=== PATIENT | male | born 1955 | race Caucasian/White ===

== ENCOUNTER → 2017-11-02 | Outpatient (CLI) | payer OTHER ==
[~2017-11-02] MED LIST: ALBINS/ INH; ALBU18002 INH; ASPI81TA28 PO; BUPR-269 PO; CLC6 PO; CRG25 PO; EPP3/2 IM; FLUT1INH INH; FRRS300 PO; GABA-1220 PO; HYDR-3124 PO; INSDGIPEN SC; LSX40 PO; METO2.5T PO; NITR0.4S UT; NUTRMIS PO; OXGN; OXYC-90 PO; PANC1CAP PO; POLY335019 PO; PRLSR20 PO; SENN8.6T7 PO; SUCR1TAB29 PO
--- NOTE | 2017-11-02 09:27 | DIAGNOSTIC IMAGING REPORT ---
CHEST 2 VIEWS ROUTINE HISTORY: 62 years-old Male I10 Hypertension acutely elevated blood pressure COMPARISON: Chest radiograph 10/21/2017 TECHNIQUE: PA and lateral views of the chest FINDINGS: Cardiac silhouette is mildly enlarged. Left internal jugular Kyduzm-h-Moir catheter appears unchanged. Small loculated left pleural effusion with stable left basilar opacities. No pneumothorax or overt pulmonary edema. Mild pulmonary vascular congestion. Degenerative changes of the shoulders and spine. IMPRESSION: 1. Persistent small loculated left pleural effusion with left basilar opacities. 2. Cardiomegaly with pulmonary vascular congestion. The above report was generated using voice recognition software. It may contain grammatical, syntax or spelling errors. Electronically signed by: Cosme Meza M.D. 11/02/2017 9:25 AM Dictated Date/Time: 11/02/2017 9:24 AM
== END | disposition home or self-care (01) ==
LOC: C.RAD1850 09:06
PROVIDERS: ATTEND Surgery
DX: I10 Essential (primary) hypertension (principal); I51.7 Cardiomegaly; R09.89 Other specified symptoms and signs involving the circulatory and respiratory systems; J90 Pleural effusion, not elsewhere classified; R91.8 Other nonspecific abnormal finding of lung field

== ENCOUNTER → 2017-11-20 | Outpatient (CLI) | payer OTHER ==
--- NOTE | 2017-11-20 13:35 | DIAGNOSTIC IMAGING REPORT ---
PET/CT SKULL-THIGH CLINICAL HISTORY: 62 years-old Male presenting with PANCREATIC CANCER diagnosed October 2016 [id number], partial pancreatectomy and splenectomy 11/22/2016, last chemotherapy in May of this year, prior PET/CT from 11/16/2016 negative for distant metastatic disease. TECHNIQUE: PET/CT was performed from the skull base through the proximal thighs following the intravenous administration of 10.326 mCi of F18-FDG. Blood glucose level 102 mg/dL. The injection was performed at 11:09 AM and imaging began at 12:[address] was performed for attenuation correction purposes and anatomic localization. COMPARISON: No priors available for comparison. CT DOSE (mGy.cm): The estimated cumulative dose is 930.40. FINDINGS: Head and neck: No FDG-avid mass in the visualized portion of the head or neck. No FDG avid or enlarged lymph nodes in the neck. Chest: Normal thyroid and thoracic inlet. Bilateral gynecomastia with minimal associated FDG avidity. FDG avidity along a tract in the lower left chest wall, the site of prior left pleural drain. A second site of similar tracking FDG avidity slightly more superiorly and posteriorly may also represent a site of postprocedural change. Enlarged though minimally FDG avid mediastinal lymphadenopathy most prominently in the right paratracheal region. These lymph nodes have not significant changed from prior. An index node measures 13 mm in the short axis, previously 16 mm (max SUV 2.58). Atherosclerosis of the aorta. Left subclavian Mediport terminates in the SVC. Multichamber enlargement of the heart. Coronary artery calcification. Small pericardial effusion decreased from prior. Small loculated left pleural effusion decreased from prior. Resolution of right pleural effusion. Bandlike consolidation and volume loss in the left lung, which represents significant improved aeration of the left lung since the prior exam. Minimal hazy groundglass opacity at the apices. No focal FDG avid infiltrate. Respiratory motion artifact degrades evaluation of lung parenchyma. Abdomen and pelvis: Normal physiologic distribution of radiotracer in the gastrointestinal and genitourinary tracts. No FDG avid lymphadenopathy or mass lesion. Postsurgical changes of distal pancreatectomy and splenectomy. No FDG avidity in the operative bed. Nonobstructing calculus noted at the lower pole the left kidney. Vague infiltration of the small bowel mesentery may indicate mesenteric panniculitis. Postsurgical changes of the left lower quadrant abdominal wall may indicate postsurgical change. Musculoskeletal: Degenerative changes of the spine. Mild FDG avidity in the T10 vertebral body likely degenerative in etiology. Similarly, degenerative related FDG avidity at the left glenohumeral joint, at the greater trochanters of the femurs, and right superior acetabulum. No FDG avid or destructive osseous lesion. IMPRESSION: 1. PET/CT demonstrates no evidence of residual or recurrent FDG avid disease in the distal pancreatectomy bed or evidence of metastatic disease in the visualized body. 2. Mediastinal lymphadenopathy with FDG avidity equivalent to background. These are not overwhelmingly convincing for metastatic disease and are not significantly changed from prior. 3. Post surgical changes of distal pancreatectomy and splenectomy. 4. Tracts of FDG avidity along the inferior left chest wall likely relate to prior interventions and/or pleural drains. Attention on follow-up. 5. Significant decrease in loculated left pleural effusion as well as decreased pericardial and right pleural effusions. 6. Significantly improved aeration of the left lung. Respiratory motion artifact degrades evaluation of lung parenchyma. Electronically signed by: Ralph Croft M.D. 11/20/2017 1:34 PM Dictated Date/Time: 11/20/2017 12:58 PM
== END | disposition home or self-care (01) ==
LOC: C.PET 10:50
PROVIDERS: ATTEND Family Medicine
DX: C25.9 Malignant neoplasm of pancreas, unspecified (principal)

== ENCOUNTER 2018-11-18 17:42 | Inpatient (IN) ==
[2018-11-18] MEDS ORDERED: ALBUT/IPRATROP 3MG/0.5MG NEB 3 ML VIAL INH STA (17:57)
--- NOTE | 2018-11-18 18:22 | XRay Report ---
XR chest 1V portable CLINICAL HISTORY: 63 years-old Male presenting with Dyspnea. TECHNIQUE: Portable upright AP view of the chest was obtained. COMPARISON: 09/01/2018. FINDINGS: Left subclavian Mediport, which terminates in the upper SVC. Atherosclerosis of the aortic arch. Card iac silhouette moderately enlarged. Mild pulmonary vascular prominence. Slight interval increase in b ibasilar opacities with greater obscuration of the left hemidiaphragm. Underlying small left pleural effusion may be present. No pneumothorax. Degenerative changes of the left shoulder. IMPRESSION: 1. Bibasilar opacities, likely passive atelectasis in the setting of effusions, or less likely, aspi ration. 2. Left pleural effusion. Layering right pleural effusion not excluded. 3. Cardiomegaly. Electronically signed by: Ralph Croft M.D. 11/18/2018 6:21 PM
[2018-11-18 18:50] LABS: Base Excess VBG 0.5 mEq/L; Oxygen Saturation VBG 85.2 %; pH VBG 7.38 (7.36-7.41)
[2018-11-18 19:24] LABS: Partial Thromboplastin Ratio 1.1; Partial Thromboplastin Time 29.5 Seconds (21.0-31.0); Prothrombin Time 10.7 Seconds (9.0-12.0)
[2018-11-18 19:28] LABS: D Dimer 630 ug/L FEU (0-500)
[2018-11-18 19:31] LABS: Albumin Level 2.9 gm/dl (3.4-5.0); BUN Creatinine Ratio 16.7 (10-20); Calcium 8.4 mg/dl (8.5-10.1); Creatinine Clr Calc Pharmacy 63.3 ml/min; Est GFR (African American) 67.5; Est GFR (Non-African American) 58.2; Magnesium 2.3 mg/dl (1.8-2.4); Potassium 3.9 mmol/L (3.5-5.1)
[2018-11-18 19:36] LABS: Albumin Globulin Ratio 0.7 (0.9-2); Bilirubin,Total 0.5 mg/dl (0.2-1); Globulin 4.3 gm/dl (2.5-4.0); Total Protein 7.2 gm/dl (6.4-8.2)
[2018-11-18] MEDS ORDERED: ALBUT/IPRATROP 3MG/0.5MG NEB 3 ML VIAL NEB STA (19:39)
[2018-11-18 19:41] LABS: Basophils # (auto) 0.04 K/uL (0-0.2); Basophils % (auto) 0.3 %; Eosinophils # (auto) 0.19 K/uL (0-0.5); Eosinophils % (auto) 1.2 %; Hemoglobin 13.4 g/dL (14.0-18.0); Immature Granulocytes # (auto) 0.03 K/uL (0.00-0.02); Immature Granulocytes % (auto) 0.2 %; Lymphocytes # (auto) 1.41 K/uL (1.2-3.4); Mean Corpuscular Hgb Conc 34.4 g/dL (32-36); Mean Corpuscular Volume 88.6 fL (80-100); Mean Platelet Volume 10.5 fL (7.4-10.4); Monocytes # (auto) 1.32 K/uL (0.11-0.59); Monocytes % (auto) 8.4 %; Neutrophils # (auto) 12.64 K/uL (1.4-6.5); Neutrophils % (auto) 80.9 %; Platelet Count 418 K/uL (130-400); RDW Coefficient of Variation 15.4 % (11.5-14.5); White Blood Count 15.63 K/uL (4.8-10.8)
[2018-11-18] MEDS ORDERED: IOVERSOL 100ml IV PRN (19:55)
--- NOTE | 2018-11-18 20:08 | CT Scan Report ---
CT head/brain wo con CLINICAL HISTORY: 63 years-old Male presenting with OLEARY, hit head. TECHNIQUE: Multidetector CT imaging of the head was performed without the use of intravenous contrast . IV contrast: None. One or more dose lowering techniques were used consistent with the principles of ALARA (as low as reasonably achievable), including automatic exposure control, mA or kV adjustment t o individual patient size, and/or use of iterative reconstruction. COMPARISON: 09/23/2017. CT DOSE (mGy.cm): The estimated cumulative dose is 3213.16. FINDINGS: Division Service Manager topogram: The patient is edentulous. Ventricles and sulci normal in size. No hemorrhage. Brain parenchyma normal in appearance with preser marguerite perez-white differentiation. No acute territorial infarct. No mass effect or midline shift. No ext ra-axial fluid collection. Paranasal sinuses and mastoid air cells clear. Calvarium intact. IMPRESSION: 1. No acute intracranial abnormality. Electronically signed by: Ralph Croft M.D. 11/18/2018 8:06 PM
--- NOTE | 2018-11-18 20:12 | CT Scan Report ---
CT cervical spine wo con CLINICAL HISTORY: 63 years-old Male presenting with neck pain, hit head, left-sided head and neck fransisco n. TECHNIQUE: Multidetector CT of the cervical spine was performed without the use of intravenous contra st. IV contrast: None. One or more dose lowering techniques were used consistent with the principles of ALARA (as low as reasonably achievable), including automatic exposure control, mA or kV adjustment to individual patient size, and/or use of iterative reconstruction. COMPARISON: 02/01/2013. CT DOSE (mGy.cm): The estimated cumulative dose is 3213.16. FINDINGS: Soup Mixer topogram: The patient is edentulous. A left subclavian Mediport. Straightening of normal cervical lordosis likely due to multilevel degenerative changes. Vertebral henry dies maintain normal height and alignment. Mild intervertebral disc height loss noted at nearly every level. Disc osteophyte complexes noted to varying degrees at nearly every level most severe at C4-5 through C6-7. Erosive endplate changes are evident eccentrically on the right at the superior C7 endp late, most likely degenerative in etiology. No acute fracture or subluxation. Visualized portion of t he skull base intact. Right pleural effusion. Paraspinal soft tissues normal. IMPRESSION: 1. No acute osseous injury of the cervical spine. 2. Multilevel degenerative changes. 3. Right pleural effusion. Electronically signed by: Ralph Croft M.D. 11/18/2018 8:10 PM
[2018-11-18] MEDS ORDERED: ASPIRIN CHEW 324 MG PO STA (20:16)
--- NOTE | 2018-11-18 20:23 | CT Scan Report ---
CT angio chest PE protocol CLINICAL HISTORY: 63 years-old Male presenting with shortness of breath and positive d-dimer, left-si ded pain, clinical concern for pulmonary embolus. TECHNIQUE: Multidetector CT angiography of the chest was performed after administration of intravenou s contrast. 3-D volumetric and/or maximum intensity projection (MIP) images were subsequently reconst ructed for review. IV contrast: 94 mL of Optiray 320. One or more dose lowering techniques were used consistent with the principles of ALARA (as low as reasonably achievable), including automatic exposu re control, mA or kV adjustment to individual patient size, and/or use of iterative reconstruction. COMPARISON: 09/01/2018. CT DOSE (mGy.cm): The estimated cumulative dose is 3213.16 mGy.cm. FINDINGS: Global Program Director topogram: The patient is edentulous. Left subclavian Mediport. Pulmonary vasculature: The study is adequate for assessment of the pulmonary vascular tree. No filling defect within the pul monary arteries to suggest embolus. Main pulmonary artery is not enlarged. No flattening of the inter ventricular septum. No intracardiac filling defect. Reflux of contrast into the IVC and hepatic veins . This likely indicates elevated right heart pressure. Remaining chest: Soft tissues: Normal thyroid and thoracic inlet. Gynecomastia. Mediastinal and bilateral hilar lympha denopathy. An index node in the precarinal region measures 16 mm in short axis (series 8 image 178). Atherosclerosis of the aorta. Multichamber enlargement of the heart. Coronary artery calcification. M oderate right and small left pleural effusions. Well-defined hypodense lesion in the liver possibly h epatic cyst. Lungs and airways: Extensive dependent consolidation likely passive atelectasis in the setting of eff usions. Upper lobe predominant cystic change, which may represent emphysema. This has a peripheral pr edilection. Added density of the lungs with groundglass opacity. Patchy infiltrates are mild and diff use and increased from prior. Mild bronchial wall thickening. Central airways patent. Pulmonary arter ies on the mildly enlarged relative to adjacent bronchi. No interlobular septal thickening. No focal infiltrate or nodule. Musculoskeletal: Degenerative changes of the spine. Deformities of left ribs unchanged. IMPRESSION: 1. No evidence of pulmonary embolus. 2. Mild diffuse added density of the lungs with trace patchy groundglass opacity, which is increased from prior. This may represent a low level inflammatory pneumonitis, which can have numerous etiolog ies including drug reaction. Infection is considered less likely though possibilities include atypica l infection such as pneumocystis jirovecii. 3. Possible underlying emphysema or cystic change at the apices similar to prior. 4. Moderate right and small left pleural effusions are new from prior. 5. Mediastinal and hilar lymphadenopathy. This may be reactive in the setting of infection or inflam mation, however, this should be followed to resolution as an underlying lymphoproliferative disease o r metastases are not excluded. 6. Elevated right heart pressure. Electronically signed by: Ralph Croft M.D. 11/18/2018 8:22 PM
[2018-11-18] MEDS ORDERED: LEVOFLOXACIN/D5W 750 MG/150 ML BAG IV STA (20:24)
[2018-11-18] MEDS ORDERED: VANCOMYCIN CONSULT ACTIVE PRN (20:24)
[2018-11-18] MEDS ORDERED: VANCOMYCIN HCL 2,000 MG in SODIUM CHLORIDE 0.9% 500 ML IV ONE (20:24)
[2018-11-18] MEDS ORDERED: FUROSEMIDE 40 MG/4 ML VIAL IV STA (20:24)
--- NOTE | 2018-11-18 20:30 | CT Scan Report ---
CT abd pelvis IV con only CLINICAL HISTORY: 63 years-old Male presenting with left-sided pain, shortness of breath and elevated d-dimer. TECHNIQUE: Multidetector CT of the abdomen and pelvis was performed after the administration of intra venous contrast. IV contrast: 94 mL of Optiray 320. One or more dose lowering techniques were used co nsistent with the principles of ALARA (as low as reasonably achievable), including automatic exposure control, mA or kV adjustment to individual patient size, and/or use of iterative reconstruction. COMPARISON: 09/23/2017 and PET/CT from 11/20/2017. CT DOSE (mGy.cm): The estimated cumulative dose is 3213.16. FINDINGS: Switchman topogram: Left subclavian Mediport. Lung bases: Mild multichamber enlargement of the heart. Bilateral pleural effusions. Extensive depend ent consolidation volume loss likely passive atelectasis. Liver: Normal morphology. Hypoattenuation along the fissure for the ligamentum teres possibly perfusi onal variation or focal fat. Patent hepatic vasculature. Biliary: No intrahepatic or extrahepatic biliary ductal dilatation. Normal gallbladder. Pancreas: Postsurgical changes of distal pancreatectomy. Atrophy of the pancreatic head. Spleen: Surgically absent. Adrenal glands: Normal. Kidneys and ureters: Exophytic cyst in the left kidney. Nonobstructing calculi at the lower pole the right kidney. Nonspecific moderate perinephric fat stranding bilaterally. No hydronephrosis. Ureters nondistended. Bladder: Circumferential bladder wall thickening. Pelvic organs: Prostate and seminal vesicles normal. Bowel: Normal appendix. No bowel obstruction. Antimesenteric wall of nonobstructed small bowel within a defect in the left mid abdomen likely a Frey-type hernia. Peritoneal cavity: Trace fluid in the abdomen. Nonspecific mesenteric fat infiltration, possibly mese nteric panniculitis. No free intraperitoneal gas. Retroperitoneal fluid also evident. This is increas ed from prior. Lymph nodes: Scattered small retroperitoneal lymph nodes in the upper abdomen. Vasculature: Atherosclerosis of the normal caliber abdominal aorta. IVC patent. Abdominal wall: Postsurgical changes of the abdominal wall. A small hernia is noted in the left midab domen possibly a prior trocar site or ostomy site. The antimesenteric wall of an unobstructed loop of small bowel is contained within the hernia (series 10 image 254). Mild body wall edema. Musculoskeletal: Degenerative changes of the spine. IMPRESSION: 1. Trace ascites, retroperitoneal fluid, body wall edema, and new bilateral pleural effusions concer josue for volume overload. 2. Postsurgical changes of distal pancreatectomy and splenectomy. No convincing evidence of metastat ic disease in abdomen or pelvis. 3. Small Frey-type hernia in the left mid abdomen containing an unobstructed loop of small bowel. 4. Nonobstructing right nephrolithiasis. 5. Findings suggest chronic bladder outlet obstruction possibly due to underlying benign prostatic h yperplasia though no gross sternal megaly is evident. Electronically signed by: Ralph Croft M.D. 11/18/2018 8:29 PM
--- NOTE | 2018-11-18 20:48 | Emergency Department Note ---
Entered by Fanny Blue acting as a scribe for Oscar Fraire M.D. History of Present Illness General Chief complaint: Shortness of Breath/Dyspnea Stated complaint: SOB Source: patient History of Present Illness Onset (ago): day(s) 1 Pain Consistency: + constant Maximum Pain Intensity: 10 Current Pain Intensity: 10 Quality: + other (Shortness of breath) Associated symptoms: + cough, + headaches, + nausea/vomiting and + other (abdominal pain) The patient is a 63 year old male with a history of COPD who presents to the Emergency Room with complaints of shortness of breath that began last night. He states that he has a cough, and vomited yesterday after a coughing episode. In addition to this, he complains of intermittent abdominal pain , around the left flank area. The patient denies any diarrhea. He also reports hitting his head on a shelf yesterday, and states that he still has a painful headache from it. The patient has a history of smoking and is still a current smoker, although he has cut back on the amount of cigarettes smoked per day. His states that he is not on any blood thinners, and that he has a nebulizer and inhalers at home to help with his breathing. Home Medications Home Medications Medication Instructions Recorded Confirmed Type albuterol sulfate 2.5 mg INHALATION Q4 PRN 09/01/18 11/18/18 History aspirin [Aspir-81] 81 mg PO DAILY 09/01/18 11/18/18 History atorvastatin 40 mg PO DAILY 09/01/18 11/18/18 History budesonide-formoterol [Symbicort] 2 puff INHALATION BID 09/01/18 11/18/18 History carvedilol 37.5 mg PO BID 09/01/18 11/18/18 History duloxetine [Cymbalta] 60 mg PO DAILY 09/01/18 11/18/18 History fluticasone propionate [Flonase 2 spray INTRANASAL DAILY PRN 09/01/18 11/18/18 History Allergy Relief] insulin glargine [Lantus Solostar 40 unit SUBCUT BID 09/01/18 11/18/18 History U-100 Insulin] insulin lispro [Humalog KwikPen 0 unit SUBCUT TIDM 09/01/18 11/18/18 History Insulin] [id number] [Creon] 1 cap PO WM PRN 09/01/18 11/18/18 History lisinopril [Zestril] 10 mg PO DAILY 09/01/18 11/18/18 History metoclopramide HCl [Reglan] 5 mg PO AC 09/01/18 11/18/18 History metolazone 2.5 mg PO .BID UD 09/01/18 11/18/18 History polyethylene glycol 3350 [Miralax] 17 g PO DAILY PRN 09/01/18 11/18/18 History sennosides-docusate sodium [Senna 1 tab PO BID 09/01/18 11/18/18 History with Docusate Sodium] sucralfate [Carafate] 1 g PO UD 09/01/18 11/18/18 History tiotropium bromide [Spiriva 2 puff INHALATION DAILY 09/01/18 11/18/18 History Respimat] torsemide [Demadex] 40 mg PO AMPM 09/01/18 11/18/18 History Allergies Allergy/AdvReac Type Severity Reaction Status Date / Time bee venom protein (honey bee) Allergy Severe anaphylaxis Verified 11/18/18 19:59 cephalexin Allergy Severe Hives Verified 11/18/18 19:59 lisinopril Allergy Severe Elevated Verified 11/18/18 19:59 Potassium piperacillin Allergy Severe Hives Verified 11/18/18 19:59 amlodipine AdvReac Unknown Headache Verified 11/18/18 19:59 Past Med/Surg History Medical History COPD (chronic obstructive pulmonary disease) (Chronic) GERD (gastroesophageal reflux disease) (Chronic) Glaucoma (Chronic) Osteoarthritis (Chronic) Diabetic polyneuropathy (Chronic) CVA (cerebral vascular accident) (Chronic) Asthma, mild persistent (Chronic) DM type 2 (diabetes mellitus, type 2) (Chronic) Dyslipidemia (Chronic) Depression (Chronic) PTSD (post-traumatic stress disorder) (Chronic) Paroxysmal atrial fibrillation (Chronic) Recurrent left pleural effusion (Chronic) Pancreatic cancer (Chronic) Diastolic CHF (Chronic) CKD (chronic kidney disease), stage III (Chronic) Pericardial effusion (Chronic) Surgical History Hx of cataract surgery (Chronic) S/P tonsillectomy and adenoidectomy (Chronic) Social History Preferred Language: Indonesian marital status: current occupational status: unemployed and disabled Feels Safe at Home: Yes Smoking Status: Former smoker Review of Systems See HPI for pertinent positives & negatives. and A total of 10 systems reviewed and were otherwise negative Physical Exam Vital Signs Vital Signs - 24 hr 11/18/18 17:44 11/18/18 18:00 11/18/18 18:07 Temperature 36.4 C L Temperature Source Oral Sepsis Recent Fever Within 48 Hours No Sepsis Action Taken by Nursing No Action Required Pulse Rate 64 60 Pulse Rate [Apical] Pulse Rate from SpO2 Sensor 60 Pulse Rhythm Regular Pulse Strength Normal Respiratory Rate 20 20 Respiratory Effort / Characteristics Non-Labored Spontaneous Respiratory Depth Normal Respiratory Pattern Regular Blood Pressure 171/78 H 148/89 H Blood Pressure Mean 109 108 Blood Pressure Position Sitting Pulse Oximetry 93 98 98 Oxygen Delivery Method Nasal Cannula Room Air Nasal Cannula Oxygen Flow Rate 5 5 5 11/18/18 18:14 11/18/18 18:30 11/18/18 19:00 Temperature Temperature Source Sepsis Recent Fever Within 48 Hours Sepsis Action Taken by Nursing Pulse Rate 60 68 Pulse Rate [Apical] 60 Pulse Rate from SpO2 Sensor 61 60 Pulse Rhythm Pulse Strength Respiratory Rate 16 23 23 Respiratory Effort / Characteristics Spontaneous Respiratory Depth Respiratory Pattern Blood Pressure 164/77 H 151/75 H Blood Pressure Mean 106 100 Blood Pressure Position Pulse Oximetry 98 99 98 Oxygen Delivery Method Nasal Cannula Room Air Room Air Oxygen Flow Rate 4 11/18/18 20:10 Temperature Temperature Source Sepsis Recent Fever Within 48 Hours Sepsis Action Taken by Nursing Pulse Rate Pulse Rate [Apical] 63 Pulse Rate from SpO2 Sensor Pulse Rhythm Pulse Strength Respiratory Rate 17 Respiratory Effort / Characteristics Non-Labored Spontaneous Respiratory Depth Respiratory Pattern Blood Pressure Blood Pressure Mean Blood Pressure Position Pulse Oximetry 97 Oxygen Delivery Method Nasal Cannula Oxygen Flow Rate 5 GENERAL: Chronically ill appearing. Awake, alert. On nasal cannula oxygen. HENT: Normocephalic. Small abrasion to top of head. EYES: Normal conjunctiva. Sclera non-icteric. NECK: Supple. No nuchal rigidity. RESPIRATORY: Left upper chest wall port. Slight expiratory wheeze with diminished bases. Normal respiratory effort. CARDIAC: Normal rate. Normal rhythm. Extremities warm and well perfused. GI: Mild left upper abdominal tenderness. Soft, non-distended. No rebound or guarding. RECTAL: Deferred. MUSCULOSKELETAL: Atraumatic. Chest examination reveals no tenderness. There is no CVA tenderness to palpation. LOWER EXTREMITIES: Right foot cast in place. NEURO: Normal sensorium. No sensory or motor deficits noted. No facial droop. SKIN: Warm and dry. No jaundice noted. Healed Left chest wall incisions. Course 1746: Past medical records reviewed. The patient was evaluated in room C04. A complete history and physical exam was performed. 2011: I updated the patient on lab and imaging results. 2034: Upon reevaluation, I discussed findings and results with the patient. He verbalized agreement of the treatment plan. I spoke with Dr. Liriano of the [facility]. The patient will be evaluated for further management and care. Administered Medications Ioversol (Optiray 320 100ml) 94 ml IV ONCE PRN PRN Reason: Interaction Checking Stop: 11/22/18 19:54 Last Admin: 11/18/18 19:55 Dose: 94 ml Documented by: [id number] Discontinued Medications Albuterol (Duoneb) 3 ml INH NOW STA Stop: 11/18/18 17:58 Last Admin: 11/18/18 18:11 Dose: 3 ml Documented by: [id number] Albuterol (Duoneb) 3 ml NEB NOW STA Stop: 11/18/18 19:40 Last Admin: 11/18/18 20:09 Dose: 3 ml Documented by: [id number] Aspirin (Aspirin) 324 mg PO NOW STA Stop: 11/18/18 20:17 Last Admin: 11/18/18 20:30 Dose: 324 mg Documented by: [id number] Medical Decision Making Differential Diagnosis Differential diagnosis includes: infections, reactive airway disease, pneumonia, pneumothorax, COPD, CHF, cardiac ischemia, pulmonary embolism, musculoskeletal, gastrointestinal, as well as fracture, dislocation, intra-abdominal, pneumothorax, intrathoracic , intracranial, neurologic, and other traumatic pathologies were entertained. Medical Records Attestation: I reviewed the patient's medical records. Home Medications Current Medication List: was personally reviewed by me Laboratory Data Attestation: I reviewed the patient's lab results. Result diagrams: 11/18/18 18:50 11/18/18 18:50 Lab Results 11/18/18 11/18/18 11/18/18 Range/Units 18:16 18:30 18:30 WBC (4.8-10.8) K/uL RBC (4.7-6.1) M/uL Hgb (14.0-18.0) g/dL Hct (42-52) % MCV (80-100) fL MCH (25-34) pg MCHC (32-36) g/dL RDW Std Deviation (36.4-46.3) fL RDW Coeff of [place] (11.5-14.5) % Plt Count (130-400) K/uL MPV (7.4-10.4) fL Immature Gran % (Auto) % Neut % (Auto) % Lymph % (Auto) % [place] % (Auto) % Eos % (Auto) % Baso % (Auto) % Immature Gran # (Auto) (0.00-0.02) K/uL Neut # (Auto) (1.4-6.5) K/uL Lymph # (Auto) (1.2-3.4) K/uL [place] # (Auto) (0.11-0.59) K/uL Eos # (Auto) (0-0.5) K/uL Baso # (Auto) (0-0.2) K/uL PT (9.0-12.0) Seconds INR (0.9-1.1) APTT (21.0-31.0) Seconds PTT Ratio D-Dimer (0-500) ug/L FEU VBG pH 7.38 (7.36-7.41) VBG pCO2 45 (38-50) mmHg VBG pO2 49 mmHg VBG HCO3 26 mmol/L VBG O2 Saturation 85.2 % VBG Base Excess 0.5 mEq/L Barometric Pressure 732.8 mm/Hg Sodium (136-145) mmol/L Potassium (3.5-5.1) mmol/L Chloride (98-107) mmol/L Carbon Dioxide (21-32) mmol/L Anion Gap (3-11) BUN (7-18) mg/dl Creatinine (0.6-1.4) mg/dl Est Cr Clr Drug Dosing ml/min Est GFR ( Amer) Est GFR (Non-Af Amer) BUN/Creatinine Ratio (10-20) Glucose (70-99) mg/dl POC Glucose 126 H (70-99) Lactate 1.0 (0.4-2.0) mmol/L Calcium (8.5-10.1) mg/dl Magnesium (1.8-2.4) mg/dl Total Bilirubin (0.2-1) mg/dl AST (15-37) U/L ALT (12-78) U/L Alkaline Phosphatase (45-117) U/L Troponin I (0-0.045) ng/ml NT-Pro-B Natriuret Pep (0-900) pg/ml Total Protein (6.4-8.2) gm/dl Albumin (3.4-5.0) gm/dl Globulin (2.5-4.0) gm/dl Albumin/Globulin Ratio (0.9-2) Lipase (73-393) U/L 11/18/18 11/18/18 11/18/18 Range/Units 18:50 18:50 18:50 WBC 15.63 H (4.8-10.8) K/uL RBC 4.40 L (4.7-6.1) M/uL Hgb 13.4 L (14.0-18.0) g/dL Hct 39.0 L (42-52) % MCV 88.6 (80-100) fL MCH 30.5 (25-34) pg MCHC 34.4 (32-36) g/dL RDW Std Deviation 50.0 H (36.4-46.3) fL RDW Coeff of Moren[place] 15.4 H (11.5-14.5) % Plt Count 418 H (130-400) K/uL MPV 10.5 H (7.4-10.4) fL Immature Gran % (Auto) 0.2 % Neut % (Auto) 80.9 % Lymph % (Auto) 9.0 % [place] % (Auto) 8.4 % Eos % (Auto) 1.2 % Baso % (Auto) 0.3 % Immature Gran # (Auto) 0.03 H (0.00-0.02) K/uL Neut # (Auto) 12.64 H (1.4-6.5) K/uL Lymph # (Auto) 1.41 (1.2-3.4) K/uL [place] # (Auto) 1.32 H (0.11-0.59) K/uL Eos # (Auto) 0.19 (0-0.5) K/uL Baso # (Auto) 0.04 (0-0.2) K/uL PT 10.7 (9.0-12.0) Seconds INR 1.0 (0.9-1.1) APTT 29.5 (21.0-31.0) Seconds PTT Ratio 1.1 D-Dimer 630 H* (0-500) ug/L FEU VBG pH (7.36-7.41) VBG pCO2 (38-50) mmHg VBG pO2 mmHg VBG HCO3 mmol/L VBG O2 Saturation % VBG Base Excess mEq/L Barometric Pressure mm/Hg Sodium 141 (136-145) mmol/L Potassium 3.9 (3.5-5.1) mmol/L Chloride 106 (98-107) mmol/L Carbon Dioxide 27 (21-32) mmol/L Anion Gap 8.0 (3-11) BUN 22 H (7-18) mg/dl Creatinine 1.29 (0.6-1.4) mg/dl Est Cr Clr Drug Dosing 63.3 ml/min Est GFR ( Amer) 67.5 Est GFR (Non-Af Amer) 58.2 BUN/Creatinine Ratio 16.7 (10-20) Glucose 122 H (70-99) mg/dl POC Glucose (70-99) Lactate (0.4-2.0) mmol/L Calcium 8.4 L (8.5-10.1) mg/dl Magnesium 2.3 (1.8-2.4) mg/dl Total Bilirubin 0.5 (0.2-1) mg/dl AST 9 L (15-37) U/L ALT 13 (12-78) U/L Alkaline Phosphatase 163 H (45-117) U/L Troponin I (0-0.045) ng/ml NT-Pro-B Natriuret Pep 6771 H (0-900) pg/ml Total Protein 7.2 (6.4-8.2) gm/dl Albumin 2.9 L (3.4-5.0) gm/dl Globulin 4.3 H (2.5-4.0) gm/dl Albumin/Globulin Ratio 0.7 L (0.9-2) Lipase (73-393) U/L 11/18/18 11/18/18 Range/Units 18:50 18:50 WBC (4.8-10.8) K/uL RBC (4.7-6.1) M/uL Hgb (14.0-18.0) g/dL Hct (42-52) % MCV (80-100) fL MCH (25-34) pg MCHC (32-36) g/dL RDW Std Deviation (36.4-46.3) fL RDW Coeff of [place] (11.5-14.5) % Plt Count (130-400) K/uL MPV (7.4-10.4) fL Immature Gran % (Auto) % Neut % (Auto) % Lymph % (Auto) % [place] % (Auto) % Eos % (Auto) % Baso % (Auto) % Immature Gran # (Auto) (0.00-0.02) K/uL Neut # (Auto) (1.4-6.5) K/uL Lymph # (Auto) (1.2-3.4) K/uL [place] # (Auto) (0.11-0.59) K/uL Eos # (Auto) (0-0.5) K/uL Baso # (Auto) (0-0.2) K/uL PT (9.0-12.0) Seconds INR (0.9-1.1) APTT (21.0-31.0) Seconds PTT Ratio D-Dimer (0-500) ug/L FEU VBG pH (7.36-7.41) VBG pCO2 (38-50) mmHg VBG pO2 mmHg VBG HCO3 mmol/L VBG O2 Saturation % VBG Base Excess mEq/L Barometric Pressure mm/Hg Sodium (136-145) mmol/L Potassium (3.5-5.1) mmol/L Chloride (98-107) mmol/L Carbon Dioxide (21-32) mmol/L Anion Gap (3-11) BUN (7-18) mg/dl Creatinine (0.6-1.4) mg/dl Est Cr Clr Drug Dosing ml/min Est GFR ( Amer) Est GFR (Non-Af Amer) BUN/Creatinine Ratio (10-20) Glucose (70-99) mg/dl POC Glucose (70-99) Lactate (0.4-2.0) mmol/L Calcium (8.5-10.1) mg/dl Magnesium (1.8-2.4) mg/dl Total Bilirubin (0.2-1) mg/dl AST (15-37) U/L ALT (12-78) U/L Alkaline Phosphatase (45-117) U/L Troponin I 0.062 H* (0-0.045) ng/ml NT-Pro-B Natriuret Pep (0-900) pg/ml Total Protein (6.4-8.2) gm/dl Albumin (3.4-5.0) gm/dl Globulin (2.5-4.0) gm/dl Albumin/Globulin Ratio (0.9-2) Lipase 66 L (73-393) U/L Imaging Data Radiologist's Impression: Radiology results as stated below per my review and the radiologist's interpretation: XR chest 1V portable CLINICAL HISTORY: 63 years-old Male presenting with Dyspnea. TECHNIQUE: Portable upright AP view of the chest was obtained. COMPARISON: 09/01/2018. FINDINGS: Left subclavian Mediport, which terminates in the upper SVC. Atherosclerosis of the aortic arch. Cardiac silhouette moderately enlarged. Mild pulmonary vascular prominence. Slight interval increase in bibasilar opacities with greater obscuration of the left hemidiaphragm. Underlying small left pleural effusion may be present. No pneumothorax. Degenerative changes of the left shoulder. IMPRESSION: 1. Bibasilar opacities, likely passive atelectasis in the setting of effusions, or less likely, aspiration. 2. Left pleural effusion. Layering right pleural effusion not excluded. 3. Cardiomegaly. Electronically signed by: Ralph Croft M.D. 11/18/2018 6:[address] head/brain wo con CLINICAL HISTORY: 63 years-old Male presenting with OLEARY, hit head. TECHNIQUE: Multidetector CT imaging of the head was performed without the use of intravenous contrast. IV contrast: None. One or more dose lowering techniques were used consistent with the principles of ALARA (as low as reasonably achievable), including automatic exposure control, mA or kV adjustment to individual patient size, and/or use of iterative reconstruction. COMPARISON: 09/23/2017. CT DOSE (mGy.cm): The estimated cumulative dose is 3213.16. FINDINGS: [employer] topogram: The patient is edentulous. Ventricles and sulci normal in size. No hemorrhage. Brain parenchyma normal in appearance with preserved perez-white differentiation. No acute territorial inf arct. No mass effect or midline shift. No extra-axial fluid collection. Paranasal sinuses and mastoid air cells clear. Calvarium intact. IMPRESSION: 1. No acute intracranial abnormality. Electronically signed by: Ralph Croft M.D. 11/18/2018 8:[address] cervical spine wo con CLINICAL HISTORY: 63 years-old Male presenting with neck pain, hit head, left- sided head and neck pain. TECHNIQUE: Multidetector CT of the cervical spine was performed without the use of intravenous contrast. IV contrast: None. One or more dose lowering techniques were used consistent with the principles of ALARA (as low as reasonably achievable), including automatic exposure control, mA or kV adjustment to individual patient size, and/or use of iterative reconstruction. COMPARISON: 02/01/2013. CT DOSE (mGy.cm): The estimated cumulative dose is 3213.16. FINDINGS: [employer] Engineer topogram: The patient is edentulous. A left subclavian Mediport. Straightening of normal cervical lordosis likely due to multilevel degenerative changes. Vertebral bodies maintain normal height and alignment. Mild intervertebral disc height loss noted at nearly every level. Disc osteophyte complexes noted to varying degrees at nearly every level most severe at C4-5 through C6-7. Erosive endplate changes are evident eccentrically on the right at the superior C7 endplate, most likely degenerative in etiology. No acute fracture or subluxation. Visualized portion of the skull base intact. Right pleural effusion. Paraspinal soft tissues normal. IMPRESSION: 1. No acute osseous injury of the cervical spine. 2. Multilevel degenerative changes. 3. Right pleural effusion. Electronically signed by: Ralph Croft M.D. 11/18/2018 8:[address] angio chest PE protocol CLINICAL HISTORY: 63 years-old Male presenting with shortness of breath and positive d-dimer, left-sided pain, clinical concern for pulmonary embolus. TECHNIQUE: Multidetector CT angiography of the chest was performed after administration of intravenous contrast. 3-D volumetric and/or maximum intensity projection (MIP) images were subsequently reconstructed for review. IV contrast: 94 mL of Optiray 320. One or more dose lowering techniques were used consistent with the principles of ALARA (as low as reasonably achievable), including automatic exposure control, mA or kV adjustment to individual patient size, and/or use of iterative reconstruction. COMPARISON: 09/01/2018. CT DOSE (mGy.cm): The estimated cumulative dose is 3213.16 mGy.cm. FINDINGS: [employer] Engineer topogram: The patient is edentulous. Left subclavian Mediport. Pulmonary vasculature: The study is adequate for assessment of the pulmonary vascular tree. No filling defect within the pulmonary arteries to suggest embolus. Main pulmonary artery is not enlarged. No flattening of the interventricular septum. No intracardiac filling defect. Reflux of contrast into the IVC and hepatic veins. This likely indicates elevated right heart pressure. Remaining chest: Soft tissues: Normal thyroid and thoracic inlet. Gynecomastia. Mediastinal and bilateral hilar lymphadenopathy. An index node in the precarinal region measures 16 mm in short axis (series 8 image 178). Atherosclerosis of the aorta. Multichamber enlargement of the heart. Coronary artery calcification. Moderate right and small left pleural effusions. Well-defined hypodense lesion in the liver possibly hepatic cyst. Lungs and airways: Extensive dependent consolidation likely passive atelectasis in the setting of effusions. Upper lobe predominant cystic change, which may represent emphysema. This has a peripheral predilection. Added density of the lungs with groundglass opacity. Patchy infiltrates are mild and diffuse and increased from prior. Mild bronchial wall thickening. Central airways patent. Pulmonary arteries on the mildly enlarged relative to adjacent bronchi. No interlobular septal thickening. No focal infiltrate or nodule. Musculoskeletal: Degenerative changes of the spine. Deformities of left ribs unchanged. IMPRESSION: 1. No evidence of pulmonary embolus. 2. Mild diffuse added density of the lungs with trace patchy groundglass opacity, which is increased from prior. This may represent a low level inflammatory pneumonitis, which can have numerous etiologies including drug reaction. Infection is considered less likely though possibilities include atypical infection such as pneumocystis jirovecii. 3. Possible underlying emphysema or cystic change at the apices similar to prior. 4. Moderate right and small left pleural effusions are new from prior. 5. Mediastinal and hilar lymphadenopathy. This may be reactive in the setting of infection or inflammation, however, this should be followed to resolution as an underlying lymphoproliferative disease or metastases are not excluded. 6. Elevated right heart pressure. Electronically signed by: Ralph Croft M.D. 11/18/2018 8:[address] abd pelvis IV con only CLINICAL HISTORY: 63 years-old Male presenting with left-sided pain, shortness of breath and elevated d-dimer. TECHNIQUE: Multidetector CT of the abdomen and pelvis was performed after the administration of intravenous contrast. IV contrast: 94 mL of Optiray 320. One or more dose lowering techniques were used consistent with the principles of ALARA (as low as reasonably achievable), including automatic exposure control, mA or kV adjustment to individual patient size, and/or use of iterative reconstruction. COMPARISON: 09/23/2017 and PET/CT from 11/20/2017. CT DOSE (mGy.cm): The estimated cumulative dose is 3213.16. FINDINGS: [employer] Engineer topogram: Left subclavian Mediport. Lung bases: Mild multichamber enlargement of the heart. Bilateral pleural effusions. Extensive dependent consolidation volume loss likely passive atelectasis. Liver: Normal morphology. Hypoattenuation along the fissure for the ligamentum teres possibly perfusional variation or focal fat. Patent hepatic vasculature. Biliary: No intrahepatic or extrahepatic biliary ductal dilatation. Normal gallbladder. Pancreas: Postsurgical changes of distal pancreatectomy. Atrophy of the pancreatic head. Spleen: Surgically absent. Adrenal glands: Normal. Kidneys and ureters: Exophytic cyst in the left kidney. Nonobstructing calculi at the lower pole the right kidney. Nonspecific moderate perinephric fat stranding bilaterally. No hydronephrosis. Ureters nondistended. Bladder: Circumferential bladder wall thickening. Pelvic organs: Prostate and seminal vesicles normal. Bowel: Normal appendix. No bowel obstruction. Antimesenteric wall of nonobstructed small bowel within a defect in the left mid abdomen likely a Frey-type hernia. Peritoneal cavity: Trace fluid in the abdomen. Nonspecific mesenteric fat infiltration, possibly mesenteric panniculitis. No free intraperitoneal gas. Retroperitoneal fluid also evident. This is increased from prior. Lymph nodes: Scattered small retroperitoneal lymph nodes in the upper abdomen. Vasculature: Atherosclerosis of the normal caliber abdominal aorta. IVC patent. Abdominal wall: Postsurgical changes of the abdominal wall. A small hernia is noted in the left midabdomen possibly a prior trocar site or ostomy site. The antimesenteric wall of an unobstructed loop of small bowel is contained within the hernia (series 10 image 254). Mild body wall edema. Musculoskeletal: Degenerative changes of the spine. IMPRESSION: 1. Trace ascites, retroperitoneal fluid, body wall edema, and new bilateral pleural effusions concerning for volume overload. 2. Postsurgical changes of distal pancreatectomy and splenectomy. No convincing evidence of metastatic disease in abdomen or pelvis. 3. Small Frey-type hernia in the left mid abdomen containing an unobstructed loop of small bowel. 4. Nonobstructing right nephrolithiasis. 5. Findings suggest chronic bladder outlet obstruction possibly due to underlyi ng benign prostatic hyperplasia though no gross sternal megaly is evident. Electronically signed by: Ralph Croft M.D. 11/18/2018 8:29 PM ECG Data Attestation: I personally reviewed and interpreted this ECG as follows: Indication: SOB/dyspnea Rate (beats per minute): 60 Rhythm: normal sinus Findings: + other (Some respiratory artifact. Normal axis. ); no PVC and no ST elevation Blood Pressure Blood Pressure Findings: Elevated blood pressure Blood Pressure Disposition: further management by hospitalist Head Trauma GCS Score: 15 MDM Narrative Patient is a 63-year-old gentleman with a past medical history including CHF, respiratory failure/restrictive lung disease/asthma on chronic oxygen, diabetes, pancreatic cancer, CVA, paroxysmal atrial fibrillation presenting today with several different complaints. Evidently worsening breathing requiring some slight increase in his oxygen at home. Denies significant chest pain but endorsing some left lower abdominal pain is been present all week. Belching. Denies diarrhea. Denies trauma to the abdomen or chest but does endorse yesterday he stood up and hit the back of his head on a metal shelf small scrape noted to the top of the head not requiring closure. No evidence of infection here. Since that time he had a headache and felt somewhat nauseous and vomited once. No other new focal neurological deficits although his significant other states that he seems more irritable and not quite himself. Patient states that his breathing has gotten worse enough that he stop smoking today. Not currently anticoagulated. Broad differential was entertained. Multiple images were obtained. EKG as well as troponin was completed. Not hypercarbic. No significant hyperglycemia here. D-dimer sent and was positive and with his complaints a CT of the chest was completed. CT of the head cervical spine and abdomen pelvis was also completed. No evidence of acute intracranial injury notable here. No cervical fracture noted. Any function appears relatively good today. No evidence of acute hepatitis or pancreatitis. proBNP is elevated with the effusions concern he may have some element of fluid overload. Given a dose of Lasix here. Received several DuoNeb's. CT abdomen pelvis without significant pathology. CT the the chest shows no evidence of pulmonary embolism. Does appear to be both right and left pleural effusions with some possible consolidative areas at the bases of both lungs possible pneumonitis versus infection. With leukocytosis and his complaints to give the patient a dose of Levaquin based on his prior beta-lactam allergies for coverage of possible respiratory osorio. Given history of MRSA empyema and these new fluid collections today given a dose of vancomycin. Lactate not significantly elevated and I have lower suspicion this represents a sepsis picture. Slight troponin is noted postulated this could be related to demand ischemia/fluid overload state. No acute EKG changes. Given a dose of full dose aspirin. Did have improvement of symptoms but believe further patient management given the patient and his comorbidities would be in his best interest. Discussed with the [facility] hospitalist. Impression & Plan Pneumonia, Pleural effusion, Fluid overload, Non-ST elevation MN (NSTEMI) : Pneumonia Qualifiers: Pneumonia type: due to unspecified organism Laterality: bilateral Lung location: lower lobe of lung Qualified Code(s): J18.1 - Lobar pneumonia, unspecified organism Fluid overload Qualifiers: Hypervolemia type: unspecified Qualified Code(s): E87.70 - Fluid overload, unspecified The scribe's documentation has been prepared under my direction and personally reviewed by me in its entirety. I confirm that the note above accurately reflects all work, treatment, procedures, and medical decision making performed by me.
--- NOTE | 2018-11-18 23:49 | History and Physical Report ---
DATE OF ADMISSION: 11/18/2018 CHIEF COMPLAINT: Shortness of breath, not feeling well. HISTORY OF PRESENT ILLNESS: This is a 63-year-old male with past medical history significant for pancreatic cancer status post surgery 2 years ago, supposed to get PET scan tomorrow, history of diabetic polyneuropathy, type 2 diabetes, hyperlipidemia, chronic respiratory failure on 4 liters of oxygen, restrictive airway disease and asthma, history of CVA, history of paroxysmal atrial fibrillation, no longer on anticoagulation, chronic kidney disease stage III, CAD, history of pericardial effusion, history of reflux esophagitis, generalized osteoarthritis, glaucoma, depression, history of tobacco abuse, history of PTSD, who presents with shortness of breath, some abdominal discomfort, belching, and also foul smelling in the right foot wound. The patient received a dose of Lasix in the ER. He also hit his head yesterday while getting up, to his shelf. Had some pain in his head, but that is resolved now. No blurred visions, no earache, no runny nose, no sore throat, no difficulty swallowing. Appetite is not that great. Denies any chest pain. Has some cough. Mild abdominal discomfort. No diarrhea, no constipation, no blood in the stools. No burning micturition, no hematuria. Ambulates with a cane. Lives with his . Currently resting comfortably and hemodynamically stable. ALLERGIES: BEE VENOM, AMLODIPINE, CEPHALOSPORIN, LISINOPRIL, PENICILLIN. PAST MEDICAL HISTORY: As mentioned above. PAST SURGICAL HISTORY: Cataract surgery, tonsillectomy, adenoidectomy. MEDICATIONS: The patient is on Creon 1 capsule 4 times a day as needed, Lantus 40 units b.i.d., Reglan 5 mg a.c., lisinopril 10 mg p.o. daily, Cymbalta 60 mg p.o. daily, Demadex 40 mg b.i.d., Symbicort two puffs b.i.d., Spiriva 2 puffs daily, Flonase 2 sprays daily, metolazone 2.5 mg on Mondays and Fridays, Carafate 1 gram p.o. q.i.d., Lipitor 40 mg p.o. daily, Coreg 37.5 mg p.o. b.i.d., Humalog sliding scale, Senokot S 2 tablets at bedtime, albuterol nebulization every 4 hours p.r.n., MiraLax 17 grams p.o. daily p.r.n., aspirin 81 mg p.o. daily, oxygen 4 liters continuous, oxycodone 5 mg p.o. q. 4 hours p.r.n., Prilosec 20 mg p.o. b.i.d., Wellbutrin SR 200 mg p.o. daily, albuterol 2 puffs every 4 hours p.r.n. FAMILY HISTORY: Significant for mother had breast cancer, diabetes, and heart disorder. Father has heart disorder. SOCIAL HISTORY: , lives with . Smoking 2-3 cigarettes daily. No alcohol use, used to drink heavily in the past. No drug use. REVIEW OF SYMPTOMS: As per HPI. Rest of the review of systems negative. PHYSICAL EXAMINATION: GENERAL: The patient is obese, not in acute distress. VITAL SIGNS: Temperature 36.4, pulse 60, respiratory rate 18, blood pressure 194/87, oxygen 98% on 5 liters. HEENT: No pallor, no icterus. Pupils equal, round, reactive to light. NECK: No JVD, no neck masses, no carotid bruits. CARDIOVASCULAR: S1, S2 heard, regular rate and rhythm, no murmur, no gallop. RESPIRATORY SYSTEM: Normal AP diameter. No accessory muscle use. Bilateral wheezing heard. Bibasilar crackles. ABDOMEN: Soft, bowel sounds present, nontender. No distention. CENTRAL NERVOUS SYSTEM: Cranial nerves II-XII grossly intact, nonfocal. EXTREMITIES: Lower extremity, mild pedal edema present. Right foot on the plantar aspect a big callus seen which was foul smelling and fluctuant. LABORATORY DATA: WBC 15, hemoglobin 13.4, hematocrit 39, platelets 418. PT 10.7, INR 1, APTT 29.5. D-dimer 630. Sodium 141, potassium 3.9, chloride 106, bicarbonate 27, BUN 22, creatinine 1.2, serum glucose 122, lactate 1, calcium 8.4, magnesium 2.3, total bilirubin 0.5, AST 9, ALT 13, alkaline phosphatase 163, troponin I of 0.06. BNP 6700, lipase 66. IMAGING DATA: CTA of the chest, no evidence of pulmonary embolus, mild diffuse density of lungs with trace patchy ground-glass opacity which is increased from prior, this may represent a low-level inflammatory pneumonitis which again has numerous etiologies including drug reaction, infection is considered less likely though possibilities include atypical infection such as pneumocystis jiroveci, possible underlying emphysema, moderate right and small left pleural effusions, mediastinal and hilar lymphadenopathy, elevated right heart pressure. Cervical spine CT, no acute osseous injury of the cervical spine, multilevel degenerative changes, right pleural effusion. CT of the head, no acute intracranial abnormality. CT of the abdomen and pelvis, trace ascites, retroperitoneal fluid ,body wall edema, new bilateral pleural effusion concerning for volume overload. No evidence of metastatic disease in the abdomen and pelvis. Hernia in the left mid abdomen containing unobstructed loops of small bowel, nonobstructing right nephrolithiasis, chronic bladder outlet obstruction possibly due to underlying BPH. Chest x-ray, bibasilar opacities, left pleural effusion. EKG: Normal sinus rhythm, rate of 60, no significant change from previous EKG. ASSESSMENT AND PLAN: A 63-year-old male who presents with shortness of breath and also ongoing infection of the right foot. 1. Shortness of breath, most likely [id number] diastolic congestive heart failure, possible [id number] asthma, Received a dose of IV Lasix in the ER. Will continue with IV Lasix 40 b.i.d., nebs around the clock, home inhalers, short course of steroids. Will consult pulmonary for the CAT scan findings for their opinion ( hx of empyema) and also consult cardiology for optimization of his medications. 2. Mild elevation of troponin. History of pericardial effusion in the past. We will get serial enzymes and follow echocardiogram. 3. Pleural effusions. Management as above. Pulmonary consulted. 4. Right foot infection on the plantar aspect, callus . Had the wound cast, that is removed. It is foul smelling fluctuant callus. Antibiotics IV vancomycin and Zosyn. Consult surgery for possible I and D and wound care consult. 5. Diabetes. We will cut back on Lantus to 20 units b.i.d. as the patient is currently n.p.o. and insulin sliding scale. Follow hemoglobin A1c levels. Follow blood sugars. Will consult pharmacy for glycemic management. 6. History of pancreatic cancer status post surgery 2 years ago, supposed to get PET scan tomorrow. Needs followup with hematology/oncology. 7. History of chronic hypoxic respiratory failure, history of restrictive lung disease on 4 liters oxygen all the time, which he will continue. Supposed to get a sleep study . Needs followup.. 8. History of coronary artery disease, on aspirin,coreg and statin. 9. History of thrombocytosis status post splenectomy. 10. History of chronic kidney disease stage III, baseline creatinine of 1.5. We will follow the labs. 11. History of hypertension. Continue home medication of Coreg, lisinopril, and diuretics. Will monitor blood pressure. 12. Hyperlipidemia. Continue statin. 13. Depression. Continue Cymbalta. 14. Deep venous thrombosis prophylaxis. Sequential compression devices for now. 15. Disposition: Admit to med/surg tele. Level 1 full code. PT and OT per discharge. Social Service to help with discharge planning. MTDD
[2018-11-19] MEDS ORDERED: VANCOMYCIN CONSULT ACTIVE PRN (00:59)
[2018-11-19] MEDS ORDERED: NITROGLYCERIN SL 0.4 MG/TAB TAB SL PRN (00:59)
[2018-11-19] MEDS ORDERED: POLYETHYLENE (MIRALAX) 17 GM PACK PO PRN (00:59)
[2018-11-19] MEDS ORDERED: OXYCODONE HCL IR 5 MG TAB (IMMEDIATE RELEASE) PO PRN (00:59)
[2018-11-19] MEDS ORDERED: GLUCOSE 10 TABS/TUBE PO PRN (00:59)
[2018-11-19] MEDS ORDERED: ALBUTEROL 0.083% NEBU SOLN 3 ML VIAL INH PRN (00:59)
[2018-11-19] MEDS ORDERED: ONDANSETRON INJ 2 MG/ML 2 ML VIAL IV PRN (00:59)
[2018-11-19] MEDS ORDERED: SUCRALFATE 1 GM TAB PO PRN (00:59)
[2018-11-19] MEDS ORDERED: ACETAMINOPHEN 325 MG TAB PO PRN (00:59)
[2018-11-19] MEDS ORDERED: FLUTICASONE PROPIONATE NA SPR 16 GM BTL PRN (00:59)
[2018-11-19] MEDS ORDERED: ERTAPENEM CONSULT ACTIVE PRN (01:10)
[2018-11-19 01:42] LABS: Appearance Urine Clear (Clear); Bacteria Urine Automated Negative (Negative); Bilirubin Urine Negative (Negative); Blood Urine Trace (Negative); Color Urine Yellow; Glucose Urine UA 1+ (Negative); Ketones Urine Negative (Negative); Leukocyte Esterase Urine Negative (Negative); Nitrite Urine Negative (Negative); Protein Urine 3+ (Negative); RBC Urine Automated 0-4 /hpf (0-4); Specific Gravity Urine 1.021 (1.000-1.030); Urobilinogen Urine Negative (Negative)
[2018-11-19] MEDS ORDERED: PHARMACY GLYCEMIC MGMT CONSULT PRN (01:44)
[2018-11-19] MEDS ORDERED: methylPREDNISolone 20 MG in SYRINGE 0 ML IV ONE (01:45)
[2018-11-19] MEDS ORDERED: HydrALAZINE HCL 20 MG/ML VIAL IV STA (01:46)
[2018-11-19 01:55] LABS: Sperm Urine Present (None Prsent)
[2018-11-19 01:56] LABS: Mucus Urine Present (None Prsent)
[2018-11-19] MEDS: IPRATROPIUM BROMIDE NEB SOLN 0.02% 2.5 ML VIAL INH SCH ×4 (01:59→19:22)
[2018-11-19] MEDS ORDERED: XOPENEX/ATROVENT 1.25mg/0.5MG NEB COMBO NEB SCH (02:00)
[2018-11-19] MEDS ORDERED: DEXTROSE 50% 50 ML SYRINGE IV PRN (02:00)
[2018-11-19] MEDS ORDERED: GLUCAGON FOR INJ 1 MG VIAL SQ PRN (02:00)
[2018-11-19] MEDS: LEVALBUTEROL 1.25MG/0.5ML NEB INH SCH ×4 (02:00→19:23)
[2018-11-19] MEDS ORDERED: GLUCOSE 40% GEL 15 GM TUBE PO PRN (02:00)
--- NOTE | 2018-11-19 02:14 | Pharmacy Report ---
Pharmacy Abx Dose Short Note - Date of Service November 19, 2018 - Assessment & Plan Laboratory Tests 11/18/18 11/18/18 18:50 18:50 WBC 15.63 H Creatinine 1.29 Est Cr Clr Drug Dosing 63.3 Assessment: 63 yo Male receiving VANC-IV/ertapenum for treatment of R foot abscess, blood cultures pending * Day # 1of antimicrobial therapy. Pertinent PMH: DM, CKD3 Plan: Vanc-IV: * Estimated pharmacokinetics: Vd~0.7 L/kg, Ke~0.0567 hr-1, T 1/2~12.2 hrs * LOADING DOSE: VANC 2000mg (~20mg/kg) IV x 1 in ED, then * MAINTENANCE DOSE: VANC 1500mg (~14mg/kg) IV q 16 hours. * Goal trough level: ~15 mcg/mL * VANC Trough level ordered @ [facility] prior to 11/20/18 2000 dose Invanz: ordered 1gram IV q24h Pharmacy will continue to follow and will adjust dose/frequency as necessary. Thank you.
[2018-11-19] MEDS: ERTAPENEM SODIUM 1,000 MG in SODIUM CHLORIDE 0.9% 50 ML IV SCH (02:16)
--- NOTE | 2018-11-19 04:17 | Pharmacy Report ---
PHA: Glycemic Control AP - Date of Service November 19, 2018 - Assessment & Plan Laboratory Tests 11/18/18 11/18/18 11/19/18 18:16 18:50 01:36 Glucose 122 H POC Glucose 126 H 115 H Home diabetes regimen: * Lantus 40 units sq BID * Humalog with carb ratio 1 unit per 2.5gCHO for BSG > 150mg/dL Hospital Stressors: Solumedrol 20mg IV x 1, then prednisone 40mg po daily, vanc/ertapenum In-patient: * Basal insulin: Lantus 25 units sub-q every 12 hours. This is significantly less than home regimen because his home basal insulin needs also incorporate nutritional needs in it. This is not safe while in the hospital. * Correctional Insulin: Novolog Correction per scale ACHS Goal Range: Low 110 mg/dL - High 140 mg/dL Correction Factor: 20 mg/dL/unit * Prandial insulin: Per carb ratio of 1 unit per 7 grams CHO consumed Pharmacy will continue to monitor patient daily and write orders per [facility] inpatient glycemic control protocol. Thanks. * Please note that the plan above was derived based on current level of insulin resistance and hospital stress. These recommendations are appropriate for inpatient admission only. Plan of care upon discharge will need to be reassessed to avoid potential outpatient hypo/hyperglycemia.
[2018-11-19] MEDS: HEPARIN 100 UNIT/ML 5ML FLUSH FLUSH PRN (05:41)
[2018-11-19 06:06] LABS: Basophils # (auto) 0.02 K/uL (0-0.2); Basophils % (auto) 0.1 %; Eosinophils # (auto) 0.04 K/uL (0-0.5); Eosinophils % (auto) 0.3 %; Hematocrit (blood only) 39.7 % (42-52); Hemoglobin 13.4 g/dL (14.0-18.0); Immature Granulocytes # (auto) 0.03 K/uL (0.00-0.02); Immature Granulocytes % (auto) 0.2 %; Lymphocytes # (auto) 0.42 K/uL (1.2-3.4); Lymphocytes % (auto) 3.1 %; Mean Corpuscular Hgb Conc 33.8 g/dL (32-36); Mean Corpuscular Volume 88.2 fL (80-100); Mean Platelet Volume 10.3 fL (7.4-10.4); Monocytes # (auto) 0.26 K/uL (0.11-0.59); Monocytes % (auto) 1.9 %; Neutrophils # (auto) 12.79 K/uL (1.4-6.5); Neutrophils % (auto) 94.4 %; Platelet Count 379 K/uL (130-400); RDW Coefficient of Variation 15.4 % (11.5-14.5); RDW Standard Deviation 49.7 fL (36.4-46.3); White Blood Count 13.56 K/uL (4.8-10.8)
[2018-11-19 06:35] LABS: BUN Creatinine Ratio 16.3 (10-20); Calcium 8.3 mg/dl (8.5-10.1); Creatinine Clr Calc Pharmacy 69.3 ml/min; Est GFR (African American) 73.6; Est GFR (Non-African American) 63.5; Magnesium 2.3 mg/dl (1.8-2.4); Potassium 3.9 mmol/L (3.5-5.1)
[2018-11-19 06:55] LABS: Estimated Average Glucose 249 mg/dl; Hemoglobin A1C 10.3 % (4.5-5.6)
[2018-11-19] MEDS ORDERED: PANCREAZE (LIPASE 10,500U) CAP PO PRN (07:30)
[2018-11-19] MEDS: INSULIN ASPART 100 UNITS/ML 3 ML PEN SC SCH ×4 (08:02→21:38)
[2018-11-19] MEDS: BuPROPion SR 100 MG TABCR PO SCH (08:02)
[2018-11-19] MEDS: ASPIRIN 81 MG ECTAB PO SCH (08:02)
[2018-11-19] MEDS: ATORVASTATIN 40 MG TAB PO SCH (08:02)
[2018-11-19] MEDS: DULOXETINE HCL 60 MG CAP PO SCH (08:03)
[2018-11-19] MEDS: FUROSEMIDE 40 MG in SYRINGE 0 ML IV SCH ×2 (08:03→21:35)
[2018-11-19] MEDS: LISINOPRIL 10 MG TAB PO SCH (08:03)
[2018-11-19] MEDS: METOCLOPRAMIDE HCL 10 MG TABLET PO SCH ×3 (08:03→17:12)
[2018-11-19] MEDS: DOCUSATE SODIUM/SENNA 50/8.6MG TAB PO SCH ×2 (08:03→21:36)
[2018-11-19] MEDS: CARVEDILOL 12.5 MG TAB PO SCH ×2 (08:04→21:35)
[2018-11-19] MEDS: TIOTROPIUM BROMIDE 5 PUFF/90 MCG INH INH SCH (08:04)
[2018-11-19] MEDS: PANTOprazole 40 MG TAB PO SCH ×2 (08:04→21:35)
[2018-11-19] MEDS: BUDESONIDE/FORMOTEROL FUMARATE 160/4.5 60 PUFFS/INHALER INH SCH ×2 (08:04→21:37)
[2018-11-19] MEDS: predniSONE 20 MG TAB PO SCH (08:04)
[2018-11-19] MEDS ORDERED: metOLazone 2.5 MG TABLET PO SCH (08:30)
[2018-11-19] MEDS ORDERED: INSULIN GLARGINE SOLOSTAR 100 UNITS/ML 3 ML PEN SC SCH ×3 (09:00→21:00)
--- NOTE | 2018-11-19 09:12 | Surgery Consultation ---
Date of Consultation November 19, 2018 Assessment & Plan (1) Right foot infection: pt is 63 year old male who is consulted for right foot infection, IMP: chronic right foot infection, Plan, pt will have I/D right foot wound on tomorrow, D/W benefits, risks and alternatives of the surgery, pt agrees with the surgery, . History of Present Illness Attending Physician: CHIEF COMPLAINT: Shortness of breath, not feeling well. HISTORY OF PRESENT ILLNESS: This is a 63-year-old male with past medical history significant for pancreatic cancer status post surgery 2 years ago, supposed to get PET scan tomorrow, history of diabetic polyneuropathy, type 2 diabetes, hyperlipidemia, chronic respiratory failure on 4 liters of oxygen, restrictive airway disease and asthma, history of CVA, history of paroxysmal atrial fibrillation, no longer on anticoagulation, chronic kidney disease stage III, CAD, history of pericardial effusion, history of reflux esophagitis, generalized osteoarthritis, glaucoma, depression, history of tobacco abuse, history of PTSD, who presents with shortness of breath, some abdominal discomfort, belching, and also foul smelling in the right foot wound. The patient received a dose of Lasix in the ER. He also hit his head yesterday while getting up, to his shelf. Had some pain in his head, but that is resolved now. No blurred visions, no earache, no runny nose, no sore throat, no difficulty swallowing. Appetite is not that great. Denies any chest pain. Has some cough. Mild abdominal discomfort. No diarrhea, no constipation, no blood in the stools. No burning micturition, no hematuria. Ambulates with a cane. Lives with his . Currently resting comfortably and hemodynamically stable. I ( Christelle Maurice MD ) got a call for consult right foot infection, I reviewed pt's H/P with pt, ALLERGIES: BEE VENOM, AMLODIPINE, CEPHALOSPORIN, LISINOPRIL, PENICILLIN. PAST MEDICAL HISTORY: As mentioned above. PAST SURGICAL HISTORY: Cataract surgery, tonsillectomy, adenoidectomy. MEDICATIONS: The patient is on Creon 1 capsule 4 times a day as needed, Lantus 40 units b.i.d., Reglan 5 mg a.c., lisinopril 10 mg p.o. daily, Cymbalta 60 mg p.o. daily, Demadex 40 mg b.i.d., Symbicort two puffs b.i.d., Spiriva 2 puffs daily, Flonase 2 sprays daily, metolazone 2.5 mg on Mondays and Fridays, Carafate 1 gram p.o. q.i.d., Lipitor 40 mg p.o. daily, Coreg 37.5 mg p.o. b.i.d., Humalog sliding scale, Senokot S 2 tablets at bedtime, albuterol nebulization every 4 hours p.r.n., MiraLax 17 grams p.o. daily p.r.n., aspirin 81 mg p.o. daily, oxygen 4 liters continuous, oxycodone 5 mg p.o. q. 4 hours p.r.n., Prilosec 20 mg p.o. b.i.d., Wellbutrin SR 200 mg p.o. daily, albuterol 2 puffs every 4 hours p.r.n. FAMILY HISTORY: Significant for mother had breast cancer, diabetes, and heart disorder. Father has heart disorder. SOCIAL HISTORY: , lives with . Smoking 2-3 cigarettes daily. No alcohol use, used to drink heavily in the past. No drug use. Allergies Allergy/AdvReac Type Severity Reaction Status Date / Time bee venom protein (honey bee) Allergy Severe anaphylaxis Verified 11/18/18 19:59 cephalexin Allergy Severe Hives Verified 11/18/18 19:59 lisinopril Allergy Severe Elevated Verified 11/18/18 19:59 Potassium piperacillin Allergy Severe Hives Verified 11/18/18 19:59 amlodipine AdvReac Unknown Headache Verified 11/18/18 19:59 Home Medications Home Medications Medication Instructions Recorded Confirmed Type albuterol sulfate 2.5 mg INHALATION Q4 PRN 09/01/18 11/18/18 History aspirin [Aspir-81] 81 mg PO DAILY 09/01/18 11/18/18 History atorvastatin 40 mg PO DAILY 09/01/18 11/18/18 History budesonide-formoterol [Symbicort] 2 puff INHALATION BID 09/01/18 11/18/18 History carvedilol 37.5 mg PO BID 09/01/18 11/18/18 History duloxetine [Cymbalta] 60 mg PO DAILY 09/01/18 11/18/18 History fluticasone propionate [Flonase 2 spray INTRANASAL DAILY PRN 09/01/18 11/18/18 History Allergy Relief] insulin glargine [Lantus Solostar 40 unit SUBCUT BID 09/01/18 11/18/18 History U-100 Insulin] insulin lispro [Humalog KwikPen 0 unit SUBCUT TIDM 09/01/18 11/18/18 History Insulin] [id number] [Creon] 1 cap PO WM PRN 09/01/18 11/18/18 History lisinopril [Zestril] 10 mg PO DAILY 09/01/18 11/18/18 History metoclopramide HCl [Reglan] 5 mg PO AC 09/01/18 11/18/18 History metolazone 2.5 mg PO MONTHUR 09/01/18 11/18/18 History polyethylene glycol 3350 [Miralax] 17 g PO DAILY PRN 09/01/18 11/18/18 History sennosides-docusate sodium [Senna 1 tab PO BID 09/01/18 11/18/18 History with Docusate Sodium] sucralfate [Carafate] 1 g PO UD 09/01/18 11/18/18 History tiotropium bromide [Spiriva 2 puff INHALATION DAILY 09/01/18 11/18/18 History Respimat] torsemide [Demadex] 40 mg PO AMPM 09/01/18 11/18/18 History bupropion HCl 200 mg PO DAILY 11/18/18 11/18/18 History glucose 4 g PO UD PRN 11/18/18 11/18/18 History omeprazole 20 mg PO BID 11/18/18 11/18/18 History oxycodone 5 mg PO UD PRN 11/18/18 11/18/18 History Patient History Medical History COPD (chronic obstructive pulmonary disease) (Chronic) GERD (gastroesophageal reflux disease) (Chronic) Glaucoma (Chronic) Osteoarthritis (Chronic) Diabetic polyneuropathy (Chronic) CVA (cerebral vascular accident) (Chronic) Asthma, mild persistent (Chronic) DM type 2 (diabetes mellitus, type 2) (Chronic) Dyslipidemia (Chronic) Depression (Chronic) PTSD (post-traumatic stress disorder) (Chronic) Paroxysmal atrial fibrillation (Chronic) Recurrent left pleural effusion (Chronic) Pancreatic cancer (Chronic) Diastolic CHF (Chronic) CKD (chronic kidney disease), stage III (Chronic) Pericardial effusion (Chronic) Surgical History Hx of cataract surgery (Chronic) S/P tonsillectomy and adenoidectomy (Chronic) Social History Preferred Language: Divehi Communication Ability: Effective Data Control Assistant Required: No Beliefs That Will Affect Care: None marital status: Current Living Situation: Spouse current occupational status: unemployed and disabled Feels Safe at Home: Yes Safety Concerns: Feels Safe At This Time Smoking Status: Current some day smoker Tobacco Type: cigarettes ; Hx Alcohol Use: No Hx Substance Use: No Review of Systems Review of Systems: All systems reviewed & are unremarkable except as noted in HPI & below Physical Exam Constitutional: WD/WN, vitals as above well developed and well nourished ENMT: external ear and nose normal, oropharynx normal Neck: trachea midline, no thyromegaly Respiratory: normal respiratory effort, lungs clear to auscultation normal respiratory effort Cardiovascular: RRR, no murmur, no edema Rate/Rhythm: regular rate Gastrointestinal (Abdomen): normal bowel sounds, soft, nontender, no hepatosplenomegaly Skin: one chronic wound on right foot, size 4x4cm, chronic tissue, some drainage, Neurologic: patellar DTR's 2+ bilat, sensation intact Psychiatric: A+Ox3, euthymic affect Orientation: oriented x 3 Results & Data Vital Signs (Past 12 Hours) Vital Signs Temp Pulse Pulse Resp BP Pulse Ox 11/19/18 07:29 70 18 96 11/19/18 07:28 36.8 C 69 18 162/74 H 96 11/19/18 02:05 60 176/77 H 11/19/18 02:00 72 18 99 11/19/18 01:36 66 20 169/107 H 98 11/19/18 01:34 59 L 11/19/18 00:21 36.3 C L 59 L 20 198/86 H 97 Laboratory Results Abnormal lab results 11/18/18 11/18/18 11/18/18 Range/Units 18:16 18:50 18:50 WBC 15.63 H (4.8-10.8) K/uL RBC 4.40 L (4.7-6.1) M/uL Hgb 13.4 L (14.0-18.0) g/dL Hct 39.0 L (42-52) % RDW Std Deviation 50.0 H (36.4-46.3) fL RDW Coeff of [place] 15.4 H (11.5-14.5) % Plt Count 418 H (130-400) K/uL MPV 10.5 H (7.4-10.4) fL Immature Gran # (Auto) 0.03 H (0.00-0.02) K/uL Neut # (Auto) 12.64 H (1.4-6.5) K/uL Lymph # (Auto) (1.2-3.4) K/uL [place] # (Auto) 1.32 H (0.11-0.59) K/uL D-Dimer 630 H* (0-500) ug/L FEU Chloride (98-107) mmol/L BUN (7-18) mg/dl Glucose (70-99) mg/dl POC Glucose 126 H (70-99) Hemoglobin A1c (4.5-5.6) % Calcium (8.5-10.1) mg/dl Phosphorus (2.5-4.9) mg/dl AST (15-37) U/L Alkaline Phosphatase (45-117) U/L Troponin I (0-0.045) ng/ml NT-Pro-B Natriuret Pep (0-900) pg/ml Albumin (3.4-5.0) gm/dl Globulin (2.5-4.0) gm/dl Albumin/Globulin Ratio (0.9-2) Lipase (73-393) U/L Urine Protein (Negative) Urine Glucose (UA) (Negative) Urine Blood (Negative) Urine WBC (Auto) (0-5) /hpf U Hyaline Cast (Auto) (0-5) /lpf U Epithel Cells (Auto) (0-5) /lpf Urine Mucus (None Prsent) Urine Sperm (None Prsent) 11/18/18 11/18/18 11/18/18 Range/Units 18:50 18:50 18:50 WBC (4.8-10.8) K/uL RBC (4.7-6.1) M/uL Hgb (14.0-18.0) g/dL Hct (42-52) % RDW Std Deviation (36.4-46.3) fL RDW Coeff of [place] (11.5-14.5) % Plt Count (130-400) K/uL MPV (7.4-10.4) fL Immature Gran # (Auto) (0.00-0.02) K/uL Neut # (Auto) (1.4-6.5) K/uL Lymph # (Auto) (1.2-3.4) K/uL [place] # (Auto) (0.11-0.59) K/uL D-Dimer (0-500) ug/L FEU Chloride (98-107) mmol/L BUN 22 H (7-18) mg/dl Glucose 122 H (70-99) mg/dl POC Glucose (70-99) Hemoglobin A1c (4.5-5.6) % Calcium 8.4 L (8.5-10.1) mg/dl Phosphorus (2.5-4.9) mg/dl AST 9 L (15-37) U/L Alkaline Phosphatase 163 H (45-117) U/L Troponin I 0.062 H* (0-0.045) ng/ml NT-Pro-B Natriuret Pep 6771 H (0-900) pg/ml Albumin 2.9 L (3.4-5.0) gm/dl Globulin 4.3 H (2.5-4.0) gm/dl Albumin/Globulin Ratio 0.7 L (0.9-2) Lipase 66 L (73-393) U/L Urine Protein (Negative) Urine Glucose (UA) (Negative) Urine Blood (Negative) Urine WBC (Auto) (0-5) /hpf U Hyaline Cast (Auto) (0-5) /lpf U Epithel Cells (Auto) (0-5) /lpf Urine Mucus (None Prsent) Urine Sperm (None Prsent) 11/19/18 11/19/18 11/19/18 Range/Units 01:16 01:36 05:46 WBC 13.56 H (4.8-10.8) K/uL RBC 4.50 L (4.7-6.1) M/uL Hgb 13.4 L (14.0-18.0) g/dL Hct 39.7 L (42-52) % RDW Std Deviation 49.7 H (36.4-46.3) fL RDW Coeff of [place] 15.4 H (11.5-14.5) % Plt Count (130-400) K/uL MPV (7.4-10.4) fL Immature Gran # (Auto) 0.03 H (0.00-0.02) K/uL Neut # (Auto) 12.79 H (1.4-6.5) K/uL Lymph # (Auto) 0.42 L (1.2-3.4) K/uL [place] # (Auto) (0.11-0.59) K/uL D-Dimer (0-500) ug/L FEU Chloride (98-107) mmol/L BUN (7-18) mg/dl Glucose (70-99) mg/dl POC Glucose 115 H (70-99) Hemoglobin A1c (4.5-5.6) % Calcium (8.5-10.1) mg/dl Phosphorus (2.5-4.9) mg/dl AST (15-37) U/L Alkaline Phosphatase (45-117) U/L Troponin I 0.062 H* (0-0.045) ng/ml NT-Pro-B Natriuret Pep (0-900) pg/ml Albumin (3.4-5.0) gm/dl Globulin (2.5-4.0) gm/dl Albumin/Globulin Ratio (0.9-2) Lipase (73-393) U/L Urine Protein (Negative) Urine Glucose (UA) (Negative) Urine Blood (Negative) Urine WBC (Auto) (0-5) /hpf U Hyaline Cast (Auto) (0-5) /lpf U Epithel Cells (Auto) (0-5) /lpf Urine Mucus (None Prsent) Urine Sperm (None Prsent) 11/19/18 11/19/18 11/19/18 Range/Units 05:46 05:46 08:00 WBC (4.8-10.8) K/uL RBC (4.7-6.1) M/uL Hgb (14.0-18.0) g/dL Hct (42-52) % RDW Std Deviation (36.4-46.3) fL RDW Coeff of More[place] (11.5-14.5) % Plt Count (130-400) K/uL MPV (7.4-10.4) fL Immature Gran # (Auto) (0.00-0.02) K/uL Neut # (Auto) (1.4-6.5) K/uL Lymph # (Auto) (1.2-3.4) K/uL [place] # (Auto) (0.11-0.59) K/uL D-Dimer (0-500) ug/L FEU Chloride 108 H (98-107) mmol/L BUN 20 H (7-18) mg/dl Glucose 109 H (70-99) mg/dl POC Glucose 148 H (70-99) Hemoglobin A1c 10.3 H (4.5-5.6) % Calcium 8.3 L (8.5-10.1) mg/dl Phosphorus 2.0 L (2.5-4.9) mg/dl AST (15-37) U/L Alkaline Phosphatase (45-117) U/L Troponin I (0-0.045) ng/ml NT-Pro-B Natriuret Pep (0-900) pg/ml Albumin (3.4-5.0) gm/dl Globulin (2.5-4.0) gm/dl Albumin/Globulin Ratio (0.9-2) Lipase (73-393) U/L Urine Protein (Negative) Urine Glucose (UA) (Negative) Urine Blood (Negative) Urine WBC (Auto) (0-5) /hpf U Hyaline Cast (Auto) (0-5) /lpf U Epithel Cells (Auto) (0-5) /lpf Urine Mucus (None Prsent) Urine Sperm (None Prsent) 11/19/18 Range/Units Unknown WBC (4.8-10.8) K/uL RBC (4.7-6.1) M/uL Hgb (14.0-18.0) g/dL Hct (42-52) % RDW Std Deviation (36.4-46.3) fL RDW Coeff of [place] (11.5-14.5) % Plt Count (130-400) K/uL MPV (7.4-10.4) fL Immature Gran # (Auto) (0.00-0.02) K/uL Neut # (Auto) (1.4-6.5) K/uL Lymph # (Auto) (1.2-3.4) K/uL [place] # (Auto) (0.11-0.59) K/uL D-Dimer (0-500) ug/L FEU Chloride (98-107) mmol/L BUN (7-18) mg/dl Glucose (70-99) mg/dl POC Glucose (70-99) Hemoglobin A1c (4.5-5.6) % Calcium (8.5-10.1) mg/dl Phosphorus (2.5-4.9) mg/dl AST (15-37) U/L Alkaline Phosphatase (45-117) U/L Troponin I (0-0.045) ng/ml NT-Pro-B Natriuret Pep (0-900) pg/ml Albumin (3.4-5.0) gm/dl Globulin (2.5-4.0) gm/dl Albumin/Globulin Ratio (0.9-2) Lipase (73-393) U/L Urine Protein 3+ H (Negative) Urine Glucose (UA) 1+ H (Negative) Urine Blood Trace H (Negative) Urine WBC (Auto) 5-10 H (0-5) /hpf U Hyaline Cast (Auto) 5-10 H (0-5) /lpf U Epithel Cells (Auto) 10-20 H (0-5) /lpf Urine Mucus Present A (None Prsent) Urine Sperm Present A (None Prsent)
--- NOTE | 2018-11-19 10:06 | Cardiology Consultation ---
Date of Consultation November 19, 2018 Assessment & Plan (1) Right foot infection: (2) Fluid overload: (3) COPD (chronic obstructive pulmonary disease): (4) Diastolic heart failure: (5) Pancreatic cancer: (6) Paroxysmal atrial fibrillation: (7) Troponin level elevated: The patient currently feels better after receiving diuretics and breathing treatments. He is no longer short of breath. He is scheduled for a debridement of his right foot ulcer tomorrow. He should proceed to that surgery with an acceptable low risk of cardiovascular event. I will review the echocardiogram when it is completed it should not hold up his surgery. He is currently in sinus rhythm. The troponin elevation I believe is a type II secondary to heart failure and stress. History of Present Illness Attending Physician: Cici Blandon MD History of Present Illness This is a 63-year-old male patient with multiple medical problems. He has a history of pancreatic cancer, previous pleural empyema, diabetes with neuropathy, COPD, paroxysmal atrial fibrillation and diastolic heart failure. He was feeling more short of breath than usual and decided to present to the hospital where he was found to have bilateral increased vascular markings on a chest x-ray suggesting congestive heart failure. He is also noted to have a wound infection of the right foot. His wound infection will need debridement. He is currently maintaining sinus rhythm. He states he feels better after he received treatment with bronchodilators and diuretics. Allergies Allergy/AdvReac Type Severity Reaction Status Date / Time bee venom protein (honey bee) Allergy Severe anaphylaxis Verified 11/18/18 19:59 cephalexin Allergy Severe Hives Verified 11/18/18 19:59 lisinopril Allergy Severe Elevated Verified 11/18/18 19:59 Potassium piperacillin Allergy Severe Hives Verified 11/18/18 19:59 amlodipine AdvReac Unknown Headache Verified 11/18/18 19:59 Home Medications Home Medications Medication Instructions Recorded Confirmed Type albuterol sulfate 2.5 mg INHALATION Q4 PRN 09/01/18 11/18/18 History aspirin [Aspir-81] 81 mg PO DAILY 09/01/18 11/18/18 History atorvastatin 40 mg PO DAILY 09/01/18 11/18/18 History budesonide-formoterol [Symbicort] 2 puff INHALATION BID 09/01/18 11/18/18 History carvedilol 37.5 mg PO BID 09/01/18 11/18/18 History duloxetine [Cymbalta] 60 mg PO DAILY 09/01/18 11/18/18 History fluticasone propionate [Flonase 2 spray INTRANASAL DAILY PRN 09/01/18 11/18/18 History Allergy Relief] insulin glargine [Lantus Solostar 40 unit SUBCUT BID 09/01/18 11/18/18 History U-100 Insulin] insulin lispro [Humalog KwikPen 0 unit SUBCUT TIDM 09/01/18 11/18/18 History Insulin] [id number] [Creon] 1 cap PO WM PRN 09/01/18 11/18/18 History lisinopril [Zestril] 10 mg PO DAILY 09/01/18 11/18/18 History metoclopramide HCl [Reglan] 5 mg PO AC 09/01/18 11/18/18 History metolazone 2.5 mg PO MONTHUR 09/01/18 11/18/18 History polyethylene glycol 3350 [Miralax] 17 g PO DAILY PRN 09/01/18 11/18/18 History sennosides-docusate sodium [Senna 1 tab PO BID 09/01/18 11/18/18 History with Docusate Sodium] sucralfate [Carafate] 1 g PO UD 09/01/18 11/18/18 History tiotropium bromide [Spiriva 2 puff INHALATION DAILY 09/01/18 11/18/18 History Respimat] torsemide [Demadex] 40 mg PO AMPM 09/01/18 11/18/18 History bupropion HCl 200 mg PO DAILY 11/18/18 11/18/18 History glucose 4 g PO UD PRN 11/18/18 11/18/18 History omeprazole 20 mg PO BID 11/18/18 11/18/18 History oxycodone 5 mg PO UD PRN 11/18/18 11/18/18 History Patient History Medical History COPD (chronic obstructive pulmonary disease) (Chronic) GERD (gastroesophageal reflux disease) (Chronic) Glaucoma (Chronic) Osteoarthritis (Chronic) Diabetic polyneuropathy (Chronic) CVA (cerebral vascular accident) (Chronic) Asthma, mild persistent (Chronic) DM type 2 (diabetes mellitus, type 2) (Chronic) Dyslipidemia (Chronic) Depression (Chronic) PTSD (post-traumatic stress disorder) (Chronic) Paroxysmal atrial fibrillation (Chronic) Recurrent left pleural effusion (Chronic) Pancreatic cancer (Chronic) Diastolic CHF (Chronic) CKD (chronic kidney disease), stage III (Chronic) Pericardial effusion (Chronic) Surgical History Hx of cataract surgery (Chronic) S/P tonsillectomy and adenoidectomy (Chronic) Social History Preferred Language: Kyr[place]z Communication Ability: Effective Freezer Worker Required: No Beliefs That Will Affect Care: None marital status: Current Living Situation: Spouse current occupational status: unemployed and disabled Feels Safe at Home: Yes Safety Concerns: Feels Safe At This Time Smoking Status: Current some day smoker Tobacco Type: cigarettes ; Hx Alcohol Use: No Hx Substance Use: No Review of Systems Review of Systems: All systems reviewed & are unremarkable except as noted in HPI & below No additional information. Physical Exam Physical Exam: General: no acute distress and stated age Head: normocephalic, no masses, lesions, tenderness or abnormalities Eyes: conjunctiva are pink and non-injected, sclera clear Neck: supple, no adenopathy, no bruits, normal jugular venous pulse, no hepatojugular reflux Chest: normal shape and normal respiratory effort Lungs: clear to auscultation and percussion Cardiac Exam: - regular rate & rhythm, no murmurs gallops or rubs - normal S1, normal S2 Pulses: 2(+) throughout Abdomen: abdomen soft, non-tender, no abnormal masses and no hepatosplenomegaly Musculoskeletal: no gait disturbance, no joint inflammation, no deforming arthritis Extremities: Right nonhealing diabetic ulcer of the foot. Neuro: grossly normal exam Results & Data Vital Signs (Past 12 Hours) Vital Signs Temp Pulse Pulse Resp BP Pulse Ox 11/19/18 07:29 70 18 96 11/19/18 07:28 36.8 C 69 18 162/74 H 96 11/19/18 02:05 60 176/77 H 11/19/18 02:00 72 18 99 11/19/18 01:36 66 20 169/107 H 98 11/19/18 01:34 59 L 11/19/18 00:21 36.3 C L 59 L 20 198/86 H 97 Laboratory Results Laboratory Results - last 24 hr 11/18/18 11/18/18 11/18/18 18:16 18:30 18:30 WBC RBC Hgb Hct MCV MCH MCHC RDW Std Deviation RDW Coeff of [place] Plt Count MPV Immature Gran % (Auto) Neut % (Auto) Lymph % (Auto) Daniels % (Auto) Eos % (Auto) Baso % (Auto) Immature Gran # (Auto) Neut # (Auto) Lymph # (Auto) Daniels # (Auto) Eos # (Auto) Baso # (Auto) PT INR APTT PTT Ratio D-Dimer VBG pH 7.38 VBG pCO2 45 VBG pO2 49 VBG HCO3 26 VBG O2 Saturation 85.2 VBG Base Excess 0.5 Barometric Pressure 732.8 Sodium Potassium Chloride Carbon Dioxide Anion Gap BUN Creatinine Est Cr Clr Drug Dosing Est GFR ( Amer) Est GFR (Non-Af Amer) BUN/Creatinine Ratio Glucose POC Glucose 126 H Estimat Average Glucose Hemoglobin A1c Lactate 1.0 Calcium Phosphorus Magnesium Total Bilirubin AST ALT Alkaline Phosphatase Troponin I NT-Pro-B Natriuret Pep Total Protein Albumin Globulin Albumin/Globulin Ratio Lipase Urine Color Urine Appearance Urine pH Ur Specific [place] Urine Protein Urine Glucose (UA) Urine Ketones Urine Blood Urine Nitrite Urine Bilirubin Urine Urobilinogen Ur Leukocyte Esterase Urine WBC (Auto) Urine RBC (Auto) U Hyaline Cast (Auto) U Epithel Cells (Auto) Urine Bacteria (Auto) Urine Mucus Urine Sperm 11/18/18 11/18/18 11/18/18 18:50 18:50 18:50 WBC 15.63 H RBC 4.40 L Hgb 13.4 L Hct 39.0 L MCV 88.6 MCH 30.5 MCHC 34.4 RDW Std Deviation 50.0 H RDW Coeff of [place] 15.4 H Plt Count 418 H MPV 10.5 H Immature Gran % (Auto) 0.2 Neut % (Auto) 80.9 Lymph % (Auto) 9.0 Daniels % (Auto) 8.4 Eos % (Auto) 1.2 Baso % (Auto) 0.3 Immature Gran # (Auto) 0.03 H Neut # (Auto) 12.64 H Lymph # (Auto) 1.41 Daniels # (Auto) 1.32 H Eos # (Auto) 0.19 Baso # (Auto) 0.04 PT 10.7 INR 1.0 APTT 29.5 PTT Ratio 1.1 D-Dimer 630 H* VBG pH VBG pCO2 VBG pO2 VBG HCO3 VBG O2 Saturation VBG Base Excess Barometric Pressure Sodium 141 Potassium 3.9 Chloride 106 Carbon Dioxide 27 Anion Gap 8.0 BUN 22 H Creatinine 1.29 Est Cr Clr Drug Dosing 63.3 Est GFR ( Amer) 67.5 Est GFR (Non-Af Amer) 58.2 BUN/Creatinine Ratio 16.7 Glucose 122 H POC Glucose Estimat Average Glucose Hemoglobin A1c Lactate Calcium 8.4 L Phosphorus Magnesium 2.3 Total Bilirubin 0.5 AST 9 L ALT 13 Alkaline Phosphatase 163 H Troponin I NT-Pro-B Natriuret Pep 6771 H Total Protein 7.2 Albumin 2.9 L Globulin 4.3 H Albumin/Globulin Ratio 0.7 L Lipase Urine Color Urine Appearance Urine pH Ur Specific [place] Urine Protein Urine Glucose (UA) Urine Ketones Urine Blood Urine Nitrite Urine Bilirubin Urine Urobilinogen Ur Leukocyte Esterase Urine WBC (Auto) Urine RBC (Auto) U Hyaline Cast (Auto) U Epithel Cells (Auto) Urine Bacteria (Auto) Urine Mucus Urine Sperm 11/18/18 11/18/18 11/19/18 18:50 18:50 01:16 WBC RBC Hgb Hct MCV MCH MCHC RDW Std Deviation RDW Coeff of [place] Plt Count MPV Immature Gran % (Auto) Neut % (Auto) Lymph % (Auto) Daniels % (Auto) Eos % (Auto) Baso % (Auto) Immature Gran # (Auto) Neut # (Auto) Lymph # (Auto) Daniels # (Auto) Eos # (Auto) Baso # (Auto) PT INR APTT PTT Ratio D-Dimer VBG pH VBG pCO2 VBG pO2 VBG HCO3 VBG O2 Saturation VBG Base Excess Barometric Pressure Sodium Potassium Chloride Carbon Dioxide Anion Gap BUN Creatinine Est Cr Clr Drug Dosing Est GFR ( Amer) Est GFR (Non-Af Amer) BUN/Creatinine Ratio Glucose POC Glucose Estimat Average Glucose Hemoglobin A1c Lactate Calcium Phosphorus Magnesium Total Bilirubin AST ALT Alkaline Phosphatase Troponin I 0.062 H* 0.062 H* NT-Pro-B Natriuret Pep Total Protein Albumin Globulin Albumin/Globulin Ratio Lipase 66 L Urine Color Urine Appearance Urine pH Ur Specific [place] Urine Protein Urine Glucose (UA) Urine Ketones Urine Blood Urine Nitrite Urine Bilirubin Urine Urobilinogen Ur Leukocyte Esterase Urine WBC (Auto) Urine RBC (Auto) U Hyaline Cast (Auto) U Epithel Cells (Auto) Urine Bacteria (Auto) Urine Mucus Urine Sperm 11/19/18 11/19/18 11/19/18 01:36 05:46 05:46 WBC 13.56 H RBC 4.50 L Hgb 13.4 L Hct 39.7 L MCV 88.2 MCH 29.8 MCHC 33.8 RDW Std Deviation 49.7 H RDW Coeff of [place] 15.4 H Plt Count 379 MPV 10.3 Immature Gran % (Auto) 0.2 Neut % (Auto) 94.4 Lymph % (Auto) 3.1 Daniels % (Auto) 1.9 Eos % (Auto) 0.3 Baso % (Auto) 0.1 Immature Gran # (Auto) 0.03 H Neut # (Auto) 12.79 H Lymph # (Auto) 0.42 L Daniels # (Auto) 0.26 Eos # (Auto) 0.04 Baso # (Auto) 0.02 PT INR APTT PTT Ratio D-Dimer VBG pH VBG pCO2 VBG pO2 VBG HCO3 VBG O2 Saturation VBG Base Excess Barometric Pressure Sodium Potassium Chloride Carbon Dioxide Anion Gap BUN Creatinine Est Cr Clr Drug Dosing Est GFR ( Amer) Est GFR (Non-Af Amer) BUN/Creatinine Ratio Glucose POC Glucose 115 H Estimat Average Glucose Hemoglobin A1c Lactate Calcium Phosphorus Cancelled Magnesium Total Bilirubin AST ALT Alkaline Phosphatase Troponin I NT-Pro-B Natriuret Pep Total Protein Albumin Globulin Albumin/Globulin Ratio Lipase Urine Color Urine Appearance Urine pH Ur Specific [place] Urine Protein Urine Glucose (UA) Urine Ketones Urine Blood Urine Nitrite Urine Bilirubin Urine Urobilinogen Ur Leukocyte Esterase Urine WBC (Auto) Urine RBC (Auto) U Hyaline Cast (Auto) U Epithel Cells (Auto) Urine Bacteria (Auto) Urine Mucus Urine Sperm 11/19/18 11/19/18 11/19/18 05:46 05:46 06:59 WBC RBC Hgb Hct MCV MCH MCHC RDW Std Deviation RDW Coeff of [place] Plt Count MPV Immature Gran % (Auto) Neut % (Auto) Lymph % (Auto) Daniels % (Auto) Eos % (Auto) Baso % (Auto) Immature Gran # (Auto) Neut # (Auto) Lymph # (Auto) Daniels # (Auto) Eos # (Auto) Baso # (Auto) PT INR APTT PTT Ratio D-Dimer VBG pH VBG pCO2 VBG pO2 VBG HCO3 VBG O2 Saturation VBG Base Excess Barometric Pressure Sodium 142 Potassium 3.9 Chloride 108 H Carbon Dioxide 25 Anion Gap 9.0 BUN 20 H Creatinine 1.20 Est Cr Clr Drug Dosing 69.3 Est GFR ( Amer) 73.6 Est GFR (Non-Af Amer) 63.5 BUN/Creatinine Ratio 16.3 Glucose 109 H POC Glucose Estimat Average Glucose 249 Hemoglobin A1c 10.3 H Lactate Calcium 8.3 L Phosphorus 2.0 L Magnesium 2.3 Total Bilirubin AST ALT Alkaline Phosphatase Troponin I 0.038 NT-Pro-B Natriuret Pep Total Protein Albumin Globulin Albumin/Globulin Ratio Lipase Urine Color Urine Appearance Urine pH Ur Specific [place] Urine Protein Urine Glucose (UA) Urine Ketones Urine Blood Urine Nitrite Urine Bilirubin Urine Urobilinogen Ur Leukocyte Esterase Urine WBC (Auto) Urine RBC (Auto) U Hyaline Cast (Auto) U Epithel Cells (Auto) Urine Bacteria (Auto) Urine Mucus Urine Sperm 11/19/18 11/19/18 08:00 Unknown WBC RBC Hgb Hct MCV MCH MCHC RDW Std Deviation RDW Coeff of [place] Plt Count MPV Immature Gran % (Auto) Neut % (Auto) Lymph % (Auto) Daniels % (Auto) Eos % (Auto) Baso % (Auto) Immature Gran # (Auto) Neut # (Auto) Lymph # (Auto) Daniels # (Auto) Eos # (Auto) Baso # (Auto) PT INR APTT PTT Ratio D-Dimer VBG pH VBG pCO2 VBG pO2 VBG HCO3 VBG O2 Saturation VBG Base Excess Barometric Pressure Sodium Potassium Chloride Carbon Dioxide Anion Gap BUN Creatinine Est Cr Clr Drug Dosing Est GFR ( Amer) Est GFR (Non-Af Amer) BUN/Creatinine Ratio Glucose POC Glucose 148 H Estimat Average Glucose Hemoglobin A1c Lactate Calcium Phosphorus Magnesium Total Bilirubin AST ALT Alkaline Phosphatase Troponin I NT-Pro-B Natriuret Pep Total Protein Albumin Globulin Albumin/Globulin Ratio Lipase Urine Color Yellow Urine Appearance Clear Urine pH 5.0 Ur Specific [place] 1.021 Urine Protein 3+ H Urine Glucose (UA) 1+ H Urine Ketones Negative Urine Blood Trace H Urine Nitrite Negative Urine Bilirubin Negative Urine Urobilinogen Negative Ur Leukocyte Esterase Negative Urine WBC (Auto) 5-10 H Urine RBC (Auto) 0-4 U Hyaline Cast (Auto) 5-10 H U Epithel Cells (Auto) 10-20 H Urine Bacteria (Auto) Negative Urine Mucus Present A Urine Sperm Present A Medications Administered Current Inpatient Medications Acetaminophen (Tylenol) 650 mg PO Q4H PRN PRN Reason: Pain or Fever Stop: 12/19/18 00:58 Albuterol (Ventolin 0.083% 2.5mg/3ml) 2.5 mg INH Q4 PRN PRN Reason: Wheezing Stop: 12/19/18 00:58 Lipase/Protease/Amylase (Pancreaze (Lipase 10,500u)) 1 cap PO AC PRN PRN Reason: . Stop: 12/19/18 07:29 Aspirin (Ecotrin Ectab) 81 mg PO DAILY [facility] Stop: 12/19/18 08:59 Last Admin: 11/19/18 08:02 Dose: 81 mg Documented by: Atorvastatin Calcium (Lipitor) 40 mg PO DAILY [facility] Stop: 12/19/18 08:59 Last Admin: 11/19/18 08:02 Dose: 40 mg Documented by: Budesonide/Formoterol Fumarate (Symbicort 160mcg/4.5mcg) 2 puffs INH BID [facility] Stop: 12/19/18 08:59 Last Admin: 11/19/18 08:04 Dose: 2 puffs Documented by: Bupropion HCl (Wellbutrin-Sr) 200 mg PO DAILY [facility] Stop: 12/19/18 08:59 Last Admin: 11/19/18 08:02 Dose: 200 mg Documented by: Carvedilol (Coreg) 37.5 mg PO BID [facility] Stop: 12/19/18 08:59 Last Admin: 11/19/18 08:04 Dose: 37.5 mg Documented by: Dextrose (Dextrose 50%) 25 - 50 ml IV UD PRN; Protocol PRN Reason: Hypoglycemia Protocol Stop: 12/19/18 01:59 Duloxetine HCl (Cymbalta) 60 mg PO DAILY [facility] Stop: 12/19/18 08:59 Last Admin: 11/19/18 08:03 Dose: 60 mg Documented by: Ertapenem (Consult) 1 ea N/A UD PRN PRN Reason: Consult Stop: 12/19/18 01:09 Fluticasone Propionate (Flonase) 2 sprays NA DAILY PRN PRN Reason: Congestion Stop: 12/19/18 00:58 Glucagon (Glucagen) 1 mg SQ UD PRN; Protocol PRN Reason: Hypoglycemia Protocol Stop: 12/19/18 01:59 Glucose (Glucose 40%) 15 - 30 gm PO UD PRN; Protocol PRN Reason: Hypoglycemia Protocol Stop: 12/19/18 01:59 Glucose (Dex4 Glucose) 4 - 8 tabs PO UD PRN; Protocol PRN Reason: Hypoglycemia Protocol Stop: 12/19/18 01:59 Heparin Sodium (Porcine) (Heparin Sod 100 Unit/Ml Flush) 5 ml FLUSH PRN PRN PRN Reason: Flush Stop: 12/19/18 02:44 Last Admin: 11/19/18 05:41 Dose: 5 ml Documented by: Ertapenem 1,000 mg/ Sodium (Chloride) 60 mls @ 100 mls/hr IV Q24H [facility]; Protocol Stop: 11/29/18 01:59 Last Infusion: 11/19/18 03:08 Dose: Infused Documented by: Furosemide 40 mg/ Syringe 4 mls @ 4 mls/min IV BID [facility] Stop: 12/19/18 08:59 Last Admin: 11/19/18 08:03 Dose: 4 mls/min Documented by: Vancomycin HCl 1,500 mg/ (Sodium Chloride) 530 mls @ 200 mls/hr IV Q16H [facility]; Protocol Stop: 11/29/18 11:59 Insulin Aspart (Novolog Flexpen) 0 units SC ACHS [facility] Stop: 12/19/18 07:29 Last Admin: 11/19/18 08:02 Dose: 1 units Documented by: Ipratropium [place] (Atrovent 0.02% 0.5mg/2.5ml) 0.5 mg INH Q6R [facility] Stop: 12/19/18 01:59 Last Admin: 11/19/18 07:13 Dose: 0.5 mg Documented by: Levalbuterol HCl (Xopenex 1.25mg/0.5ml [facility]) 1.25 mg INH Q6R [facility] Stop: 12/19/18 01:59 Last Admin: 11/19/18 07:13 Dose: 1.25 mg Documented by: Lisinopril (Zestril) 10 mg PO DAILY [facility] Stop: 12/19/18 08:59 Last Admin: 11/19/18 08:03 Dose: 10 mg Documented by: Metoclopramide HCl (Reglan) 5 mg PO AC [facility] Stop: 12/19/18 07:29 Last Admin: 11/19/18 08:03 Dose: 5 mg Documented by: Metolazone (Zaroxolyn) 2.5 mg PO MoTh@[id number] [facility] Stop: 12/19/18 08:29 Last Admin: 11/19/18 08:04 Dose: 2.5 mg Documented by: Miscellaneous (Carbohydrates For Hypoglycemia) 15 - 30 gm PO UD PRN PRN Reason: Hypoglycemia Treatment Stop: 12/19/18 01:59 Miscellaneous Information (Consult) 1 ea N/A UD PRN PRN Reason: Consult Stop: 12/19/18 00:58 Miscellaneous Information (Consult Glycemic Management Pharmacy) 1 ea N/A UD PRN PRN Reason: Consult Stop: 12/19/18 01:43 Nitroglycerin (Nitrostat) 0.4 mg SL UD PRN PRN Reason: Chest Pain Stop: 12/19/18 00:58 Ondansetron HCl (Zofran) 4 mg IV Q6H PRN PRN Reason: Nausea Stop: 12/19/18 00:58 Oxycodone HCl (Roxicodone Immediate Rel) 5 mg PO 6XD PRN PRN Reason: Pain Stop: 12/03/18 00:58 Pantoprazole Sodium (Protonix) 40 mg PO BID [facility] Stop: 12/19/18 08:59 Last Admin: 11/19/18 08:04 Dose: 40 mg Documented by: Polyethylene Glycol (Miralax Powder Packet) 17 gm PO DAILY PRN PRN Reason: Constipation Prednisone (Prednisone) 40 mg PO DAILY [facility] Stop: 12/19/18 08:59 Last Admin: 11/19/18 08:04 Dose: 40 mg Documented by: Senna/Docusate Sodium (Senokot S) 1 tab PO BID [facility] Stop: 12/19/18 08:59 Last Admin: 11/19/18 08:03 Dose: 1 tab Documented by: Sucralfate (Carafate Tab) 1 gm PO QID PRN PRN Reason: DYSPEPSIA Stop: 12/19/18 00:58 Tiotropium [place] (Spiriva) 1 puffs INH DAILY [facility] Stop: 12/19/18 08:59 Last Admin: 11/19/18 08:04 Dose: 1 puffs Documented by: (1) Fluid overload Hypervolemia type: unspecified Qualified Code(s): E87.70 - Fluid overload, unspecified
--- NOTE | 2018-11-19 11:55 | Pulmonary Consultation ---
Date of Consultation November 19, 2018 Assessment & Plan (1) Pleural effusion: The patient does not appear to need thoracentesis at present. Clinically he is improving. The effusions are new compared with August 2018. Thus this is not related to his prior empyema that he had the pro BNP is severely elevated. In the past his ejection fraction has been good. Apparently diastolic dysfunction has been suspected. The CT of the chest suggested elevated right- sided pressures. Consideration is given to doing a repeat echocardiogram to evaluate the possibility of pulmonary hypertension. (2) COPD (chronic obstructive pulmonary disease): Patient's respiratory status seems much improved at present. He is getting Symbicort 160/4.5, 2 puffs twice daily. He is also getting levalbuterol by nebulizer 4 times a day. He gets ipratropium with that. The patient is on Spiriva. In light of the report of bladder outlet obstruction suggest discontinuing Spiriva as it may be contributing to this. Consideration could be given to doing a bladder scan for post void residual. He is on prednisone 40 mg daily he is not actively wheezing. In light of his diabetes with very poor control, would consider discontinuing the prednisone and only restart if he clearly had worsening respiratory status. The patient should have a reevaluation of his oxygen needs prior to discharge. He does have a history of sleep apnea but was intolerant of CPAP. Thus it is suspected he needs to continue with the nocturnal oxygen. (3) Diastolic heart failure: History of Present Illness Attending Physician: Cici Blandon MD History of Present Illness Pulmonary consultation is requested regarding shortness of breath per he is a 63-year-old male who yesterday, November 18 had a sudden onset of shortness of breath. He states this occurred mid afternoon. He was simply watching TV. He states that his felt that from the night before something was wrong. She could just sense that he was not right. He had the feeling he could not get his air in. He states that he did not have time to give himself a nebulizer treatment. He had a coughing spell when this began and he coughed so hard that he vomited. Since then he is not had significant cough. He has some degree of chronic cough with mild clear sputum. There is been no hemoptysis. The patient states that his drove him to the hospital. I inquired why he did not call for an ambulance and he states that his ambulance subscription had and he was concerned about cost. He states he is feeling much better. He is much less short of breath. He is not having any cough today. He feels the breathing treatments helped. He has been getting diuretics. He tells me he is only urinated once since he was admitted. The recorded urine output in the past 24 hours is only 600 mL's. He denies feeling like he has a cold. He denies chills fevers or sweats. His appetite was decreased yesterday. He also states that he was not even drinking coffee or water much yesterday. That was very unusual for him The patient wears O2 4 L at bedtime. He states he no longer uses oxygen during the day he admits however that he is short of breath with even walking on level ground. He denies that he could walk through [employer] without getting winded. He states he usually uses 1 of the scooters in the store because of his breathing peer The patient also has an infected right foot. He states he has been going to wound care and they had debrided somewhat but it was not healing. He also it had a cast on. He has some pain in that foot. The patient does complain of a rotten egg smell coming from his breath and when he belches. This is not brand-new. He does not have any idea why this is been going on Patient has a long-standing history of smoking. Much of his life he smoked 1/2 pack/day for probably 44 years. He states that he currently smokes 1 or 2 ci garettes/day. 2 of his children live in the household and they smoke regularly and he feels this makes it difficult for him to quit. He does have a prior history of heavy alcohol use but none for about 10 years. Pertinent other history is that he was diagnosed with pancreatic cancer in November 2016 and he had surgery. In 2018 he had bilateral pleural effusions, both sides of which were tapped. The fluids were bloody. Subsequently he had a left lung decortication for empyema done on 10/16/2017. He states he is made a good recovery from this procedure. The patient reportedly has had pulmonary function testing done in the past. He thinks at least one test was done through [facility]. Allergies Allergy/AdvReac Type Severity Reaction Status Date / Time bee venom protein (honey bee) Allergy Severe anaphylaxis Verified 11/18/18 19:59 cephalexin Allergy Severe Hives Verified 11/18/18 19:59 lisinopril Allergy Severe Elevated Verified 11/18/18 19:59 Potassium piperacillin Allergy Severe Hives Verified 11/18/18 19:59 amlodipine AdvReac Unknown Headache Verified 11/18/18 19:59 Home Medications Home Medications Medication Instructions Recorded Confirmed Type albuterol sulfate 2.5 mg INHALATION Q4 PRN 09/01/18 11/18/18 History aspirin [Aspir-81] 81 mg PO DAILY 09/01/18 11/18/18 History atorvastatin 40 mg PO DAILY 09/01/18 11/18/18 History budesonide-formoterol [Symbicort] 2 puff INHALATION BID 09/01/18 11/18/18 History carvedilol 37.5 mg PO BID 09/01/18 11/18/18 History duloxetine [Cymbalta] 60 mg PO DAILY 09/01/18 11/18/18 History fluticasone propionate [Flonase 2 spray INTRANASAL DAILY PRN 09/01/18 11/18/18 History Allergy Relief] insulin glargine [Lantus Solostar 40 unit SUBCUT BID 09/01/18 11/18/18 History U-100 Insulin] insulin lispro [Humalog KwikPen 0 unit SUBCUT TIDM 09/01/18 11/18/18 History Insulin] [id number] [Creon] 1 cap PO WM PRN 09/01/18 11/18/18 History lisinopril [Zestril] 10 mg PO DAILY 09/01/18 11/18/18 History metoclopramide HCl [Reglan] 5 mg PO AC 09/01/18 11/18/18 History metolazone 2.5 mg PO MONTHUR 09/01/18 11/18/18 History polyethylene glycol 3350 [Miralax] 17 g PO DAILY PRN 09/01/18 11/18/18 History sennosides-docusate sodium [Senna 1 tab PO BID 09/01/18 11/18/18 History with Docusate Sodium] sucralfate [Carafate] 1 g PO UD 09/01/18 11/18/18 History tiotropium bromide [Spiriva 2 puff INHALATION DAILY 09/01/18 11/18/18 History Respimat] torsemide [Demadex] 40 mg PO AMPM 09/01/18 11/18/18 History bupropion HCl 200 mg PO DAILY 11/18/18 11/18/18 History glucose 4 g PO UD PRN 11/18/18 11/18/18 History omeprazole 20 mg PO BID 11/18/18 11/18/18 History oxycodone 5 mg PO UD PRN 11/18/18 11/18/18 History Patient History Medical History COPD (chronic obstructive pulmonary disease) (Chronic) GERD (gastroesophageal reflux disease) (Chronic) Glaucoma (Chronic) Osteoarthritis (Chronic) Diabetic polyneuropathy (Chronic) CVA (cerebral vascular accident) (Chronic) Asthma, mild persistent (Chronic) DM type 2 (diabetes mellitus, type 2) (Chronic) Dyslipidemia (Chronic) Depression (Chronic) PTSD (post-traumatic stress disorder) (Chronic) Paroxysmal atrial fibrillation (Chronic) Recurrent left pleural effusion (Chronic) Pancreatic cancer (Chronic) Diastolic CHF (Chronic) CKD (chronic kidney disease), stage III (Chronic) Pericardial effusion (Chronic) Surgical History Hx of cataract surgery (Chronic) S/P tonsillectomy and adenoidectomy (Chronic) Social History Preferred Language: French Communication Ability: Effective Clinical Trials Assistant Required: No Beliefs That Will Affect Care: None marital status: Current Living Situation: Spouse current occupational status: unemployed and disabled Feels Safe at Home: Yes Safety Concerns: Feels Safe At This Time Smoking Status: Current some day smoker Tobacco Type: cigarettes ; Hx Alcohol Use: No Hx Substance Use: No Review of Systems Review of Systems: General: Energy level decreased. Denies chills fever sweats. The patient states he has lost 50 pounds in the past 1 year. He attributes this to diuresis and diet. He denies any recurrence of his pancreatic cancer. Neurologic: Denies syncope or near syncope Ophthalmic: Denies complaints ENT: Denies complaints Cardiac: Denies chest pains or palpitations Pulmonary: As noted in history of present illness GI: Appetite is good until the day he became sick. Denies nausea vomiting diarrhea or constipation. He has chronic left flank pain which he states is not new. : Denies complaints with urination but does not seem to urinate all that o ften. Musculoskeletal: Denies complaints Dermatologic: Denies rash Endocrine: Denies lymphadenopathy Physical Exam Physical Exam: The patient is a 63-year-old male who was cooperative alert and oriented. He was in no distress. Weight reported as 104.2 kg. Eye exam showed implants bilaterally. Nares clear. Mouth exam unremarkable. Palpation of the neck reveals no lymph nodes. Neck veins were difficult to assess. The chest was of normal expansion. There was a scar noted in the left posterior lateral chest which was fairly extensive with some smaller scars as well. Cardiac rate 70/min. Rhythm regular. Blood pressure 183/76. Temperature 36.8. No temperature elevation recorded since admission. Auscultation of the lung mcintosh revealed rales in both bases and there is decreased breath sounds at both bases. Respiratory rate 18. Saturation 95% on 4 L. Abdomen was soft. It was somewhat obese. Areas of ecchymosis were noted. Bowel sounds were normal. There was no tenderness to palpation, masses, or organomegaly. Extremities showed no cyanosis clubbing or edema. There was some brown skin discoloration in both lower extremities anteriorly likely related to diabetes the bottom of the right foot is covered with a large dressing. Results & Data Vital Signs (Past 12 Hours) Vital Signs Temp Pulse Pulse Resp BP Pulse Ox 11/19/18 08:00 72 11/19/18 07:29 70 18 96 11/19/18 07:28 36.8 C 69 18 162/74 H 96 11/19/18 02:05 60 176/77 H 11/19/18 02:00 72 18 99 11/19/18 01:36 66 20 169/107 H 98 11/19/18 01:34 59 L 11/19/18 00:21 36.3 C L 59 L 20 198/86 H 97 Laboratory Results White count today was 13.56. WBCs yesterday were 15.63. Hemoglobin today 13.4. Platelets 379,000. Coags were normal. D-dimer was elevated at 630. Venous arterial blood gas done yesterday showed pH 7.38 PCO2 45 PO2 49. Electrolytes show sodium 142 potassium 3.9 chloride 108 bicarb 25. BUN 20 with creatinine 1.2. Blood sugar 109. Hemoglobin A1c severely elevated at 0.3. Troponin 0 0.038. proBNP severely elevated at 6771. Alk phos elevated 163. Troponin mildly elevated at 0.062. Total protein 7.2. Albumin 2.9 and globulin 4.3. Lipase decreased at 66. Diagnostic Findings CT angios of the chest done yesterday showed no evidence of pulmonary embolism. There was mild diffuse haziness of the lungs with vague patchy groundglass opacity. This could be related to fluid overload with inability to exclude other etiologies. In the apices are small changes likely representing emphysema or cystic changes. Pleural effusions are noted moderate on right and small on the left. These were not seen on a prior CAT scan done in August. There is relatively mild mediastinal and hilar adenopathy which has been reported in the past. CT of the abdomen showed postsurgical changes of distal pancreatectomy and splenectomy with no evidence of metastatic disease. Chronic bladder outlet obstruction possibly due to underlying benign prostatic hyperplasia was suggested. EKG shows sinus rhythm with no acute changes. PG Care Time/CCT Total # of Minutes Spent Total Time Spent with Patient: Total time spent is greater than 50% in co ordination of care (as documented) at patient's floor/unit and/or counseling patient:
[2018-11-19] MEDS ORDERED: VANCOMYCIN HCL 1,500 MG in SODIUM CHLORIDE 0.9% 500 ML IV SCH (12:00)
[2018-11-19] MEDS ORDERED: INSULIN GLARGINE SOLOSTAR 100 UNITS/ML 3 ML PEN SC STA (12:30)
[2018-11-19] MEDS: VANCOMYCIN HCL 1,250 MG in SODIUM CHLORIDE 0.9% 250 ML IV SCH (13:52)
--- NOTE | 2018-11-19 17:51 | Hospitalist Progress Note ---
Date of Service November 19, 2018 Assessment & Plan (1) Right foot infection: non healing chronic diabetic wound infection presented with purulent drainage cont IV Abx wound culture obtained surgery consulted appreciate input scheduled for I&D tomorrow (2) Diastolic heart failure: presented with vol overload , orthopnea Pro BNP elevated , Cxray shows plural effusion ordered IV Lasix BID echo cardiology consulted -appreciate input (3) Troponin level elevated: possible demand ischemia in a setting of Decompensated Diastolic heart failure no evidece of ACS pt does not have any anginal symptom echo ordered cardiology consulted , appreciate input (4) DM type 2 (diabetes mellitus, type 2): cont insulin SSI FULL CODE DISPOSITION : expected to be discharged home when medically stable pt will need Home Health referral for wound care on discharge Subjective Denies of any shortness of breath or cough no fever or chills Scheduled for OR tomorrow with debridement of right foot infection Physical Exam Constitutional: WD/WN, vitals as above no acute distress Eyes: PERRL, conjunctivae normal, anicteric sclerae ENMT: external ear and nose normal, oropharynx normal Neck: trachea midline, no thyromegaly Respiratory: normal respiratory effort, lungs clear to auscultation Cardiovascular: RRR, no murmur, no edema Gastrointestinal (Abdomen): normal bowel sounds, soft, nontender, no hepatosplenomegaly Musculoskeletal: Deep wound noted on right foot plantar area, bandage present Neurologic: PERRL, EOMI, accommodation nl, no face palsy, no dysarthria Psychiatric: A+Ox3, euthymic affect Results & Data Vital Signs (Past 12 Hours) Vital Signs Temp Pulse Pulse Resp BP Pulse Ox 11/19/18 16:00 70 11/19/18 15:07 36.5 C 69 18 127/66 97 11/19/18 14:04 83 16 96 11/19/18 11:28 70 18 183/76 H 95 11/19/18 08:00 72 11/19/18 07:29 70 18 96 11/19/18 07:28 36.8 C 69 18 162/74 H 96
[2018-11-20] MEDS: LEVALBUTEROL 1.25MG/0.5ML NEB INH SCH ×5 (02:09→19:42)
[2018-11-20] MEDS: IPRATROPIUM BROMIDE NEB SOLN 0.02% 2.5 ML VIAL INH SCH ×5 (02:09→19:33)
[2018-11-20] MEDS: ERTAPENEM SODIUM 1,000 MG in SODIUM CHLORIDE 0.9% 50 ML IV SCH (02:13)
[2018-11-20] MEDS: VANCOMYCIN HCL 1,250 MG in SODIUM CHLORIDE 0.9% 250 ML IV SCH (05:31)
[2018-11-20] MEDS ORDERED: CLINDAMYCIN 600 MG in DEXTROSE 5% 50 ML IV SCH (06:00)
--- NOTE | 2018-11-20 07:00 | History & Physical Bridge Note ---
Date of Service November 20, 2018 History & Physical Bridge Note I have examined the patient, reviewed the History & Physical and in the interval since the performance of the History & Physical I have noted the following changes of clinical significance: no changes noted
--- NOTE | 2018-11-20 07:04 | Anesthesiology Consultation ---
Date of Service November 20, 2018 Assessment & Plan (1) Encounter for pre-operative examination: History Surgery Operation Date: 11/20/18 07:15 Proposed Procedures p Right Foot Wound Incision and Drainage - Christelle Su MD Height/Weight Height: 5 ft 5 in Weight: 104.2 kg Allergies Allergy/AdvReac Type Severity Reaction Status Date / Time bee venom protein (honey bee) Allergy Severe anaphylaxis Verified 11/18/18 19:59 cephalexin Allergy Severe Hives Verified 11/18/18 19:59 lisinopril Allergy Severe Elevated Verified 11/18/18 19:59 Potassium piperacillin Allergy Severe Hives Verified 11/18/18 19:59 amlodipine AdvReac Unknown Headache Verified 11/18/18 19:59 Medications Home Medications Medication Instructions Recorded Confirmed Last Taken albuterol sulfate 2.5 mg INHALATION Q4 PRN 09/01/18 11/18/18 09/01/18 aspirin [Aspir-81] 81 mg PO DAILY 09/01/18 11/18/18 Unknown atorvastatin 40 mg PO DAILY 09/01/18 11/18/18 Unknown budesonide-formoterol [Symbicort] 2 puff INHALATION BID 09/01/18 11/18/18 Unknown carvedilol 37.5 mg PO BID 09/01/18 11/18/18 Unknown duloxetine [Cymbalta] 60 mg PO DAILY 09/01/18 11/18/18 Unknown fluticasone propionate [Flonase 2 spray INTRANASAL DAILY PRN 09/01/18 11/18/18 Unknown Allergy Relief] insulin glargine [Lantus Solostar 40 unit SUBCUT BID 09/01/18 11/18/18 Unknown U-100 Insulin] insulin lispro [Humalog KwikPen 0 unit SUBCUT TIDM 09/01/18 11/18/18 Unknown Insulin] [id number] [Creon] 1 cap PO WM PRN 09/01/18 11/18/18 Unknown lisinopril [Zestril] 10 mg PO DAILY 09/01/18 11/18/18 Unknown metoclopramide HCl [Reglan] 5 mg PO AC 09/01/18 11/18/18 Unknown metolazone 2.5 mg PO MONTHUR 09/01/18 11/18/18 Unknown polyethylene glycol 3350 [Miralax] 17 g PO DAILY PRN 09/01/18 11/18/18 Unknown sennosides-docusate sodium [Senna 1 tab PO BID 09/01/18 11/18/18 Unknown with Docusate Sodium] sucralfate [Carafate] 1 g PO UD 09/01/18 11/18/18 Unknown tiotropium bromide [Spiriva 2 puff INHALATION DAILY 09/01/18 11/18/18 Unknown Respimat] torsemide [Demadex] 40 mg PO AMPM 09/01/18 11/18/18 Unknown bupropion HCl 200 mg PO DAILY 11/18/18 11/18/18 Unknown glucose 4 g PO UD PRN 11/18/18 11/18/18 Unknown omeprazole 20 mg PO BID 11/18/18 11/18/18 Unknown oxycodone 5 mg PO UD PRN 11/18/18 11/18/18 Unknown Active Medications Generic Name Dose Route Start Last Admin Trade Name Freq PRN Reason Stop Dose Admin Aspirin 81 mg 11/19/18 09:00 11/19/18 08:02 Ecotrin Ectab PO 12/19/18 08:59 81 mg DAILY GWEN Administration Atorvastatin Calcium 40 mg 11/19/18 09:00 11/19/18 08:02 Lipitor PO 12/19/18 08:59 40 mg DAILY GWEN Administration Budesonide/Formoterol Fumarate 2 puffs 11/19/18 09:00 11/19/18 21:37 Symbicort 160mcg/4.5mcg INH 12/19/18 08:59 2 puffs BID GWEN Administration Bupropion HCl 200 mg 11/19/18 09:00 11/19/18 08:02 Wellbutrin-Sr PO 12/19/18 08:59 200 mg DAILY GWEN Administration Carvedilol 37.5 mg 11/19/18 09:00 11/19/18 21:35 Coreg PO 12/19/18 08:59 37.5 mg BID GWEN Administration Duloxetine HCl 60 mg 11/19/18 09:00 11/19/18 08:03 Cymbalta PO 12/19/18 08:59 60 mg DAILY GWEN Administration Heparin Sodium (Porcine) 5 ml 11/19/18 02:34 11/19/18 05:41 Heparin Sod 100 Unit/Ml Flush FLUSH 12/19/18 02:44 5 ml PRN PRN Administration Flush Ertapenem 1,000 mg/ Sodium 60 mls @ 100 mls/hr 11/19/18 02:00 11/20/18 04:05 Chloride IV 11/29/18 01:59 Infused Q24H GWEN Infusion Protocol Furosemide 40 mg/ Syringe 4 mls @ 4 mls/min 11/19/18 09:00 11/19/18 21:35 IV 12/19/18 08:59 4 mls/min BID GWEN Administration Vancomycin HCl 1,250 mg/ 275 mls @ 125 mls/hr 11/19/18 14:00 11/20/18 05:31 Sodium Chloride IV 11/29/18 13:59 125 mls/hr Q16H GWEN Administration Insulin Aspart 0 units 11/19/18 07:30 11/19/18 21:38 Novolog Flexpen SC 12/19/18 07:29 7 units ACHS GWEN Administration Insulin Glargine 0 units 11/19/18 21:00 11/19/18 21:37 Lantus Solostar Pen SC 12/19/18 20:59 40 units HS GWEN Administration Protocol Ipratropium [place] 0.5 mg 11/19/18 02:00 11/20/18 02:09 Atrovent 0.02% 0.5mg/2.5ml INH 12/19/18 01:59 0.5 mg Q6R GWEN Administration Levalbuterol HCl 1.25 mg 11/19/18 02:00 11/20/18 02:09 Xopenex 1.25mg/0.5ml Neb INH 12/19/18 01:59 1.25 mg Q6R GWEN Administration Lisinopril 10 mg 11/19/18 09:00 11/19/18 08:03 Zestril PO 12/19/18 08:59 10 mg DAILY GWEN Administration Metoclopramide HCl 5 mg 11/19/18 07:30 11/19/18 17:12 Reglan PO 12/19/18 07:29 5 mg AC GWEN Administration Metolazone 2.5 mg 11/19/18 08:30 11/19/18 08:04 Zaroxolyn PO 12/19/18 08:29 2.5 mg MoTh@0830 GWEN Administration Oxycodone HCl 5 mg 11/19/18 00:59 08/12/19 21:34 Roxicodone Immediate Rel PO 12/03/18 00:58 5 mg 6XD PRN Administration Pain Pantoprazole Sodium 40 mg 11/19/18 09:00 11/19/18 21:35 Protonix PO 12/19/18 08:59 40 mg BID GWEN Administration Prednisone 40 mg 11/19/18 09:00 11/19/18 08:04 Prednisone PO 12/19/18 08:59 40 mg DAILY GWEN Administration Senna/Docusate Sodium 1 tab 11/19/18 09:00 11/19/18 21:36 Senokot S PO 12/19/18 08:59 1 tab BID GWEN Administration Tiotropium [place] 1 puffs 11/19/18 09:00 11/19/18 08:04 Spiriva INH 12/19/18 08:59 1 puffs DAILY GWEN Administration NPO Date Last Intake of Fluids: 11/20/18 Time Last Intake of Fluids: 00:00 Last Intake of Fluids Comment: sips water Past Medical History Medical History COPD (chronic obstructive pulmonary disease) (Chronic) GERD (gastroesophageal reflux disease) (Chronic) Glaucoma (Chronic) Osteoarthritis (Chronic) Diabetic polyneuropathy (Chronic) CVA (cerebral vascular accident) (Chronic) Asthma, mild persistent (Chronic) DM type 2 (diabetes mellitus, type 2) (Chronic) Dyslipidemia (Chronic) Depression (Chronic) PTSD (post-traumatic stress disorder) (Chronic) Paroxysmal atrial fibrillation (Chronic) Recurrent left pleural effusion (Chronic) Pancreatic cancer (Chronic) Diastolic CHF (Chronic) CKD (chronic kidney disease), stage III (Chronic) Pericardial effusion (Chronic) Past Surgical History Surgical History Hx of cataract surgery (Chronic) S/P tonsillectomy and adenoidectomy (Chronic) Social History Smoking Status: Current some day smoker tobacco type: cigarettes Hx Alcohol Use: No Hx Substance Use: No Physical Exam Vital Signs Last Vital Signs Temp 36.5 C 11/20/18 03:45 Pulse 65 11/20/18 03:45 Resp 22 11/20/18 03:45 BP 157/74 H 11/20/18 03:45 Pulse Ox 96 11/20/18 03:45 Testing Laboratory Results 11/19/18 05:46 11/19/18 05:46 PT 10.7 Seconds (9.0-12.0) 11/18/18 18:50 INR 1.0 (0.9-1.1) 11/18/18 18:50 APTT 29.5 Seconds (21.0-31.0) 11/18/18 18:50 Hemoglobin A1c 10.3 % (4.5-5.6) H 11/19/18 05:46 Urine Color Yellow 11/19/18 Unknown Urine Appearance Clear (Clear) 11/19/18 Unknown Urine pH 5.0 (4.5-7.5) 11/19/18 Unknown Ur Specific [place] 1.021 (1.000-1.030) 11/19/18 Unknown Urine Protein 3+ (Negative) H 11/19/18 Unknown Urine Glucose (UA) 1+ (Negative) H 11/19/18 Unknown Urine Ketones Negative (Negative) 11/19/18 Unknown Urine Nitrite Negative (Negative) 11/19/18 Unknown Ur Leukocyte Esterase Negative (Negative) 11/19/18 Unknown Urine WBC (Auto) 5-10 /hpf (0-5) H 11/19/18 Unknown Urine RBC (Auto) 0-4 /hpf (0-4) 11/19/18 Unknown U Hyaline Cast (Auto) 5-10 /lpf (0-5) H 11/19/18 Unknown U Epithel Cells (Auto) 10-20 /lpf (0-5) H 11/19/18 Unknown Urine Bacteria (Auto) Negative (Negative) 11/19/18 Unknown 11/18/18 18:50 Aerobic Blood Culture - Preliminary Blood No growth in Aerobic bottle after 24 hours. Anaerobic Blood Culture - Preliminary No growth in Anaerobic bottle after 24 hours. 11/18/18 18:30 Aerobic Blood Culture - Preliminary Blood No growth in Aerobic bottle after 24 hours. Anaerobic Blood Culture - Preliminary No growth in Anaerobic bottle after 24 hours. 11/19/18 20:40 POC Glucose 224 H Electrocardiogram Date: 11/18/18 Findings: + NSR @ (60) Normal sinus rhythm Possible Left atrial enlargement Borderline ECG When compared with ECG of 01-SEP-2018 15:57, No significant change was found Conf irmed by Dixon Shelley ([id number]) on 11/19/2018 7:02:53 PM Chest X-Ray Date: 11/18/18 PRESSION: 1. Bibasilar opacities, likely passive atelectasis in the setting of effusions, or less likely, aspiration. 2. Left pleural effusion. Layering right pleural effusion not excluded. 3. Cardiomegaly.
[2018-11-20] MEDS ORDERED: ROPIVACAINE 0.5% 5 MG/ML 30 ML VIAL ONE (07:13)
[2018-11-20] MEDS ORDERED: BACITRACIN OINT 15 GM TUBE ONE (07:54)
[2018-11-20] MEDS ORDERED: ePHEDrine sulfate 50 MG/ML AMP IV PRN (08:04)
[2018-11-20] MEDS ORDERED: fentaNYL citrate 100 MCG/2 ML VIAL IV PRN (08:04)
[2018-11-20] MEDS ORDERED: ONDANSETRON INJ 2 MG/ML 2 ML VIAL IV PRN (08:04)
[2018-11-20] MEDS ORDERED: ATROPINE SULFATE 0.1 MG/ML 10ML SYR IV PRN (08:04)
--- NOTE | 2018-11-20 08:41 | Operative Report ---
DATE OF OPERATION: 11/20/2018 PREOPERATIVE DIAGNOSIS: Chronic right foot wound. POSTOPERATIVE DIAGNOSIS: Chronic right foot wound. PROCEDURE: Debridement, right foot wound. SURGEON: Christelle Su MD. ANESTHESIA: Nerve block plus sedation. FINDINGS: Chronic right foot wound. The wound is stage IV, the wound size about 2 x 3 cm. COMPLICATIONS: None. INDICATIONS FOR THE PROCEDURE: This is a 63-year-old gentleman who was admitted to the hospital for chronic infected right foot wound and patient required debridement of right foot wound. I did talk to the patient about the benefits, the risks, and alternate procedures. I indicated the risks may include, but not limited, such as bleeding, infection, unhealing the wound, dysfunction of the foot. The patient understands. He signed informed consent and I answered all questions. DETAILS OF PROCEDURE: We brought in the patient to the OR, put the patient in the supine position. The patient received SCD on the left side lower leg and the patient also received nerve block on the right foot. The patient received conscious sedation by anesthesiology. Also patient received 1 gram of vancomycin IV for prophylactic antibiotic. The patient's right side of the foot was prepped and draped in routine sterile fashion. After time-out, reexamined the foot. The wound size about 2 x 3 cm. There is some chronic tight tissue and located plantar. After time-out, used sharp knife to clean up all the tight tissue, debridement, and we sent wound culture. Once we saw the fresh new tissue, then we stopped. The wound deep to tenderness stage IV. Then we put the dressing on and the patient tolerated the procedure well. All instrument, needle, and sponge counts were correct x2 at the end of the case. Estimated blood loss about 3 mL. The patient transferred to recovery room in stable condition. I attest to the content of the Intraoperative Record and any orders documented therein. Any exceptions are noted below. ENRICOD
--- NOTE | 2018-11-20 08:47 | Anesthesiology Progress Note ---
Date of Service November 20, 2018 Anesthesia Post Procedure Vital Signs Vital Signs: Temp Pulse Pulse Resp BP Pulse Ox 11/20/18 08:30 64 17 168/78 H 98 11/20/18 08:20 36.7 C 63 13 169/75 H 97 11/20/18 08:10 64 19 167/80 H 97 11/20/18 08:05 36.5 C 67 18 166/78 H 99 11/20/18 08:03 36.8 C 70 24 169/73 H 92 11/20/18 07:40 18 98 11/20/18 03:45 36.5 C 65 22 157/74 H 96 11/20/18 02:10 82 18 96 11/20/18 00:42 73 11/19/18 23:07 36.4 C L 71 18 154/72 H 93 11/19/18 20:05 36.6 C 73 18 146/68 H 94 11/19/18 19:24 77 18 95 11/19/18 16:00 70 11/19/18 15:07 36.5 C 69 18 127/66 97 11/19/18 14:04 83 16 96 11/19/18 11:28 70 18 183/76 H 95 Pain Intensity Back: Pain Intensity: 8 Transfer of Care Handoff Completed per policy Notes Mental Status: alert / awake / arousable and participated in evaluation Patient Amnestic to Procedure: Yes Nausea / Vomiting: adequately controlled Pain: adequately controlled Airway Patency, RR, SpO2: stable & adequate BP & HR: stable & adequate Hydration State: stable & adequate Anesthetic Complications: no major complications apparent and Pt Satisfied with anesthetic care
[2018-11-20] MEDS ORDERED: TORSEMIDE 40 MG PO SCH (08:55)
[2018-11-20] MEDS: METOCLOPRAMIDE HCL 10 MG TABLET PO SCH ×3 (08:58→16:53)
[2018-11-20] MEDS: ASPIRIN 81 MG ECTAB PO SCH (08:59)
[2018-11-20] MEDS: DOCUSATE SODIUM/SENNA 50/8.6MG TAB PO SCH ×2 (08:59→20:47)
[2018-11-20] MEDS: BuPROPion SR 100 MG TABCR PO SCH (08:59)
[2018-11-20] MEDS: ATORVASTATIN 40 MG TAB PO SCH (08:59)
[2018-11-20] MEDS: PANTOprazole 40 MG TAB PO SCH ×2 (08:59→20:44)
[2018-11-20] MEDS: DULOXETINE HCL 60 MG CAP PO SCH (08:59)
[2018-11-20] MEDS: CARVEDILOL 12.5 MG TAB PO SCH ×2 (08:59→20:45)
[2018-11-20] MEDS: predniSONE 20 MG TAB PO SCH (09:00)
[2018-11-20] MEDS ORDERED: INSULIN GLARGINE SOLOSTAR 100 UNITS/ML 3 ML PEN SQ SCH (09:00)
[2018-11-20] MEDS: TIOTROPIUM BROMIDE 5 PUFF/90 MCG INH INH SCH (09:00)
[2018-11-20] MEDS: LISINOPRIL 10 MG TAB PO SCH (09:00)
[2018-11-20] MEDS: BUDESONIDE/FORMOTEROL FUMARATE 160/4.5 60 PUFFS/INHALER INH SCH ×2 (09:00→20:46)
[2018-11-20] MEDS: FUROSEMIDE 40 MG in SYRINGE 0 ML IV SCH (09:00)
[2018-11-20] MEDS ORDERED: INSULIN GLARGINE SOLOSTAR 100 UNITS/ML 3 ML PEN SC SCH ×2 (09:00)
[2018-11-20 09:51] LABS: Creatinine Clr Calc Pharmacy 50.9 ml/min; Est GFR (African American) 50.8; Est GFR (Non-African American) 43.9
[2018-11-20] MEDS: INSULIN ASPART 100 UNITS/ML 3 ML PEN SC SCH ×4 (09:55→20:48)
--- NOTE | 2018-11-20 11:22 | Pulmonology Progress Note ---
Date of Service November 20, 2018 Assessment & Plan (1) Pleural effusion: Clinically the patient is improved. His urine output was not that great from yesterday with no significant net balance. Nonetheless the patient feels much better. The exact etiology for the effusion is not clear. CHF was suspected in light of the severe elevation of pro BNP. He ultimately should have follow-up x-ray of the chest to assure resolution or at least significant improvement. His respiratory status is stable. I feel the prednisone can be discontinued. This would be important in light of his uncontrolled diabetes and the infection. (2) COPD (chronic obstructive pulmonary disease): Subjective The patient denies complaints. He had the foot surgery already this morning. He denies shortness of breath or cough. He states he is feeling very well. Physical Exam Physical Exam: The patient is a 63-year-old male who was operative alert and oriented. He was in no distress. Weight is stable at 104.2 kg. Eye exam shows implants bilaterally from prior cataract surgery. Nasal passages clear. Mouth exam unremarkable. No lymph nodes palpable. Cardiac rate 62/min. Rhythm regular. Blood pressure 137/68. Auscultation of the lung mcintosh revealed them to have few rales. This was improved compared with yesterday. There was a large scar in the left posterior and lateral chest from prior surgery. Respiratory rate 20. Saturation 97% on 4 L nasal cannula earlier today. At the time of my exam he was on room air with saturation 80%. Temperature is 36.6. Extremities showed no cyanosis clubbing or edema. Results & Data Vital Signs (Past 12 Hours) Vital Signs Temp Pulse Pulse Resp BP Pulse Ox 11/20/18 09:58 36.6 C 62 20 137/68 97 11/20/18 09:25 36.6 C 66 18 156/75 H 96 11/20/18 09:00 64 11/20/18 08:50 36.3 C L 68 20 164/79 H 90 11/20/18 08:30 64 17 168/78 H 98 11/20/18 08:20 36.7 C 63 13 169/75 H 97 11/20/18 08:10 64 19 167/80 H 97 11/20/18 08:05 36.5 C 67 18 166/78 H 99 11/20/18 08:03 36.8 C 70 24 169/73 H 92 11/20/18 07:40 18 98 11/20/18 03:45 36.5 C 65 22 157/74 H 96 11/20/18 02:10 82 18 96 11/20/18 00:42 73 Laboratory Results Creatinine today is 1.63. Yesterday creatinine was 1.20. Urinalysis yesterday showed 3+ protein 1+ glucose peer Diagnostic Findings Echocardiogram done yesterday showed ejection fraction 50 to 55%. Right ventricular systolic function was normal. There was no indication of pulmonary hypertension. Moderate concentric LVH was reported. PG Care Time/CCT Total # of Minutes Spent Total Time Spent with Patient: Total time spent is greater than 50% in coordination of care (as documented) at patient's floor/unit and/or counseling patient:
[2018-11-20] MEDS ORDERED: NON-FORMULARY MEDICATION (Insulin Lispro [Humalog Kwikpen Insulin] 0 UNITS) SQ SCH (12:00)
--- NOTE | 2018-11-20 14:55 | Cardiology Progress Note ---
Date of Service November 20, 2018 Assessment & Plan (1) Right foot infection: (2) Fluid overload: (3) COPD (chronic obstructive pulmonary disease): (4) Diastolic heart failure: (5) Pancreatic cancer: (6) Paroxysmal atrial fibrillation: (7) Troponin level elevated: The patient is currently clinically stable postop. Plan to continue current medications and treatment. Subjective The patient is resting comfortably still under the effects of sedation after he underwent debridement of his right foot this morning. No current cardiac complaints. Review of Systems Review of Systems: All systems reviewed & are unremarkable except as noted in HPI & below No additional information. Physical Exam Physical Exam: General: no acute distress and stated age Head: normocephalic, no masses, lesions, tenderness or abnormalities Eyes: conjunctiva are pink and non-injected, sclera clear Neck: supple, no adenopathy, no bruits, normal jugular venous pulse, no hepatojugular reflux Chest: normal shape and normal respiratory effort Lungs: clear to auscultation and percussion Cardiac Exam: - regular rate & rhythm, no murmurs gallops or rubs - normal S1, normal S2 Pulses: 2(+) throughout Abdomen: abdomen soft, non-tender, no abnormal masses and no hepatosplenomegaly Musculoskeletal: no gait disturbance, no joint inflammation, no deforming arthritis Extremities: no edema and no cyanosis Neuro: grossly normal exam Results & Data Vital Signs (Past 12 Hours) Vital Signs Temp Pulse Pulse Resp BP Pulse Ox 11/20/18 12:57 64 18 94 11/20/18 09:58 36.6 C 62 20 137/68 97 11/20/18 09:25 36.6 C 66 18 156/75 H 96 11/20/18 09:00 64 11/20/18 08:50 36.3 C L 68 20 164/79 H 90 11/20/18 08:30 64 17 168/78 H 98 11/20/18 08:20 36.7 C 63 13 169/75 H 97 11/20/18 08:10 64 19 167/80 H 97 11/20/18 08:05 36.5 C 67 18 166/78 H 99 11/20/18 08:03 36.8 C 70 24 169/73 H 92 11/20/18 07:40 18 98 11/20/18 03:45 36.5 C 65 22 157/74 H 96 Laboratory Results Laboratory Results - last 24 hr 11/19/18 11/19/18 11/20/18 16:42 20:40 07:10 Creatinine Est Cr Clr Drug Dosing Est GFR ( Amer) Est GFR (Non-Af Amer) POC Glucose 245 H 224 H 172 H 11/20/18 11/20/18 11/20/18 08:06 09:21 11:42 Creatinine 1.63 H D Est Cr Clr Drug Dosing 50.9 Est GFR ( Amer) 50.8 Est GFR (Non-Af Amer) 43.9 POC Glucose 218 H 200 H Medications Administered Current Inpatient Medications Acetaminophen (Tylenol) 650 mg PO Q4H PRN PRN Reason: Pain or Fever Stop: 12/19/18 00:58 Albuterol (Ventolin 0.083% 2.5mg/3ml) 2.5 mg INH Q4 PRN PRN Reason: Wheezing Stop: 12/19/18 00:58 Lipase/Protease/Amylase (Pancreaze (Lipase 10,500u)) 1 cap PO AC PRN PRN Reason: . Stop: 12/19/18 07:29 Aspirin (Ecotrin Ectab) 81 mg PO DAILY [facility] Stop: 12/19/18 08:59 Last Admin: 11/20/18 08:59 Dose: 81 mg Documented by: Atorvastatin Calcium (Lipitor) 40 mg PO DAILY [facility] Stop: 12/19/18 08:59 Last Admin: 11/20/18 08:59 Dose: 40 mg Documented by: Budesonide/Formoterol Fumarate (Symbicort 160mcg/4.5mcg) 2 puffs INH BID [facility] Stop: 12/19/18 08:59 Last Admin: 11/20/18 09:00 Dose: 2 puffs Documented by: Bupropion HCl (Wellbutrin-Sr) 200 mg PO DAILY [facility] Stop: 12/19/18 08:59 Last Admin: 11/20/18 08:59 Dose: 200 mg Documented by: Carvedilol (Coreg) 37.5 mg PO BID [facility] Stop: 12/19/18 08:59 Last Admin: 11/20/18 08:59 Dose: 37.5 mg Documented by: Dextrose (Dextrose 50%) 25 - 50 ml IV UD PRN; Protocol PRN Reason: Hypoglycemia Protocol Stop: 12/19/18 01:59 Duloxetine HCl (Cymbalta) 60 mg PO DAILY [facility] Stop: 12/19/18 08:59 Last Admin: 11/20/18 08:59 Dose: 60 mg Documented by: Ertapenem (Consult) 1 ea N/A UD PRN PRN Reason: Consult Stop: 12/19/18 01:09 Fluticasone Propionate (Flonase) 2 sprays NA DAILY PRN PRN Reason: Congestion Stop: 12/19/18 00:58 Glucagon (Glucagen) 1 mg SQ UD PRN; Protocol PRN Reason: Hypoglycemia Protocol Stop: 12/19/18 01:59 Glucose (Glucose 40%) 15 - 30 gm PO UD PRN; Protocol PRN Reason: Hypoglycemia Protocol Stop: 12/19/18 01:59 Glucose (Dex4 Glucose) 4 - 8 tabs PO UD PRN; Protocol PRN Reason: Hypoglycemia Protocol Stop: 12/19/18 01:59 Heparin Sodium (Porcine) (Heparin Sod 100 Unit/Ml Flush) 5 ml FLUSH PRN PRN PRN Reason: Flush Stop: 12/19/18 02:44 Last Admin: 11/19/18 05:41 Dose: 5 ml Documented by: Ertapenem 1,000 mg/ Sodium (Chloride) 60 mls @ 100 mls/hr IV Q24H [facility]; Protocol Stop: 11/29/18 01:59 Last Infusion: 11/20/18 04:05 Dose: Infused Documented by: Furosemide 40 mg/ Syringe 4 mls @ 4 mls/min IV BID [facility] Stop: 12/19/18 08:59 Last Admin: 11/20/18 09:00 Dose: 4 mls/min Documented by: Clindamycin Phosphate 600 mg/ (Dextrose) 54 mls @ 100 mls/hr IV PREOP [facility] Stop: 11/20/18 18:00 Last Admin: 11/20/18 09:48 Dose: Not Given Documented by: Daptomycin 325 mg/ Syringe 6.5 mls @ 3.25 mls/min IV Q24H [facility] Stop: 11/30/18 19:59 Insulin Aspart (Novolog Flexpen) 0 units SC ACHS [facility] Stop: 12/19/18 07:29 Last Admin: 11/20/18 12:18 Dose: 17 units Documented by: Insulin Glargine (Lantus Solostar Pen) 0 units SC HS [facility]; Protocol Stop: 12/19/18 20:59 Last Admin: 11/19/18 21:37 Dose: 40 units Documented by: Insulin Glargine (Lantus Solostar Pen) 30 units SC BID [facility] Stop: 12/20/18 08:59 Last Admin: 11/20/18 09:56 Dose: 30 units Documented by: Ipratropium Crowley (Atrovent 0.02% 0.5mg/2.5ml) 0.5 mg INH Q6R [facility] Stop: 12/19/18 01:59 Last Admin: 11/20/18 12:57 Dose: 0.5 mg Documented by: Levalbuterol HCl (Xopenex 1.25mg/0.5ml Neb) 1.25 mg INH Q6R [facility] Stop: 12/19/18 01:59 Last Admin: 11/20/18 12:57 Dose: 1.25 mg Documented by: Lisinopril (Zestril) 10 mg PO DAILY [facility] Stop: 12/19/18 08:59 Last Admin: 11/20/18 09:00 Dose: 10 mg Documented by: Metoclopramide HCl (Reglan) 5 mg PO AC [facility] Stop: 12/19/18 07:29 Last Admin: 11/20/18 12:18 Dose: 5 mg Documented by: Metolazone (Zaroxolyn) 2.5 mg PO MoTh@0830 [facility] Stop: 12/19/18 08:29 Last Admin: 11/19/18 08:04 Dose: 2.5 mg Documented by: Miscellaneous (Carbohydrates For Hypoglycemia) 15 - 30 gm PO UD PRN PRN Reason: Hypoglycemia Treatment Stop: 12/19/18 01:59 Miscellaneous Information (Consult Glycemic Management Pharmacy) 1 ea N/A UD PRN PRN Reason: Consult Stop: 12/19/18 01:43 Nitroglycerin (Nitrostat) 0.4 mg SL UD PRN PRN Reason: Chest Pain Stop: 12/19/18 00:58 Ondansetron HCl (Zofran) 4 mg IV Q6H PRN PRN Reason: Nausea Stop: 12/19/18 00:58 Oxycodone HCl (Roxicodone Immediate Rel) 5 mg PO 6XD PRN PRN Reason: Pain Stop: 12/03/18 00:58 Last Admin: 11/19/18 21:34 Dose: 5 mg Documented by: Pantoprazole Sodium (Protonix) 40 mg PO BID [facility] Stop: 12/19/18 08:59 Last Admin: 11/20/18 08:59 Dose: 40 mg Documented by: Polyethylene Glycol (Miralax Powder Packet) 17 gm PO DAILY PRN PRN Reason: Constipation Senna/Docusate Sodium (Senokot S) 1 tab PO BID [facility] Stop: 12/19/18 08:59 Last Admin: 11/20/18 08:59 Dose: 1 tab Documented by: Sucralfate (Carafate Tab) 1 gm PO QID PRN PRN Reason: DYSPEPSIA Stop: 12/19/18 00:58 Tiotropium Crowley (Spiriva) 1 puffs INH DAILY [facility] Stop: 12/19/18 08:59 Last Admin: 11/20/18 09:00 Dose: 1 puffs Documented by: (1) Fluid overload Hypervolemia type: unspecified Qualified Code(s): E87.70 - Fluid overload, unspecified
--- NOTE | 2018-11-20 15:38 | Pharmacy Report ---
Glycemic Control Progress Note - Date of Service November 20, 2018 - Scope Glycemic Pharmacist consulted for glycemic control to write orders per [facility] inpatient glycemic control protocol. - Objective Accuchecks BSG(last 24 hours):: 11/19/18 11/19/18 11/20/18 16:42 20:40 07:10 POC Glucose 245 H 224 H 172 H 11/20/18 11/20/18 08:06 11:42 POC Glucose 218 H 200 H HbA1c:: Hemoglobin A1c 10.3 % (4.5-5.6) H 11/19/18 05:46 - Recent Pertinent Medications The patient is currently receiving: * Basal insulin: Lantus 40 units every 12 hours * Correctional Insulin: Novolog Correction per scale ACHS Goal Range: Low 110 mg/dL - High 140 mg/dL Correction Factor: 12 mg/dL/unit * Prandial insulin: Per carb ratio of 1 unit per 4 grams CHO consumed * Oral Agents: - Outpatient Anti-Diabetic Meds Lantus 40 units SQ BID plus Humalog CR of 1 units per 2.5 grams of carbohydrates when BSG > 150 mg/dL - Assessment & Plan ASSESSMENT: * See progress note from 11/19/18 for more background info, in short: * Pt receiving SQ basal bolus insulin regimen for hyperglycemia secondary to baseline DM (outpatient regimen on hold),stress/infection (currently on daptomycin and invanz for skin infection), and POD 0 for I&D * Patient is currently receiving an average of 120 units of insulin per day * 80 units of basal insulin * 40 units of prandial/correctional insulin * BSGs ranging 148 - 245 mg/dl over the past 24hrs * Changes needed to insulin regimen: * AM Fasting BSG = 172 mg/dl. This is above goal range for patient based on inpatient targets and co-morbidities; the patient has received IV steroids yesterday and PO prednisone yesterday and today. Per previous visits the patient's insulin requirement is around 20 units SQ BID and he can suffer lows due to too much insulin. Steroid effects will start to dissipate soon therefore will reduce to 20 units of Lantus. Compensate with tighter Novolog. * Post-prandial BSGs are elevated. Tighten CR for right now since received PO prednisone today. * Total daily dose is TBD. PLAN FOR INPATIENT GLYCEMIC CONTROL: * Decrease Lantus to 20 units SQ BID * Continuing correction factor of 12 mg/dl/unit * Tightening carb ratio of 1 unit per 3 grams CHO consumed * Continuing goal range of Low 110 mg/dL - High 140 mg/dL * Please note that the plan above was derived based on current level of insulin resistance and hospital stress. These recommendations are appropriate for inpatient admission only. Plan of care upon discharge will need to be reassessed to avoid potential outpatient hypo/hyperglycemia. Thank you.
[2018-11-20] MEDS ORDERED: VANCOMYCIN TROUGH ONE ×2 (19:30→21:30)
--- NOTE | 2018-11-20 19:44 | Hospitalist Progress Note ---
Date of Service November 20, 2018 Assessment & Plan (1) Right foot infection: non healing chronic diabetic wound infection presented with purulent drainage cont IV Abx -on Daptomycin and Invanz wound culture obtained surgery consulted appreciate input s/p I&D today POD #0 (2) Diastolic heart failure: presented with vol overload , orthopnea Pro BNP elevated , Cxray shows plural effusion given IV lasix 40 ng BID vol status improved to baseline no SOB , orthopena or DESHPANDE noted to develop Acute renal failure /ELIZABETH ordered to hold Lasix cont to monitor vol status cardiology consulted -appreciate input (3) Troponin level elevated: possible demand ischemia in a setting of Decompensated Diastolic heart failure /hypertensive urgency on persenteation -Type 2 AL no evidece of ACS pt does not have any anginal symptom cardiology consulted , appreciate input no further cardiac work up needed (4) Acute kidney injury superimposed on CKD: baseline CKD stage 3 cr worsened due to Aggresive IV diureis -presentation with Acute decompensated CHF with diastolic heart failure recieved Contrast for CT scan ordered to hold Lasix avoid NSAID , contrast , nephrology consulted (5) Hypertension: BP elevated cont to monitor for pain control Lasix on hold for ELIZABETH ordered PRN IV hydralaize cont to monitor in tele (6) DM type 2 (diabetes mellitus, type 2): cont insulin SSI FULL CODE DISPOSITION : expected to be discharged home when medically stable pt will need Home Health referral for wound care on discharge Subjective s/p debridement of right foot infection today had uneventful surgery mentions rt foot pain is controlled , still has nerve block ordered for PRN Dilaudid ( takes chronic PRN oxycodone -which is continued ) no complain of orthopnea , no sob or chest pressure no SOB or hypoxia no fever or chills Review of Systems Review of Systems: All systems reviewed & are unremarkable except as noted in HPI & below Physical Exam Constitutional: WD/WN, vitals as above no acute distress Eyes: PERRL, conjunctivae normal, anicteric sclerae ENMT: external ear and nose normal, oropharynx normal Neck: trachea midline, no thyromegaly Respiratory: normal respiratory effort, lungs clear to auscultation Cardiovascular: RRR, no murmur, no edema Gastrointestinal (Abdomen): normal bowel sounds, soft, nontender, no hepatosplenomegaly Musculoskeletal: s/p rt foot planer infected wound debridement bandgage present pt reports of adequate pain control Neurologic: PERRL, EOMI, accommodation nl, no face palsy, no dysarthria Psychiatric: A+Ox3, euthymic affect Results & Data Vital Signs (Past 12 Hours) Vital Signs Temp Pulse Pulse Resp BP Pulse Ox 11/20/18 19:42 69 16 94 11/20/18 15:29 60 11/20/18 15:18 36.6 C 65 18 160/73 H 90 11/20/18 12:57 64 18 94 11/20/18 09:58 36.6 C 62 20 137/68 97 11/20/18 09:25 36.6 C 66 18 156/75 H 96 11/20/18 09:00 64 11/20/18 08:50 36.3 C L 68 20 164/79 H 90 11/20/18 08:30 64 17 168/78 H 98 11/20/18 08:20 36.7 C 63 13 169/75 H 97 11/20/18 08:10 64 19 167/80 H 97 11/20/18 08:05 36.5 C 67 18 166/78 H 99 11/20/18 08:03 36.8 C 70 24 169/73 H 92 (1) Diastolic heart failure Heart failure chronicity: acute on chronic Qualified Code(s): I50.33 - Acute on chronic diastolic (congestive) heart failure (2) Hypertension Hypertension type: unspecified Qualified Code(s): I10 - Essential (primary) hypertension
[2018-11-20] MEDS ORDERED: DAPTOmycin 325 MG in SYRINGE 0 ML IV SCH (20:00)
[2018-11-20] MEDS ORDERED: HydrALAZINE HCL 20 MG/ML VIAL IV PRN (20:20)
[2018-11-20] MEDS: OXYCODONE HCL IR 5 MG TAB (IMMEDIATE RELEASE) PO PRN (20:43)
[2018-11-20] MEDS: INSULIN GLARGINE SOLOSTAR 100 UNITS/ML 3 ML PEN SC SCH (20:49)
[2018-11-20] MEDS: HEPARIN 100 UNIT/ML 5ML FLUSH FLUSH PRN (21:56)
[2018-11-20] MEDS: HYDROmorphone INJ 1 MG/ML SYRINGE IV PRN (22:37)
[2018-11-21] MEDS: IPRATROPIUM BROMIDE NEB SOLN 0.02% 2.5 ML VIAL INH SCH ×4 (01:19→19:34)
[2018-11-21] MEDS: LEVALBUTEROL 1.25MG/0.5ML NEB INH SCH ×4 (01:20→19:33)
[2018-11-21] MEDS ORDERED: INSULIN ASPART 100 UNITS/ML 3 ML PEN SC SCH (02:00)
[2018-11-21] MEDS: ERTAPENEM SODIUM 1,000 MG in SODIUM CHLORIDE 0.9% 50 ML IV SCH (03:09)
[2018-11-21] MEDS: OXYCODONE HCL IR 5 MG TAB (IMMEDIATE RELEASE) PO PRN ×3 (03:18→20:12)
[2018-11-21 07:28] LABS: Potassium 3.5 mmol/L (3.5-5.1)
[2018-11-21 07:29] LABS: BUN Creatinine Ratio 18.7 (10-20); Calcium 8.2 mg/dl (8.5-10.1); Creatinine Clr Calc Pharmacy 47.3 ml/min; Est GFR (Non-African American) 39.7
[2018-11-21] MEDS ORDERED: POTASSIUM CHLORIDE 20 MEQ TABCR PO STA (07:32)
[2018-11-21] MEDS: BuPROPion SR 100 MG TABCR PO SCH (09:00)
[2018-11-21] MEDS: DULOXETINE HCL 60 MG CAP PO SCH (09:00)
[2018-11-21] MEDS: CARVEDILOL 12.5 MG TAB PO SCH ×2 (09:00→20:15)
[2018-11-21] MEDS: METOCLOPRAMIDE HCL 10 MG TABLET PO SCH ×3 (09:01→17:55)
[2018-11-21] MEDS: ASPIRIN 81 MG ECTAB PO SCH (09:01)
[2018-11-21] MEDS: PANTOprazole 40 MG TAB PO SCH ×2 (09:01→20:13)
[2018-11-21] MEDS: DOCUSATE SODIUM/SENNA 50/8.6MG TAB PO SCH ×2 (09:02→20:14)
[2018-11-21] MEDS: TIOTROPIUM BROMIDE 5 PUFF/90 MCG INH INH SCH (09:03)
[2018-11-21] MEDS: BUDESONIDE/FORMOTEROL FUMARATE 160/4.5 60 PUFFS/INHALER INH SCH ×2 (09:04→20:14)
[2018-11-21] MEDS: INSULIN GLARGINE SOLOSTAR 100 UNITS/ML 3 ML PEN SC SCH (09:08)
[2018-11-21] MEDS: INSULIN ASPART 100 UNITS/ML 3 ML PEN SC SCH ×4 (09:10→21:19)
--- NOTE | 2018-11-21 09:33 | Nephrology Consultation ---
Date of Consultation November 21, 2018 Assessment & Plan (1) Acute kidney injury superimposed on CKD: Nonoliguric ELIZABETH on CKD 3. His baseline creatinine is 1.4-1.5; he was 1.2 on presentation 11/18. Currently creatinine is continuing upward trend to 1.8 today. His uop (assuming I/O accurate) is picking up which can be an early sign of recovery from ATN. Working dx is ischemic ATN in the wake of IV contrast, IV diuretics. serum chemistries acceptable at this time. -cont strict I/O -daily bmp -reordered UACM -held metolazone for tomorrow -continue to hold lasix 40 mg IV but ok to use prn >> he is currently at baseline 02 status Present on Admission?: No (2) Fluid overload: -ordered low Na diet -diuretics currently on hold -ordered mild FR 2L Present on Admission?: Yes (3) Hypertension: His sbp has ranged 150s-190s past 24 hrs and elevated most of admission. -on coreg 37.5 mg bid only at this point standing as well as prn hydralazine 10 mg po which he has had once -w/ HR low 60s at times would not increase BB -cont to hold diuretic -add standing hydralazine for a few days until we can get him back on diuretics > 25 mg tid po Present on Admission?: Yes History of Present Illness Reason for Consultation: acute renal failure Requesting Physician: Dr Blandon Attending Physician: Max Linton MD History of Present Illness 63 y/o M admitted 11/18 for acute on chronic diastolic HF and ongoing R foot infection whom I'm asked to see for ELIZABETH. PMH includes DM, pancreatic CA s/p resection 2017, CAD, thrombocytosis s/p splenectomy, chronic hypoxic respiratory failure from restrictive lung disease on 4L 02NC 31/10, active tobacco abuse, stroke, pAF not anticoagulated, HTN, CKD 3 w/ baseline creatinine 1.4-1.5, chronic hyponatremia in past, prostate CA s/p CTX, stroke. His creatinine on admission was 1.3; 1.2 on 11/19; then yesterday creatinine was up to 1.6, today to 1.8. He did have CTA chest on presentation on 11/18. he is being treated w/ ertapenem and daptomycin. He did have 2 doses of vancomycin before change to dapto; vanco trough last evening was 20. Also on lasix 40 mg bid IV until yesterday AM; metolazone 2.5 mg on Mon/Thurs. He had lisinopril 10 mg daily on 11/19, 11/20 but this is now on hold. Yesterday, the pt underwent debridement of R foot wound in OR. Pulmonary is following for pleural effusion. Cardiology following for troponin elevation > he is considered clinically stable from a cardiac standpoint. Allergies Allergy/AdvReac Type Severity Reaction Status Date / Time bee venom protein (honey bee) Allergy Severe anaphylaxis Verified 11/18/18 19:59 cephalexin Allergy Severe Hives Verified 11/18/18 19:59 lisinopril Allergy Severe Elevated Verified 11/18/18 19:59 Potassium piperacillin Allergy Severe Hives Verified 11/18/18 19:59 amlodipine AdvReac Unknown Headache Verified 11/18/18 19:59 Home Medications Home Medications Medication Instructions Recorded Confirmed Type albuterol sulfate 2.5 mg INHALATION Q4 PRN 09/01/18 11/18/18 History aspirin [Aspir-81] 81 mg PO DAILY 09/01/18 11/18/18 History atorvastatin 40 mg PO DAILY 09/01/18 11/18/18 History budesonide-formoterol [Symbicort] 2 puff INHALATION BID 09/01/18 11/18/18 History carvedilol 37.5 mg PO BID 09/01/18 11/18/18 History duloxetine [Cymbalta] 60 mg PO DAILY 09/01/18 11/18/18 History fluticasone propionate [Flonase 2 spray INTRANASAL DAILY PRN 09/01/18 11/18/18 History Allergy Relief] insulin glargine [Lantus Solostar 40 unit SUBCUT BID 09/01/18 11/18/18 History U-100 Insulin] insulin lispro [Humalog KwikPen 0 unit SUBCUT TIDM 09/01/18 11/18/18 History Insulin] [id number] [Creon] 1 cap PO WM PRN 09/01/18 11/18/18 History lisinopril [Zestril] 10 mg PO DAILY 09/01/18 11/18/18 History metoclopramide HCl [Reglan] 5 mg PO AC 09/01/18 11/18/18 History metolazone 2.5 mg PO MONTHUR 09/01/18 11/18/18 History polyethylene glycol 3350 [Miralax] 17 g PO DAILY PRN 09/01/18 11/18/18 History sennosides-docusate sodium [Senna 1 tab PO BID 09/01/18 11/18/18 History with Docusate Sodium] sucralfate [Carafate] 1 g PO UD 09/01/18 11/18/18 History tiotropium bromide [Spiriva 2 puff INHALATION DAILY 09/01/18 11/18/18 History Respimat] torsemide [Demadex] 40 mg PO AMPM 09/01/18 11/18/18 History bupropion HCl 200 mg PO DAILY 11/18/18 11/18/18 History glucose 4 g PO UD PRN 11/18/18 11/18/18 History omeprazole 20 mg PO BID 11/18/18 11/18/18 History oxycodone 5 mg PO UD PRN 11/18/18 11/18/18 History Patient History Medical History COPD (chronic obstructive pulmonary disease) (Chronic) GERD (gastroesophageal reflux disease) (Chronic) Glaucoma (Chronic) Osteoarthritis (Chronic) Diabetic polyneuropathy (Chronic) CVA (cerebral vascular accident) (Chronic) Asthma, mild persistent (Chronic) DM type 2 (diabetes mellitus, type 2) (Chronic) Dyslipidemia (Chronic) Depression (Chronic) PTSD (post-traumatic stress disorder) (Chronic) Paroxysmal atrial fibrillation (Chronic) Recurrent left pleural effusion (Chronic) Pancreatic cancer (Chronic) Diastolic CHF (Chronic) CKD (chronic kidney disease), stage III (Chronic) Pericardial effusion (Chronic) Surgical History Hx of cataract surgery (Chronic) S/P tonsillectomy and adenoidectomy (Chronic) Social History Preferred Language: Pashto Communication Ability: Effective Bench Hand Machine Required: No Beliefs That Will Affect Care: None marital status: Current Living Situation: Spouse current occupational status: unemployed and disabled Feels Safe at Home: Yes Safety Concerns: Feels Safe At This Time Smoking Status: Current some day smoker Tobacco Type: cigarettes ; Hx Alcohol Use: No Hx Substance Use: No Review of Systems Review of Systems: All systems reviewed & are unremarkable except as noted in HPI & below Constitutional: feeling improved; eager for d/c Eyes: no worsening vision Ear, Nose, Mouth, Throat: no dry mouth Respiratory: feels breathing at baseline Cardiovascular: no chest pain and no edema Integumentary: wound improving Endocrine: + fatigue Hematologic / Lymphatic: no easy bleeding Physical Exam Constitutional: well developed and well nourished on 4L 02nc, doing word find puzzles Eyes: EOM intact bilaterally ENMT: Ears: no external ear abnormality Nose: no external nose abnormality Mouth: + dry oral mucous membranes Neck: no nuchal rigidity Respiratory: normal respiratory effort Auscultation: + diminished lung sounds, + crackles and + wheezes Cardiovascular: Rate/Rhythm: regular rate and regular rhythm Extremities: no edema Gastrointestinal (Abdomen): Inspection/Auscultation: normal bowel sounds Percussion/Palpation: abdomen soft; abdomen nontender Musculoskeletal: Extremities: strength 5/5 throughout Skin: no rashes, warm and dry R foot wound wrapped Neurologic: spivey, fluent speech, no tremor Psychiatric: A+Ox3, euthymic affect Genitourinary: no wells Results & Data Vital Signs (Past 12 Hours) Vital Signs Temp Pulse Pulse Pulse Resp BP BP 11/21/18 07:09 64 18 11/21/18 07:08 36.4 C L 63 20 166/77 H 11/21/18 04:33 36.5 C 67 18 172/75 H 11/21/18 01:50 71 11/21/18 01:20 71 16 11/20/18 23:08 36.5 C 73 18 184/77 H 11/20/18 22:37 188/81 H 11/20/18 21:54 73 198/81 H Pulse Ox 11/21/18 07:09 98 11/21/18 07:08 98 11/21/18 04:33 96 11/21/18 01:50 11/21/18 01:20 98 11/20/18 23:08 93 11/20/18 22:37 11/20/18 21:54 Diagnostic Findings CTA Chest CT angio chest PE protocol CLINICAL HISTORY: 63 years-old Male presenting with shortness of breath and positive d-dimer, left-sided pain, clinical concern for pulmonary embolus. TECHNIQUE: Multidetector CT angiography of the chest was performed after administration of intravenous contrast. 3-D volumetric and/or maximum intensity projection (MIP) images were subsequently reconstructed for review. IV contrast: 94 mL of Optiray 320. One or more dose lowering techniques were used consistent with the principles of ALARA (as low as reasonably achievable), including automatic exposure control, mA or kV adjustment to individual patient size, and/or use of iterative reconstruction. COMPARISON: 09/01/2018. CT DOSE (mGy.cm): The estimated cumulative dose is 3213.16 mGy.cm. FINDINGS: Manager Account Management topogram: The patient is edentulous. Left subclavian Mediport. Pulmonary vasculature: The study is adequate for assessment of the pulmonary vascular tree. No filling defect within the pulmonary arteries to suggest embolus. Main pulmonary artery is not enlarged. No flattening of the interventricular septum. No intracardiac filling defect. Reflux of contrast into the IVC and hepatic veins. This likely indicates elevated right heart pressure. Remaining chest: Soft tissues: Normal thyroid and thoracic inlet. Gynecomastia. Mediastinal and bilateral hilar lymphadenopathy. An index node in the precarinal region measures 16 mm in short axis (series 8 image 178). Atherosclerosis of the aorta. Multichamber enlargement of the heart. Coronary artery calcification. Moderate right and small left pleural effusions. Well-defined hypodense lesion in the liver possibly hepatic cyst. Lungs and airways: Extensive dependent consolidation likely passive atelectasis in the setting of effusions. Upper lobe predominant cystic change, which may represent emphysema. This has a peripheral predilection. Added density of the lungs with groundglass opacity. Patchy infiltrates are mild and diffuse and increased from prior. Mild bronchial wall thickening. Central airways patent. Pulmonary arteries on the mildly enlarged relative to adjacent bronchi. No interlobular septal thickening. No focal infiltrate or nodule. Musculoskeletal: Degenerative changes of the spine. Deformities of left ribs unc hanged. IMPRESSION: 1. No evidence of pulmonary embolus. 2. Mild diffuse added density of the lungs with trace patchy groundglass opacity, which is increased from prior. This may represent a low level inflammatory pneumonitis, which can have numerous etiologies including drug reaction. Infection is considered less likely though possibilities include atypical infection such as pneumocystis jirovecii. 3. Possible underlying emphysema or cystic change at the apices similar to prior. 4. Moderate right and small left pleural effusions are new from prior. 5. Mediastinal and hilar lymphadenopathy. This may be reactive in the setting of infection or inflammation, however, this should be followed to resolution as an underlying lymphoproliferative disease or metastases are not excluded. 6. Elevated right heart pressure. C spine CT CLINICAL HISTORY: 63 years-old Male presenting with neck pain, hit head, left- sided head and neck pain. TECHNIQUE: Multidetector CT of the cervical spine was performed without the use of intravenous contrast. IV contrast: None. One or more dose lowering techniques were used consistent with the principles of ALARA (as low as reasonably achievable), including automatic exposure control, mA or kV adjustment to individual patient size, and/or use of iterative reconstruction. COMPARISON: 02/01/2013. CT DOSE (mGy.cm): The estimated cumulative dose is 3213.16. FINDINGS: Manager Account Management topogram: The patient is edentulous. A left subclavian Mediport. Straightening of normal cervical lordosis likely due to multilevel degenerative changes. Vertebral bodies maintain normal height and alignment. Mild intervertebral disc height loss noted at nearly every level. Disc osteophyte complexes noted to varying degrees at nearly every level most severe at C4-5 through C6-7. Erosive endplate changes are evident eccentrically on the right at the superior C7 endplate, most likely degenerative in etiology. No acute fracture or subluxation. Visualized portion of the skull base intact. Right pleural effusion. Paraspinal soft tissues normal. IMPRESSION: 1. No acute osseous injury of the cervical spine 2. Multilevel degenerative changes. 3. Right pleural effusion. (1) Fluid overload Hypervolemia type: unspecified Qualified Code(s): E87.70 - Fluid overload, unspecified
[2018-11-21] MEDS: HYDROmorphone INJ 1 MG/ML SYRINGE IV PRN (10:33)
[2018-11-21] MEDS: HEPARIN 100 UNIT/ML 5ML FLUSH FLUSH PRN ×2 (10:37→11:36)
--- NOTE | 2018-11-21 10:53 | Surgery Progress Note ---
Date of Service November 21, 2018 Assessment & Plan (1) Right foot infection: POD # 1 s/p debridement of right foot wound - vitals stable afebrile - pain controlled - wound with healthy granulation tissue present, no necrosis Plan: Daily wound care : Apply bacitracin to wound and cover with 4x4 and wrap. Change daily. May wear boot to help ambulate once at home await culture results okay from surgical standpoint for discharge once medically stable may need home health care for wound changes or can follow-up at wound center. Our services signing off, please call with questions or concerns Dr. Su has seen and examined patient, recommended above. Subjective feeling better today pain of right foot improved wound dressing intact, has not been removed today no fevers Physical Exam Constitutional: WD/WN, vitals as above Musculoskeletal: Right foot: plantar aspect with 2-3 cm wound with health granulation tissue present, no necrosis, minimal drainage on dressing. No purulence. Skin: no rashes, warm and dry Psychiatric: A+Ox3, euthymic affect Results & Data Vital Signs (Past 12 Hours) Vital Signs Temp Pulse Pulse Pulse Resp BP BP 11/21/18 07:09 64 18 11/21/18 07:08 36.4 C L 63 20 166/77 H 11/21/18 04:33 36.5 C 67 18 172/75 H 11/21/18 01:50 71 11/21/18 01:20 71 16 11/20/18 23:08 36.5 C 73 18 184/77 H Pulse Ox 11/21/18 07:09 98 11/21/18 07:08 98 11/21/18 04:33 96 11/21/18 01:50 11/21/18 01:20 98 11/20/18 23:08 93 Laboratory Results 11/21/18 11/21/18 11/21/18 Range/Units 07:39 06:29 03:12 Sodium 137 (136-145) mmol/L Potassium 3.5 (3.5-5.1) mmol/L Chloride 104 (98-107) mmol/L Carbon Dioxide 28 (21-32) mmol/L Anion Gap 6.0 (3-11) BUN 33 H (7-18) mg/dl Creatinine 1.77 H (0.6-1.4) mg/dl Est Cr Clr Drug Dosing 47.3 ml/min Est GFR ( Amer) 46.0 Est GFR (Non-Af Amer) 39.7 BUN/Creatinine Ratio 18.7 (10-20) Glucose 124 H (70-99) mg/dl POC Glucose 101 H 199 H (70-99) Calcium 8.2 L (8.5-10.1) mg/dl Vancomycin Trough (See Comment) mcg/ml 11/20/18 11/20/18 11/20/18 Range/Units 21:16 20:34 16:10 Sodium (136-145) mmol/L Potassium (3.5-5.1) mmol/L Chloride (98-107) mmol/L Carbon Dioxide (21-32) mmol/L Anion Gap (3-11) BUN (7-18) mg/dl Creatinine (0.6-1.4) mg/dl Est Cr Clr Drug Dosing ml/min Est GFR ( Amer) Est GFR (Non-Af Amer) BUN/Creatinine Ratio (10-20) Glucose (70-99) mg/dl POC Glucose 192 H 95 (70-99) Calcium (8.5-10.1) mg/dl Vancomycin Trough 20.1 (See Comment) mcg/ml 11/20/18 Range/Units 11:42 Sodium (136-145) mmol/L Potassium (3.5-5.1) mmol/L Chloride (98-107) mmol/L Carbon Dioxide (21-32) mmol/L Anion Gap (3-11) BUN (7-18) mg/dl Creatinine (0.6-1.4) mg/dl Est Cr Clr Drug Dosing ml/min Est GFR ( Amer) Est GFR (Non-Af Amer) BUN/Creatinine Ratio (10-20) Glucose (70-99) mg/dl POC Glucose 200 H (70-99) Calcium (8.5-10.1) mg/dl Vancomycin Trough (See Comment) mcg/ml Diagnostic Findings Gram Stain Final 11/20/18-1214 Gram Stain Result Few WBCs Seen Rare Gram Positive Cocci
[2018-11-21] MEDS: CARBOHYDRATES FOR HYPOGLYCEMIA PO PRN (11:17)
[2018-11-21] MEDS: BACITRACIN OINT 15 GM TUBE EXT SCH (12:42)
--- NOTE | 2018-11-21 12:46 | Pulmonology Progress Note ---
Date of Service November 21, 2018 Assessment & Plan (1) Pleural effusion: Clinically the patient is improved. His urine output in the prior 24 hours is done very well. The total output is showing 3300 mL's where is the intake was 1590 mL's. His blood pressure was elevated today as noted. The patient denies respiratory complaints although he is not as clear as he had been a day or 2 ago. Nonetheless he appears in no distress. It could be that since the prednisone was stopped he may have developed a little wheeze. This prednisone could be restarted if need be at low dose. From a pulmonary perspective he is fairly stable and may be able to be discharged soon. I had recommended on admission that the Spiriva be discontinued. This was based upon the finding of chronic bladder outlet obstruction secondary to enlarged prostate. This was seen on CAT scan of the abdomen. I will discontinue this medicine. He can continue with the ipratropium which is given in the nebulizer along with the levalbuterol. It is much less likely that the ipratropium will affect his urinary functioning. He should ultimately have an outpatient chest x-ray to be certain the effusions have diminished. (2) COPD (chronic obstructive pulmonary disease): The patient should have a reevaluation of his oxygen needs prior to discharge. He does have a history of sleep apnea but was intolerant of CPAP. Thus it is suspected he needs to continue with the nocturnal oxygen. Subjective The patient states he feels great. He denies significant cough or sputum production. His foot is feeling better. He states the surgeons told him they have no objection to discharge. Physical Exam Physical Exam: The patient is a 63-year-old male who was cooperative alert and oriented. He appeared in no distress. Weight is 106.1 kg. Temperature 36.3. He has had no fevers. Eye exam showed implants bilaterally. Nares clear. Mouth exam unremarkable. Palpation of the neck reveals no lymph nodes. Cardiac rate 67/min. Rhythm regular. Blood pressure elevated at 203/78. His blood pressures have been quite high today. Lung mcintosh revealed mild rhonchi and mild wheeze on expiration. Respiratory rate 20. Saturation 97% on 3 L. Extremities reveals the right lower extremity is wrapped. No significant edema noted. Results & Data Vital Signs (Past 12 Hours) Vital Signs Temp Pulse Pulse Pulse Resp BP Pulse Ox 11/21/18 11:28 36.3 C L 67 20 203/78 H 97 11/21/18 09:00 64 11/21/18 07:09 64 18 98 11/21/18 07:08 36.4 C L 63 20 166/77 H 98 11/21/18 04:33 36.5 C 67 18 172/75 H 96 11/21/18 01:50 71 11/21/18 01:20 71 16 98 PG Care Time/CCT Total # of Minutes Spent Total Time Spent with Patient: Total time spent is greater than 50% in coordination of care (as documented) at patient's floor/unit and/or counseling patient:
--- NOTE | 2018-11-21 13:26 | Pharmacy Report ---
Glycemic Control Progress Note - Date of Service November 21, 2018 - Scope Glycemic Pharmacist consulted for glycemic control to write orders per [facility] inpatient glycemic control protocol. - Objective Accuchecks BSG(last 24 hours):: 11/20/18 11/20/18 11/21/18 16:10 20:34 03:12 Glucose POC Glucose 95 192 H 199 H 11/21/18 11/21/18 11/21/18 06:29 07:39 11:12 Glucose 124 H POC Glucose 101 H 33 L* 11/21/18 11/21/18 11/21/18 11:13 11:30 11:46 Glucose POC Glucose 36 L* 42 L* 141 H HbA1c:: Hemoglobin A1c 10.3 % (4.5-5.6) H 11/19/18 05:46 - Recent Pertinent Medications The patient is currently receiving: * Basal insulin: Lantus 20 units every 12 hours * Correctional Insulin: Novolog Correction per scale ACHS Goal Range: Low 110 mg/dL - High 140 mg/dL Correction Factor: 12 mg/dL/unit * Prandial insulin: Per carb ratio of 1 unit per 3 grams CHO consumed - Outpatient Anti-Diabetic Meds LANTUS 40 units BID plus Humalog CR of 2.5 when BSG greater than 150 mg/dL - Assessment & Plan ASSESSMENT: * See progress note from 11/19/18 for more background info, in short: * Pt receiving SQ basal bolus insulin regimen for hyperglycemia secondary to baseline DM (outpatient regimen on hold),stress/infection (on Invanz and Daptomycin). Was receiving prednisone but discontinued after dose yesterday. * Patient is currently receiving an average of 92 units of insulin per day * 50 units of basal insulin * 42 units of prandial/correctional insulin * BSGs ranging 95 - 200 mg/dl over the past 24hrs * Changes needed to insulin regimen: * AM Fasting BSG = 101 mg/dl. This is in goal range for patient based on inpatient targets and co-morbidities. Therefore Basal insulin will be continued at lower dose. Will provide a dose of 15 units if blood sugar under 140 mg/dL. * Post-prandial BSGs were difficult to control yesterday. Today at lunch the patient had a hypoglycemic episode requiring OJ and IV dextrose. This is most likely secondary to too much bolus insulin. These parameters were based on previous admission data. On interview, the patient states that sometimes he has low blood sugars randomly. "The little part of my pancreas that I still have likes to work sometimes." Will loosen and increase goal range. Perpatient he does not take any Novolog unless his BSGs are below 150 mg/dL. * Total daily dose = 60-80 units. PLAN FOR INPATIENT GLYCEMIC CONTROL: * Continuing Lantus 20 units SQ BID (15 units if blood sugar under 140 mg/dL) * Loosening correction factor to 15 mg/dl/unit * Loosening carb ratio to 1 unit per 6 grams CHO consumed * Changing goal range to Low 140 mg/dL - High 180 mg/dL RECOMMENDATIONS FOR DISCHARGE: * Patient's HbA1C indicates poor control. Recommend working with PCP or endocrinology to obtain better control. * Please note that the plan above was derived based on current level of insulin resistance and hospital stress. These recommendations are appropriate for inpatient admission only. Plan of care upon discharge will need to be reassessed to avoid potential outpatient hypo/hyperglycemia. Thank you.
--- NOTE | 2018-11-21 14:57 | Cardiology Progress Note ---
Date of Service November 21, 2018 Assessment & Plan (1) Right foot infection: (2) Fluid overload: (3) COPD (chronic obstructive pulmonary disease): (4) Diastolic heart failure: (5) Pancreatic cancer: (6) Paroxysmal atrial fibrillation: (7) Troponin level elevated: I believe the patient can be discharged per the hospitalist service. I will arrange follow-up with our group as an outpatient. Subjective The patient has no new cardiac complaints today. Surgery has evaluated him and cleared him for discharge. Review of Systems Review of Systems: All systems reviewed & are unremarkable except as noted in HPI & below Nothing additional to add. Physical Exam Physical Exam: General: no acute distress and stated age Head: normocephalic, no masses, lesions, tenderness or abnormalities Eyes: conjunctiva are pink and non-injected, sclera clear Neck: supple, no adenopathy, no bruits, normal jugular venous pulse, no hepatojugular reflux Chest: normal shape and normal respiratory effort Lungs: clear to auscultation and percussion Cardiac Exam: - regular rate & rhythm, no murmurs gallops or rubs - normal S1, normal S2 Pulses: 2(+) throughout Abdomen: abdomen soft, non-tender, no abnormal masses and no hepatosplenomegaly Musculoskeletal: no gait disturbance, no joint inflammation, no deforming arthritis Extremities: Right foot is bandaged Neuro: grossly normal exam Results & Data Vital Signs (Past 12 Hours) Vital Signs Temp Pulse Pulse Resp BP BP Pulse Ox 11/21/18 14:00 58 L 16 98 11/21/18 13:31 60 163/77 H 11/21/18 11:28 36.3 C L 67 20 203/78 H 97 11/21/18 09:00 64 11/21/18 07:09 64 18 98 11/21/18 07:08 36.4 C L 63 20 166/77 H 98 11/21/18 04:33 36.5 C 67 18 172/75 H 96 Laboratory Results Laboratory Results - last 24 hr 11/20/18 11/20/18 11/20/18 16:10 20:34 21:16 Sodium Potassium Chloride Carbon Dioxide Anion Gap BUN Creatinine Est Cr Clr Drug Dosing Est GFR ( Amer) Est GFR (Non-Af Amer) BUN/Creatinine Ratio Glucose POC Glucose 95 192 H Calcium Vancomycin Trough 20.1 08/11/21/18 11/21/18 03:12 06:29 07:39 Sodium 137 Potassium 3.5 Chloride 104 Carbon Dioxide 28 Anion Gap 6.0 BUN 33 H Creatinine 1.77 H Est Cr Clr Drug Dosing 47.3 Est GFR ( Amer) 46.0 Est GFR (Non-Af Amer) 39.7 BUN/Creatinine Ratio 18.7 Glucose 124 H POC Glucose 199 H 101 H Calcium 8.2 L Vancomycin Trough 11/21/18 11/21/18 11/21/18 11:12 11:13 11:30 Sodium Potassium Chloride Carbon Dioxide Anion Gap BUN Creatinine Est Cr Clr Drug Dosing Est GFR ( Amer) Est GFR (Non-Af Amer) BUN/Creatinine Ratio Glucose POC Glucose 33 L* 36 L* 42 L* Calcium Vancomycin Trough 11/21/18 11:46 Sodium Potassium Chloride Carbon Dioxide Anion Gap BUN Creatinine Est Cr Clr Drug Dosing Est GFR ( Amer) Est GFR (Non-Af Amer) BUN/Creatinine Ratio Glucose POC Glucose 141 H Calcium Vancomycin Trough Medications Administered Current Inpatient Medications Acetaminophen (Tylenol) 650 mg PO Q4H PRN PRN Reason: Pain or Fever Stop: 12/19/18 00:58 Albuterol (Ventolin 0.083% 2.5mg/3ml) 2.5 mg INH Q4 PRN PRN Reason: Wheezing Stop: 12/19/18 00:58 Lipase/Protease/Amylase (Pancreaze (Lipase 10,500u)) 1 cap PO AC PRN PRN Reason: . Stop: 12/19/18 07:29 Aspirin (Ecotrin Ectab) 81 mg PO DAILY [facility] Stop: 12/19/18 08:59 Last Admin: 11/21/18 09:01 Dose: 81 mg Documented by: Atorvastatin Calcium (Lipitor) 40 mg PO DAILY [facility] Stop: 12/19/18 08:59 Last Admin: 11/20/18 08:59 Dose: 40 mg Documented by: Bacitracin (Bacitracin) 1 appln EXT DAILY [facility] Stop: 12/21/18 10:59 Last Admin: 11/21/18 12:42 Dose: 1 appln Documented by: Budesonide/Formoterol Fumarate (Symbicort 160mcg/4.5mcg) 2 puffs INH BID [facility] Stop: 12/19/18 08:59 Last Admin: 11/21/18 09:04 Dose: 2 puffs Documented by: Bupropion HCl (Wellbutrin-Sr) 200 mg PO DAILY [facility] Stop: 12/19/18 08:59 Last Admin: 11/21/18 09:00 Dose: 200 mg Documented by: Carvedilol (Coreg) 37.5 mg PO BID [facility] Stop: 12/19/18 08:59 Last Admin: 11/21/18 09:00 Dose: 37.5 mg Documented by: Dextrose (Dextrose 50%) 25 - 50 ml IV UD PRN; Protocol PRN Reason: Hypoglycemia Protocol Stop: 12/19/18 01:59 Last Admin: 11/21/18 11:35 Dose: 50 ml Documented by: Duloxetine HCl (Cymbalta) 60 mg PO DAILY [facility] Stop: 12/19/18 08:59 Last Admin: 11/21/18 09:00 Dose: 60 mg Documented by: Ertapenem (Consult) 1 ea N/A UD PRN PRN Reason: Consult Stop: 12/19/18 01:09 Fluticasone Propionate (Flonase) 2 sprays NA DAILY PRN PRN Reason: Congestion Stop: 12/19/18 00:58 Glucagon (Glucagen) 1 mg SQ UD PRN; Protocol PRN Reason: Hypoglycemia Protocol Stop: 12/19/18 01:59 Glucose (Glucose 40%) 15 - 30 gm PO UD PRN; Protocol PRN Reason: Hypoglycemia Protocol Stop: 12/19/18 01:59 Glucose (Dex4 Glucose) 4 - 8 tabs PO UD PRN; Protocol PRN Reason: Hypoglycemia Protocol Stop: 12/19/18 01:59 Heparin Sodium (Porcine) (Heparin Sod 100 Unit/Ml Flush) 5 ml FLUSH PRN PRN PRN Reason: Flush Stop: 12/19/18 02:44 Last Admin: 11/21/18 11:36 Dose: 5 ml Documented by: Hydralazine HCl (Hydralazine Hcl) 10 mg IV Q8H PRN PRN Reason: SBP> 160 Stop: 12/20/18 20:19 Last Admin: 11/20/18 21:55 Dose: 10 mg Documented by: Hydralazine HCl (Apresoline) 25 mg PO TID [facility] Stop: 12/21/18 09:34 Last Admin: 11/21/18 13:31 Dose: 25 mg Documented by: Hydromorphone HCl (Dilaudid) 1 mg IV Q6 PRN PRN Reason: Pain Stop: 12/04/18 20:18 Last Admin: 11/21/18 10:33 Dose: 1 mg Documented by: Ertapenem 1,000 mg/ Sodium (Chloride) 60 mls @ 100 mls/hr IV Q24H [facility]; Protocol Stop: 11/29/18 01:59 Last Infusion: 11/21/18 04:08 Dose: Infused Documented by: Furosemide 40 mg/ Syringe 4 mls @ 4 mls/min IV BID [facility] Stop: 12/19/18 08:59 Last Admin: 11/20/18 09:00 Dose: 4 mls/min Documented by: Daptomycin 325 mg/ Syringe 6.5 mls @ 3.25 mls/min IV Q24H [facility] Stop: 11/30/18 19:59 Last Admin: 11/20/18 20:47 Dose: 3.25 mls/min Documented by: Insulin Aspart (Novolog Flexpen) 0 units SC ACHS [facility] Stop: 12/19/18 07:29 Last Admin: 11/21/18 12:43 Dose: Not Given Documented by: Insulin Glargine (Lantus Solostar Pen) 0 units SC BID [facility]; Protocol Stop: 12/21/18 20:59 Ipratropium Otho (Atrovent 0.02% 0.5mg/2.5ml) 0.5 mg INH Q6R [facility] Stop: 12/19/18 01:59 Last Admin: 11/21/18 13:59 Dose: 0.5 mg Documented by: Levalbuterol HCl (Xopenex 1.25mg/0.5ml Neb) 1.25 mg INH Q6R [facility] Stop: 12/19/18 01:59 Last Admin: 11/21/18 14:00 Dose: 1.25 mg Documented by: Lisinopril (Zestril) 10 mg PO DAILY [facility] Stop: 12/19/18 08:59 Last Admin: 11/20/18 09:00 Dose: 10 mg Documented by: Metoclopramide HCl (Reglan) 5 mg PO AC [facility] Stop: 12/19/18 07:29 Last Admin: 11/21/18 12:43 Dose: 5 mg Documented by: Metolazone (Zaroxolyn) 2.5 mg PO MoTh@0830 [facility] Stop: 12/19/18 08:29 Last Admin: 11/19/18 08:04 Dose: 2.5 mg Documented by: Miscellaneous (Carbohydrates For Hypoglycemia) 15 - 30 gm PO UD PRN PRN Reason: Hypoglycemia Treatment Stop: 12/19/18 01:59 Last Admin: 11/21/18 11:17 Dose: 30 gm Documented by: Miscellaneous Information (Consult Glycemic Management Pharmacy) 1 ea N/A UD PRN PRN Reason: Consult Stop: 12/19/18 01:43 Nitroglycerin (Nitrostat) 0.4 mg SL UD PRN PRN Reason: Chest Pain Stop: 12/19/18 00:58 Ondansetron HCl (Zofran) 4 mg IV Q6H PRN PRN Reason: Nausea Stop: 12/19/18 00:58 Oxycodone HCl (Roxicodone Immediate Rel) 5 mg PO Q4H PRN PRN Reason: Pain Stop: 12/04/18 20:19 Last Admin: 11/21/18 09:06 Dose: 5 mg Documented by: Pantoprazole Sodium (Protonix) 40 mg PO BID [facility] Stop: 12/19/18 08:59 Last Admin: 11/21/18 09:01 Dose: 40 mg Documented by: Polyethylene Glycol (Miralax Powder Packet) 17 gm PO DAILY PRN PRN Reason: Constipation Senna/Docusate Sodium (Senokot S) 1 tab PO BID [facility] Stop: 12/19/18 08:59 Last Admin: 11/21/18 09:02 Dose: 1 tab Documented by: Sucralfate (Carafate Tab) 1 gm PO QID PRN PRN Reason: DYSPEPSIA Stop: 12/19/18 00:58 (1) Fluid overload Hypervolemia type: unspecified Qualified Code(s): E87.70 - Fluid overload, unspecified (2) Diastolic heart failure Heart failure chronicity: acute on chronic Qualified Code(s): I50.33 - Acute on chronic diastolic (congestive) heart failure
--- NOTE | 2018-11-21 15:08 | Hospitalist Progress Note ---
Date of Service November 21, 2018 Assessment & Plan (1) Right foot infection: -non healing chronic diabetic wound infection and presented with purulent drainage on admission on 11/18/18 -patient was given antibiotics including daptomycin and ertapenem -s/p right foot debridement on 11/20/18 (Surgical follow up instructions: - change dressing on wound daily with Bacitracin ointment on wound and cover with 4 x 4 gauze and then wrap. - may wear soft boot to help with walking - Monitor for any increasing drainage, redness or pain - May take extra strength Tylenol as needed for mild pain) -as of 11/21/18 blood and wound cultures are generally unremarkable and transitioning to oral clindamycin -PT/OT evaluations have been requested (2) Diastolic heart failure: -presented with vol overload , orthopnea, elevated Pro BNP elevated , pleural effusions -patient was treated with IV Lasix -IV Lasix has been held due to renal function (3) Troponin level elevated: - 0.062 on 11/18/18 and 11/19/18 -mildly elevated troponins from possible demand ischemia in a setting of Decompensated Diastolic heart failure /hypertensive urgency on presentation and previous hospitalist suggested possible Type 2 Myocardial infarction -however, previous hospitalist also wrote the there is no evidence of acute coronary syndrome and noted that patient does not have any anginal symptom -echocardiogram on 11/19/18 with normal ejection fraction and no description of wall motion abnormalities -do not believe that patient had any myocardial infraction -cardiology clinic follow up 12/06/18 (4) Acute kidney injury superimposed on CKD: -baseline CKD stage 3 -and creatinine increased during this hospital stay likely from IV contrast and IV diuretics -hold IV diuretics -monitor renal function (5) Hypertension: -is off diuretics because and NEVILLE inhibitor because fo renal function -switch prn IV hydralazine to oral amlodipine and oral hydralazine 25 mg q8 hour for now (6) DM type 2 (diabetes mellitus, type 2): Type 2 diabetes mellitus with contact clerk current use of insulin with skin complication -HbA1c 10.3 -Patient noted to have hypoglycemia on 11/21/18 but patient has been asymptomatic -pharmacy consult is monitoring patient's insulin requirements and adjusting insulin as needed FULL CODE Subjective Patient had dressing change of right foot by general surgery service. Patient noted to have hypoglycemia today but patient has been asymptomatic. Patient denies acute shortness of breath. Has been on nasal cannula primarily when sleeping. Patient denies chest pain. no abdomen pain. no shortness of breath. no nausea. vomitting Physical Exam Constitutional: comfortable Eyes: PERRL, conjunctivae normal, anicteric sclerae EOM intact bilaterally ENMT: external ear and nose normal, oropharynx normal Neck: trachea midline, no thyromegaly normal visual inspection Respiratory: normal respiratory effort Cardiovascular: Rate/Rhythm: regular rate and regular rhythm Gastrointestinal (Abdomen): normal bowel sounds, soft, nontender, no hepatosplenomegaly Musculoskeletal: Head/Neck/Chest: normocephalic and head atraumatic Extremities: + foot abnormality (right foot in dressing) Neurologic: PERRL, EOMI, accommodation nl, no face palsy, no dysarthria CN's II-XI intact bilaterally Psychiatric: A+Ox3, euthymic affect Results & Data Vital Signs (Past 12 Hours) Vital Signs Temp Pulse Pulse Resp BP BP Pulse Ox 11/21/18 14:57 36.5 C 65 18 162/82 H 96 11/21/18 14:00 58 L 16 98 11/21/18 13:31 60 163/77 H 11/21/18 11:28 36.3 C L 67 20 203/78 H 97 11/21/18 09:00 64 11/21/18 07:09 64 18 98 11/21/18 07:08 36.4 C L 63 20 166/77 H 98 11/21/18 04:33 36.5 C 67 18 172/75 H 96 (1) Diastolic heart failure Heart failure chronicity: acute on chronic Qualified Code(s): I50.33 - Acute on chronic diastolic (congestive) heart failure (2) Hypertension Hypertension type: unspecified Qualified Code(s): I10 - Essential (primary) hypertension
[2018-11-21] MEDS ORDERED: HydrALAZINE 10 MG TAB PO SCH (15:30)
[2018-11-21] MEDS: CLINDAMYCIN HCL 150 MG CAP PO SCH ×2 (17:55→20:13)
[2018-11-21] MEDS ORDERED: INSULIN GLARGINE SOLOSTAR 100 UNITS/ML 3 ML PEN SC SCH (21:00)
[2018-11-22] MEDS: CARBOHYDRATES FOR HYPOGLYCEMIA PO PRN (00:45)
[2018-11-22] MEDS: GLUCOSE 10 TABS/TUBE PO PRN ×2 (01:05→01:15)
[2018-11-22 01:17] LABS: Appearance Urine Clear (Clear); Bacteria Urine Automated Negative (Negative); Bilirubin Urine Negative (Negative); Blood Urine Negative (Negative); Cast Urine Automated 0 /lpf (0-5); Color Urine Yellow; Glucose Urine UA Trace (Negative); Ketones Urine Negative (Negative); Leukocyte Esterase Urine Negative (Negative); Nitrite Urine Negative (Negative); Protein Urine 2+ (Negative); RBC Urine Automated 0-4 /hpf (0-4); Urobilinogen Urine Negative (Negative)
[2018-11-22] MEDS: IPRATROPIUM BROMIDE NEB SOLN 0.02% 2.5 ML VIAL INH SCH ×3 (01:57→13:26)
[2018-11-22] MEDS: LEVALBUTEROL 1.25MG/0.5ML NEB INH SCH ×3 (01:57→13:26)
[2018-11-22 06:25] LABS: Basophils # (auto) 0.05 K/uL (0-0.2); Basophils % (auto) 0.4 %; Eosinophils # (auto) 0.44 K/uL (0-0.5); Eosinophils % (auto) 3.9 %; Hematocrit (blood only) 38.4 % (42-52); Hemoglobin 12.8 g/dL (14.0-18.0); Immature Granulocytes # (auto) 0.04 K/uL (0.00-0.02); Immature Granulocytes % (auto) 0.4 %; Lymphocytes % (auto) 19.6 %; Mean Corpuscular Hgb Conc 33.3 g/dL (32-36); Mean Corpuscular Volume 88.5 fL (80-100); Mean Platelet Volume 10.6 fL (7.4-10.4); Monocytes # (auto) 1.21 K/uL (0.11-0.59); Monocytes % (auto) 10.8 %; Neutrophils # (auto) 7.29 K/uL (1.4-6.5); Neutrophils % (auto) 64.9 %; Platelet Count 435 K/uL (130-400); RDW Coefficient of Variation 15.6 % (11.5-14.5); RDW Standard Deviation 50.7 fL (36.4-46.3); Red Blood Count 4.34 M/uL (4.7-6.1); White Blood Count 11.23 K/uL (4.8-10.8)
[2018-11-22 07:04] LABS: Albumin Level 2.2 gm/dl (3.4-5.0); BUN Creatinine Ratio 24.9 (10-20); Calcium 7.9 mg/dl (8.5-10.1); Creatinine Clr Calc Pharmacy 54.5 ml/min; Est GFR (Non-African American) 46.6; Potassium 3.9 mmol/L (3.5-5.1)
[2018-11-22 07:07] LABS: Albumin Globulin Ratio 0.6 (0.9-2); Bilirubin,Total 0.3 mg/dl (0.2-1); Globulin 3.6 gm/dl (2.5-4.0); Total Protein 5.8 gm/dl (6.4-8.2)
--- NOTE | 2018-11-22 08:12 | XRay Report ---
XR chest 2V routine CLINICAL HISTORY: follow up lung infiltrates pneumonia COMPARISON STUDY: 11/18/2018 FINDINGS: Improved aeration both lung bases. Improved visibility of the diaphragms. Small left pleural effusion with mild associated pleural thickening. Prominent pulmonary vasculature unchanged. Central catheter remains in superior vena cava. IMPRESSION: Improved exam with considerable improvement of the basilar infiltrates. Mild residual. M ild residual pulmonary vascular congestion. The above report was generated using voice recognition software. It may contain grammatical, syntax or spelling errors. Electronically signed by: Bradley Ruth M.D. 11/22/2018 8:10 AM
--- NOTE | 2018-11-22 08:14 | Nephrology Progress Note ---
Date of Service November 22, 2018 Assessment & Plan (1) Acute kidney injury superimposed on CKD: Nonoliguric ELIZABETH on CKD 3>recovering ATN in the wake of IV contrast and diuretic exposure. His baseline creatinine is 1.4-1.5; he was 1.2 on presentation 11/18. Creatinine peaked at 1.8 on 11/21, improved today to 1.6, nearly his baseline. His uop is adequate. serum chemistries acceptable at this time. repeat urine sediment consistent w/ prior ones> chronic proteinuria, glucosuria; no infection -cont strict I/O -daily bmp -see below re acei, diuretic recs -repeat bmp at PCP f/u clinic visit -recommend f/u in CKD clinic 4-6 wks w/ Dr Matta -will sign off; pls call if ? (2) Fluid overload: -cont low Na diet -diuretics currently on hold -cont mild FR 2L (3) Hypertension: His sbp has ranged 150s-160s past 24 hrs (improved somewhat) and elevated most of admission. -on coreg 37.5 mg bid only at this point standing as well as prn hydralazine 10 mg po which he has had once -w/ HR low 60s at times would not increase BB -cont to hold diuretic -cont standing hydralazine 25 mg tid po until renal function recovered and he can get back on diuretics -could reintroduce torsemide tomorrow assuming renal function has returned to baseline -would hold on resuming ACEI and metolazone on 11/26 Subjective seen on rounds 0840; no c/o > breathing better than baseline, ate full breakfast, no edema, no uncontrolled musculoskeletal pain, no voiding c/o. case d/w Dr Linton Review of Systems Review of Systems: All systems reviewed & are unremarkable except as noted in HPI & below Physical Exam Constitutional: well developed and well nourished sitting in bed on 2L 02nc Eyes: EOM intact bilaterally ENMT: Ears: no external ear abnormality Nose: no external nose abnormality Mouth: + dry oral mucous membranes Neck: no nuchal rigidity Respiratory: normal respiratory effort Auscultation: + diminished lung sounds and + crackles Cardiovascular: Rate/Rhythm: regular rate and regular rhythm Extremities: no edema Gastrointestinal (Abdomen): Inspection/Auscultation: normal bowel sounds Percussion/Palpation: abdomen soft; abdomen nontender Musculoskeletal: Extremities: strength 5/5 throughout Skin: no rashes, warm and dry Neurologic: spivey, fluent speech Psychiatric: A+Ox3, euthymic affect Results & Data Vital Signs (Past 12 Hours) Vital Signs Temp Pulse Pulse Resp BP BP Pulse Ox 11/22/18 07:30 36.9 C 62 19 136/61 96 11/22/18 07:11 60 18 97 11/22/18 05:51 56 L 11/22/18 03:57 36.7 C 62 18 156/70 H 97 11/22/18 01:57 60 18 98 11/21/18 23:00 36.4 C L 62 18 155/77 H 94 Laboratory Results Abnormal lab results 11/21/18 11/21/18 11/21/18 Range/Units 11:12 11:13 11:30 WBC (4.8-10.8) K/uL RBC (4.7-6.1) M/uL Hgb (14.0-18.0) g/dL Hct (42-52) % RDW Std Deviation (36.4-46.3) fL RDW Coeff of [place] (11.5-14.5) % Plt Count (130-400) K/uL MPV (7.4-10.4) fL Immature Gran # (Auto) (0.00-0.02) K/uL Neut # (Auto) (1.4-6.5) K/uL [place] # (Auto) (0.11-0.59) K/uL BUN (7-18) mg/dl Creatinine (0.6-1.4) mg/dl BUN/Creatinine Ratio (10-20) POC Glucose 33 L* 36 L* 42 L* (70-99) Calcium (8.5-10.1) mg/dl AST (15-37) U/L Alkaline Phosphatase (45-117) U/L Total Protein (6.4-8.2) gm/dl Albumin (3.4-5.0) gm/dl Albumin/Globulin Ratio (0.9-2) Urine Protein (Negative) Urine Glucose (UA) (Negative) U Epithel Cells (Auto) (0-5) /lpf 11/21/18 11/21/18 11/21/18 Range/Units 11:46 16:55 20:20 WBC (4.8-10.8) K/uL RBC (4.7-6.1) M/uL Hgb (14.0-18.0) g/dL Hct (42-52) % RDW Std Deviation (36.4-46.3) fL RDW Coeff of [place] (11.5-14.5) % Plt Count (130-400) K/uL MPV (7.4-10.4) fL Immature Gran # (Auto) (0.00-0.02) K/uL Neut # (Auto) (1.4-6.5) K/uL [place] # (Auto) (0.11-0.59) K/uL BUN (7-18) mg/dl Creatinine (0.6-1.4) mg/dl BUN/Creatinine Ratio (10-20) POC Glucose 141 H 127 H 146 H (70-99) Calcium (8.5-10.1) mg/dl AST (15-37) U/L Alkaline Phosphatase (45-117) U/L Total Protein (6.4-8.2) gm/dl Albumin (3.4-5.0) gm/dl Albumin/Globulin Ratio (0.9-2) Urine Protein (Negative) Urine Glucose (UA) (Negative) U Epithel Cells (Auto) (0-5) /lpf 11/22/18 11/22/18 11/22/18 Range/Units 00:44 00:56 01:00 WBC (4.8-10.8) K/uL RBC (4.7-6.1) M/uL Hgb (14.0-18.0) g/dL Hct (42-52) % RDW Std Deviation (36.4-46.3) fL RDW Coeff of [place] (11.5-14.5) % Plt Count (130-400) K/uL MPV (7.4-10.4) fL Immature Gran # (Auto) (0.00-0.02) K/uL Neut # (Auto) (1.4-6.5) K/uL [place] # (Auto) (0.11-0.59) K/uL BUN (7-18) mg/dl Creatinine (0.6-1.4) mg/dl BUN/Creatinine Ratio (10-20) POC Glucose 42 L* 43 L* (70-99) Calcium (8.5-10.1) mg/dl AST (15-37) U/L Alkaline Phosphatase (45-117) U/L Total Protein (6.4-8.2) gm/dl Albumin (3.4-5.0) gm/dl Albumin/Globulin Ratio (0.9-2) Urine Protein 2+ H (Negative) Urine Glucose (UA) Trace H (Negative) U Epithel Cells (Auto) 5-10 H (0-5) /lpf 11/22/18 11/22/18 11/22/18 Range/Units 01:18 05:54 05:54 WBC 11.23 H (4.8-10.8) K/uL RBC 4.34 L (4.7-6.1) M/uL Hgb 12.8 L (14.0-18.0) g/dL Hct 38.4 L (42-52) % RDW Std Deviation 50.7 H (36.4-46.3) fL RDW Coeff of [place] 15.6 H (11.5-14.5) % Plt Count 435 H (130-400) K/uL MPV 10.6 H (7.4-10.4) fL Immature Gran # (Auto) 0.04 H (0.00-0.02) K/uL Neut # (Auto) 7.29 H (1.4-6.5) K/uL [place] # (Auto) 1.21 H (0.11-0.59) K/uL BUN 39 H (7-18) mg/dl Creatinine 1.55 H (0.6-1.4) mg/dl BUN/Creatinine Ratio 24.9 H (10-20) POC Glucose 57 L* (70-99) Calcium 7.9 L (8.5-10.1) mg/dl AST 10 L (15-37) U/L Alkaline Phosphatase 121 H (45-117) U/L Total Protein 5.8 L (6.4-8.2) gm/dl Albumin 2.2 L (3.4-5.0) gm/dl Albumin/Globulin Ratio 0.6 L (0.9-2) Urine Protein (Negative) Urine Glucose (UA) (Negative) U Epithel Cells (Auto) (0-5) /lpf (1) Hypertension Hypertension type: unspecified Qualified Code(s): I10 - Essential (primary) hypertension (2) Fluid overload Hypervolemia type: unspecified Qualified Code(s): E87.70 - Fluid overload, unspecified
[2018-11-22] MEDS: CLINDAMYCIN HCL 150 MG CAP PO SCH ×2 (08:32→12:16)
[2018-11-22] MEDS: PANTOprazole 40 MG TAB PO SCH (08:32)
[2018-11-22] MEDS: ASPIRIN 81 MG ECTAB PO SCH (08:32)
[2018-11-22] MEDS: DULOXETINE HCL 60 MG CAP PO SCH (08:33)
[2018-11-22] MEDS: METOCLOPRAMIDE HCL 10 MG TABLET PO SCH ×2 (08:33→12:16)
[2018-11-22] MEDS: BACITRACIN OINT 15 GM TUBE EXT SCH (08:34)
[2018-11-22] MEDS: CARVEDILOL 12.5 MG TAB PO SCH (08:34)
[2018-11-22] MEDS: BuPROPion SR 100 MG TABCR PO SCH (08:34)
[2018-11-22] MEDS: DOCUSATE SODIUM/SENNA 50/8.6MG TAB PO SCH (08:35)
[2018-11-22] MEDS: OXYCODONE HCL IR 5 MG TAB (IMMEDIATE RELEASE) PO PRN (08:37)
[2018-11-22] MEDS: BUDESONIDE/FORMOTEROL FUMARATE 160/4.5 60 PUFFS/INHALER INH SCH (08:38)
[2018-11-22] MEDS: ATORVASTATIN 40 MG TAB PO SCH (08:40)
[2018-11-22] MEDS: INSULIN ASPART 100 UNITS/ML 3 ML PEN SC SCH ×2 (08:42→12:15)
[2018-11-22] MEDS ORDERED: TORSEMIDE 10 MG TAB PO SCH (09:00)
--- NOTE | 2018-11-22 12:24 | Pulmonology Progress Note ---
Date of Service November 22, 2018 Assessment & Plan (1) Pleural effusion: Clinically much improved. His x-ray today is also improved. His respiratory status is stable and we will see again only if requested. (2) COPD (chronic obstructive pulmonary disease): The patient is not having symptoms at present. I did explain to him we feel he should stop the Spiriva because of the bladder outlet obstruction reported on CAT scan of the abdomen. (3) Mediastinal adenopathy: Mild adenopathy was noted on his CAT scan at the time of admission. He likely should have a follow-up CAT scan for completeness perhaps in 6 months. He does have a history of pancreatic cancer and it is possible that he routinely has CAT scans done for that follow-up. That is unknown with certainty however. Subjective The patient states he is feeling well. He denies shortness of breath, cough, or sputum production. Patient indicated he believes he is going home today. Physical Exam Physical Exam: The patient is a 63-year-old male who was cooperative alert and oriented. He was in no distress at rest. Weight is 107.9 kg. Eye exam showed implants bilaterally. Nasal passages clear. Mouth exam shows no erythema or exudate. No lymph nodes palpable. Cardiac rate 73/min. Rhythm regular. Blood pressure 156/82. Lung mcintosh were clear. No wheezes or rhonchi were heard today. Respiratory rate 20. Saturation done by myself was recording 87% on room air. However earlier today he had been in the 90s. Extremities again shows the right lower extremity is wrapped. No edema noted of significance. Results & Data Vital Signs (Past 12 Hours) Vital Signs Temp Pulse Pulse Pulse Pulse Pulse Pulse 11/22/18 11:20 73 73 70 69 11/22/18 11:15 36.9 C 64 11/22/18 10:27 58 L 11/22/18 07:30 36.9 C 62 11/22/18 07:11 60 11/22/18 05:51 56 L 11/22/18 03:57 36.7 C 62 11/22/18 01:57 60 Resp Resp Resp Resp Resp BP BP 11/22/18 11:20 18 20 18 18 11/22/18 11:15 17 156/82 H 11/22/18 10:27 11/22/18 07:30 19 136/61 11/22/18 07:11 18 11/22/18 05:51 11/22/18 03:57 18 156/70 H 11/22/18 01:57 18 Pulse Ox Pulse Ox Pulse Ox Pulse Ox Pulse Ox 11/22/18 11:20 93 86 L 91 91 11/22/18 11:15 98 11/22/18 10:27 11/22/18 07:30 96 11/22/18 07:11 97 11/22/18 05:51 11/22/18 03:57 97 11/22/18 01:57 98 Laboratory Results White count today is 11.23. Hemoglobin 12.8. Platelets 435,000. Electrolytes show sodium 140 potassium 3.9 chloride 105 bicarb 29. BUN 39 with a creatinine 1.55. Yesterday's creatinine was 1.77. Diagnostic Findings Chest x-ray done today showed improved aeration of both bases. A central catheter remains in the superior vena cava. PG Care Time/CCT Total # of Minutes Spent Total Time Spent with Patient: Total time spent is greater than 50% in coordination of care (as documented) at patient's floor/unit and/or counseling patient:
--- NOTE | 2018-11-22 13:00 | Hospitalist Progress Note ---
Date of Service November 22, 2018 Assessment & Plan (1) Right foot infection: -non healing chronic diabetic wound infection and presented with purulent drainage on admission on 11/18/18 -patient was given antibiotics including daptomycin and ertapenem -s/p right foot debridement on 11/20/18 (Surgical follow up instructions: - change dressing on wound daily with Bacitracin ointment on wound and cover with 4 x 4 gauze and then wrap. - may wear soft boot to help with walking - Monitor for any increasing drainage, redness or pain - May take extra strength Tylenol as needed for mild pain) -as of 11/21/18 blood and wound cultures are generally unremarkable and transitioning to oral clindamycin -Patient should take clindamycin 300 mg four times a day for 1 week to complete antibiotic course Clindamycin and Bacitracin prescription electronically sent to [facility] [address] [place] [address] BARBI Peter (2) Diastolic heart failure: acute Diastolic congestive heart failure -presented with vol overload , orthopnea, elevated Pro BNP elevated , pleural effusions -patient was treated with IV Lasix -IV Lasix has been held due to renal function -11/22/18 Chest X ray: Improved exam with considerable improvement of the basilar infiltrates. Mild residual. Mild residual pulmonary vascular congestion. -discussed with Nephrology Dr. Gonzalez that Patient may resume taking Torsemide home dose on Monday11/23/18 and Monday11/26/18 can start resuming home dose metolazone and lisinopril. COPD (chronic obstructive pulmonary disease) with exacerbation versus mild asthma with exacerbation -Mediastinal adenopathy: Mild adenopathy was noted on his CAT scan at the time of admission. He likely should have a follow-up CAT scan for completeness perhaps in 6 months. -spiriva was discontinued by pulmonary service because of concern this would cause problems with urination such as exacerbating bladder outlet obstruction -history of sleep apnea but was intolerant of CPAP at home and uses home oxygen -On 11/22/18, patient had 2 step oxygen test and that requirements of 2 liters/min with ambulation in addition to 4 liters/min with sleep. Oxygen prescriptions were updated. (3) Troponin level elevated: - 0.062 on 11/18/18 and 11/19/18 -mildly elevated troponins from possible demand ischemia in a setting of Decompensated Diastolic heart failure /hypertensive urgency on presentation and previous hospitalist suggested possible Type 2 Myocardial infarction -however, previous hospitalist also wrote the there is no evidence of acute coronary syndrome and noted that patient does not have any anginal symptom -echocardiogram on 11/19/18 with normal ejection fraction and no description of wall motion abnormalities -do not believe that patient had any myocardial infraction -cardiology clinic follow up 12/06/18 (4) Acute kidney injury superimposed on CKD: -baseline CKD stage 3 -and creatinine increased during this hospital stay likely from IV contrast and IV diuretics -IV diuretics have continued to be held and creatinine decreased to 1.55 which is more close to patient's baseline -discussed with Nephrology Dr. Gonzalez that Patient may resume taking Torsemide home dose on Monday11/23/18 and Monday11/26/18 can start resuming home dose metolazone and lisinopril. (5) Hypertension: -is off diuretics because and NEVILLE inhibitor because fo renal function -then switched from prn IV hydralazine to oral oral hydralazine 25 mg q8 hour for now -While off lisinopril, patient may take hydralazine 25 mg three times a day. Hydralazine prescription electronically sent to [facility] [address] [place] [address] BARBI Peter . 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 -HbA1c 10.3 -Patient noted to have hypoglycemia on 11/21/18 but patient has been asymptomatic -pharmacy consult is monitoring patient's insulin requirements and adjusting insulin as needed -patient may resume home dose insulin and follow up with primary care doctor for tighter control FULL CODE Discharge Diagnosis Right foot infection, acute Diastolic congestive heart failure, acute kidney injury on chronic kidney disease stage 3, Hypertension, 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 - you may wear soft boot to help with walking - Monitor for any increasing drainage, redness or pain - May take extra strength Tylenol as needed for mild pain Patient should take clindamycin 300 mg four times a day for 1 week to complete antibiotic course Clindamycin and Bacitracin prescription electronically sent to [facility] [address] [place] [address] BARBI Peter Patient may resume taking Torsemide home dose on Monday11/23/18 and Monday11/26/18 can start resuming home dose metolazone and lisinopril. While off lisinopril, patient may take hydralazine 25 mg three times a day. Hydralazine prescription electronically sent to [facility] [address] [place] [address] BARBI Peter Mediastinal adenopathy: Mild adenopathy was noted on his CAT scan at the time of admission. He likely should have a follow-up CAT scan for completeness perhaps in 6 months. spiriva was discontinued by pulmonary service because of concern this would cause problems with urination such as exacerbating bladder outlet obstruction history of sleep apnea but was intolerant of CPAP at home and uses home oxygen On 11/22/18, patient had 2 step oxygen test and that requirements of 2 liters/min with ambulation in addition to 4 liters/min with sleep. Oxygen prescriptions were updated. spiriva was discontinued by pulmonary service because of concern this would cause problems with urination follow up with outpatient doctors for repeat renal labs and other outpatient care patient may resume home dose insulin and follow up with primary care doctor for tighter control 11/30/2018 10:00 AM Provider Jose A Osuna MD Department Internal Medicine [facility] 12/03/2018 1:40 PM Provider Deborah Matta MD Department Nephrology, [facility] 12/06/2018 9:15 AM Provider Nikhil Grant DO Department Cardiology [facility] 12/12/2018 11:30 AM Provider Yana Luis DO Department Internal Medicine [facility] 12/24/2018 2:40 PM Provider Deborah Matta MD Department Nephrology, [facility] 01/10/2019 10:30 AM Provider Nikhil Grant DO Department Cardiology [facility] ) Subjective On 11/22/18, patient had 2 step oxygen test and that requirements of 2 liters/min with ambulation in addition to 4 liters/min with sleep. Oxygen prescriptions were updated. otherwise breathing comfortably. at rest, patient breathing on room air. Chest X ray shows lung improvements. no acute pain of the right foot. patient evaluated by PT and able to ambulate. discharge instructions discussed at length with the patient no chest pain, no acute shortness of breath, no abdominal pain. no vomiting. no nausea, no vomiting Physical Exam Constitutional: comfortable Eyes: PERRL, conjunctivae normal, anicteric sclerae EOM intact bilaterally ENMT: external ear and nose normal, oropharynx normal Neck: trachea midline, no thyromegaly normal visual inspection Respiratory: normal respiratory effort Cardiovascular: Rate/Rhythm: regular rate and regular rhythm Gastrointestinal (Abdomen): normal bowel sounds, soft, nontender, no hepatosplenomegaly Musculoskeletal: Head/Neck/Chest: normocephalic and head atraumatic Extremities: + foot abnormality (right foot in dressing) Neurologic: PERRL, EOMI, accommodation nl, no face palsy, no dysarthria CN's II-XI intact bilaterally Psychiatric: A+Ox3, euthymic affect Results & Data Vital Signs (Past 12 Hours) Vital Signs Temp Pulse Pulse Pulse Pulse Pulse Pulse 11/22/18 11:20 73 73 70 69 11/22/18 11:15 36.9 C 64 11/22/18 10:27 58 L 11/22/18 07:30 36.9 C 62 11/22/18 07:11 60 11/22/18 05:51 56 L 11/22/18 03:57 36.7 C 62 11/22/18 01:57 60 Resp Resp Resp Resp Resp BP BP 11/22/18 11:20 18 20 18 18 11/22/18 11:15 17 156/82 H 11/22/18 10:27 11/22/18 07:30 19 136/61 11/22/18 07:11 18 11/22/18 05:51 11/22/18 03:57 18 156/70 H 11/22/18 01:57 18 Pulse Ox Pulse Ox Pulse Ox Pulse Ox Pulse Ox 11/22/18 11:20 93 86 L 91 91 11/22/18 11:15 98 11/22/18 10:27 11/22/18 07:30 96 11/22/18 07:11 97 11/22/18 05:51 11/22/18 03:57 97 11/22/18 01:57 98 (1) Diastolic heart failure Heart failure chronicity: acute on chronic Qualified Code(s): I50.33 - Acute on chronic diastolic (congestive) heart failure (2) Hypertension Hypertension type: unspecified Qualified Code(s): I10 - Essential (primary) hypertension
--- NOTE | 2018-11-22 13:20 | Discharge Summary ---
Date of Service November 22, 2018 Admission HPI Per Admitting Provider DATE OF ADMISSION: 11/18/2018 CHIEF COMPLAINT: Shortness of breath, not feeling well. HISTORY OF PRESENT ILLNESS: This is a 63-year-old male with past medical history significant for pancreatic cancer status post surgery 2 years ago, supposed to get PET scan tomorrow, history of diabetic polyneuropathy, type 2 diabetes, hyperlipidemia, chronic respiratory failure on 4 liters of oxygen, restrictive airway disease and asthma, history of CVA, history of paroxysmal atrial fibrillation, no longer on anticoagulation, chronic kidney disease stage III, CAD, history of pericardial effusion, history of reflux esophagitis, generalized osteoarthritis, glaucoma, depression, history of tobacco abuse, history of PTSD, who presents with shortness of breath, some abdominal discomfort, belching, and also foul smelling in the right foot wound. The patient received a dose of Lasix in the ER. He also hit his head yesterday while getting up, to his shelf. Had some pain in his head, but that is resolved now. No blurred visions, no earache, no runny nose, no sore throat, no difficulty swallowing. Appetite is not that great. Denies any chest pain. Has some cough. Mild abdominal discomfort. No diarrhea, no constipation, no blood in the stools. No burning micturition, no hematuria. Ambulates with a cane. Lives with his . Currently resting comfortably and hemodynamically stable. ALLERGIES: BEE VENOM, AMLODIPINE, CEPHALOSPORIN, LISINOPRIL, PENICILLIN. PAST MEDICAL HISTORY: As mentioned above. PAST SURGICAL HISTORY: Cataract surgery, tonsillectomy, adenoidectomy. MEDICATIONS: The patient is on Creon 1 capsule 4 times a day as needed, Lantus 40 units b.i.d., Reglan 5 mg a.c., lisinopril 10 mg p.o. daily, Cymbalta 60 mg p.o. daily, Demadex 40 mg b.i.d., Symbicort two puffs b.i.d., Spiriva 2 puffs daily, Flonase 2 sprays daily, metolazone 2.5 mg on Mondays and Fridays, Carafate 1 gram p.o. q.i.d., Lipitor 40 mg p.o. daily, Coreg 37.5 mg p.o. b.i.d., Humalog sliding scale, Senokot S 2 tablets at bedtime, albuterol nebulization every 4 hours p.r.n., MiraLax 17 grams p.o. daily p.r.n., aspirin 81 mg p.o. daily, oxygen 4 liters continuous, oxycodone 5 mg p.o. q. 4 hours p.r.n., Prilosec 20 mg p.o. b.i.d., Wellbutrin SR 200 mg p.o. daily, albuterol 2 puffs every 4 hours p.r.n. FAMILY HISTORY: Significant for mother had breast cancer, diabetes, and heart disorder. Father has heart disorder. SOCIAL HISTORY: , lives with . Smoking 2-3 cigarettes daily. No alcohol use, used to drink heavily in the past. No drug use. REVIEW OF SYMPTOMS: As per HPI. Rest of the review of systems negative. Admission Exam Per Admitting Provider PHYSICAL EXAMINATION: GENERAL: The patient is obese, not in acute distress. VITAL SIGNS: Temperature 36.4, pulse 60, respiratory rate 18, blood pressure 194/87, oxygen 98% on 5 liters. HEENT: No pallor, no icterus. Pupils equal, round, reactive to light. NECK: No JVD, no neck masses, no carotid bruits. CARDIOVASCULAR: S1, S2 heard, regular rate and rhythm, no murmur, no gallop. RESPIRATORY SYSTEM: Normal AP diameter. No accessory muscle use. Bilateral wheezing heard. Bibasilar crackles. ABDOMEN: Soft, bowel sounds present, nontender. No distention. CENTRAL NERVOUS SYSTEM: Cranial nerves II-XII grossly intact, nonfocal. EXTREMITIES: Lower extremity, mild pedal edema present. Right foot on the plantar aspect a big callus seen which was foul smelling and fluctuant. Principal Diagnosis Right foot infection, acute Diastolic congestive heart failure, acute kidney injury on chronic kidney disease stage 3, Hypertension, Type 2 diabetes mellitus with senior living current use of insulin with skin complication, COPD (chronic obstructive pulmonary disease) with exacerbation versus mild asthma with exacerbation Discharge Exam Constitutional comfortable Eyes PERRL, conjunctivae normal, anicteric sclerae EOM intact bilaterally ENMT external ear and nose normal, oropharynx normal Neck trachea midline, no thyromegaly normal visual inspection Respiratory normal respiratory effort Cardiovascular Rate/Rhythm: regular rate and regular rhythm Gastrointestinal (Abdomen) normal bowel sounds, soft, nontender, no hepatosplenomegaly Musculoskeletal Head/Neck/Chest: normocephalic and head atraumatic Extremities: + foot abnormality (right foot in dressing) Neurologic PERRL, EOMI, accommodation nl, no face palsy, no dysarthria CN's II-XI intact bilaterally Psychiatric A+Ox3, euthymic affect Discharge Data Allergies Allergy/AdvReac Type Severity Reaction Status Date / Time bee venom protein (honey bee) Allergy Severe anaphylaxis Verified 11/18/18 19:59 cephalexin Allergy Severe Hives Verified 11/18/18 19:59 lisinopril Allergy Severe Elevated Verified 11/18/18 19:59 Potassium piperacillin Allergy Severe Hives Verified 11/18/18 19:59 amlodipine AdvReac Unknown Headache Verified 11/18/18 19:59 Consultations 11/18/18 20:43 ED Decision to Admit Stat 11/19/18 00:59 Consult Case Management - Discharge Planning Routine 11/19/18 07:08 Consult Cardiology Routine 11/19/18 08:00 Consult General Surgery Routine Consult Pulmonology Routine 11/20/18 20:18 Consult Nephrology Routine Procedures Performed Operation Date: 11/20/18 07:15 Actual Procedures p Right Foot Wound Incision and Drainage(Right) - Christelle Su MD Ordered Studies 11/18/18 17:59 CT abd pelvis IV con only Stat CT head/brain wo con Stat 11/18/18 18:30 CT cervical spine wo con Stat 11/18/18 19:31 CT angio chest PE protocol Stat Hospital Course (1) Right foot infection: -non healing chronic diabetic wound infection and presented with purulent drainage on admission on 11/18/18 -patient was given antibiotics including daptomycin and ertapenem -s/p right foot debridement on 11/20/18 (Surgical follow up instructions: - change dressing on wound daily with Bacitracin ointment on wound and cover with 4 x 4 gauze and then wrap. - may wear soft boot to help with walking - Monitor for any increasing drainage, redness or pain - May take extra strength Tylenol as needed for mild pain) -as of 11/21/18 blood and wound cultures are generally unremarkable and transitioning to oral clindamycin -Patient should take clindamycin 300 mg four times a day for 1 week to complete antibiotic course Clindamycin and Bacitracin prescription electronically sent to [facility] [address] [place] [address] BARBI Peter (2) Diastolic heart failure: acute Diastolic congestive heart failure -presented with vol overload , orthopnea, elevated Pro BNP elevated , pleural effusions -patient was treated with IV Lasix -IV Lasix has been held due to renal function -11/22/18 Chest X ray: Improved exam with considerable improvement of the basilar infiltrates. Mild residual. Mild residual pulmonary vascular congestion. -discussed with Nephrology Dr. Gonzalez that Patient may resume taking Torsemide home dose on Monday11/23/18 and Monday11/26/18 can start resuming home dose metolazone and lisinopril. COPD (chronic obstructive pulmonary disease) with exacerbation versus mild asthma with exacerbation -Mediastinal adenopathy: Mild adenopathy was noted on his CAT scan at the time of admission. He likely should have a follow-up CAT scan for completeness perhaps in 6 months. -spiriva was discontinued by pulmonary service because of concern this would cause problems with urination such as exacerbating bladder outlet obstruction -history of sleep apnea but was intolerant of CPAP at home and uses home oxygen -On 11/22/18, patient had 2 step oxygen test and that requirements of 2 liters/min with ambulation in addition to 4 liters/min with sleep. Oxygen prescriptions were updated. (3) Troponin level elevated: - 0.062 on 11/18/18 and 11/19/18 -mildly elevated troponins from possible demand ischemia in a setting of Decompensated Diastolic heart failure /hypertensive urgency on presentation and previous hospitalist suggested possible Type 2 Myocardial infarction -however, previous hospitalist also wrote the there is no evidence of acute coronary syndrome and noted that patient does not have any anginal symptom -echocardiogram on 11/19/18 with normal ejection fraction and no description of wall motion abnormalities -do not believe that patient had any myocardial infraction -cardiology clinic follow up 12/06/18 (4) Acute kidney injury superimposed on CKD: -baseline CKD stage 3 -and creatinine increased during this hospital stay likely from IV contrast and IV diuretics -IV diuretics have continued to be held and creatinine decreased to 1.55 which is more close to patient's baseline -discussed with Nephrology Dr. Gonzalez that Patient may resume taking Torsemide home dose on Monday11/23/18 and Monday11/26/18 can start resuming home dose metolazone and lisinopril. (5) Hypertension: -is off diuretics because and NEVILLE inhibitor because fo renal function -then switched from prn IV hydralazine to oral oral hydralazine 25 mg q8 hour for now -While off lisinopril, patient may take hydralazine 25 mg three times a day. Hydralazine prescription electronically sent to [address] BARBI Peter . follow up with outpatient doctors for repeat renal labs and other outpatient care (6) DM type 2 (diabetes mellitus, type 2): Type 2 diabetes mellitus with senior living current use of insulin with skin complication -HbA1c 10.3 -Patient noted to have hypoglycemia on 11/21/18 but patient has been asymptomatic -pharmacy consult is monitoring patient's insulin requirements and adjusting insulin as needed -patient may resume home dose insulin and follow up with primary care doctor for tighter control FULL CODE Discharge Diagnosis Right foot infection, acute Diastolic congestive heart failure, acute kidney injury on chronic kidney disease stage 3, Hypertension, Type 2 diabetes mellitus with 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 - you may wear soft boot to help with walking - Monitor for any increasing drainage, redness or pain - May take extra strength Tylenol as needed for mild pain Patient should take clindamycin 300 mg four times a day for 1 week to complete antibiotic course Clindamycin and Bacitracin prescription electronically sent to [address] BARBI Peter Patient may resume taking Torsemide home dose on Monday11/23/18 and Monday11/26/18 can start resuming home dose metolazone and lisinopril. While off lisinopril, patient may take hydralazine 25 mg three times a day. Hydralazine prescription electronically sent to [address] BARBI Peter Mediastinal adenopathy: Mild adenopathy was noted on his CAT scan at the time of admission. He likely should have a follow-up CAT scan for completeness perhaps in 6 months. spiriva was discontinued by pulmonary service because of concern this would cause problems with urination such as exacerbating bladder outlet obstruction history of sleep apnea but was intolerant of CPAP at home and uses home oxygen On 11/22/18, patient had 2 step oxygen test and that requirements of 2 liters/min with ambulation in addition to 4 liters/min with sleep. Oxygen prescriptions were updated. spiriva was discontinued by pulmonary service because of concern this would cause problems with urination follow up with outpatient doctors for repeat renal labs and other outpatient care patient may resume home dose insulin and follow up with primary care doctor for tighter control 11/30/2018 10:00 AM Provider Jose A Osuna MD Department Internal Medicine [facility] 12/03/2018 1:40 PM Provider Deborah Matta MD Department Nephrology, [facility] 12/06/2018 9:15 AM Provider Nikhil Grant DO Department Cardiology [facility] 12/12/2018 11:30 AM Provider Yana Luis DO Department Internal Medicine [facility] 12/24/2018 2:40 PM Provider Deborah Matta MD Department Nephrology, [facility] 01/10/2019 10:30 AM Provider Nikhil Grant DO Department Cardiology [facility] ) Total Time Total Time Spent Total Time Spent (In Minutes): 40 minutes Total Time Includes: Examination of the Patient, Discharge Planning, Medication Reconciliation and Communication With Other Providers Discharge Plan Discharge Items Patient Disposition: Home - Self-Care Reason For Visit: SOB Discharge Diagnosis: Right foot infection, acute Diastolic congestive heart failure, acute kidney injury on chronic kidney disease stage 3, Hypertension, Type 2 diabetes mellitus with long term care phlebotomist current use of insulin with skin complication, COPD (chronic obstructive pulmonary disease) with exacerbation versus mild asthma with exacerbation Condition: Good Discharge Goals: Improve disease control Activity: Resume your previous activity Non-emergency contact: Primary Care Provider and Specialized Language Instructor Call non-emergency contact if: you have any medication questions Follow-up/Referrals: Yana Luis DO [Primary Care Provider] - Diet: Carb Consistent or DM2, Heart Healthy and Low Sodium (2gm) Addtl Provider Instructions: Surgical discharge instructions: - change dressing on wound daily with Bacitracin ointment on wound and cover with 4 x 4 gauze and then wrap. - you may wear soft boot to help with walking - Monitor for any increasing drainage, redness or pain - May take extra strength Tylenol as needed for mild pain Patient should take clindamycin 300 mg four times a day for 1 week to complete antibiotic course Clindamycin and Bacitracin prescription electronically sent to [facility] [address] [place] [address] BARBI Peter Patient may resume taking Torsemide home dose on Monday11/23/18 and Monday11/26/18 can start resuming home dose metolazone and lisinopril. While off lisinopril, patient may take hydralazine 25 mg three times a day. Hydralazine prescription electronically sent to [facility] [address] [place] [address] BARBI Peter Mediastinal adenopathy: Mild adenopathy was noted on his CAT scan at the time of admission. He likely should have a follow-up CAT scan for completeness perhaps in 6 months. spiriva was discontinued by pulmonary service because of concern this would cause problems with urination such as exacerbating bladder outlet obstruction history of sleep apnea but was intolerant of CPAP at home and uses home oxygen On 11/22/18, patient had 2 step oxygen test and that requirements of 2 liters/min with ambulation in addition to 4 liters/min with sleep. Oxygen prescriptions were updated. spiriva was discontinued by pulmonary service because of concern this would cause problems with urination follow up with outpatient doctors for repeat renal labs and other outpatient care patient may resume home dose insulin and follow up with primary care doctor for tighter control 11/30/2018 10:00 AM Provider Jose A Osuna MD Department Internal Medicine [facility] 12/03/2018 1:40 PM Provider Deborah Matta MD Department Nephrology, [facility] 12/06/2018 9:15 AM Provider Nikhil Grant DO Department Cardiology [facility] 12/12/2018 11:30 AM Provider Yana Luis DO Department Internal Medicine [facility] 12/24/2018 2:40 PM Provider Deborah Matta MD Department Nephrology, [facility] 01/10/2019 10:30 AM Provider Nikhil Grant DO Department Cardiology [place], [place] Prescriptions: New clindamycin HCl 150 mg Capsule 300 mg PO QID 7 Days Qty: 56 RF: 0 bacitracin 500 unit/gram Ointment 1 applic EXT DAILY 30 Days Qty: 28 RF: 0 hydralazine 25 mg Tablet 25 mg PO TID 4 Days Qty: 12 RF: 0 Continued glucose 4 gram Tablet,Chewable 4 g PO UD PRN (Reason: Hypoglycemia) RF: 0 omeprazole 20 mg Capsule,Delayed Release(Dr/Ec) 20 mg PO BID RF: 0 oxycodone 5 mg Tablet 5 mg PO UD PRN (Reason: Pain) RF: 0 bupropion HCl 200 mg Tablet Sustained-Release 12 Hr 200 mg PO DAILY RF: 0 metolazone 2.5 mg Tablet 2.5 mg PO MONTHUR RF: 0 atorvastatin 40 mg Tablet 40 mg PO DAILY RF: 0 carvedilol 25 mg Tablet 37.5 mg PO BID RF: 0 torsemide [Demadex] 20 mg Tablet 40 mg PO AMPM RF: 0 albuterol sulfate 2.5 mg /3 mL (0.083 %) Solution For Nebulization 2.5 mg INHALATION Q4 PRN (Reason: Wheezing) RF: 0 sucralfate [Carafate] 1 gram Tablet 1 g PO UD RF: 0 sennosides-docusate sodium [Senna with Docusate Sodium] 8.6-50 mg Tablet 1 tab PO BID RF: 0 aspirin [Aspir-81] 81 mg Tablet,Delayed Release (Dr/Ec) 81 mg PO DAILY RF: 0 lisinopril [Zestril] 10 mg tablet 10 mg PO DAILY RF: 0 polyethylene glycol 3350 [Miralax] 17 gram/dose Powder 17 g PO DAILY PRN (Reason: Constipation) RF: 0 fluticasone propionate [Flonase Allergy Relief] 50 mcg/actuation [place],Suspension 2 spray INTRANASAL DAILY PRN (Reason: Congestion) RF: 0 metoclopramide HCl [Reglan] 10 mg Tablet 5 mg PO AC RF: 0 insulin lispro [Humalog KwikPen Insulin] 100 unit/mL Insulin Pen SUBCUT TIDM RF: 0 duloxetine [Cymbalta] 60 mg Capsule,Delayed Release(Dr/Ec) 60 mg PO DAILY RF: 0 Symbicort 160-4.5 mcg/actuation Hfa Aerosol Inhaler 2 puff INHALATION BID RF: 0 Lantus Solostar U-100 Insulin 100 unit/mL (3 mL) Insulin Pen 40 unit SUBCUT BID RF: 0 Creon 3,000-9,500- 15,000 unit Capsule,Delayed Release(Dr/Ec) 1 cap PO WM PRN (Reason: Unknown) RF: 0 Discontinued Spiriva Respimat 1.25 mcg/actuation Mist 2 puff INHALATION DAILY RF: 0 Stand-Alone Forms: [facility] Discharge Orders: Discharge Order (Routine); Ordered 11/22/18 Ordered By: Max Lniton Admission Data Admit Date/Time: 11/18/18 22:47 Attending Provider: Max Linton Admit Provider: Brian Liriano Primary Care Provider: Yana Luis Other Providers: Brian Liriano ; Jared Bah ; Nikhil Grant ; Ronnie López ; Leon Cardenas ; Gregory Read ; Bradley Collins ; Vannessa Rob ; Marisol Cantu ; Bradley Newsome ; Sunita Granado ; Leon Sorensen ; Jennifer Malone ; Manish Cleaning ; Gregory Dey ; Agnieszka Denise ; Ariel Dodge ; Nuria Pimentel ; Mitch Sheridan Jr ; Christelle Su ; Nida Taylor ; Med May ; Ayala Gonzalez ; Paul Samuel ; Reji Flood I ; Kaitlynn Mattson ; Amaya Barahona ; Deborah Matta Service: Telemetry Medical
== END 2018-11-22 16:17 | disposition home or self-care (01) | DRG 981 ==
LOC: ED 17:42 → 2N 22:47 → SUATTDRO 22:47 → 2N 23:40

== ENCOUNTER 2019-03-25 17:54 | Inpatient (IN) ==
[2019-03-25] MEDS ORDERED: ACETAMINOPHEN 325 MG TAB PO PRN (20:45)
[2019-03-25] MEDS ORDERED: CARBOHYDRATES FOR HYPOGLYCEMIA PO PRN (20:46)
[2019-03-25] MEDS ORDERED: PROMETHAZINE HCL 12.5 MG in SODIUM CHLORIDE 0.9% 50 ML IV PRN (20:46)
[2019-03-25] MEDS ORDERED: GLUCOSE 10 TABS/TUBE PO PRN (20:46)
[2019-03-25] MEDS ORDERED: HYDROmorphone INJ 0.5 MG/0.5 ML SYR IV PRN (20:46)
[2019-03-25] MEDS ORDERED: DEXTROSE 50% 50 ML SYRINGE IV PRN (20:46)
[2019-03-25] MEDS ORDERED: GLUCAGON FOR INJ 1 MG VIAL SQ PRN (20:46)
[2019-03-25] MEDS ORDERED: GLUCOSE 40% GEL 15 GM TUBE PO PRN (20:46)
[2019-03-25] MEDS ORDERED: bisacodyL 10 MG SUPP PR PRN (20:49)
[2019-03-25] MEDS ORDERED: NALOXONE HCL 0.4 MG/1 ML VIAL/CARP IV PRN (20:49)
[2019-03-25] MEDS ORDERED: MAGNESIUM HYDROXIDE SUSP 30 ML UDC PO PRN (20:49)
[2019-03-25] MEDS ORDERED: INSULIN ASPART 100 UNITS/ML 3 ML PEN SC SCH (20:50)
--- NOTE | 2019-03-25 21:47 | History & Physical Report ---
Date of Service March 25, 2019 Assessment & Plan (1) Hypotension: Transient hypotension at [facility] ER Secondary to narcotic administration ARF on CRI, hypovolemia, possibly contributory BP on the lower side. Left femoral fracture secondary to mechanical fall Diabetic foot infection, left, osteomyelitis on imaging found, possible sepsis chronic respiratory failure 2 to COPD/SONJA on home O2, some respiratory acidosis noted on ABG Outpatient sleep medicine referral contemplated by PCP chronic diastolic heart failure (EF of 50-55%, TTE 2018), patient on the dry side CAD/CVA as per records AF on Xarelto, patient NSR DM2, insulin requiring, suboptimal control as of recent outpatient hemoglobin A1c of 9.7 in December 2018 pancreatic cancer status post surgery and chemotherapy, incidental finding of new liver lesion CT abdomen pelvis at [facility] chronic anemia secondary to CKD, hemoglobin at baseline past tobacco/alcohol abuse history of MRSA as per records PCU monitoring Baseline UA, monitor creatinine response to IVF, hold home diuretic, NEVILLE inhibit or for now until creatinine at baseline Follow renal function, Nephrology consult if without improvement. Decrease maintenance Coreg dose given borderline BP Orthopedics consult RE left femoral fracture, left foot osteomyelitis Recommend Cardiology consult for preop eval given Class IV risk as per RCRI. Cultures, Daptomycin, Azactam for osteomyelitis ID consult RE left foot osteomyelitis Outpatient follow-up with patient's oncologist from [facility]. Basal insulin adjusted for n.p.o. status after midnight RE possible surgery ISS BG goal [id number] DVT prophylaxis. SCDs while Xarelto on hold for potential surgery Recommend pharmacologic anticoagulation once bleeding risk is deemed to be minimal and negligible. Full code Patient's requesting updates from providers. Ms. Liliana Bennett, contact #[phone]. History of Present Illness Chief Complaint: Left hip fracture Primary Care Provider: Yana Luis DO History obtained from patient, , and records. Medical history is significant for chronic respiratory failure 2 to COPD/SONJA on home O2, chronic diastolic heart failure (EF of 50-55%, TTE 2019) CAD/CVA as per records, hypertension, hyperlipidemia, DM2, insulin requiring, AF on Xarelto, chronic hyponatremia, pancreatic cancer status post surgery and chemotherapy, chronic renal insufficiency (baseline creatinine 1.6), chronic anemia (baseline hemoglobin 12-13), past tobacco and alcohol abuse, history of MRSA as per records Recent confinement November 2018 for right foot infection. Patient discharged on Clindamycin course. In the last few days, patient's noted wound on the small toe of the left foot with foul-smelling drainage. No fever, no chills. Patient refusing medical evaluation as per . Patient somewhat confused at home today as per . He fell down after trying to get up landing on his left side. Patient complained of achy left hip pain. Unable to get up. No chest pain, no S OB, no LOC. Patient brought to [facility] ER. BSGs noted to be 500s. Transient hypotension noted after narcotic administration as per report. Imaging showed comminuted intertrochanteric left femoral fracture. WBC noted to be 16, serum creatinine noted to be 3, initial lactic acid noted to be 3.1. Patient received IVF, vancomycin, Levaquin, Gentamicin at [place] [facility] for possible sepsis. Patient transferred to [facility] as per patient/family request for specialty serv ices. MEDICAL HISTORY: As above. SURGICAL HISTORY: He has had tonsillectomy/adenoidectomy, pancreatic cancer surgery, knee surgery, cataract surgery, foot debridement, left pleurectomy, decortication, thoracoscopy FAMILY HISTORY: Hypertension, heart disease, diabetes. PERSONAL/SOCIAL HISTORY: Past tobacco and alcohol abuse. On disability. Allergies Allergy/AdvReac Type Severity Reaction Status Date / Time bee venom protein (honey bee) Allergy Severe anaphylaxis Verified 01/08/19 14:57 cephalexin Allergy Severe Hives Verified 01/08/19 14:57 lisinopril Allergy Severe Elevated Verified 01/08/19 14:57 Potassium piperacillin Allergy Severe Hives Verified 01/08/19 14:57 amlodipine AdvReac Mild Headache Verified 01/08/19 14:57 Home Medications Home Medications Medication Instructions Recorded Confirmed Type Lantus Solostar U-100 Insulin 40 unit SUBCUT BID 09/01/18 03/25/19 History albuterol sulfate 2.5 mg INHALATION Q4H PRN 09/01/18 03/25/19 History aspirin [Aspir-81] 81 mg PO DAILY 09/01/18 03/25/19 History atorvastatin 40 mg PO DAILY 09/01/18 03/25/19 History carvedilol 25 mg PO BID 09/01/18 03/25/19 History metolazone 2.5 mg PO WK PRN 09/01/18 03/25/19 History polyethylene glycol 3350 [Miralax] 17 g PO DAILY PRN 09/01/18 03/25/19 History sucralfate [Carafate] 1 g PO QID PRN 09/01/18 03/25/19 History bupropion HCl 200 mg PO DAILY 11/18/18 03/25/19 History omeprazole 20 mg PO BID 11/18/18 03/25/19 History oxycodone 5 mg PO Q4H PRN 11/18/18 03/25/19 History albuterol sulfate [ProAir HFA] 2 puff INHALATION Q4H PRN 03/25/19 03/25/19 History budesonide-formoterol 2 puff INHALATION HS 03/25/19 03/25/19 History docusate sodium 100 mg PO BID 03/25/19 03/25/19 History ferrous sulfate 325 mg PO DAILY 03/25/19 03/25/19 History furosemide 80 mg PO BID 03/25/19 03/25/19 History gabapentin 200 mg PO BID PRN 03/25/19 03/25/19 History hydroxyzine HCl 25 mg PO TID PRN 03/25/19 03/25/19 History insulin aspart U-100 [Novolog 1 sliding scale dose SUBCUT AC 03/25/19 03/25/19 History U-100 Insulin aspart] [id number] [Creon] 1 cap PO AC 03/25/19 03/25/19 History rivaroxaban 20 mg PO QPM 03/25/19 03/25/19 History tamsulosin 0.4 mg PO DAILY 03/25/19 03/25/19 History Past Med/Surg History Social History Preferred Language: Guamanian Communication Ability: Effective Third Rigger Required: No Beliefs That Will Affect Care: None marital status: Current Living Situation: Spouse current occupational status: unemployed and disabled Other Information That Helps Us Care for You: No Feels Safe at Home: Yes Safety Concerns: Feels Safe At This Time Smoking Status: Never smoker Tobacco Type: cigarettes ; Do You Dip or Chew Tobacco: No ; Hx Alcohol Use: No Hx Substance Use: No Review of Systems Review of Systems: As per HPI, all 10 systems reviewed, all other ROS negative Physical Exam Physical Exam: GENERAL: Slightly uncomfortable, slightly hard of hearing, obese, no respiratory distress SKIN: Pallor , warm HEENT: Pale palpebral conjunctivae, no ptosis, dry buccal mucosa, nasal cannula in place NECK : Supple, no tenderness CHEST : Decreased breath sounds , no tenderness HEART : RRR, no obvious murmurs ABDOMEN: Some distention, nontender EXTREMITIES : Left hip tenderness; ulcerated wound right foot plantar aspect without drainage; crusty wound left foot lateral aspect NEUROLOGIC : Coherent, no facial asymmetry, mild hearing impairment, no other gross focality Results & Data Vital Signs (Past 12 Hours) Vital Signs Temp Pulse Resp BP Pulse Ox 03/25/19 20:45 36.4 C L 73 20 122/67 97 Laboratory Results [facility] (03/25/19) Hemoglobin 12.5, hematocrit 38, WBC 16, platelets 408 Sodium 133, potassium 3.9, chloride 97, CO2 25, BUN 54, creatinine 3, glucose 43, anion gap 14 Lactic acid 3.1 Repeat lactic acid 1.1 Troponin 0 0.01 Small serum ketones Venous pH 7.31, venous PCO2 48.3 Diagnostic Findings [facility] (03/25/19) Chest x-ray: No active disease CT head: Right maxillary sinusitis CT cervical spine: No acute fracture. Degenerative changes. C-spine curvature convex to the left. CT thorax: Recent left fourth and fifth and subacute healing anterior left fifth rib fractures. CT abdomen pelvis: Comminuted intertrochanteric left femoral fracture with coxa vara. Nonobstructing right renal calculus. 2 x 1 anterior liver lesion new since January 2017. BPH. Borderline enlarged retroperitoneal lymph node. L foot xray : A 1.3 cm focal skin ulceration at the fifth MTP joint with underlying 3 mm focal lucency at the base of the proximal phalanx of the fifth toe. This is concerning for a focus of osteomyelitis. EKG as per my interpretation: Rate 65, NSR, normal axis, T wave flattening lateral leads
[2019-03-25 22:05] LABS: Allen Test Pos (Pos); Base Excess ABG -2.7 mEq/L (-9-1.8); HCO3 ABG 24 mmol/L (19-24); Oxygen Saturation ABG 96.3 % (90-95); PCO2 ABG 49 mmHg (35-46); PO2 ABG 88 mm/Hg (80-95); pH ABG 7.31 (7.35-7.45)
[2019-03-25 22:07] LABS: Basophils # (auto) 0.02 K/uL (0-0.2); Basophils % (auto) 0.2 %; Eosinophils # (auto) 0.02 K/uL (0-0.5); Eosinophils % (auto) 0.2 %; Hemoglobin 11.4 g/dL (14.0-18.0); Immature Granulocytes # (auto) 0.08 K/uL (0.00-0.02); Immature Granulocytes % (auto) 0.7 %; Lymphocytes # (auto) 0.92 K/uL (1.2-3.4); Lymphocytes % (auto) 8.1 %; Mean Corpuscular Hemoglobin 29.9 pg (25-34); Mean Corpuscular Hgb Conc 33.5 g/dL (32-36); Mean Corpuscular Volume 89.2 fL (80-100); Monocytes # (auto) 1.38 K/uL (0.11-0.59); Monocytes % (auto) 12.1 %; Neutrophils # (auto) 8.97 K/uL (1.4-6.5); Neutrophils % (auto) 78.7 %; Platelet Count 355 K/uL (130-400); RDW Coefficient of Variation 14.3 % (11.5-14.5); RDW Standard Deviation 46.8 fL (36.4-46.3); Red Blood Count 3.81 M/uL (4.7-6.1); White Blood Count 11.39 K/uL (4.8-10.8)
[2019-03-25] MEDS ORDERED: INSULIN GLARGINE SOLOSTAR 100 UNITS/ML 3 ML PEN SQ STA (22:10)
[2019-03-25 22:18] LABS: Partial Thromboplastin Time 26.5 Seconds (21.0-31.0)
[2019-03-25 22:30] LABS: BUN Creatinine Ratio 19.5 (10-20); Calcium 8.3 mg/dl (8.5-10.1); Est GFR (African American) 29.6; Est GFR (Non-African American) 25.5; Magnesium 2.7 mg/dl (1.8-2.4)
[2019-03-25] MEDS ORDERED: SODIUM CHLORIDE 0.9% 1000ML 1,000 ML IV ONE (22:39)
[2019-03-25 22:52] LABS: Beta-Hydroxybutyrate 9.51 mg/dl (0.2-2.81); Thyroid Stimulating Hormone 0.959 uIu/ml (0.300-4.500)
--- NOTE | 2019-03-25 23:00 | XRay Report ---
LEFT FOOT 2 VIEWS HISTORY: L foot wound ro osteomyelitis COMPARISON: None. FINDINGS: There is no fracture or dislocation. A 1.3 cm focal skin ulceration and soft tissue swellin g at the plantar surface of the fifth MTP joint. There is a 3 mm focal lucency at the base of the pro ximal phalanx of the fifth toe. This is concerning for a site of osteomyelitis. No radiopaque foreign bodies. IMPRESSION: A 1.3 cm focal skin ulceration at the fifth MTP joint with underlying 3 mm focal lucency at the base of the proximal phalanx of the fifth toe. This is concerning for a focus of osteomyelitis. Electronically signed by: Darrell Shultz M.D. 03/25/2019 10:59 PM
[2019-03-25] MEDS ORDERED: SUCRALFATE 1 GM TAB PO PRN (23:07)
[2019-03-25] MEDS ORDERED: POLYETHYLENE (MIRALAX) 17 GM PACK PO PRN (23:07)
[2019-03-25] MEDS ORDERED: ALBUT/IPRATROP 3MG/0.5MG NEB 3 ML VIAL NEB PRN (23:08)
[2019-03-25] MEDS ORDERED: carvediloL 25 MG TAB PO SCH (23:15)
[2019-03-25] MEDS ORDERED: AZTREONAM CONSULT ACTIVE PRN (23:25)
[2019-03-25] MEDS ORDERED: DAPTOMYCIN CONSULT ACTIVE PRN (23:26)
[2019-03-25] MEDS ORDERED: AZTREONAM 2,000 MG in DEXTROSE 5% 100 ML IV ONE (23:30)
[2019-03-26] MEDS ORDERED: Nursing to Pharmacy Communication ONE (00:07)
[2019-03-26] MEDS ORDERED: SODIUM CHLORIDE 0.9% 500 ML IV ONE (00:36)
[2019-03-26 00:54] LABS: Appearance Urine Cloudy (Clear); Bilirubin Urine Negative (Negative); Blood Urine Negative (Negative); Color Urine Yellow; Epithelial Cell Urine Auto 20-30 /lpf (0-5); Glucose Urine UA 3+ (Negative); Ketones Urine Trace (Negative); Leukocyte Esterase Urine Negative (Negative); Nitrite Urine Negative (Negative); Protein Urine 2+ (Negative); Specific Gravity Urine 1.018 (1.000-1.030); Urobilinogen Urine Negative (Negative)
[2019-03-26] MEDS: DAPTOmycin 400 MG in SYRINGE 0 ML IV SCH (01:03)
[2019-03-26] MEDS: SODIUM CHLORIDE 0.9% 1000ML 1,000 ML IV SCH ×2 (01:18→12:35)
[2019-03-26 01:24] LABS: Amorphous Sediment Urine Present (None Prsent); Bacteria Urine Automated 1+ (Negative); Cast Urine Automated >30 /lpf (0-5); RBC Urine Automated 0-4 /hpf (0-4)
[2019-03-26] MEDS: AZTREONAM 2,000 MG in DEXTROSE 5% 100 ML IV SCH ×3 (05:59→22:07)
[2019-03-26] MEDS ORDERED: INSULIN ASPART 100 UNITS/ML 3 ML PEN SC SCH (06:00)
[2019-03-26 06:14] LABS: Estimated Average Glucose 433 mg/dl; Hemoglobin A1C 16.7 % (4.5-5.6)
[2019-03-26] MEDS ORDERED: INSULIN GLARGINE SOLOSTAR 100 UNITS/ML 3 ML PEN SC STA (06:25)
[2019-03-26 07:39] LABS: Basophils # (auto) 0.03 K/uL (0-0.2); Basophils % (auto) 0.3 %; Eosinophils # (auto) 0.13 K/uL (0-0.5); Eosinophils % (auto) 1.4 %; Hematocrit (blood only) 32.7 % (42-52); Hemoglobin 10.7 g/dL (14.0-18.0); Immature Granulocytes # (auto) 0.07 K/uL (0.00-0.02); Immature Granulocytes % (auto) 0.7 %; Lymphocytes # (auto) 1.23 K/uL (1.2-3.4); Lymphocytes % (auto) 13.2 %; Mean Corpuscular Hemoglobin 29.6 pg (25-34); Mean Corpuscular Hgb Conc 32.7 g/dL (32-36); Mean Corpuscular Volume 90.6 fL (80-100); Mean Platelet Volume 10.6 fL (7.4-10.4); Monocytes # (auto) 1.28 K/uL (0.11-0.59); Monocytes % (auto) 13.7 %; Neutrophils # (auto) 6.61 K/uL (1.4-6.5); Neutrophils % (auto) 70.7 %; Platelet Count 306 K/uL (130-400); RDW Coefficient of Variation 14.3 % (11.5-14.5); RDW Standard Deviation 47.6 fL (36.4-46.3); Red Blood Count 3.61 M/uL (4.7-6.1); White Blood Count 9.35 K/uL (4.8-10.8)
[2019-03-26] MEDS: FERROUS SULFATE 325 MG TAB PO SCH (07:43)
[2019-03-26] MEDS: PANTOprazole 40 MG TAB PO SCH ×2 (07:43→20:35)
[2019-03-26] MEDS: DOCUSATE SODIUM 100 MG CAP PO SCH ×2 (07:43→20:34)
[2019-03-26] MEDS: HYDROmorphone INJ 0.5 MG/0.5 ML SYR IV PRN ×2 (07:49→12:34)
[2019-03-26] MEDS: TAMSULOSIN HCL 0.4 MG CAP PO SCH (07:50)
[2019-03-26] MEDS: carvediloL 3.125 MG TAB PO SCH ×2 (07:51→20:35)
[2019-03-26 08:08] LABS: BUN Creatinine Ratio 20.5 (10-20); Calcium 8.3 mg/dl (8.5-10.1); Creatinine Clr Calc Pharmacy 33.1 ml/min; Est GFR (African American) 31.8; Est GFR (Non-African American) 27.5; Potassium 3.6 mmol/L (3.5-5.1)
--- NOTE | 2019-03-26 08:49 | Hospitalist Progress Note ---
Date of Service March 26, 2019 Assessment & Plan (1) Closed left hip fracture: Left femoral fracture secondary to mechanical fall CT scan done at [facility] : comminuted displaced left hip fracture orthopedics consulted -appreciate input multiple discussions with Orthopedics team Cardiology consult for preop eval given Class IV risk as per RCRI. Chronic diabetic foot infection pt is moderate to high risk for ORIF of left hip-Due to multiple co-morbidites ; chronic afib /CAD /CKD /DM with chronic diabetic foot infection /COPD pt has non healing chronic diabetic wound on rt food , underwent I& D on 11/18/2018 noted to have purulent drainage on left [address] of left foot: No evidence for osteomyelitis within the left foot by CT. Ulceration overlying the plantar aspect of the left fifth metatarsophalangeal joint with subcutaneous edema which favors cellulitis. Cultures, Daptomycin, Azactam for osteomyelitis ID consult RE left foot osteomyelitis Acute renal failure on CKD stage III Nephrology consulted, appreciate input Continue to hold home diuretics, Given gentle hydration, monitor BMP chronic respiratory failure 2 to COPD/SONJA on home O2, some respiratory acidosis noted on ABG Outpatient sleep medicine referral contemplated by PCP chronic diastolic heart failure (EF of 50-55%, TTE 2018), patient on the dry side CAD/CVA as per records History of paroxysmal A. fib AF on Xarelto, patient NSR DM2, insulin requiring, suboptimal control as of recent outpatient hemoglobin A1c of 9.7 in December 2018 pancreatic cancer status post surgery and chemotherapy, incidental finding of new liver lesion CT abdomen pelvis at [facility] Outpatient follow-up with patient's oncologist from [facility]. chronic anemia secondary to CKD, hemoglobin at baseline Hypotension History of hypertension, presented with borderline low blood pressure Decreased maintenance Coreg dose given borderline BP Home diuretics has been kept on hold given IV fluids Monitor in telemetry DVT prophylaxis. SCDs while Xarelto on hold for potential surgery Recommend pharmacologic anticoagulation once bleeding risk is deemed to be minimal and negligible. Full code DISPOSITION : monitor in PCU Subjective pt reports of pain and discomfort on left thigh with minimum movement denies of SOB , no wheeze or cough no fever or chills pt is awake and alert , communicating Review of Systems Review of Systems: All systems reviewed & are unremarkable except as noted in HPI & below Physical Exam Constitutional: WD/WN, vitals as above no acute distress and not ill appearing Eyes: PERRL, conjunctivae normal, anicteric sclerae ENMT: external ear and nose normal, oropharynx normal Neck: trachea midline, no thyromegaly Respiratory: + cough; no respiratory distress and no labored breathing A uscultation: + rales; no wheezes Cardiovascular: Rate/Rhythm: regular rate and regular rhythm Heart Sounds: + murmur Gastrointestinal (Abdomen): Inspection/Auscultation: normal bowel sounds Percussion/Palpation: abdomen soft; abdomen nontender Musculoskeletal: left great toe -open wound with purulent drainage Neurologic: PERRL, EOMI, accommodation nl, no face palsy, no dysarthria Psychiatric: A+Ox3, euthymic affect Results & Data Vital Signs (Past 12 Hours) Vital Signs Temp Pulse Resp BP Pulse Ox 03/26/19 07:00 36.8 C 81 20 134/64 03/26/19 03:39 36.8 C 78 20 111/57 L 97 03/26/19 01:57 114/53 L 03/26/19 01:07 99/58 L 03/26/19 00:36 87/49 L 03/25/19 23:55 36.5 C 74 20 82/48 L 99 (1) Closed left hip fracture Encounter type: initial encounter Qualified Code(s): S72.002A - Fracture of unspecified part of neck of left femur, initial encounter for closed fracture
[2019-03-26] MEDS ORDERED: PHARMACY GLYCEMIC MGMT CONSULT PRN (08:52)
[2019-03-26] MEDS ORDERED: ASPIRIN 81 MG ECTAB PO SCH (09:00)
[2019-03-26] MEDS: INSULIN ASPART 100 UNITS/ML 3 ML PEN SC SCH ×4 (09:57→20:32)
[2019-03-26] MEDS ORDERED: INSULIN GLARGINE SOLOSTAR 100 UNITS/ML 3 ML PEN SQ ONE (10:30)
[2019-03-26] MEDS ORDERED: INSULIN HUMAN REGULAR PER UNIT 8 UNITS in SYRINGE 7.92 ML IV ONE (10:30)
--- NOTE | 2019-03-26 10:37 | Cardiology Consultation ---
Date of Consultation March 26, 2019 Assessment & Plan (1) Preop cardiovascular exam: The patient carries a history of paroxysmal atrial fibrillation and diastolic dysfunction with normal LV systolic function. He is currently in normal sinus rhythm and asymptomatic from a cardiac standpoint. The patient and his (whom I spoke with by phone) were both counseled that I would place him as a moderate risk for any adverse perioperative cardiovascular event with his wrist being approximately less than 5%. They were further counseled that no further cardiac testing or intervention would further lower that risk. They both state that they understand, they are accepting of that risk and wish to proceed with surgery. So I see no need to delay from a cardiac standpoint. I recommend his beta-leatha be continued uninterrupted throughout the perioperative period (2) Hypotension: Likely secondary to volume depletion along with ongoing narcotic administration. The patient does not examine his volume overloaded and I would recommend cont inued IV fluid resuscitation along with following his volume status clinically. (3) Acute kidney injury superimposed on CKD: Continue IV fluids (4) Paroxysmal atrial fibrillation: Patient remains in normal sinus rhythm and is been off anticoagulation for over a year now. Obviously would not restart at this time. History of Present Illness Reason for Consultation: Preoperative cardiac risk assessment Requesting Physician: Dr. Blandon Attending Physician: Cici Blandon MD History of Present Illness It was my pleasure to see Mr. Bennett in consultation today March 26, 2019. He is a very pleasant 63-year-old gentleman who normally follows with Dr. Grant of our cardiology practice for history of paroxysmal atrial fibrillation. He presented to [facility] on 03/25/2019 with complaints of hip pain after a fall. His noted that in the days leading up to the fall his infected toe seem to have worsened and became malodorous. The patient started becoming more and more confused. She became concerned about his toe and was actually taking him to the emergency room to be evaluated when he stood up and fell over. Upon arrival to the ER in [place] he was found to have a left-sided intratrochanteric fracture. In the emergency room there he was found to have a blood sugar in the 500s he was given narcotic pain meds and became transiently hypotensive. He was volume resuscitated and transferred to [facility] for further treatment. Currently he is resting comfortably. Prior to presentation he denies any cardiac complaints in the weeks leading up to the event. He specifically denies experiencing any chest pain, shortness of breath, palpitations, lightheadedness, dizziness or syncope. He is not been on Xarelto for over a year now. Allergies Allergy/AdvReac Type Severity Reaction Status Date / Time bee venom protein (honey bee) Allergy Severe anaphylaxis Verified 01/08/19 14:57 cephalexin Allergy Severe Hives Verified 01/08/19 14:57 lisinopril Allergy Severe Elevated Verified 01/08/19 14:57 Potassium piperacillin Allergy Severe Hives Verified 01/08/19 14:57 amlodipine AdvReac Mild Headache Verified 01/08/19 14:57 Home Medications Home Medications Medication Instructions Recorded Confirmed Type Lantus Solostar U-100 Insulin 40 unit SUBCUT BID 09/01/18 03/25/19 History albuterol sulfate 2.5 mg INHALATION Q4H PRN 09/01/18 03/25/19 History aspirin [Aspir-81] 81 mg PO DAILY 09/01/18 03/25/19 History atorvastatin 40 mg PO DAILY 09/01/18 03/25/19 History carvedilol 25 mg PO BID 09/01/18 03/25/19 History metolazone 2.5 mg PO WK PRN 09/01/18 03/25/19 History polyethylene glycol 3350 [Miralax] 17 g PO DAILY PRN 09/01/18 03/25/19 History sucralfate [Carafate] 1 g PO QID PRN 09/01/18 03/25/19 History bupropion HCl 200 mg PO DAILY 11/18/18 03/25/19 History omeprazole 20 mg PO BID 11/18/18 03/25/19 History oxycodone 5 mg PO Q4H PRN 11/18/18 03/25/19 History albuterol sulfate [ProAir HFA] 2 puff INHALATION Q4H PRN 03/25/19 03/25/19 History budesonide-formoterol 2 puff INHALATION HS 03/25/19 03/25/19 History docusate sodium 100 mg PO BID 03/25/19 03/25/19 History ferrous sulfate 325 mg PO DAILY 03/25/19 03/25/19 History furosemide 80 mg PO BID 03/25/19 03/25/19 History gabapentin 200 mg PO BID PRN 03/25/19 03/25/19 History hydroxyzine HCl 25 mg PO TID PRN 03/25/19 03/25/19 History insulin aspart U-100 [Novolog 1 sliding scale dose SUBCUT AC 03/25/19 03/25/19 History U-100 Insulin aspart] [id number] [Creon] 1 cap PO AC 03/25/19 03/25/19 History rivaroxaban 20 mg PO QPM 03/25/19 03/25/19 History tamsulosin 0.4 mg PO DAILY 03/25/19 03/25/19 History Patient History Medical History Asthma, mild persistent (Chronic) CKD (chronic kidney disease), stage III (Chronic) COPD (chronic obstructive pulmonary disease) (Chronic) CVA (cerebral vascular accident) (Chronic) Depression (Chronic) Diabetic polyneuropathy (Chronic) Diastolic CHF (Chronic) DM type 2 (diabetes mellitus, type 2) (Chronic) Dyslipidemia (Chronic) GERD (gastroesophageal reflux disease) (Chronic) Glaucoma (Chronic) Osteoarthritis (Chronic) Pancreatic cancer (Chronic) Paroxysmal atrial fibrillation (Chronic) Pericardial effusion (Chronic) PTSD (post-traumatic stress disorder) (Chronic) Recurrent left pleural effusion (Chronic) Surgical History Hx of cataract surgery (Chronic) S/P tonsillectomy and adenoidectomy (Chronic) Social History Preferred Language: Setswana Communication Ability: Effective Lead Python Developer Required: No Beliefs That Will Affect Care: None marital status: Current Living Situation: Spouse current occupational status: unemployed and disabled Other Information That Helps Us Care for You: No Feels Safe at Home: Yes Safety Concerns: Feels Safe At This Time Smoking Status: Never smoker Tobacco Type: cigarettes ; Do You Dip or Chew Tobacco: No ; Hx Alcohol Use: No Hx Substance Use: No Review of Systems Review of Systems: All systems reviewed & are unremarkable except as noted in HPI & below Physical Exam Physical Exam: General: Awake, alert and oriented x 3. No acute distress. HEENT: Normocephalic, atraumatic. Pupils equal, round and reactive to light and accommodation. Extraocular muscles are intact. Anicteric sclera. Moist mucous membranes. Neck: No JVD. No bruit. Cardiovascular: Regular. Positive S-4. Normal S-1 and S-2. No S-3. No murmurs or rubs. Pulmonary: Clear to auscultation B/L. No rales, rhonchi or wheezing Abdomen: Bowel sounds x 4, soft. No rebound, guarding or tenderness. No organomegaly. Extremities: No clubbing, cyanosis or edema. +2 pedal pulses bilaterally. Skin: Warm and dry. Results & Data Vital Signs (Past 12 Hours) Vital Signs Temp Pulse Resp BP Pulse Ox 03/26/19 10:07 84 120/64 03/26/19 07:00 36.8 C 81 20 134/64 03/26/19 03:39 36.8 C 78 20 111/57 L 97 03/26/19 01:57 114/53 L 03/26/19 01:07 99/58 L 03/26/19 00:36 87/49 L 03/25/19 23:55 36.5 C 74 20 82/48 L 99 Laboratory Results Laboratory Results - last 24 hr 03/25/19 03/25/19 03/25/19 21:50 21:50 21:50 WBC 11.39 H RBC 3.81 L Hgb 11.4 L Hct 34.0 L MCV 89.2 MCH 29.9 MCHC 33.5 RDW Std Deviation 46.8 H RDW Coeff of [place] 14.3 Plt Count 355 MPV 11.0 H Immature Gran % (Auto) 0.7 Neut % (Auto) 78.7 Lymph % (Auto) 8.1 Rains % (Auto) 12.1 Eos % (Auto) 0.2 Baso % (Auto) 0.2 Immature Gran # (Auto) 0.08 H Neut # (Auto) 8.97 H Lymph # (Auto) 0.92 L Rains # (Auto) 1.38 H Eos # (Auto) 0.02 Baso # (Auto) 0.02 APTT PTT Ratio ABG pH ABG pCO2 ABG pO2 ABG HCO3 ABG O2 Saturation ABG Base Excess Afshin Test Barometric Pressure Oxygen Given Sodium Potassium Chloride Carbon Dioxide Anion Gap BUN Creatinine Est Cr Clr Drug Dosing Est GFR ( Amer) Est GFR (Non-Af Amer) BUN/Creatinine Ratio Glucose POC Glucose Estimat Average Glucose 433 Hemoglobin A1c 16.7 H Calcium Magnesium Ammonia 11.5 Beta-Hydroxybutyric Acd Procalcitonin TSH Specimen Hemolysis Urine Color Urine Appearance Urine pH Ur Specific [place] Urine Protein Urine Glucose (UA) Urine Ketones Urine Blood Urine Nitrite Urine Bilirubin Urine Urobilinogen Ur Leukocyte Esterase Urine WBC (Auto) Urine RBC (Auto) U Hyaline Cast (Auto) U Epithel Cells (Auto) Urine Bacteria (Auto) Amorphous Sediment Hepatitis C Ab Screen Blood Type Antibody Screen 03/25/19 03/25/19 03/25/19 21:50 21:50 21:50 WBC RBC Hgb Hct MCV MCH MCHC RDW Std Deviation RDW Coeff of [place] Plt Count MPV Immature Gran % (Auto) Neut % (Auto) Lymph % (Auto) Rains % (Auto) Eos % (Auto) Baso % (Auto) Immature Gran # (Auto) Neut # (Auto) Lymph # (Auto) Rains # (Auto) Eos # (Auto) Baso # (Auto) APTT PTT Ratio ABG pH 7.31 L ABG pCO2 49 H ABG pO2 88 ABG HCO3 24 ABG O2 Saturation 96.3 H ABG Base Excess -2.7 Afshin Test Pos Barometric Pressure 734.0 Oxygen Given 1.5L Sodium Potassium Chloride Carbon Dioxide Anion Gap BUN Creatinine Est Cr Clr Drug Dosing Est GFR ( Amer) Est GFR (Non-Af Amer) BUN/Creatinine Ratio Glucose POC Glucose Estimat Average Glucose Hemoglobin A1c Calcium Magnesium Ammonia Beta-Hydroxybutyric Acd Procalcitonin 0.17 TSH Specimen Hemolysis Urine Color Urine Appearance Urine pH Ur Specific [place] Urine Protein Urine Glucose (UA) Urine Ketones Urine Blood Urine Nitrite Urine Bilirubin Urine Urobilinogen Ur Leukocyte Esterase Urine WBC (Auto) Urine RBC (Auto) U Hyaline Cast (Auto) U Epithel Cells (Auto) Urine Bacteria (Auto) Amorphous Sediment Hepatitis C Ab Screen Blood Type AB Positive Antibody Screen NEGATIVE 03/25/19 03/25/19 03/25/19 21:50 21:50 21:50 WBC RBC Hgb Hct MCV MCH MCHC RDW Std Deviation RDW Coeff of [place] Plt Count MPV Immature Gran % (Auto) Neut % (Auto) Lymph % (Auto) Rains % (Auto) Eos % (Auto) Baso % (Auto) Immature Gran # (Auto) Neut # (Auto) Lymph # (Auto) Rains # (Auto) Eos # (Auto) Baso # (Auto) APTT 26.5 PTT Ratio 1.0 ABG pH ABG pCO2 ABG pO2 ABG HCO3 ABG O2 Saturation ABG Base Excess Afshin Test Barometric Pressure Oxygen Given Sodium 135 L Potassium 4.0 Chloride 103 Carbon Dioxide 24 Anion Gap 8.0 BUN 50 H Creatinine 2.55 H Est Cr Clr Drug Dosing 31.0 Est GFR ( Amer) 29.6 Est GFR (Non-Af Amer) 25.5 BUN/Creatinine Ratio 19.5 Glucose 350 H* POC Glucose Estimat Average Glucose Hemoglobin A1c Calcium 8.3 L Magnesium 2.7 H Ammonia Beta-Hydroxybutyric Acd 9.51 H Procalcitonin TSH 0.959 Specimen Hemolysis Urine Color Urine Appearance Urine pH Ur Specific [place] Urine Protein Urine Glucose (UA) Urine Ketones Urine Blood Urine Nitrite Urine Bilirubin Urine Urobilinogen Ur Leukocyte Esterase Urine WBC (Auto) Urine RBC (Auto) U Hyaline Cast (Auto) U Epithel Cells (Auto) Urine Bacteria (Auto) Amorphous Sediment Hepatitis C Ab Screen Neg Blood Type Antibody Screen 03/25/19 03/26/19 03/26/19 22:00 00:20 00:32 WBC RBC Hgb Hct MCV MCH MCHC RDW Std Deviation RDW Coeff of [place] Plt Count MPV Immature Gran % (Auto) Neut % (Auto) Lymph % (Auto) Rains % (Auto) Eos % (Auto) Baso % (Auto) Immature Gran # (Auto) Neut # (Auto) Lymph # (Auto) Rains # (Auto) Eos # (Auto) Baso # (Auto) APTT PTT Ratio ABG pH ABG pCO2 ABG pO2 ABG HCO3 ABG O2 Saturation ABG Base Excess Afshin Test Barometric Pressure Oxygen Given Sodium Potassium Chloride Carbon Dioxide Anion Gap BUN Creatinine Est Cr Clr Drug Dosing Est GFR ( Amer) Est GFR (Non-Af Amer) BUN/Creatinine Ratio Glucose POC Glucose 311 H* 322 H* Estimat Average Glucose Hemoglobin A1c Calcium Magnesium Ammonia Beta-Hydroxybutyric Acd Procalcitonin TSH Specimen Hemolysis Urine Color Yellow Urine Appearance Cloudy A Urine pH 5.0 Ur Specific [place] 1.018 Urine Protein 2+ H Urine Glucose (UA) 3+ H Urine Ketones Trace H Urine Blood Negative Urine Nitrite Negative Urine Bilirubin Negative Urine Urobilinogen Negative Ur Leukocyte Esterase Negative Urine WBC (Auto) 1-5 Urine RBC (Auto) 0-4 U Hyaline Cast (Auto) >30 H U Epithel Cells (Auto) 20-30 H Urine Bacteria (Auto) 1+ H Amorphous Sediment Present A Hepatitis C Ab Screen Blood Type Antibody Screen 03/26/19 03/26/19 03/26/19 00:34 05:53 07:26 WBC 9.35 RBC 3.61 L Hgb 10.7 L Hct 32.7 L MCV 90.6 MCH 29.6 MCHC 32.7 RDW Std Deviation 47.6 H RDW Coeff of [place] 14.3 Plt Count 306 MPV 10.6 H Immature Gran % (Auto) 0.7 Neut % (Auto) 70.7 Lymph % (Auto) 13.2 Rains % (Auto) 13.7 Eos % (Auto) 1.4 Baso % (Auto) 0.3 Immature Gran # (Auto) 0.07 H Neut # (Auto) 6.61 H Lymph # (Auto) 1.23 Rains # (Auto) 1.28 H Eos # (Auto) 0.13 Baso # (Auto) 0.03 APTT PTT Ratio ABG pH ABG pCO2 ABG pO2 ABG HCO3 ABG O2 Saturation ABG Base Excess Afshin Test Barometric Pressure Oxygen Given Sodium Potassium Chloride Carbon Dioxide Anion Gap BUN Creatinine Est Cr Clr Drug Dosing Est GFR ( Amer) Est GFR (Non-Af Amer) BUN/Creatinine Ratio Glucose POC Glucose 320 H* 269 H Estimat Average Glucose Hemoglobin A1c Calcium Magnesium Ammonia Beta-Hydroxybutyric Acd Procalcitonin TSH Specimen Hemolysis Urine Color Urine Appearance Urine pH Ur Specific [place] Urine Protein Urine Glucose (UA) Urine Ketones Urine Blood Urine Nitrite Urine Bilirubin Urine Urobilinogen Ur Leukocyte Esterase Urine WBC (Auto) Urine RBC (Auto) U Hyaline Cast (Auto) U Epithel Cells (Auto) Urine Bacteria (Auto) Amorphous Sediment Hepatitis C Ab Screen Blood Type Antibody Screen 03/26/19 03/26/19 07:26 09:35 WBC RBC Hgb Hct MCV MCH MCHC RDW Std Deviation RDW Coeff of [place] Plt Count MPV Immature Gran % (Auto) Neut % (Auto) Lymph % (Auto) Rains % (Auto) Eos % (Auto) Baso % (Auto) Immature Gran # (Auto) Neut # (Auto) Lymph # (Auto) Rains # (Auto) Eos # (Auto) Baso # (Auto) APTT PTT Ratio ABG pH ABG pCO2 ABG pO2 ABG HCO3 ABG O2 Saturation ABG Base Excess Afshin Test Barometric Pressure Oxygen Given Sodium 138 Potassium 3.6 Chloride 107 Carbon Dioxide 26 Anion Gap 6.0 BUN 49 H Creatinine 2.40 H Est Cr Clr Drug Dosing 33.1 Est GFR ( Amer) 31.8 Est GFR (Non-Af Amer) 27.5 BUN/Creatinine Ratio 20.5 H Glucose 296 H POC Glucose 375 H* Estimat Average Glucose Hemoglobin A1c Calcium 8.3 L Magnesium Ammonia Beta-Hydroxybutyric Acd Procalcitonin TSH Specimen Hemolysis Urine Color Urine Appearance Urine pH Ur Specific [place] Urine Protein Urine Glucose (UA) Urine Ketones Urine Blood Urine Nitrite Urine Bilirubin Urine Urobilinogen Ur Leukocyte Esterase Urine WBC (Auto) Urine RBC (Auto) U Hyaline Cast (Auto) U Epithel Cells (Auto) Urine Bacteria (Auto) Amorphous Sediment Hepatitis C Ab Screen Blood Type Antibody Screen Medications Administered Current Inpatient Medications Acetaminophen (Tylenol) 650 mg PO Q4H PRN PRN Reason: Pain or Fever Stop: 04/24/19 20:44 Albuterol (Duoneb) 3 ml NEB Q2H PRN PRN Reason: Wheezing Stop: 04/24/19 23:07 Aspirin (Ecotrin Ectab) 81 mg PO DAILY [facility] Stop: 04/25/19 08:59 Last Admin: 03/26/19 07:50 Dose: 81 mg Documented by: Aztreonam (Aztreonam Consult Active) 1 ea N/A UD PRN PRN Reason: Consult Stop: 04/24/19 23:24 Bisacodyl (Dulcolax) 10 mg NM DAILY PRN PRN Reason: Constipation Stop: 04/24/19 20:48 Budesonide/Formoterol Fumarate (Symbicort 160mcg/4.5mcg) 2 puffs INH HS [facility] Stop: 04/25/19 20:59 Carvedilol (Coreg) 3.125 mg PO BID [facility] Stop: 04/25/19 08:59 Last Admin: 03/26/19 07:51 Dose: 3.125 mg Documented by: Dextrose (Dextrose 50%) 25 - 50 ml IV UD PRN; Protocol PRN Reason: Hypoglycemia Protocol Stop: 04/24/19 20:45 Docusate Sodium (Colace) 100 mg PO BID [facility] Stop: 04/25/19 08:59 Last Admin: 03/26/19 07:43 Dose: Not Given Documented by: Ferrous Sulfate (Feosol) 325 mg PO DAILY [facility] Stop: 04/25/19 08:59 Last Admin: 03/26/19 07:43 Dose: Not Given Documented by: Glucagon (Glucagen) 1 mg SQ UD PRN; Protocol PRN Reason: Hypoglycemia Protocol Stop: 04/24/19 20:45 Glucose (Dex4 Glucose) 4 - 8 tabs PO UD PRN; Protocol PRN Reason: Hypoglycemia Protocol Stop: 04/24/19 20:45 Glucose (Glucose 40%) 15 - 30 gm PO UD PRN; Protocol PRN Reason: Hypoglycemia Protocol Stop: 04/24/19 20:45 Hydromorphone HCl (Dilaudid) 0.25 mg IV Q3H PRN PRN Reason: Pain Stop: 04/08/19 20:45 Last Admin: 03/26/19 07:49 Dose: 0.25 mg Documented by: Promethazine HCl 12.5 mg/ (Sodium Chloride) 50.5 mls @ 202 mls/hr IV Q6H PRN PRN Reason: Nausea And Vomiting Stop: 04/24/19 20:45 Aztreonam 2,000 mg/ Dextrose 110 mls @ 110 mls/hr IV Q8 [facility] Stop: 05/07/19 05:59 Last Infusion: 03/26/19 07:20 Dose: Infused Documented by: Daptomycin 400 mg/ Syringe 8 mls @ 4 mls/min IV Q24H [facility]; Protocol Stop: 05/06/19 23:29 Last Admin: 03/26/19 01:03 Dose: 4 mls/min Documented by: Sodium Chloride (Nss 1000ml) 1,000 mls @ 75 mls/hr IV .[id number] [facility] Stop: 04/25/19 01:29 Last Admin: 03/26/19 01:18 Dose: 75 mls/hr Documented by: Insulin Aspart (Novolog Flexpen) 0 units SC ACHS [facility] Stop: 04/25/19 08:59 Last Admin: 03/26/19 09:57 Dose: 22 units Documented by: Insulin Glargine (Lantus Solostar Pen) 40 units SQ HS [facility] Stop: 04/25/19 20:59 Magnesium Hydroxide (Milk Of Magnesia) 30 ml PO DAILY PRN PRN Reason: Constipation Stop: 04/24/19 20:48 Miscellaneous (Carbohydrates For Hypoglycemia) 15 - 30 gm PO UD PRN PRN Reason: Hypoglycemia Protocol Stop: 04/24/19 20:45 Miscellaneous Information (Consult) 1 ea N/A UD PRN PRN Reason: Consult Stop: 04/24/19 23:25 Miscellaneous Information (Consult Glycemic Management Pharmacy) 1 ea N/A UD PRN PRN Reason: Consult Stop: 04/25/19 08:51 Naloxone HCl (Narcan) 0.1 mg IV UD PRN PRN Reason: Opiate Overdose Stop: 04/24/19 20:48 Oxycodone HCl (Roxicodone Immediate Rel) 5 mg PO Q4H PRN PRN Reason: Pain Stop: 04/08/19 20:45 Pantoprazole Sodium (Protonix) 40 mg PO BID [facility] Stop: 04/25/19 08:59 Last Admin: 03/26/19 07:43 Dose: Not Given Documented by: Polyethylene Glycol (Miralax Powder Packet) 17 gm PO DAILY PRN PRN Reason: Constipation Stop: 04/24/19 23:06 Sucralfate (Carafate Tab) 1 gm PO QID PRN PRN Reason: DYSEPSIA Stop: 04/24/19 23:06 Tamsulosin HCl (Flomax) 0.4 mg PO DAILY [facility] Stop: 04/25/19 08:59 Last Admin: 03/26/19 07:50 Dose: 0.4 mg Documented by:
--- NOTE | 2019-03-26 12:58 | Infectious Disease Consult ---
Date of Consultation March 26, 2019 Assessment & Plan (1) Right foot infection: continue abx, check wound culture, follow blood culture, check esr, may benefit from debridement. History of Present Illness Attending Physician: Cici Blandon MD pt transferred from [place] after he had fall and was found to have broken hip. ortho following, eating lunch on my exam. denies any pain. no f/c. ID consulted for right foot wound, x ray of foot in ER - ? osteo at 5th toe, blood cultures pending. he was placed on aztreonam and Dapto, toleraitng well. wbc 9, creat 2.4 (baseline in mid 1 range) UA negative. He has no complaints on exam. denies cp, sob, cough, abd pain, no n/v/d. no pain in foot. Allergies Allergy/AdvReac Type Severity Reaction Status Date / Time bee venom protein (honey bee) Allergy Severe anaphylaxis Verified 01/08/19 14:57 cephalexin Allergy Severe Hives Verified 01/08/19 14:57 lisinopril Allergy Severe Elevated Verified 01/08/19 14:57 Potassium piperacillin Allergy Severe Hives Verified 01/08/19 14:57 amlodipine AdvReac Mild Headache Verified 01/08/19 14:57 Home Medications Home Medications Medication Instructions Recorded Confirmed Type Lantus Solostar U-100 Insulin 40 unit SUBCUT BID 09/01/18 03/25/19 History albuterol sulfate 2.5 mg INHALATION Q4H PRN 09/01/18 03/25/19 History aspirin [Aspir-81] 81 mg PO DAILY 09/01/18 03/25/19 History atorvastatin 40 mg PO DAILY 09/01/18 03/25/19 History carvedilol 25 mg PO BID 09/01/18 03/25/19 History metolazone 2.5 mg PO WK PRN 09/01/18 03/25/19 History polyethylene glycol 3350 [Miralax] 17 g PO DAILY PRN 09/01/18 03/25/19 History sucralfate [Carafate] 1 g PO QID PRN 09/01/18 03/25/19 History bupropion HCl 200 mg PO DAILY 11/18/18 03/25/19 History omeprazole 20 mg PO BID 11/18/18 03/25/19 History oxycodone 5 mg PO Q4H PRN 11/18/18 03/25/19 History albuterol sulfate [ProAir HFA] 2 puff INHALATION Q4H PRN 03/25/19 03/25/19 History budesonide-formoterol 2 puff INHALATION HS 03/25/19 03/25/19 History docusate sodium 100 mg PO BID 03/25/19 03/25/19 History ferrous sulfate 325 mg PO DAILY 03/25/19 03/25/19 History furosemide 80 mg PO BID 03/25/19 03/25/19 History gabapentin 200 mg PO BID PRN 03/25/19 03/25/19 History hydroxyzine HCl 25 mg PO TID PRN 03/25/19 03/25/19 History insulin aspart U-100 [Novolog 1 sliding scale dose SUBCUT AC 03/25/19 03/25/19 History U-100 Insulin aspart] [id number] [Creon] 1 cap PO AC 03/25/19 03/25/19 History rivaroxaban 20 mg PO QPM 03/25/19 03/25/19 History tamsulosin 0.4 mg PO DAILY 03/25/19 03/25/19 History Patient History Medical History Asthma, mild persistent (Chronic) CKD (chronic kidney disease), stage III (Chronic) COPD (chronic obstructive pulmonary disease) (Chronic) CVA (cerebral vascular accident) (Chronic) Depression (Chronic) Diabetic polyneuropathy (Chronic) Diastolic CHF (Chronic) DM type 2 (diabetes mellitus, type 2) (Chronic) Dyslipidemia (Chronic) GERD (gastroesophageal reflux disease) (Chronic) Glaucoma (Chronic) Osteoarthritis (Chronic) Pancreatic cancer (Chronic) Paroxysmal atrial fibrillation (Chronic) Pericardial effusion (Chronic) PTSD (post-traumatic stress disorder) (Chronic) Recurrent left pleural effusion (Chronic) Surgical History Hx of cataract surgery (Chronic) S/P tonsillectomy and adenoidectomy (Chronic) Social History Preferred Language: Armenian Communication Ability: Impaired 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 Required: No Beliefs That Will Affect Care: None marital status: Current Living Situation: Spouse current occupational status: unemployed and disabled Other Information That Helps Us Care for You: No Feels Safe at Home: Yes Safety Concerns: Feels Safe At This Time Smoking Status: Never smoker Tobacco Type: cigarettes ; Do You Dip or Chew Tobacco: No ; Hx Alcohol Use: No Hx Substance Use: No Review of Systems Review of Systems: All systems reviewed & are unremarkable except as noted in HPI & below Physical Exam Constitutional: WD/WN, vitals as above Eyes: PERRL, conjunctivae normal, anicteric sclerae ENMT: external ear and nose normal, oropharynx normal Neck: normal visual inspection Respiratory: normal respiratory effort, lungs clear to auscultation Cardiovascular: RRR, no murmur, no edema Gastrointestinal (Abdomen): normal bowel sounds, soft, nontender, no hepatosplenomegaly Musculoskeletal: Head/Neck/Chest: + head abnormal to inspection, normocephalic and head atraumatic Skin: no rashes, warm and dry + wound (right plantar wound with some drainage and necrotic tissue) Psychiatric: A+Ox3, euthymic affect Results & Data Vital Signs (Past 12 Hours) Vital Signs Temp Pulse Pulse Resp BP BP Pulse Ox 03/26/19 11:18 36.4 C L 84 22 105/83 98 03/26/19 10:07 84 120/64 03/26/19 07:00 36.8 C 81 20 134/64 03/26/19 03:39 36.8 C 78 20 111/57 L 97 03/26/19 01:57 114/53 L 03/26/19 01:07 99/58 L PG Care Time/CCT Total # of Minutes Spent Total Time Spent with Patient: Total time spent is greater than 50% in coordination of care (as documented) at patient's floor/unit and/or counseling patient:
--- NOTE | 2019-03-26 14:19 | Nephrology Consultation ---
Date of Consultation March 26, 2019 Assessment & Plan (1) Acute kidney injury superimposed on CKD: baseline 1.4-1.7 -- proteinuric CKD 3; presenting creatinine 2.6 yesterday; 2.4 today; chemistries (apart from hyperglycemia now improved) acceptable; did have some slightly low K but acceptable. not oliguric. volume status acceptable/ slightly dry. urine sediment contaminated w/ epithelial cells and notable for glucosuria, ketonuria, relatively concentrated; no evidence of infection. does have wound infections in addition to hip frx. prerenal versus ATN, favor the former. -daily bmp -cont to avoid nephrotoxins and minimize extremes of bp -cont to hold OP lasix, metolazone Present on Admission?: Yes (2) Hypotension: multifactorial in the setting of pain medications, infection, blood loss potentially/less likely: continue to hold diuretics; coreg has been markedly lowered and should continue; agree w/ NS at 75 mL/hr for now which he is tolerating; cont to treat infection and hyperglycemia Present on Admission?: Yes (3) Anemia of chronic disease: daily hgb; some of drop since admission may be dilutional; no indication for transfusion currently Present on Admission?: Yes History of Present Illness Reason for Consultation: ELIZABETH on CKD Requesting Physician: Dr Blandon Attending Physician: Cici Blandon MD History of Present Illness 63 y/o M whom I'm asked to see for ELIZABETH on CKD after he presented w/ fall at home and found to have L hip fracture, ELIZABETH on CKD w/ presenting creatinine 2.4 up from baseline 1.4-1.7. Other PMH includes chronic R foot infection, DM (A1c here as 16.7%), active tobacco abuse, chronic hyponatremia, chronic respiratory failure/02 dependence, pancreatic CA s/p 2017 resection and gemcitabine tx and now under surveillance, pleurex/pleurodesis in past, CAD, thrombocytosis s/p splenectomy, stroke, pAF not on AC. He follows w/ Dr Matta in CKD clinic for diabetic nephropathy. His presenting creatinine was 2.6; today 2.4. Had + ketonuria and elevated beta hydroxybutyrate on presentation; BG w/ better control now after a few hours on admission. For OR in AM. Has open wounds both feet; has been admitted in past year for inpt mgt of R DB foot wound; has wounds BL feet currently. inf dzs following: pt on daptomycin, aztreonam. cardiology deems him acceptable surgical risk; has NS going at 75 mL hr. Allergies Allergy/AdvReac Type Severity Reaction Status Date / Time bee venom protein (honey bee) Allergy Severe anaphylaxis Verified 01/08/19 14:57 cephalexin Allergy Severe Hives Verified 01/08/19 14:57 lisinopril Allergy Severe Elevated Verified 01/08/19 14:57 Potassium piperacillin Allergy Severe Hives Verified 01/08/19 14:57 amlodipine AdvReac Mild Headache Verified 01/08/19 14:57 Home Medications Home Medications Medication Instructions Recorded Confirmed Type Lantus Solostar U-100 Insulin 40 unit SUBCUT BID 09/01/18 03/25/19 History albuterol sulfate 2.5 mg INHALATION Q4H PRN 09/01/18 03/25/19 History aspirin [Aspir-81] 81 mg PO DAILY 09/01/18 03/25/19 History atorvastatin 40 mg PO DAILY 09/01/18 03/25/19 History carvedilol 25 mg PO BID 09/01/18 03/25/19 History metolazone 2.5 mg PO WK PRN 09/01/18 03/25/19 History polyethylene glycol 3350 [Miralax] 17 g PO DAILY PRN 09/01/18 03/25/19 History sucralfate [Carafate] 1 g PO QID PRN 09/01/18 03/25/19 History bupropion HCl 200 mg PO DAILY 11/18/18 03/25/19 History omeprazole 20 mg PO BID 11/18/18 03/25/19 History oxycodone 5 mg PO Q4H PRN 11/18/18 03/25/19 History albuterol sulfate [ProAir HFA] 2 puff INHALATION Q4H PRN 03/25/19 03/25/19 History budesonide-formoterol 2 puff INHALATION HS 03/25/19 03/25/19 History docusate sodium 100 mg PO BID 03/25/19 03/25/19 History ferrous sulfate 325 mg PO DAILY 03/25/19 03/25/19 History furosemide 80 mg PO BID 03/25/19 03/25/19 History gabapentin 200 mg PO BID PRN 03/25/19 03/25/19 History hydroxyzine HCl 25 mg PO TID PRN 03/25/19 03/25/19 History insulin aspart U-100 [Novolog 1 sliding scale dose SUBCUT AC 03/25/19 03/25/19 History U-100 Insulin aspart] [id number] [Creon] 1 cap PO AC 03/25/19 03/25/19 History rivaroxaban 20 mg PO QPM 03/25/19 03/25/19 History tamsulosin 0.4 mg PO DAILY 03/25/19 03/25/19 History Patient History Medical History Asthma, mild persistent (Chronic) CKD (chronic kidney disease), stage III (Chronic) COPD (chronic obstructive pulmonary disease) (Chronic) CVA (cerebral vascular accident) (Chronic) Depression (Chronic) Diabetic polyneuropathy (Chronic) Diastolic CHF (Chronic) DM type 2 (diabetes mellitus, type 2) (Chronic) Dyslipidemia (Chronic) GERD (gastroesophageal reflux disease) (Chronic) Glaucoma (Chronic) Osteoarthritis (Chronic) Pancreatic cancer (Chronic) Paroxysmal atrial fibrillation (Chronic) Pericardial effusion (Chronic) PTSD (post-traumatic stress disorder) (Chronic) Recurrent left pleural effusion (Chronic) Surgical History Hx of cataract surgery (Chronic) S/P tonsillectomy and adenoidectomy (Chronic) Social History Preferred Language: Turkmen Communication Ability: Impaired Performance Management Consultant Required: No Beliefs That Will Affect Care: None marital status: Current Living Situation: Spouse current occupational status: unemployed and disabled Other Information That Helps Us Care for You: No Feels Safe at Home: Yes Safety Concerns: Feels Safe At This Time Smoking Status: Never smoker Tobacco Type: cigarettes ; Do You Dip or Chew Tob acco: No ; Hx Alcohol Use: No Hx Substance Use: No Review of Systems Review of Systems: All systems reviewed & are unremarkable except as noted in HPI & below Constitutional: no fatigue, no anorexia (NPO currently) and no weight gain Respiratory: no cough, no dyspnea and no pain on inspiration Cardiovascular: no orthopnea and no edema Gastrointestinal: no abdominal pain, no vomiting and no diarrhea/loose stools Physical Exam Constitutional: well developed and well nourished; no acute distress (on 02NC A&0 x 3) Eyes: EOM intact bilaterally ENMT: Ears: no external ear abnormality Nose: no external nose abnormality Mouth: + dry oral mucous membranes Neck: no nuchal rigidity Respiratory: normal respiratory effort Auscultation: lungs clear to auscultation bilaterally and + diminished lung sounds Cardiovascular: RRR, no murmur, no edema Gastrointestinal (Abdomen): Inspection/Auscultation: normal bowel sounds Pe rcussion/Palpation: abdomen soft; abdomen nontender Musculoskeletal: Extremities: strength 5/5 throughout L leg externally rotated Skin: no rashes, warm and dry + lesion (L lateral foot, R heel) Neurologic: spivey, fluent speech, no tremor Psychiatric: A+Ox3, euthymic affect Genitourinary: wells w/ scant uop yellow Results & Data Vital Signs (Past 12 Hours) Vital Signs Temp Pulse Pulse Resp BP BP Pulse Ox 03/26/19 11:18 36.4 C L 84 22 105/83 98 03/26/19 10:07 84 120/64 03/26/19 07:00 36.8 C 81 20 134/64 03/26/19 03:39 36.8 C 78 20 111/57 L 97 Laboratory Results 03/26/19 07:26 03/26/19 07:26 (1) Hypotension Hypotension type: other hypotension type Qualified Code(s): I95.89 - Other hypotension
--- NOTE | 2019-03-26 15:39 | Pharmacy Report ---
Pharmacy Glycemic Short Note 2 - Date of Service March 26, 2019 - Glycemic Short BSG Results (Last 24 hours): 03/25/19 03/25/19 03/26/19 21:50 22:00 00:32 Glucose 350 H* POC Glucose 311 H* 322 H* 03/26/19 03/26/19 03/26/19 00:34 05:53 07:26 Glucose 296 H POC Glucose 320 H* 269 H 03/26/19 03/26/19 09:35 11:16 Glucose POC Glucose 375 H* 212 H OUTPATIENT ANTIDIABETIC REGIMEN: * Lantus 40 units SQ BID * Novolog AC * A1c 16.7% (increased from 9.7% Dec 2018) * However, this result is likely somewhat unreliable in the setting of chronic anemia secondary to CKD. ASSESSMENT: * Ihsan is a 63 year old T2DM male admitted with severe hyperglycemia. He is known to the Pharmacy glycemic service. * BSG of 375 mg/dL at the time of Pharmacy consult. I ordered the patient an additional 15 units of Lantus and a 10 unit IV regular insulin bolus. * I will dose his Lantus conservatively as he has had profound hypoglycemia in the recent past when home dose of Lantus is continued as an inpatient. * In the past he has required anywhere from 60-100 units per day (when not on steroids). PLAN FOR INPATIENT GLYCEMIC CONTROL: * Basal insulin * Lantus 25 units SQ this morning, then 15-20 units SQ BID per scale: * 15 units for BSG less than 180, 20 units for BSG 180 or more * Bolus insulin - tighten * NovoLog per scale ACHS or Q6hrs while NPO * Goal Range: Low 120 mg/dL - High 150 mg/dL * Correction Factor: 15 mg/dL/unit * Nutritional / Prandial insulin per carb ratio of 1 unit per 6 grams CHO consumed * Add overnight check at 0200 PLAN FOR DISCHARGE: * pending
--- NOTE | 2019-03-26 16:21 | CT Scan Report ---
RIGHT FOOT CT CT DOSE: 411.93 mGy.cm HISTORY: Assess right foot ulcer. TECHNIQUE: Multiaxial CT images of the right foot were performed and reformatted in the sagittal and coronal plane without the use of contrast. A dose lowering technique was utilized adhering to the pr inciples of MILDA. COMPARISON: None. FINDINGS: No fracture or dislocation within the right foot. No cortical destruction or periosteal yoly ction to suggest an osteomyelitis. There is a 9 mm focal skin ulceration along the plantar surface of the foot at the level of the third MTP joint. There is surrounding skin thickening and subcutaneous edema. No loculated fluid collections on this noncontrast study to suggest an abscess. Mild degenerat isaias changes within the right foot. IMPRESSION: A 9 mm focal skin ulceration along the plantar surface of the right foot at the level of the third MT P joint. No underlying bony abnormality to suggest osteomyelitis. ACT 112: Negative or not required by law. Electronically signed by: Darrell Shultz M.D. 03/26/2019 4:20 PM
--- NOTE | 2019-03-26 16:29 | CT Scan Report ---
CT OF THE LEFT FOOT WITHOUT CONTRAST CLINICAL HISTORY: Assess left foot ulcer. COMPARISON STUDY: Left foot radiographs March 25, 2019. TECHNIQUE: Axial images of the left foot were obtained without IV contrast. Sagittal and coronal alejandra nstructions were viewed. Automated exposure control was utilized for the study. A dose lowering tech nique was utilized adhering to the principles of ALARA. FINDINGS: Alignment of the left foot is anatomic. There is extensive vascular calcification. Tarsomet atarsal joints are intact. There is mild plantar calcaneal spurring. Note is made of an ulcer overlyi ng the plantar aspect of the left fifth metatarsophalangeal joint. This soft tissue edema is noted. E valuation for abscess is suboptimal on this unenhanced examination. There is no CT evidence for osteo myelitis within the adjacent osseous structures. There is no acute fracture. No radiopaque foreign henry dies are noted. Mild Modic foot osteoarthritis is present. IMPRESSION: No evidence for osteomyelitis within the left foot by CT. Ulceration overlying the plant ar aspect of the left fifth metatarsophalangeal joint with subcutaneous edema which favors cellulitis . Electronically signed by: French Metcalf M.D. 03/26/2019 4:28 PM
[2019-03-26] MEDS: OXYCODONE HCL IR 5 MG TAB (IMMEDIATE RELEASE) PO PRN (17:21)
[2019-03-26] MEDS: INSULIN GLARGINE SOLOSTAR 100 UNITS/ML 3 ML PEN SQ SCH (20:34)
[2019-03-26] MEDS: BUDESONIDE/FORMOTEROL FUMARATE 160/4.5 60 PUFFS/INHALER INH SCH (20:36)
[2019-03-26] MEDS ORDERED: INSULIN GLARGINE SOLOSTAR 100 UNITS/ML 3 ML PEN SQ SCH (21:00)
--- NOTE | 2019-03-26 21:44 | Anesthesiology Consultation ---
Date of Service March 26, 2019 Assessment & Plan (1) Encounter for pre-operative examination: Chart Review Chart Review: order entry initiated Consults Requested Per Dr. Bah with cardiology - moderate risk for any adverse perioperative cardiovascular event... no further cardiac testing or intervention would further lower that risk.,. they are accepting of that risk and wish to proceed with surgery. I see no need to delay from a cardiac standpoint. Per Dr. Gonzalez with nephrology -Acute kidney injury on superimposed CKD, pr erenal versus ATN, favor the former. Additional Notes At this time, we are awaiting evaluation by orthopedics with additional information about their surgical plans before being able to clinical counselor the patient on their anesthetic options. Due to the patient's complex PMH, including oxygen dependent lung disease, the patient is higher risk for anesthesia, including general. Patient tolerated sedation with block placement on 11/21/18. According to the chart, the patient's last dose of rivaroxaban was 03/25/19. The possibility of neuraxial anesthesia will depend on planned timing of surgical procedure; patient should be off rivaroxaban for at least 3 days. We will further evaluate when the case is scheduled. History Height/Weight Height: 5 ft 5 in Weight: 96.1 kg Allergies Allergy/AdvReac Type Severity Reaction Status Date / Time bee venom protein (honey bee) Allergy Severe anaphylaxis Verified 01/08/19 14:57 cephalexin Allergy Severe Hives Verified 01/08/19 14:57 lisinopril Allergy Severe Elevated Verified 01/08/19 14:57 Potassium piperacillin Allergy Severe Hives Verified 01/08/19 14:57 amlodipine AdvReac Mild Headache Verified 01/08/19 14:57 Medications Home Medications Medication Instructions Recorded Confirmed Last Taken Lantus Solostar U-100 Insulin 40 unit SUBCUT BID 09/01/18 03/25/19 01/08/19 08:00 albuterol sulfate 2.5 mg INHALATION Q4H PRN 09/01/18 03/25/19 09/01/18 aspirin [Aspir-81] 81 mg PO DAILY 09/01/18 03/25/19 01/08/19 atorvastatin 40 mg PO DAILY 09/01/18 03/25/19 01/08/19 carvedilol 25 mg PO BID 09/01/18 03/25/19 01/08/19 08:00 metolazone 2.5 mg PO WK PRN 09/01/18 03/25/19 01/07/19 polyethylene glycol 3350 [Miralax] 17 g PO DAILY PRN 09/01/18 03/25/19 Unknown sucralfate [Carafate] 1 g PO QID PRN 09/01/18 03/25/19 Unknown bupropion HCl 200 mg PO DAILY 11/18/18 03/25/19 01/08/19 omeprazole 20 mg PO BID 11/18/18 03/25/19 01/08/19 08:00 oxycodone 5 mg PO Q4H PRN 11/18/18 03/25/19 Unknown albuterol sulfate [ProAir HFA] 2 puff INHALATION Q4H PRN 03/25/19 03/25/19 Unknown budesonide-formoterol 2 puff INHALATION HS 03/25/19 03/25/19 Unknown docusate sodium 100 mg PO BID 03/25/19 03/25/19 Unknown ferrous sulfate 325 mg PO DAILY 03/25/19 03/25/19 Unknown furosemide 80 mg PO BID 03/25/19 03/25/19 Unknown gabapentin 200 mg PO BID PRN 03/25/19 03/25/19 Unknown hydroxyzine HCl 25 mg PO TID PRN 03/25/19 03/25/19 Unknown insulin aspart U-100 [Novolog 1 sliding scale dose SUBCUT AC 03/25/19 03/25/19 Unknown U-100 Insulin aspart] [id number] [Creon] 1 cap PO AC 03/25/19 03/25/19 Unknown rivaroxaban 20 mg PO QPM 03/25/19 03/25/19 Unknown tamsulosin 0.4 mg PO DAILY 03/25/19 03/25/19 Unknown Active Medications Generic Name Dose Route Start Last Admin Trade Name Freq PRN Reason Stop Dose Admin Aspirin 81 mg 03/26/19 09:00 03/26/19 07:50 Ecotrin Ectab PO 04/25/19 08:59 81 mg DAILY GWEN Administration Budesonide/Formoterol Fumarate 2 puffs 03/26/19 21:00 03/26/19 20:36 Symbicort 160mcg/4.5mcg INH 04/25/19 20:59 2 puffs HS GWEN Administration Carvedilol 3.125 mg 03/26/19 09:00 03/26/19 20:35 Coreg PO 04/25/19 08:59 3.125 mg BID GWEN Administration Docusate Sodium 100 mg 03/26/19 09:00 03/26/19 20:34 Colace PO 04/25/19 08:59 100 mg BID GWEN Administration Ferrous Sulfate 325 mg 03/26/19 09:00 03/26/19 07:43 Feosol PO 04/25/19 08:59 Not Given DAILY GWEN Hydromorphone HCl 0.25 mg 03/26/19 01:52 03/26/19 12:34 Dilaudid IV 04/08/19 20:45 0.25 mg Q3H PRN Administration Pain Aztreonam 2,000 mg/ Dextrose 110 mls @ 110 mls/hr 03/26/19 06:00 03/26/19 13:32 IV 05/07/19 05:59 Infused Q8 GWEN Infusion Daptomycin 400 mg/ Syringe 8 mls @ 4 mls/min 03/25/19 23:30 03/26/19 01:03 IV 05/06/19 23:29 4 mls/min Q24H GWEN Administration Protocol Sodium Chloride 1,000 mls @ 75 mls/hr 03/26/19 01:30 03/26/19 12:35 Nss 1000ml IV 04/25/19 01:29 75 mls/hr .[id number] GWEN Administration Insulin Aspart 0 units 03/26/19 09:00 03/26/19 20:32 Novolog Flexpen SC 04/25/19 08:59 Not Given ACHS GWEN Insulin Glargine 0 units 03/26/19 21:00 03/26/19 20:34 Lantus Solostar Pen SQ 04/25/19 20:59 15 units BID GWEN Administration Protocol Oxycodone HCl 5 mg 03/25/19 20:46 03/26/19 17:21 Roxicodone Immediate Rel PO 04/08/19 20:45 5 mg Q4H PRN Administration Pain Pantoprazole Sodium 40 mg 03/26/19 09:00 03/26/19 20:35 Protonix PO 04/25/19 08:59 40 mg BID GWEN Administration Tamsulosin HCl 0.4 mg 03/26/19 09:00 03/26/19 07:50 Flomax PO 04/25/19 08:59 0.4 mg DAILY GWEN Administration Past Medical History Medical History (Updated 03/26/19 @ 21:26 by Radha Rodriguez MD) Asthma, mild persistent (Chronic) CKD (chronic kidney disease), stage III (Chronic) COPD (chronic obstructive pulmonary disease) (Chronic) 4L of O2 NC at home CVA (cerebral vascular accident) (Chronic) left sided weakness Depression (Chronic) Diabetic polyneuropathy (Chronic) Diastolic CHF (Chronic) DM type 2 (diabetes mellitus, type 2) (Chronic) Dyslipidemia (Chronic) GERD (gastroesophageal reflux disease) (Chronic) Glaucoma (Chronic) Osteoarthritis (Chronic) Pancreatic cancer (Chronic) Paroxysmal atrial fibrillation (Chronic) Pericardial effusion (Chronic) PTSD (post-traumatic stress disorder) (Chronic) Recurrent left pleural effusion (Chronic) Exercise / Class Metabolic Activity III < 4 Walking/Shop/Light housework Past Surgical History Surgical History Hx of cataract surgery (Chronic) S/P tonsillectomy and adenoidectomy (Chronic) Past Anesthesia History No Hx of Anesthesia Complications History of PONV No Hx of PONV and No Hx of Motion Sickness Social History Smoking Status: Never smoker tobacco type: cigarettes Do You Dip or Chew Tobacco: No Hx Alcohol Use: No Hx Substance Use: No Physical Exam Vital Signs Last Vital Signs Temp 36.6 C 03/26/19 19:59 Pulse 89 03/26/19 19:59 Resp 22 03/26/19 19:59 BP 139/69 03/26/19 19:59 Pulse Ox 99 03/26/19 19:59 Testing Laboratory Results 03/26/19 07:26 03/26/19 07:26 APTT 26.5 Seconds (21.0-31.0) 03/25/19 21:50 Hemoglobin A1c 16.7 % (4.5-5.6) H 03/25/19 21:50 Urine Color Yellow 03/26/19 00:20 Urine Appearance Cloudy (Clear) A 03/26/19 00:20 Urine pH 5.0 (4.5-7.5) 03/26/19 00:20 Ur Specific [place]ons 1.018 (1.000-1.030) 03/26/19 00:20 Urine Protein 2+ (Negative) H 03/26/19 00:20 Urine Glucose (UA) 3+ (Negative) H 03/26/19 00:20 Urine Ketones Trace (Negative) H 03/26/19 00:20 Urine Nitrite Negative (Negative) 03/26/19 00:20 Ur Leukocyte Esterase Negative (Negative) 03/26/19 00:20 Urine WBC (Auto) 1-5 /hpf (0-5) 03/26/19 00:20 Urine RBC (Auto) 0-4 /hpf (0-4) 03/26/19 00:20 U Hyaline Cast (Auto) >30 /lpf (0-5) H 03/26/19 00:20 U Epithel Cells (Auto) 20-30 /lpf (0-5) H 03/26/19 00:20 Urine Bacteria (Auto) 1+ (Negative) H 03/26/19 00:20 Blood Type AB Positive 03/25/19 21:50 Antibody Screen NEGATIVE 03/25/19 21:50 03/26/19 Unknown Gram Stain - Final Foot,Right 03/25/19 Unknown Gram Stain - Final Foot,Left 03/26/19 03/26/19 03/26/19 20:19 16:45 11:16 POC Glucose 144 H 204 H 212 H 03/26/19 09:35 POC Glucose 375 H* Electrocardiogram Date: 01/08/19 Findings: + NSR @ (63) first degree AV block, possible left atrial enlargement, possible anterior infarct, age undetermined Echocardiogram Date: 11/19/18 EF: 50-55% Other Findings: + LVH (moderate concentric ) Valvular Disease: + MR (trave) Nl RV systolic function
[2019-03-27] MEDS: DAPTOmycin 400 MG in SYRINGE 0 ML IV SCH ×2 (00:10→23:46)
[2019-03-27] MEDS: OXYCODONE HCL IR 5 MG TAB (IMMEDIATE RELEASE) PO PRN ×4 (00:11→23:46)
[2019-03-27] MEDS: HYDROmorphone INJ 0.5 MG/0.5 ML SYR IV PRN ×2 (00:11→23:44)
[2019-03-27] MEDS ORDERED: INSULIN ASPART 100 UNITS/ML 3 ML PEN SC SCH (02:00)
[2019-03-27] MEDS: SODIUM CHLORIDE 0.9% 1000ML 1,000 ML IV SCH (04:45)
[2019-03-27 06:03] LABS: Hematocrit (blood only) 33.7 % (42-52); Hemoglobin 10.9 g/dL (14.0-18.0); Mean Corpuscular Hemoglobin 29.5 pg (25-34); Mean Corpuscular Hgb Conc 32.3 g/dL (32-36); Mean Corpuscular Volume 91.1 fL (80-100); Mean Platelet Volume 10.3 fL (7.4-10.4); Platelet Count 262 K/uL (130-400); RDW Coefficient of Variation 14.5 % (11.5-14.5); RDW Standard Deviation 48.5 fL (36.4-46.3); White Blood Count 11.53 K/uL (4.8-10.8)
[2019-03-27] MEDS: AZTREONAM 2,000 MG in DEXTROSE 5% 100 ML IV SCH ×2 (06:09→14:08)
[2019-03-27 06:43] LABS: BUN Creatinine Ratio 22.8 (10-20); Calcium 8.2 mg/dl (8.5-10.1); Est GFR (African American) 54.9; Est GFR (Non-African American) 47.4; Potassium 3.6 mmol/L (3.5-5.1)
--- NOTE | 2019-03-27 07:39 | Nephrology Progress Note ---
Date of Service March 27, 2019 Assessment & Plan (1) CKD (chronic kidney disease) stage 3, GFR 30-59 ml/min: baseline 1.4-1.7 -- proteinuric CKD 3; presenting creatinine 2.6 yesterday; 2.4 today; chemistries (apart from mild hyperchloremia) acceptable; did have some slightly low K but acceptable. not oliguric. volume status acceptable. urine sediment contaminated w/ epithelial cells and notable for glucosuria, ketonuria, relatively concentrated; no evidence of infection. does have wound infections in addition to hip frx. prerenal versus ATN, favor the former. -daily bmp -cont to avoid nephrotoxins and minimize extremes of bp -cont to hold OP lasix, metolazone Present on Admission?: Yes (2) Hypotension: improving/ possibly resolved. multifactorial in the setting of pain medications, infection, blood loss potentially/less likely: continue to hold diuretics; coreg has been markedly lowered and will adjust as below; cont to treat infection and hyperglycemia and of course repair fracture -lowered IVF rate to 50 mL hourly and changed to normosol -increased coreg to 6.25 mg bid (3) Anemia of chronic disease: daily hgb; some of drop since admission may be dilutional; no indication for transfusion currently Subjective very tired this am; c/o hip pain; for OR htis am. no N, no sob; afebrile; bp have improved Review of Systems Review of Systems: All systems reviewed & are unremarkable except as noted in HPI & below Physical Exam Constitutional: well developed, well nourished and + lethargic; no acute distress (on 02NC A&0 x 3) Eyes: EOM intact bilaterally ENMT: Ears: no external ear abnormality Nose: no external nose abnormality Mouth: + dry oral mucous membranes Neck: no nuchal rigidity Respiratory: normal respiratory effort Auscultation: lungs clear to auscultation bilaterally and + diminished lung sounds Cardiovascular: RRR, no murmur, no edema Gastrointestinal (Abdomen): Inspection/Auscultation: normal bowel sounds Percussion/Palpation: abdomen soft; abdomen nontender Musculoskeletal: Extremities: strength 5/5 throughout Skin: no rashes, warm and dry + lesion (L lateral foot, R heel) Neurologic: spivey; limited but fluent speech Psychiatric: A+Ox3, euthymic affect Genitourinary: wells present Results & Data Vital Signs (Past 12 Hours) Vital Signs Temp Pulse Resp BP Pulse Ox 03/27/19 03:48 37.2 C 76 19 138/70 99 03/26/19 23:32 37.1 C 87 19 131/57 L 99 03/26/19 19:59 36.6 C 89 22 139/69 99 Laboratory Results 03/27/19 05:53 03/27/19 05:53 (1) Hypotension Hypotension type: other hypotension type Qualified Code(s): I95.89 - Other hypotension
[2019-03-27] MEDS: PANTOprazole 40 MG TAB PO SCH ×2 (08:03→20:46)
[2019-03-27] MEDS: FERROUS SULFATE 325 MG TAB PO SCH (08:03)
[2019-03-27] MEDS: NORMOSOL-R 1,000 ML IV SCH (08:03)
[2019-03-27] MEDS: DOCUSATE SODIUM 100 MG CAP PO SCH ×2 (08:03→20:45)
[2019-03-27] MEDS: TAMSULOSIN HCL 0.4 MG CAP PO SCH (08:04)
[2019-03-27] MEDS: INSULIN ASPART 100 UNITS/ML 3 ML PEN SC SCH ×4 (08:05→20:44)
[2019-03-27] MEDS: INSULIN GLARGINE SOLOSTAR 100 UNITS/ML 3 ML PEN SQ SCH ×2 (08:05→20:43)
[2019-03-27] MEDS: carvediloL 6.25 MG TAB PO SCH ×2 (08:19→20:45)
--- NOTE | 2019-03-27 09:24 | Infectious Disease Progress Nt ---
Date of Service March 27, 2019 Assessment & Plan (1) Right foot infection: continue dapto, stop aztreonam, await final culture data follow blood culture,negative to date check would benefit from debridement. Subjective for OR, wound culture from right foot growing staph species, additional micro pending, blood cultures remain negative. ct right foot showing osteo, ESR 46. creat 1.5, wbc 11. afebrile. remains on dapto and aztreonam. tolerating Results & Data Vital Signs (Past 12 Hours) Vital Signs Temp Pulse Pulse Resp BP Pulse Ox 03/27/19 07:34 37.0 C 87 20 147/69 H 100 03/27/19 07:32 90 03/27/19 03:48 37.2 C 76 19 138/70 99 03/26/19 23:32 37.1 C 87 19 131/57 L 99 Laboratory Results Microbiology 03/26/19 Unknown Foot,Right Gram Stain - Final 03/26/19 Unknown Foot,Right Wound Culture - Preliminary Staphylococcus species 03/26/19 Unknown Foot,Left Gram Stain - Final 03/26/19 Unknown Foot,Left Wound Culture - Preliminary Gram positive cocci 03/25/19 Unknown Foot,Left Gram Stain - Final 03/25/19 Unknown Foot,Left Wound Culture - Preliminary Gram positive cocci 03/25/19 21:50 Blood Aerobic Blood Culture - Preliminary No growth in Aerobic bottle after 24 hours. 03/25/19 21:50 Blood Anaerobic Blood Culture - Preliminary No growth in Anaerobic bottle after 24 hours. 03/25/19 21:56 Blood Aerobic Blood Culture - Preliminary No growth in Aerobic bottle after 24 hours. 03/25/19 21:56 Blood Anaerobic Blood Culture - Preliminary No growth in Anaerobic bottle after 24 hours. PG Care Time/CCT Total # of Minutes Spent Total Time Spent with Patient: Total time spent is greater than 50% in coordination of care (as documented) at patient's floor/unit and/or counseling patient:
--- NOTE | 2019-03-27 09:57 | Hospitalist Progress Note ---
Date of Service March 27, 2019 Subjective ATTENDING NOTE: got update by Orthopedics team pt has displaced commuted fracture on left hip also has infected wound on left 5th toe with purulent drainage CT of foot confirms cellulitis given presence of active infection on left foot , doing a total left hip replacement may not be ideal -increased risk of joint infection , prosthesis infection , no healing of surgical wound pt will need simultaneously tx of left 5th toe wound ( I&D vs amputation ) fol lowed by total hip surgery of left hip fx given the complexicity of the surgical procedure /also high risk pt due to multiple co morbidities ( CAD /Afib /CKD /COPD ) Ortho team recommends pt should have the procedure done at Tertiary care Discussed the plan to transfer to [facility] to patient - agreeable for transfer called pt's Liliana Bennett : # [phone] and daughter Marion # [phone] , agreeable for the transfer will call [facility] transfer center plan is to transfer to [place] [facility] , one accepting physician and bed available diet ordered , as no procedure is planned for today pt will be started on Sub q heaprin for DVT prophylaxis Cici Blandon MD Results & Data Vital Signs (Past 12 Hours) Vital Signs Temp Pulse Pulse Resp BP Pulse Ox 03/27/19 07:34 37.0 C 87 20 147/69 H 100 03/27/19 07:32 90 03/27/19 03:48 37.2 C 76 19 138/70 99 03/26/19 23:32 37.1 C 87 19 131/57 L 99
--- NOTE | 2019-03-27 10:49 | Cardiology Progress Note ---
Date of Service March 27, 2019 Subjective Patient seen and examined resting comfortably in bed, somewhat somnolent. He is disappointed that he needs to be transferred but understands. He continues denies any cardiac complaints of chest pain, shortness of breath, palpitations, lightheadedness, dizziness or syncope. Telemetry reviewed: Normal sinus rhythm without arrhythmia or significant ectopy. Review of Systems Review of Systems: All systems reviewed & are unremarkable except as noted in HPI & below Physical Exam Physical Exam: General: Awake, alert and oriented x 3. No acute distress. HEENT: Normocephalic, atraumatic. Pupils equal, round and reactive to light and accommodation. Extraocular muscles are intact. Anicteric sclera. Moist mucous membranes. Neck: No JVD. No bruit. Cardiovascular: Regular. Positive S-4. Normal S-1 and S-2. No S-3. No murmurs or rubs. Pulmonary: Clear to auscultation B/L. No rales, rhonchi or wheezing Abdomen: Bowel sounds x 4, soft. No rebound, guarding or tenderness. No organomegaly. Extremities: No clubbing, cyanosis or edema. +2 pedal pulses bilaterally. Skin: Warm and dry. Results & Data Vital Signs (Past 12 Hours) Vital Signs Temp Pulse Pulse Resp BP Pulse Ox 03/27/19 07:34 37.0 C 87 20 147/69 H 100 03/27/19 07:32 90 03/27/19 03:48 37.2 C 76 19 138/70 99 03/26/19 23:32 37.1 C 87 19 131/57 L 99
--- NOTE | 2019-03-27 10:50 | Cardiology Progress Note ---
Date of Service March 27, 2019 Assessment & Plan (1) Preop cardiovascular exam: The patient carries a history of paroxysmal atrial fibrillation and diastolic dysfunction with normal LV systolic function. He is currently in normal sinus rhythm and asymptomatic from a cardiac standpoint. The patient and his (whom I spoke with by phone) were both counseled that I would place him as a moderate risk for any adverse perioperative cardiovascular event with his wrist being approximately less than 5%. They were further counseled that no further cardiac testing or intervention would further lower that risk. They both state that they understand, they are accepting of that risk and wish to proceed with surgery. So I see no need to delay from a cardiac standpoint. I recommend his beta-leatha be continued uninterrupted throughout the perioperative period (2) Hypotension: Resolved with volume repletion (3) Acute kidney injury superimposed on CKD: Our nephrology colleagues are following. (4) Paroxysmal atrial fibrillation: Patient remains in normal sinus rhythm and is been off anticoagulation for over a year now. Obviously would not restart at this time. Subjective Patient seen and examined, resting comfortably in bed. He is disappointed for the need for transfer but is understanding. He denies any cardiac complaints of chest pain, shortness of breath, palpitations, lightheadedness, dizziness or syncope. Telemetry reviewed: Normal sinus rhythm without arrhythmia or significant ectopy. Review of Systems Review of Systems: All systems reviewed & are unremarkable except as noted in HPI & below Physical Exam Physical Exam: General: Awake, alert and oriented x 3. No acute distress. HEENT: Normocephalic, atraumatic. Pupils equal, round and reactive to light and accommodation. Extraocular muscles are intact. Anicteric sclera. Moist mucous membranes. Neck: No JVD. No bruit. Cardiovascular: Regular. Positive S-4. Normal S-1 and S-2. No S-3. No murmurs or rubs. Pulmonary: Clear to auscultation B/L. No rales, rhonchi or wheezing Abdomen: Bowel sounds x 4, soft. No rebound, guarding or tenderness. No organomegaly. Extremities: No clubbing, cyanosis or edema. +2 pedal pulses bilaterally. Skin: Warm and dry. Results & Data Vital Signs (Past 12 Hours) Vital Signs Temp Pulse Pulse Resp BP Pulse Ox 03/27/19 07:34 37.0 C 87 20 147/69 H 100 03/27/19 07:32 90 03/27/19 03:48 37.2 C 76 19 138/70 99 03/26/19 23:32 37.1 C 87 19 131/57 L 99 (1) Hypotension Hypotension type: other hypotension type Qualified Code(s): I95.89 - Other hypotension
[2019-03-27] MEDS: HEPARIN SOD 5,000 UNIT/0.5 ML VIAL SQ SCH ×3 (11:38→23:45)
--- NOTE | 2019-03-27 12:07 | Discharge Summary ---
Date of Service March 27, 2019 Admission HPI Per Admitting Provider History obtained from patient, , and records. Medical history is significant for chronic respiratory failure 2 to COPD/SONJA on home O2, chronic diastolic heart failure (EF of 50-55%, TTE 2018) CAD/CVA as per records, hypertension, hyperlipidemia, DM2, insulin requiring, AF on Xarelto, chronic hyponatremia, pancreatic cancer status post surgery and chemotherapy, chronic renal insufficiency (baseline creatinine 1.6), chronic anemia (baseline hemoglobin 12-13), past tobacco and alcohol abuse, history of MRSA as per records Recent confinement November 2018 for right foot infection. Patient discharged on Clindamycin course. In the last few days, patient's noted wound on the small toe of the left foot with foul-smelling drainage. No fever, no chills. Patient refusing medical evaluation as per . Patient somewhat confused at home today as per . He fell down after trying to get up landing on his left side. Patient complained of achy left hip pain. Unable to get up. No chest pain, no S OB, no LOC. Patient brought to [facility] ER. BSGs noted to be 500s. Transient hypotension noted after narcotic administration as per report. Imaging showed comminuted intertrochanteric left femoral fracture. WBC noted to be 16, serum creatinine noted to be 3, initial lactic acid noted to be 3.1. Patient received IVF, vancomycin, Levaquin, Gentamicin at [facility] for possible sepsis. Patient transferred to [facility] as per patient/family request for specialty services. MEDICAL HISTORY: As above. SURGICAL HISTORY: He has had tonsillectomy/adenoidectomy, pancreatic cancer surgery, knee surgery, cataract surgery, foot debridement, left pleurectomy, decortication, thoracoscopy FAMILY HISTORY: Hypertension, heart disease, diabetes. PERSONAL/SOCIAL HISTORY: Past tobacco and alcohol abuse. On disability. Principal Diagnosis LEFT HIP COMMINUTED FRACTURE /DIABETIC FOOT INFECTION ON LEFT 5TH TOE , CKD , A FIB , COPD Discharge Exam Constitutional WD/WN, vitals as above no acute distress and not ill appearing Eyes PERRL, conjunctivae normal, anicteric sclerae ENMT external ear and nose normal, oropharynx normal Neck trachea midline, no thyromegaly Respiratory + cough; no respiratory distress and no labored breathing Auscultation: + rales; no wheezes Cardiovascular Rate/Rhythm: regular rate and regular rhythm Heart Sounds: + murmur Gastrointestinal (Abdomen) Inspection/Auscultation: normal bowel sounds Percussion/Palpation: abdomen soft; abdomen nontender Neurologic PERRL, EOMI, accommodation nl, no face palsy, no dysarthria Psychiatric A+Ox3, euthymic affect Discharge Data Allergies Allergy/AdvReac Type Severity Reaction Status Date / Time bee venom protein (honey bee) Allergy Severe anaphylaxis Verified 01/08/19 14:57 cephalexin Allergy Severe Hives Verified 01/08/19 14:57 lisinopril Allergy Severe Elevated Verified 01/08/19 14:57 Potassium piperacillin Allergy Severe Hives Verified 01/08/19 14:57 amlodipine AdvReac Mild Headache Verified 01/08/19 14:57 Consultations 03/25/19 20:46 Consult Case Management - Discharge Planning Routine 03/25/19 20:49 Consult Case Management - Discharge Planning Routine 03/25/19 22:10 Consult Orthopedic Surgery Routine 03/25/19 23:05 Consult Infectious Diseases Routine 03/25/19 23:06 Consult Cardiology Routine 03/26/19 08:36 Consult Nephrology Routine 03/26/19 12:50 Consult Anesthesiology Routine Ordered Studies 03/26/19 15:23 CT foot LT wo con Routine 03/26/19 15:24 CT foot RT wo con Routine Hospital Course (1) Closed left hip fracture: Left femoral fracture secondary to mechanical fall CT scan done at [facility] : comminuted displaced left hip fracture orthopedics consulted -appreciate input multiple discussions with Orthopedics team Cardiology consult for preop eval given Class IV risk as per RCRI. Chronic diabetic foot infection pt is moderate to high risk for ORIF of left hip-Due to multiple co-morbidites ; chronic afib /CAD /CKD /DM with chronic diabetic foot infection /COPD pt has non healing chronic diabetic wound on rt food , underwent I& D on 11/18/2018 noted to have purulent drainage on left [address] of left foot: No evidence for osteomyelitis within the left foot by CT. Ulceration overlying the plantar aspect of the left fifth metatarsophalangeal joint with subcutaneous edema which favors cellulitis. Cultures, Daptomycin, Azactam for osteomyelitis ID consult RE left foot osteomyelitis got update by [facility] Orthopedics team pt has displaced comminuted fracture on left hip also has infected wound on left 5th toe with purulent drainage CT of foot confirms cellulitis on IV Azactum and Daptomycin wound cultures form left small toe : Staph aureus -sensitivity pending given presence of active infection on left foot , doing a total left hip replacement may not be ideal -increased risk of joint infection , prosthesis infection , no healing of surgical wound pt will need simultaneously tx of left 5th toe wound ( I&D vs amputation ) followed by total hip surgery of left hip fx given the complexicity of the surgical procedure /also high risk pt due to multiple co morbidities ( CAD /Afib /CKD /COPD ) Ortho team recommends -pt should have the procedure done at Tertiary care Discussed the plan to transfer to [facility] to patient - agreeable for transfer called pt's Liliana Bennett : # [phone] and daughter Marion # [phone] , agreeable for the transfer will call [facility] transfer center/discussed patient with [facility] hospitalist Dr Zuniga Pt is accepted for transfer to [place] [facility] , Accepting Hospitalist Dr Simon/Dr Alves Acute renal failure on CKD stage III Nephrology consulted, appreciate input Continue to hold home diuretics, Given gentle hydration, monitor BMP appreciate input from Nephrology chronic respiratory failure 2 to COPD/SONJA on home O2, respiratory status at baseline no wheeze or SOB on 2 L 02 via cici canula chronic diastolic heart failure (EF of 50-55%, TTE 2018), patient on the dry side Diuretics kept on hold given gentle hydration appreciate input from Cardiology pt is moderate to high risk for mykel and post op cardiac complication given multiple underlying medical co morbidities at present CHF is compensated, no evidence of vol overload , no angina symptom remains in sinus with rate controlled per cardiology pt should proceed for planned orthopedic surgery as indicated no further cardiac studies needed should be given beta leatha with sips of water on the morning of surgery History of paroxysmal A. fib on beta leatha Xarelto kept on hold for orthopedic surgery DM2, insulin requiring, suboptimal control as of recent outpatient hemoglobin A1c of 9.7 in December 2018 insulin SSI appreciate input from pharmacy for glycemic managment pancreatic cancer status post surgery and chemotherapy, incidental finding of new liver lesion CT abdomen pelvis at [facility] Outpatient follow-up with patient's oncologist from [facility]. chronic anemia secondary to CKD, hemoglobin at baseline Hypotension History of hypertension, presented with borderline low blood pressure Decreased maintenance Coreg dose given borderline BP Home diuretics has been kept on hold given IV fluids Monitor in telemetry DVT prophylaxis. SCDs while Xarelto on hold for potential surgery Recommend pharmacologic anticoagulation once bleeding risk is deemed to be minimal and negligible. Full code DISPOSITION : patient is transferred to [facility] for further care Accepting Hospitlist : Dr Alves/Dr Simon Total Time Total Time Spent Total Time Spent (In Minutes): approx 40 mins Total Time Includes: Examination of the Patient, Discharge Planning, Medication Reconciliation and Communication With Other Providers Discharge Plan Discharge Items Patient Disposition: Transfer Acute Care Hospital Reason For Visit: HIP FX, TRANSIENT HYPOTENSION Discharge Diagnosis: LEFT HIP COMMINUTED FRACTURE /DIABETIC FOOT INFECTION ON LEFT 5TH TOE , CKD , A FIB , COPD Activity: As commented below Activity Comment: BED REST , TILL EVALUATED BY ORTHO Non-emergency contact: Primary Care Provider Call non-emergency contact if: you have any medication questions Follow-up/Referrals: Yana Luis DO [Primary Care Provider] - Diet: Carb Consistent or DM2 and Heart Healthy Addtl Attending Provider Instructions: Patient is transferred to [facility]-accepting physician hospitalist Dr. Simon/Dr Alves Pending Studies at Discharge: No Stand-Alone Forms: [facility] Sk[facility] Items Patient informed of condition?: Yes DNR: No Discharge Level of Care: Other Communicable Disease: Yes Discharge Prognosis: Stable Lines: Peripheral IV Urinary Catheter: Yes Medications and DC Order Prescriptions: Continued omeprazole 20 mg Capsule,Delayed Release(Dr/Ec) 20 mg PO BID RF: 0 oxycodone 5 mg Tablet 5 mg PO Q4H PRN (Reason: Pain) RF: 0 bupropion HCl 200 mg Tablet Sustained-Release 12 Hr 200 mg PO DAILY RF: 0 atorvastatin 40 mg Tablet 40 mg PO DAILY RF: 0 carvedilol 25 mg Tablet 25 mg PO BID RF: 0 albuterol sulfate 2.5 mg /3 mL (0.083 %) Solution For Nebulization 2.5 mg INHALATION Q4H PRN (Reason: Wheezing) RF: 0 sucralfate [Carafate] 1 gram Tablet 1 g PO QID PRN (Reason: DYSEPSIA) RF: 0 aspirin [Aspir-81] 81 mg Tablet,Delayed Release (Dr/Ec) 81 mg PO DAILY RF: 0 polyethylene glycol 3350 [Miralax] 17 gram/dose Powder 17 g PO DAILY PRN (Reason: Constipation) RF: 0 Lantus Solostar U-100 Insulin 100 unit/mL (3 mL) Insulin Pen 40 unit SUBCUT BID RF: 0 tamsulosin 0.4 mg Capsule 0.4 mg PO DAILY RF: 0 Novolog U-100 Insulin aspart 100 unit/mL Solution 1 sliding scale dose SUBCUT AC RF: 0 ferrous sulfate 325 mg (65 mg iron) Tablet 325 mg PO DAILY RF: 0 docusate sodium 100 mg Capsule 100 mg PO BID RF: 0 hydroxyzine HCl 25 mg Tablet 25 mg PO TID PRN (Reason: Anxiety) RF: 0 gabapentin 100 mg Capsule 200 mg PO BID PRN (Reason: Pain) RF: 0 albuterol sulfate [ProAir HFA] 90 mcg/actuation Hfa Aerosol Inhaler 2 puff INHALATION Q4H PRN (Reason: Wheezing) RF: 0 budesonide-formoterol 160-4.5 mcg/actuation Hfa Aerosol Inhaler 2 puff INHALATION HS RF: 0 Creon 24,000-76,000 -120,000 unit Capsule,Delayed Release(Dr/Ec) 1 cap PO AC RF: 0 Discontinued metolazone 2.5 mg Tablet 2.5 mg PO WK PRN (Reason: Weight Over 250#) RF: 0 furosemide 80 mg Tablet 80 mg PO BID RF: 0 rivaroxaban 20 mg Tablet 20 mg PO QPM RF: 0 Discharge Orders: Discharge Order (Routine); Ordered 03/27/19 Ordered By: Cici Blandon Admission Data Admit Date/Time: 03/25/19 20:30 Attending Provider: Cici Blandon Admit Provider: Med Maya Primary Care Provider: Yana Luis Other Providers: Ralph Graham ; Carri Miranda ; Nikhil Grant ; Ayala Gonzalez ; Paul Samuel Elissa R. ; Amaya Barahona ; Deborah Matta ; Ihsan Kennedy
--- NOTE | 2019-03-27 15:30 | Consultation Report ---
DATE OF CONSULTATION: 03/27/2019 HISTORY: The patient is a 63-year-old white male who was seen and evaluated after having been transferred from [facility] with a comminuted intertrochanteric hip fracture, diabetic foot infection left fifth toe, atrial fibrillation, COPD and a multitude of medical problems. The patient will require open reduction internal fixation of left intertrochanteric fracture as well as probable debridement and possible amputation of the toe. The patient has been referred to [facility] for definitive management. ASSESSMENT: Comminuted intertrochanteric fracture of the left hip, cellulitis and osteomyelitis, left fifth toe.
[2019-03-27] MEDS: BUDESONIDE/FORMOTEROL FUMARATE 160/4.5 60 PUFFS/INHALER INH SCH (20:45)
[2019-03-28 03:41] VITALS: TEMP 98.6
[2019-03-28] MEDS: NORMOSOL-R 1,000 ML IV SCH (04:30)
[2019-03-28] MEDS: HEPARIN SOD 5,000 UNIT/0.5 ML VIAL SQ SCH (05:02)
[2019-03-28 07:29] LABS: BUN Creatinine Ratio 17.9 (10-20); Calcium 8.5 mg/dl (8.5-10.1); Creatinine Clr Calc Pharmacy 60.1 ml/min; Est GFR (African American) 64.4; Est GFR (Non-African American) 55.6; Potassium 3.7 mmol/L (3.5-5.1)
[2019-03-28] MEDS: INSULIN ASPART 100 UNITS/ML 3 ML PEN SC SCH (08:51)
[2019-03-28] MEDS: INSULIN GLARGINE SOLOSTAR 100 UNITS/ML 3 ML PEN SQ SCH (08:52)
--- NOTE | 2019-03-28 08:52 | Cardiology Progress Note ---
Date of Service March 28, 2019 Assessment & Plan (1) Preop cardiovascular exam: The patient carries a history of paroxysmal atrial fibrillation and diastolic dysfunction with normal LV systolic function. He is currently in normal sinus rhythm and asymptomatic from a cardiac standpoint. The patient and his (whom I spoke with by phone) were both counseled that I would place him as a moderate risk for any adverse perioperative cardiovascular event with his wrist being approximately less than 5%. They were further counseled that no further cardiac testing or intervention would further lower that risk. They both state that they understand, they are accepting of that risk and wish to proceed with surgery. So I see no need to delay from a cardiac standpoint. I recommend his beta-leatha be continued uninterrupted throughout the perioperative period Ok to transport via BLS from cardiac standpoint. No active cardiac issues at this time. (2) Hypotension: Resolved with volume repletion (3) Acute kidney injury superimposed on CKD: Our nephrology colleagues are following. (4) Paroxysmal atrial fibrillation: Patient remains in normal sinus rhythm and is been off anticoagulation for over a year now. Obviously would not restart at this time. Subjective Pt seen and examined with family at bedside. States that his hip is more painful today as is his toe. Anxious for transport. Denies cp, sob, palpitations, lightheadedness or dizziness. tele reviewed: sinus rhythm without arrhythmia or significant ectopy. Review of Systems Review of Systems: All systems reviewed & are unremarkable except as noted in HPI & below Physical Exam Physical Exam: General: Awake, alert and oriented x 3. No acute distress. HEENT: Normocephalic, atraumatic. Pupils equal, round and reactive to light and accommodation. Extraocular muscles are intact. Anicteric sclera. Moist mucous membranes. Neck: No JVD. No bruit. Cardiovascular: Regular. Positive S-4. Normal S-1 and S-2. No S-3. No murmurs or rubs. Pulmonary: Clear to auscultation B/L. No rales, rhonchi or wheezing Abdomen: Bowel sounds x 4, soft. No rebound, guarding or tenderness. No organomegaly. Extremities: No clubbing, cyanosis or edema. +2 pedal pulses bilaterally. Skin: Warm and dry. Results & Data Vital Signs (Past 12 Hours) Vital Signs Temp Pulse Resp BP Pulse Ox Pulse Ox 03/28/19 07:30 37.0 C 92 H 18 182/80 H 98 03/28/19 04:00 97 03/28/19 03:38 37.0 C 94 H 18 152/79 H 97 03/27/19 23:03 37.4 C 100 H 19 179/74 H 100 (1) Hypotension Hypotension type: other hypotension type Qualified Code(s): I95.89 - Other hypotension
[2019-03-28] MEDS: carvediloL 6.25 MG TAB PO SCH (08:53)
[2019-03-28] MEDS: PANTOprazole 40 MG TAB PO SCH (08:53)
[2019-03-28] MEDS: DOCUSATE SODIUM 100 MG CAP PO SCH (08:53)
[2019-03-28] MEDS: TAMSULOSIN HCL 0.4 MG CAP PO SCH (08:53)
[2019-03-28] MEDS: FERROUS SULFATE 325 MG TAB PO SCH (08:53)
[2019-03-28] MEDS: HYDROmorphone INJ 0.5 MG/0.5 ML SYR IV PRN (08:59)
[2019-03-28] MEDS: AZTREONAM 2,000 MG in DEXTROSE 5% 100 ML IV SCH (09:04)
[2019-03-28 10:29] VITALS: BP 120/64; PULSE 84; O2SAT 98
--- NOTE | 2019-03-28 16:04 | Nephrology Progress Note ---
Date of Service March 28, 2019 Assessment & Plan (1) CKD (chronic kidney disease) stage 3, GFR 30-59 ml/min: baseline 1.4-1.7 -- proteinuric CKD 3; presenting creatinine 2.6 yesterday; 2.4 today; chemistries (apart from mild hyperchloremia) acceptable; does have slightly low K but acceptable. not oliguric. volume status acceptable. urine sediment contaminated w/ epithelial cells and notable for glucosuria, ketonuria, relatively concentrated; no evidence of infection. does have wound infections in addition to hip frx. prerenal versus ATN, favor the former. -daily bmp perioperatively -renal function improved back to baseline -cont to avoid nephrotoxins and minimize extremes of bp -cont to hold OP lasix, metolazone (2) Anemia of chronic disease: daily hgb; some of drop since admission may be dilutional; no indication for transfusion currently (3) Labile blood pressure: hypertensive past 12 hrs. multifactorial lability in the setting of pain medications, infection, blood loss potentially/less likely: continue to hold diuretics; coreg has been markedly lowered and will adjust as below; cont to treat infection and hyperglycemia and of course repair fracture -hold IVF -increased coreg to 6.25 mg bid; low threshold to increase to 12.5 mg bid today Present on Admission?: Yes Subjective seen on rounds this am at 0820; pt lethargic, opens eyes briefly; no sob; ongoing/significant L hip pain. no N; remains NPO and c/o hunger; for transfer to [facility] d/t medical/surgical complexity w/ ongoing wounds and frx Review of Systems Review of Systems: All systems reviewed & are unremarkable except as noted in HPI & below Physical Exam Constitutional: well developed, well nourished and + lethargic; no acute distress (on 02NC A&0 x 3) Eyes: EOM intact bilaterally ENMT: Ears: no external ear abnormality Nose: no external nose abnormality Mouth: + dry oral mucous membranes Neck: no nuchal rigidity Respiratory: normal respiratory effort Auscultation: lungs clear to auscultation bilaterally and + diminished lung sounds Cardiovascular: RRR, no murmur, no edema Gastrointestinal (Abdomen): Inspection/Auscultation: normal bowel sounds Percussion/Palpation: abdomen soft; abdomen nontender Musculoskeletal: Extremities: strength 5/5 throughout L leg externally rotated as prev exam Skin: no rashes, warm and dry + lesion (L lateral foot, R heel) Psychiatric: A+Ox3, euthymic affect Results & Data Vital Signs (Past 12 Hours) Vital Signs Temp Pulse Pulse Resp BP BP Pulse Ox 03/28/19 10:24 37.0 C 84 92 H 18 120/64 182/80 H 98 03/28/19 08:00 03/28/19 07:30 37.0 C 92 H 18 182/80 H 98 03/28/19 04:00 Pulse Ox 03/28/19 10:24 03/28/19 08:00 96 03/28/19 07:30 03/28/19 04:00 97 Laboratory Results 03/27/19 05:53 03/28/19 06:41
== END 2019-03-28 11:00 | disposition short-term general hospital (02) | DRG 534 ==
LOC: SUATTDRO 20:30 → 2S 20:30

== ENCOUNTER 2019-06-27 00:52 | Inpatient (IN) ==
[2019-06-27] MEDS ORDERED: SODIUM CHLORIDE 0.9% 1000ML 1,000 ML IV ONE ×2 (01:24→04:37)
[2019-06-27] MEDS ORDERED: VANCOMYCIN HCL 2,000 MG in SODIUM CHLORIDE 0.9% 500 ML IV ONE (01:25)
[2019-06-27] MEDS ORDERED: VANCOMYCIN CONSULT ACTIVE PRN (01:25)
[2019-06-27] MEDS ORDERED: VANCOMYCIN CONSULT ACTIVE ONE (01:25)
[2019-06-27] MEDS ORDERED: CEFEPIME 2,000 MG/20 ML VIAL IV STA (01:25)
[2019-06-27] MEDS ORDERED: ACETAMINOPHEN 1,000 MG/100 ML VIAL IV STA (01:27)
[2019-06-27 01:46] LABS: Basophils # (auto) 0.05 K/uL (0-0.2); Basophils % (auto) 0.3 %; Eosinophils % (auto) 3.2 %; Hematocrit (blood only) 37.1 % (42-52); Hemoglobin 12.2 g/dL (14.0-18.0); Immature Granulocytes # (auto) 0.05 K/uL (0.00-0.02); Immature Granulocytes % (auto) 0.3 %; Lymphocytes # (auto) 0.95 K/uL (1.2-3.4); Mean Corpuscular Hemoglobin 29.9 pg (25-34); Mean Corpuscular Hgb Conc 32.9 g/dL (32-36); Mean Corpuscular Volume 90.9 fL (80-100); Mean Platelet Volume 10.5 fL (7.4-10.4); Monocytes # (auto) 0.84 K/uL (0.11-0.59); Monocytes % (auto) 5.3 %; Neutrophils # (auto) 13.43 K/uL (1.4-6.5); Neutrophils % (auto) 84.9 %; Platelet Count 493 K/uL (130-400); RDW Standard Deviation 46.9 fL (36.4-46.3); Red Blood Count 4.08 M/uL (4.7-6.1); White Blood Count 15.82 K/uL (4.8-10.8)
[2019-06-27 02:03] LABS: Influenza A virus by PCR Neg for Influ A (Neg); Influenza B virus by PCR Neg for Influ B (Neg)
[2019-06-27 02:09] LABS: Alanine Aminotransferase 21 U/L (12-78); Aspartate Aminotransferase 17 U/L (15-37); BUN Creatinine Ratio 18.9 (10-20); Blood Urea Nitrogen 42 mg/dl (7-18); Calcium 8.9 mg/dl (8.5-10.1); Carbon Dioxide 27 mmol/L (21-32); Chloride 103 mmol/L (98-107); Creatinine Clr Calc Pharmacy 36.5 ml/min; Est GFR (African American) 34.6; Est GFR (Non-African American) 29.9; Glucose 138 mg/dl (70-99); Magnesium 2.2 mg/dl (1.8-2.4); Potassium 4.2 mmol/L (3.5-5.1); Sodium 136 mmol/L (136-145)
[2019-06-27 02:14] LABS: Albumin Globulin Ratio 0.6 (0.9-2); Alkaline Phosphatase 205 U/L (45-117); Bilirubin,Total 0.3 mg/dl (0.2-1); Globulin 5.1 gm/dl (2.5-4.0); Total Protein 8.1 gm/dl (6.4-8.2); Troponin I < 0.015 ng/ml (0-0.045)
[2019-06-27 02:17] LABS: INR 1.3 (0.9-1.1); Partial Thromboplastin Ratio 1.2; Partial Thromboplastin Time 32.2 Seconds (21.0-31.0); Prothrombin Time 13.4 Seconds (9.0-12.0)
--- NOTE | 2019-06-27 02:36 | Emergency Department Note ---
History of Present Illness General Chief complaint: Flu Like Symptoms Stated complaint: COUGH,DEMENTIA,[place] QU[place] T[facility] Time Seen by Provider: 06/27/19 01:14 Source: family Mode of arrival: ambulatory Limitations: altered mental status History of Present Illness Provider complaint: Fever, cough Onset (ago): hour(s) 5 Location: chest Radiation: non-radiation Severity: moderate Maximum Pain Intensity: 0 Current Pain Intensity: 0 Exacerbated By: + movement Associated symptoms: + cough, + fever/chills, + loss of appetite, + malaise and + shortness of breath Treatments prior to arrival: none This is a 63-year-old male with a significant past medical history brought in by family due to worsening cough, fatigue, decreased appetite, and fever at home. states patient was fine earlier in the day today and then this evening began to notice a worsening cough. Patient did not have any complaints. Seem more fatigued than usual and had a diminished appetite. This evening then the noticed a fever but had difficulty obtaining an accurate temperature reading at home. She did not give him any other medications prior to arrival. Patient was previously seen by his oncologist Dr. Palma due to a past history of pancreatic cancer. She states patient had outpatient labs and CT imaging. She does state that approximately 3 weeks ago he was around a sick family member who tested positive for strep. She was concerned given her recent travel for work domestically that she could have brought home a virus or even the flu to him. No recent change in medications. Patient himself has not had any other sick contacts, travel, or evolving conditions. Patient has intermittently complained of a headache which she felt was likely related to his medications. Patient unable to provide accurate history due to somnolence and confusion. states patient was intermittently confused this evening which she attributes to the [facility] er. She states he does have a history of dementia but has been intermittently more confused than normal which does routinely happen when he has a concurrent infection. HPI otherwise limited due to patient's altered mentation. Home Medications Home Medications Medication Instructions Recorded Confirmed Type Lantus Solostar U-100 Insulin 40 unit SUBCUT BID 09/01/18 06/27/19 History albuterol sulfate 2.5 mg INHALATION Q4H PRN 09/01/18 06/27/19 History aspirin [Aspir-81] 81 mg PO DAILY 09/01/18 06/27/19 History atorvastatin 40 mg PO DAILY 09/01/18 06/27/19 History carvedilol 25 mg PO BID 09/01/18 06/27/19 History polyethylene glycol 3350 [Miralax] 17 g PO DAILY PRN 09/01/18 06/27/19 History sucralfate [Carafate] 1 g PO QID PRN 09/01/18 06/27/19 History bupropion HCl 200 mg PO DAILY 11/18/18 06/27/19 History omeprazole 20 mg PO BID 11/18/18 06/27/19 History oxycodone 5 mg PO Q4H PRN 11/18/18 06/27/19 History Creon 1 cap PO AC 03/25/19 06/27/19 History albuterol sulfate [ProAir HFA] 2 puff INHALATION Q4H PRN 03/25/19 06/27/19 History budesonide-formoterol 2 puff INHALATION HS 03/25/19 06/27/19 History docusate sodium 100 mg PO BID 03/25/19 06/27/19 History ferrous sulfate 325 mg PO DAILY 03/25/19 06/27/19 History gabapentin 200 mg PO BID PRN 03/25/19 06/27/19 History hydroxyzine HCl 25 mg PO TID PRN 03/25/19 06/27/19 History insulin aspart U-100 [Novolog 1 sliding scale dose SUBCUT AC 03/25/19 06/27/19 History U-100 Insulin aspart] tamsulosin 0.4 mg PO DAILY 03/25/19 06/27/19 History warfarin [Coumadin] 5 mg PO DIRECTED 06/27/19 06/27/19 History warfarin [Coumadin] 7.5 mg PO DIRECTED 06/27/19 06/27/19 History Allergies Allergy/AdvReac Type Severity Reaction Status Date / Time bee venom protein (honey bee) Allergy Severe anaphylaxis Verified 06/27/19 02:11 lisinopril Allergy Severe Elevated Verified 06/27/19 02:11 Potassium piperacillin Allergy Severe Hives Verified 06/27/19 02:11 amlodipine AdvReac Mild Headache Verified 06/27/19 02:11 Past Med/Surg History Medical History Asthma, mild persistent (Chronic) CKD (chronic kidney disease), stage III (Chronic) COPD (chronic obstructive pulmonary disease) (Chronic) 4L of O2 NC at home CVA (cerebral vascular accident) (Chronic) left sided weakness Depression (Chronic) Diabetic polyneuropathy (Chronic) Diastolic CHF (Chronic) DM type 2 (diabetes mellitus, type 2) (Chronic) Dyslipidemia (Chronic) GERD (gastroesophageal reflux disease) (Chronic) Glaucoma (Chronic) Osteoarthritis (Chronic) Pancreatic cancer (Chronic) Paroxysmal atrial fibrillation (Chronic) Pericardial effusion (Chronic) PTSD (post-traumatic stress disorder) (Chronic) Recurrent left pleural effusion (Chronic) Surgical History Hx of cataract surgery (Chronic) S/P tonsillectomy and adenoidectomy (Chronic) Social History Preferred Language: Croatian Communication Ability: Effective Assistant Professor Required: No Beliefs That Will Affect Care: None marital status: Current Living Situation: Spouse current occupational status: unemployed and disabled Feels Safe at Home: Yes Smoking Status: Former smoker Tobacco Type: cigarettes ; Do You Dip or Chew Tobacco: No ; Hx Alcohol Use: No Hx Substance Use: No Review of Systems Unobtainable due to cognitive status Physical Exam Vital Signs Vital Signs - 24 hr 06/27/19 00:55 06/27/19 01:06 06/27/19 01:15 Temperature 39.3 C H Temperature Source Oral Pulse Rate 91 H 92 H 93 H Pulse Rate [Apical] Pulse Rate from SpO2 Sensor 92 H 95 H Respiratory Rate 20 19 22 Respiratory Effort / Characteristics Respiratory Depth Normal Blood Pressure 139/63 165/74 H Blood Pressure Mean 88 100 Pulse Oximetry 89 L 95 97 Oxygen Delivery Method Room Air Nasal Cannula Nasal Cannula Oxygen Flow Rate 3 3 Sepsis Recent Fever Within 48 Hours Yes Sepsis New/Unexplained Change in Mental Status No Sepsis Action Taken by Nursing No Action Required 06/27/19 01:30 06/27/19 01:34 06/27/19 01:45 Temperature Temperature Source Pulse Rate 100 H 91 H Pulse Rate [Apical] Pulse Rate from SpO2 Sensor 92 H 91 H Respiratory Rate 24 24 Respiratory Effort / Characteristics Respiratory Depth Blood Pressure Blood Pressure Mean Pulse Oximetry 95 95 96 Oxygen Delivery Method Nasal Cannula Nasal Cannula Nasal Cannula Oxygen Flow Rate 3 3 3 Sepsis Recent Fever Within 48 Hours Sepsis New/Unexplained Change in Mental Status Sepsis Action Taken by Nursing 06/27/19 02:00 06/27/19 02:01 06/27/19 02:15 Temperature Temperature Source Pulse Rate 89 90 87 Pulse Rate [Apical] Pulse Rate from SpO2 Sensor 90 90 87 Respiratory Rate 25 H 19 30 H Respiratory Effort / Characteristics Respiratory Depth Blood Pressure 146/71 H 163/68 H Blood Pressure Mean 77 94 Pulse Oximetry 97 97 95 Oxygen Delivery Method Nasal Cannula Nasal Cannula Nasal Cannula Oxygen Flow Rate 3 3 3 Sepsis Recent Fever Within 48 Hours Sepsis New/Unexplained Change in Mental Status Sepsis Action Taken by Nursing 06/27/19 02:30 06/27/19 02:38 06/27/19 02:46 Temperature 37.7 C H Temperature Source Oral Pulse Rate 86 86 Pulse Rate [Apical] Pulse Rate from SpO2 Sensor 86 86 Respiratory Rate 26 H 27 H Respiratory Effort / Characteristics Respiratory Depth Blood Pressure 145/61 H 153/62 H Blood Pressure Mean 70 73 Pulse Oximetry 98 97 Oxygen Delivery Method Nasal Cannula Nasal Cannula Oxygen Flow Rate 3 3 Sepsis Recent Fever Within 48 Hours Sepsis New/Unexplained Change in Mental Status Sepsis Action Taken by Nursing 06/27/19 02:55 06/27/19 03:01 06/27/19 03:15 Temperature Temperature Source Pulse Rate 85 83 Pulse Rate [Apical] 84 Pulse Rate from SpO2 Sensor 84 83 Respiratory Rate 26 H 21 29 H Respiratory Effort / Characteristics Spontaneous Respiratory Depth Blood Pressure 146/62 H 134/59 L Blood Pressure Mean 81 79 Pulse Oximetry 96 96 90 Oxygen Delivery Method Nasal Cannula Nasal Cannula Nasal Cannula Oxygen Flow Rate 3 3 3 Sepsis Recent Fever Within 48 Hours Sepsis New/Unexplained Change in Mental Status Sepsis Action Taken by Nursing GENERAL: alert, ill appearing, well nourished, mild distress EYE EXAM: normal conjunctiva, PERRL and EOM's grossly intact OROPHARYNX: no exudate, no erythema, lips, buccal mucosa, and tongue normal and mucous membranes are moist NECK: supple, no nuchal rigidity, no adenopathy, non-tender LUNGS: Decreased breath sounds to auscultation. Normal chest wall mechanics, no w/r/r HEART: no murmurs, S1 normal and S2 normal ABDOMEN: abdomen soft, non-tender, normo-active bowel sounds, no masses, no rebound or guarding. BACK: Back is symmetrical on inspection and there is no deformity, no midline tenderness, no CVA tenderness. SKIN: no rashes and no bruising UPPER EXTREMITIES: upper extremities are grossly normal. FROM, nml pulses b/l. LOWER EXTREMITIES: No pitting edema. FROM, nml pulses b/l. Right foot with dressing over the heel. No obvious evolving erythema. Compartments soft. NEURO EXAM: Patient somnolent but arousable with painful stimuli. Patient will localize pain and once awake will answer a few simple questions but is confused to questions of orientation. Patient will follow simple commands once awake. Course Course 0235: Patient reevaluated once he returned from CT. Patient slightly more awake and alert, will follow commands. Patient still tachypneic, although reassuring oxygen levels on nasal cannula. VS stable. 0300: Case discussed with Dr. Yu. 0310: VS stable. Pt more alert. Administered Medications Carvedilol (Coreg) 25 mg PO BID [facility] Stop: 07/27/19 04:59 Last Admin: 06/27/19 05:36 Dose: 25 mg Documented by: [id number] Heparin Sodium/Dextrose (Heparin Sodium/Dextrose) 25,000 units in 500 mls @ 28 mls/hr IV .[id number] [facility]; Protocol Stop: 07/27/19 04:36 Last Titration: 06/27/19 07:12 Dose: 1,400 units/hr, 28 mls/hr Documented by: [id number] Cosigned by: [id number] Admin: 06/27/19 05:35 Dose: 1,400 units/hr, 28 mls/hr Documented by: [id number] Cosigned by: [id number] Sodium Chloride (Nss 1000ml) 1,000 mls @ 60 mls/hr IV .[id number] ONE Stop: 06/27/19 21:16 Last Admin: 06/27/19 05:36 Dose: 60 mls/hr Documented by: [id number] Ertapenem 1,000 mg/ Sodium (Chloride) 60 mls @ 100 mls/hr IV Q24H [facility] Stop: 07/04/19 05:59 Last Infusion: 06/27/19 06:28 Dose: 0 mls/hr Documented by: [id number] Admin: 06/27/19 05:47 Dose: 100 mls/hr Documented by: [id number] Insulin Aspart (Novolog Flexpen) 0 units SC ACHS GWEN Stop: 07/27/19 04:36 Last Admin: 06/27/19 05:21 Dose: Not Given Documented by: [id number] Cosigned by: [id number] Discontinued Medications Albuterol (Duoneb) 3 ml NEB NOW STA Stop: 06/27/19 02:46 Last Admin: 06/27/19 02:53 Dose: 3 ml Documented by: [id number] Heparin Sodium/Dextrose () 1 ea IV NOW STA; Protocol Stop: 06/27/19 04:38 Last Admin: 06/27/19 05:35 Dose: 1 ea Documented by: [id number] Sodium Chloride (Nss 1000ml) 1,000 mls @ 999 mls/hr IV .[id number] ONE Stop: 06/27/19 02:24 Last Infusion: 06/27/19 02:36 Dose: 0 mls/hr Documented by: [id number] Admin: 06/27/19 01:35 Dose: 999 mls/hr Documented by: [id number] Cefepime HCl (Maxipime) 2,000 mg in 20 mls @ 5 mls/min IV NOW STA Stop: 06/27/19 01:28 Last Admin: 06/27/19 01:57 Dose: 5 mls/min Documented by: [id number] Vancomycin HCl 2,000 mg/ (Sodium Chloride) 540 mls @ 200 mls/hr IV NOW ONE Stop: 06/27/19 03:54 Last Infusion: 06/27/19 05:20 Dose: 0 mls/hr Documented by: [id number] Admin: 06/27/19 02:28 Dose: 200 mls/hr Documented by: [id number] Acetaminophen (Ofirmev) 1,000 mg in 100 mls @ 400 mls/hr IV NOW STA Stop: 06/27/19 01:41 Last Infusion: 06/27/19 01:50 Dose: 0 mls/hr Documented by: [id number] Admin: 06/27/19 01:35 Dose: 400 mls/hr Documented by: [id number] Ertapenem (Invanz) 10 mls @ 2 mls/min IV NOW STA Stop: 06/27/19 03:32 Last Admin: 06/27/19 03:41 Dose: 2 mls/min Documented by: [id number] Doxycycline Hyclate 100 mg/ (Dextrose) 110 mls @ 50 mls/hr IV NOW STA Stop: 06/27/19 06:48 Last Admin: 06/27/19 05:36 Dose: 50 mls/hr Documented by: [id number] Methylprednisolone (Solumedrol) 20 mg IV NOW STA Stop: 06/27/19 02:57 Last Admin: 06/27/19 03:02 Dose: 20 mg Documented by: [id number] Miscellaneous Information (Consult) 1 ea N/A UD ONE Stop: 06/27/19 01:26 Last Admin: 06/27/19 02:29 Dose: Not Given Documented by: [id number] Naloxone HCl (Narcan) 0.4 mg IV NOW STA Stop: 06/27/19 03:22 Last Admin: 06/27/19 03:41 Dose: 0.4 mg Documented by: [id number] Medical Decision Making Differential Diagnosis Differential diagnosis: Etiologies such as viral syndrome, otitis, pharyngitis, pneumonia, influenza, meningitis, urinary tract infection, sepsis, bacteremia, as well as others were entertained. Medical Records Attestation: I reviewed the patient's medical records. Home Medications Current Medication List: was personally reviewed by me Laboratory Data Attestation: I reviewed the patient's lab results. Result diagrams: 06/27/19 01:16 06/27/19 01:16 Lab Results 06/27/19 06/27/19 06/27/19 Range/Units 01:05 01:16 01:16 WBC 15.82 H (4.8-10.8) K/uL RBC 4.08 L (4.7-6.1) M/uL Hgb 12.2 L (14.0-18.0) g/dL Hct 37.1 L (42-52) % MCV 90.9 (80-100) fL MCH 29.9 (25-34) pg MCHC 32.9 (32-36) g/dL RDW Std Deviation 46.9 H (36.4-46.3) fL RDW Coeff of Morenita 14.0 (11.5-14.5) % Plt Count 493 H (130-400) K/uL MPV 10.5 H (7.4-10.4) fL Immature Gran % (Auto) 0.3 % Neut % (Auto) 84.9 % Lymph % (Auto) 6.0 % York % (Auto) 5.3 % Eos % (Auto) 3.2 % Baso % (Auto) 0.3 % Immature Gran # (Auto) 0.05 H (0.00-0.02) K/uL Neut # (Auto) 13.43 H (1.4-6.5) K/uL Lymph # (Auto) 0.95 L (1.2-3.4) K/uL York # (Auto) 0.84 H (0.11-0.59) K/uL Eos # (Auto) 0.50 (0-0.5) K/uL Baso # (Auto) 0.05 (0-0.2) K/uL PT 13.4 H (9.0-12.0) Seconds INR 1.3 H (0.9-1.1) APTT 32.2 H (21.0-31.0) Seconds PTT Ratio 1.2 ABG pH ABG pCO2 ABG pO2 ABG HCO3 ABG O2 Saturation ABG Base Excess Afshin Test Barometric Pressure Oxygen Given Sodium (136-145) mmol/L Potassium (3.5-5.1) mmol/L Chloride (98-107) mmol/L Carbon Dioxide (21-32) mmol/L Anion Gap (3-11) BUN (7-18) mg/dl Creatinine (0.6-1.4) mg/dl Est Cr Clr Drug Dosing ml/min Est GFR ( Amer) Est GFR (Non-Af Amer) BUN/Creatinine Ratio (10-20) Glucose (70-99) mg/dl Estimat Average Glucose mg/dl Hemoglobin A1c (4.5-5.6) % Lactate (0.4-2.0) mmol/L Calcium (8.5-10.1) mg/dl Magnesium (1.8-2.4) mg/dl Total Bilirubin (0.2-1) mg/dl AST (15-37) U/L ALT (12-78) U/L Alkaline Phosphatase (45-117) U/L Troponin I (0-0.045) ng/ml Total Protein (6.4-8.2) gm/dl Albumin (3.4-5.0) gm/dl Globulin (2.5-4.0) gm/dl Albumin/Globulin Ratio (0.9-2) Procalcitonin (0-0.5) ng/ml Influenza Type A (PCR) Neg for Influ A (Neg) Influenza Type B (PCR) Neg for Influ B (Neg) 06/27/19 06/27/19 06/27/19 Range/Units 01:16 01:16 01:16 WBC (4.8-10.8) K/uL RBC (4.7-6.1) M/uL Hgb (14.0-18.0) g/dL Hct (42-52) % MCV (80-100) fL MCH (25-34) pg MCHC (32-36) g/dL RDW Std Deviation (36.4-46.3) fL RDW Coeff of Morenita (11.5-14.5) % Plt Count (130-400) K/uL MPV (7.4-10.4) fL Immature Gran % (Auto) % Neut % (Auto) % Lymph % (Auto) % York % (Auto) % Eos % (Auto) % Baso % (Auto) % Immature Gran # (Auto) (0.00-0.02) K/uL Neut # (Auto) (1.4-6.5) K/uL Lymph # (Auto) (1.2-3.4) K/uL York # (Auto) (0.11-0.59) K/uL Eos # (Auto) (0-0.5) K/uL Baso # (Auto) (0-0.2) K/uL PT (9.0-12.0) Seconds INR (0.9-1.1) APTT (21.0-31.0) Seconds PTT Ratio ABG pH ABG pCO2 ABG pO2 ABG HCO3 ABG O2 Saturation ABG Base Excess Afshin Test Barometric Pressure Oxygen Given Sodium 136 (136-145) mmol/L Potassium 4.2 (3.5-5.1) mmol/L Chloride 103 (98-107) mmol/L Carbon Dioxide 27 (21-32) mmol/L Anion Gap 6.0 (3-11) BUN 42 H (7-18) mg/dl Creatinine 2.24 H (0.6-1.4) mg/dl Est Cr Clr Drug Dosing 36.5 ml/min Est GFR ( Amer) 34.6 Est GFR (Non-Af Amer) 29.9 BUN/Creatinine Ratio 18.9 (10-20) Glucose 138 H (70-99) mg/dl Estimat Average Glucose 312 mg/dl Hemoglobin A1c 12.5 H (4.5-5.6) % Lactate (0.4-2.0) mmol/L Calcium 8.9 (8.5-10.1) mg/dl Magnesium 2.2 (1.8-2.4) mg/dl Total Bilirubin 0.3 (0.2-1) mg/dl AST 17 (15-37) U/L ALT 21 (12-78) U/L Alkaline Phosphatase 205 H (45-117) U/L Troponin I < 0.015 (0-0.045) ng/ml Total Protein 8.1 (6.4-8.2) gm/dl Albumin 3.0 L (3.4-5.0) gm/dl Globulin 5.1 H (2.5-4.0) gm/dl Albumin/Globulin Ratio 0.6 L (0.9-2) Procalcitonin 0.25 (0-0.5) ng/ml Influenza Type A (PCR) (Neg) Influenza Type B (PCR) (Neg) 06/27/19 06/27/19 06/27/19 Range/Units 01:53 01:53 02:50 WBC (4.8-10.8) K/uL RBC (4.7-6.1) M/uL Hgb (14.0-18.0) g/dL Hct (42-52) % MCV (80-100) fL MCH (25-34) pg MCHC (32-36) g/dL RDW Std Deviation (36.4-46.3) fL RDW Coeff of Morenita (11.5-14.5) % Plt Count (130-400) K/uL MPV (7.4-10.4) fL Immature Gran % (Auto) % Neut % (Auto) % Lymph % (Auto) % York % (Auto) % Eos % (Auto) % Baso % (Auto) % Immature Gran # (Auto) (0.00-0.02) K/uL Neut # (Auto) (1.4-6.5) K/uL Lymph # (Auto) (1.2-3.4) K/uL York # (Auto) (0.11-0.59) K/uL Eos # (Auto) (0-0.5) K/uL Baso # (Auto) (0-0.2) K/uL PT (9.0-12.0) Seconds INR (0.9-1.1) APTT (21.0-31.0) Seconds PTT Ratio ABG pH Cancelled 7.36 ABG pCO2 Cancelled 45 ABG pO2 Cancelled 121 H ABG HCO3 Cancelled 25 H ABG O2 Saturation Cancelled 98.4 H ABG Base Excess Cancelled -0.6 Afshin Test Cancelled Pos Barometric Pressure Cancelled Oxygen Given Cancelled 3L Sodium (136-145) mmol/L Potassium (3.5-5.1) mmol/L Chloride (98-107) mmol/L Carbon Dioxide (21-32) mmol/L Anion Gap (3-11) BUN (7-18) mg/dl Creatinine (0.6-1.4) mg/dl Est Cr Clr Drug Dosing ml/min Est GFR ( Amer) Est GFR (Non-Af Amer) BUN/Creatinine Ratio (10-20) Glucose (70-99) mg/dl Estimat Average Glucose mg/dl Hemoglobin A1c (4.5-5.6) % Lactate 1.2 (0.4-2.0) mmol/L Calcium (8.5-10.1) mg/dl Magnesium (1.8-2.4) mg/dl Total Bilirubin (0.2-1) mg/dl AST (15-37) U/L ALT (12-78) U/L Alkaline Phosphatase (45-117) U/L Troponin I (0-0.045) ng/ml Total Protein (6.4-8.2) gm/dl Albumin (3.4-5.0) gm/dl Globulin (2.5-4.0) gm/dl Albumin/Globulin Ratio (0.9-2) Procalcitonin (0-0.5) ng/ml Influenza Type A (PCR) (Neg) Influenza Type B (PCR) (Neg) Imaging Data Attestation: I personally reviewed and interpreted this imaging study as follows: My Impression: X-ray: I interpreted the following studies. Chest: A single view study of the chest was reviewed and was negative for cardiomegaly, effusion, pneumothorax or wide mediastinum. Appearance of slightly increased interstitial markings bilaterally, with appearance of an evolving infiltrate along the right middle/right lower lobe. Radiologist's Impression: CT head: No acute intracranial process. Involutional changes. Cataract surgery. Radiologist: Bryce Llamas M.D. Blood Pressure Blood Pressure Findings: Elevated blood pressure Blood Pressure Disposition: further management by hospitalist MDM Narrative Patient brought in by family due to concern for evolving infection after patient became more fatigued, had decreased appetite, and developed a fever this evening. Patient's family concerned about possible influenza. Patient does have a history of dementia, but was intermittently more confused than usual today. Patient with suspected infiltrate on chest x-ray, influenza negative. Highly elevated creatinine compared to prior although patient does have a history of chronic kidney disease. Lactic acid and pro calcitonin reassuring. Patient improved here with treatment of fever and rehydration. Patient not given a full 30 mL/KG due to concern for pushing him into congestive heart failure given renal history. Patient was given IV antibiotics and blood culture sent. UA pending at time of my discussion with hospitalist. I do not suspect pericarditis/myocarditis, PE, or acute GI infection. Patient with no other recent GI symptoms, no diarrhea or vomiting, no abdominal tenderness with palpa tion or complaints of abdominal pain. Case discussed with hospitalist for additional evaluation and management. Family in agreement with plan. Impression & Plan Sepsis, Pneumonia, ELIZABETH (acute kidney injury), Dementia Discharge Plan Visit Data *Final* Discharge Date/Time: 06/27/19 04:07 Chief Complaint: Flu Like Symptoms Stated Complaint: COUGH,DEMENTIA,[place] [facility] [place] [facility] Provider: Renetta Skinner Discharge Problem: Sepsis, Pneumonia, ELIZABETH (acute kidney injury), Dementia Patient Disposition: Admitted As Inpatient Discharge Instructions Interventions: ED Discharge Assessment Last Done: 06/27/19 04:07 Discharge Problem: Sepsis Qualifiers: Sepsis type: sepsis due to unspecified organism Sepsis acute organ dysfunction status: with acute organ dysfunction Severe sepsis acute organ dysfunction type: acute renal failure Acute renal failure type: unspecified Severe sepsis shock status: without septic shock Qualified Code(s): A41.9 - Sepsis, unspecified organism Pneumonia Qualifiers: Pneumonia type: due to unspecified organism Laterality: right Lung location: middle lobe of lung Qualified Code(s): J18.9 - Pneumonia, unspecified organism Dementia Qualifiers: Dementia type: unspecified type Dementia behavioral disturbance: without behavioral disturbance Qualified Code(s): F03.90 - Unspecified dementia without behavioral disturbance
[2019-06-27] MEDS ORDERED: ALBUT/IPRATROP 3MG/0.5MG NEB 3 ML VIAL NEB STA (02:45)
[2019-06-27 03:03] LABS: Allen Test Pos (Pos); Base Excess ABG -0.6 mEq/L (-9-1.8); HCO3 ABG 25 mmol/L (19-24); Oxygen Saturation ABG 98.4 % (90-95); PCO2 ABG 45 mmHg (35-46); PO2 ABG 121 mmHg (80-95); pH ABG 7.36 (7.35-7.45)
[2019-06-27] MEDS ORDERED: NALOXONE HCL 0.4 MG/1 ML VIAL/CARP IV STA (03:21)
--- NOTE | 2019-06-27 03:22 | History & Physical Report ---
Date of Service June 27, 2019 Assessment & Plan (1) Respiratory failure, acute and chronic: hx chronic respiratory failure 2 to COPD/SONJA on home O2 Secondary to COPD exacerbation secondary to CAP, known aspiration risk as per patient hx MRSA Severe sepsis SIRS plus ARF on CRI plus encephalopathy secondary to pneumonia Encephalopathy secondary to above ? Home neuropsychotropics, narcotics possibly contributory chronic diastolic heart failure (EF of 50-55%, TTE 2019), patient on the dry side CAD/CVA as per records PAF, px NSR on Coumadin, INR subtherapeutic hypertension, stable DM2, insulin requiring, BSG currently stable Suboptimal control as above recent hemoglobin A1c of 16.7 pancreatic cancer status post surgery and chemotherapy chronic anemia (new baseline of 11), hemoglobin at baseline past tobacco and alcohol abuse Medical telemetry Supplemental O2 Steroid course, nebs Ertapenem given aspiration risk, Doxycycline for CAP in light of MRSA history Check UA, tox screen Monitor creatinine response to IV fluids, hold home diuretics for now Narcan trial Hold home neuropsychotropics/narcotics until patient more awake. Basal insulin, ISS BG goal [id number], carb count coverage, update hemoglobin A1c DVT prophylaxis. IV Heparin-Coumadin bridge Full code as per , Ms. Aury Bennett. She requests updates from providers thru [phone]. Total critical time was 45 minutes. Text document was generated using [email or web address] voice recognition software. It may contain grammatical or spelling errors. Kindly contact undersigned for clarification of any documentation item in question. History of Present Illness Primary Care Provider: Yana Luis, History obtained from patient family and records. Unable to obtain history from patient secondary to obtunded state. Medical history is significant for chronic respiratory failure 2 to COPD/SONJA on home O2, chronic diastolic heart failure (EF of 50-55%, TTE 2019) CAD/CVA as per records, AF on Coumadin, hypertension, hyperlipidemia, DM2, insulin requiring, chronic hyponatremia, pancreatic cancer status post surgery and chemotherapy, chronic renal insufficiency (baseline creatinine 1.6), chronic anemia (new baseline of 11) past tobacco and alcohol abuse, history of MRSA as per records, aspiration risk as per . Recent confinement March 2019 for hypertension, left femoral fracture secondary to mechanical fall, diabetic toe infection. Patient transferred to [facility] due to complexity of surgical procedure and multiple medical comorbidities. Patient confined to [facility] from March 28-2018. Patient underwent ORIF of left intertrochanteric left hip fracture and I&D of left foot ulcer. Subsequently discharged on Keflex. Patient discharged on Coumadin for A. fib. No concerns on recent outpatient [facility] Orthopedics follow-up visit last month. Follow-up visit scheduled in 6 to 8 weeks as per note. 2 days history of junky cough symptoms, poor appetite, decreased mentation. Patient around a sick grandchild as per . No recent travel although and son had traveled to [facility] last month. Worsening respiratory distress noted at home. Patient brought to the ER for evaluation. Patient received Vancomycin and Cefepime for sepsis. MEDICAL HISTORY: As above. SURGICAL HISTORY: He has had tonsillectomy/adenoidectomy, pancreatic cancer surgery, knee surgery, cataract surgery, foot debridement, left pleurectomy, decortication, thoracoscopy, Right femoral fracture surgery FAMILY HISTORY: Hypertension, heart disease, diabetes. PERSONAL/SOCIAL HISTORY: Past tobacco and alcohol abuse. On disability. Allergies Allergy/AdvReac Type Severity Reaction Status Date / Time bee venom protein (honey bee) Allergy Severe anaphylaxis Verified 06/27/19 02:11 lisinopril Allergy Severe Elevated Verified 06/27/19 02:11 Potassium piperacillin Allergy Severe Hives Verified 06/27/19 02:11 amlodipine AdvReac Mild Headache Verified 06/27/19 02:11 Home Medications Home Medications Medication Instructions Recorded Confirmed Type Lantus Solostar U-100 Insulin 40 unit SUBCUT BID 09/01/18 06/27/19 History albuterol sulfate 2.5 mg INHALATION Q4H PRN 09/01/18 06/27/19 History aspirin [Aspir-81] 81 mg PO DAILY 09/01/18 06/27/19 History atorvastatin 40 mg PO DAILY 09/01/18 06/27/19 History carvedilol 25 mg PO BID 09/01/18 06/27/19 History polyethylene glycol 3350 [Miralax] 17 g PO DAILY PRN 09/01/18 06/27/19 History sucralfate [Carafate] 1 g PO QID PRN 09/01/18 06/27/19 History bupropion HCl 200 mg PO DAILY 11/18/18 06/27/19 History omeprazole 20 mg PO BID 11/18/18 06/27/19 History oxycodone 5 mg PO Q4H PRN 11/18/18 06/27/19 History Creon 1 cap PO AC 03/25/19 06/27/19 History albuterol sulfate [ProAir HFA] 2 puff INHALATION Q4H PRN 03/25/19 06/27/19 History budesonide-formoterol 2 puff INHALATION HS 03/25/19 06/27/19 History docusate sodium 100 mg PO BID 03/25/19 06/27/19 History ferrous sulfate 325 mg PO DAILY 03/25/19 06/27/19 History gabapentin 200 mg PO BID PRN 03/25/19 06/27/19 History hydroxyzine HCl 25 mg PO TID PRN 03/25/19 06/27/19 History insulin aspart U-100 [Novolog 1 sliding scale dose SUBCUT AC 03/25/19 06/27/19 History U-100 Insulin aspart] tamsulosin 0.4 mg PO DAILY 03/25/19 06/27/19 History warfarin [Coumadin] 5 mg PO DIRECTED 06/27/19 06/27/19 History warfarin [Coumadin] 7.5 mg PO DIRECTED 06/27/19 06/27/19 History Past Med/Surg History Medical History Asthma, mild persistent (Chronic) CKD (chronic kidney disease), stage III (Chronic) COPD (chronic obstructive pulmonary disease) (Chronic) 4L of O2 NC at home CVA (cerebral vascular accident) (Chronic) left sided weakness Depression (Chronic) Diabetic polyneuropathy (Chronic) Diastolic CHF (Chronic) DM type 2 (diabetes mellitus, type 2) (Chronic) Dyslipidemia (Chronic) GERD (gastroesophageal reflux disease) (Chronic) Glaucoma (Chronic) Osteoarthritis (Chronic) Pancreatic cancer (Chronic) Paroxysmal atrial fibrillation (Chronic) Pericardial effusion (Chronic) PTSD (post-traumatic stress disorder) (Chronic) Recurrent left pleural effusion (Chronic) Surgical History Hx of cataract surgery (Chronic) S/P tonsillectomy and adenoidectomy (Chronic) Social History Preferred Language: Uzbek Communication Ability: Effective Legal Specialist Required: No Beliefs That Will Affect Care: None marital status: Current Living Situation: Spouse current occupational status: unemployed and disabled Feels Safe at Home: Yes Smoking Status: Former smoker Tobacco Type: cigarettes ; Do You Dip or Chew Tobacco: No ; Hx Alcohol Use: No Hx Substance Use: No Review of Systems Review of Systems: Could not be reliably obtained Physical Exam Physical Exam: GENERAL: obtunded, no respiratory distress, obese SKIN: Pallor, warm HEENT: Pale palpebral conjunctivae, no ptosis, dry buccal mucosa NECK : Supple, no tenderness CHEST : Decreased breath sounds, expiratory wheezes no tenderness HEART : Tachycardic , no obvious murmurs ABDOMEN: Some distention, nontender EXTREMITIES : Minimal LE swelling/tenderness, dressing right lower extremity, no other conspicuous deformities noted NEUROLOGIC : Obtunded , no facial asymmetry, no other gross focality Results & Data Vital Signs (Past 12 Hours) Vital Signs Temp Pulse Pulse Resp BP Pulse Ox 06/27/19 03:01 85 21 146/62 H 96 06/27/19 02:55 84 26 H 96 06/27/19 02:46 86 27 H 153/62 H 97 06/27/19 02:38 37.7 C H 06/27/19 02:30 86 26 H 145/61 H 98 06/27/19 02:15 87 30 H 163/68 H 95 06/27/19 02:01 90 19 146/71 H 97 06/27/19 02:00 89 25 H 97 06/27/19 01:45 91 H 24 96 06/27/19 01:34 95 06/27/19 01:30 100 H 24 95 06/27/19 01:15 93 H 22 97 06/27/19 01:06 92 H 19 165/74 H 95 06/27/19 00:55 39.3 C H 91 H 20 139/63 89 L Laboratory Results Laboratory Results WBC 15.82 K/uL (4.8-10.8) H 06/27/19 01:16 RBC 4.08 M/uL (4.7-6.1) L 06/27/19 01:16 Hgb 12.2 g/dL (14.0-18.0) L 06/27/19 01:16 Hct 37.1 % (42-52) L 06/27/19 01:16 MCV 90.9 fL (80-100) 06/27/19 01:16 MCH 29.9 pg (25-34) 06/27/19 01:16 MCHC 32.9 g/dL (32-36) 06/27/19 01:16 RDW Std Deviation 46.9 fL (36.4-46.3) H 06/27/19 01:16 RDW Coeff of Morenita 14.0 % (11.5-14.5) 06/27/19 01:16 Plt Count 493 K/uL (130-400) H 06/27/19 01:16 MPV 10.5 fL (7.4-10.4) H 06/27/19 01:16 Immature Gran % (Auto) 0.3 % 06/27/19 01:16 Neut % (Auto) 84.9 % 06/27/19 01:16 Lymph % (Auto) 6.0 % 06/27/19 01:16 Grady % (Auto) 5.3 % 06/27/19 01:16 Eos % (Auto) 3.2 % 06/27/19 01:16 Baso % (Auto) 0.3 % 06/27/19 01:16 Immature Gran # (Auto) 0.05 K/uL (0.00-0.02) H 06/27/19 01:16 Neut # (Auto) 13.43 K/uL (1.4-6.5) H 06/27/19 01:16 Lymph # (Auto) 0.95 K/uL (1.2-3.4) L 06/27/19 01:16 Grady # (Auto) 0.84 K/uL (0.11-0.59) H 06/27/19 01:16 Eos # (Auto) 0.50 K/uL (0-0.5) 06/27/19 01:16 Baso # (Auto) 0.05 K/uL (0-0.2) 06/27/19 01:16 PT 13.4 Seconds (9.0-12.0) H 06/27/19 01:16 INR 1.3 (0.9-1.1) H 06/27/19 01:16 APTT 32.2 Seconds (21.0-31.0) H 06/27/19 01:16 PTT Ratio 1.2 06/27/19 01:16 ABG pH 7.36 (7.35-7.45) 06/27/19 02:50 ABG pCO2 45 mmHg (35-46) 06/27/19 02:50 ABG pO2 121 mmHg (80-95) H 06/27/19 02:50 ABG HCO3 25 mmol/L (19-24) H 06/27/19 02:50 ABG O2 Saturation 98.4 % (90-95) H 06/27/19 02:50 ABG Base Excess -0.6 mEq/L (-9-1.8) 06/27/19 02:50 Afshin Test Pos (Pos) 06/27/19 02:50 Barometric Pressure Cancelled 06/27/19 01:53 Oxygen Given 3L 06/27/19 02:50 Sodium 136 mmol/L (136-145) 06/27/19 01:16 Potassium 4.2 mmol/L (3.5-5.1) 06/27/19 01:16 Chloride 103 mmol/L (98-107) 06/27/19 01:16 Carbon Dioxide 27 mmol/L (21-32) 06/27/19 01:16 Anion Gap 6.0 (3-11) 06/27/19 01:16 BUN 42 mg/dl (7-18) H 06/27/19 01:16 Creatinine 2.24 mg/dl (0.6-1.4) H 06/27/19 01:16 Est Cr Clr Drug Dosing 36.5 ml/min 06/27/19 01:16 Est GFR ( Amer) 34.6 06/27/19 01:16 Est GFR (Non-Af Amer) 29.9 06/27/19 01:16 BUN/Creatinine Ratio 18.9 (10-20) 06/27/19 01:16 Glucose 138 mg/dl (70-99) H 06/27/19 01:16 Lactate 1.2 mmol/L (0.4-2.0) 06/27/19 01:53 Calcium 8.9 mg/dl (8.5-10.1) 06/27/19 01:16 Magnesium 2.2 mg/dl (1.8-2.4) 06/27/19 01:16 Total Bilirubin 0.3 mg/dl (0.2-1) 06/27/19 01:16 AST 17 U/L (15-37) 06/27/19 01:16 ALT 21 U/L (12-78) 06/27/19 01:16 Alkaline Phosphatase 205 U/L (45-117) H 06/27/19 01:16 Troponin I < 0.015 ng/ml (0-0.045) 06/27/19 01:16 Total Protein 8.1 gm/dl (6.4-8.2) 06/27/19 01:16 Albumin 3.0 gm/dl (3.4-5.0) L 06/27/19 01:16 Globulin 5.1 gm/dl (2.5-4.0) H 06/27/19 01:16 Albumin/Globulin Ratio 0.6 (0.9-2) L 06/27/19 01:16 Procalcitonin 0.25 ng/ml (0-0.5) 06/27/19 01:16 Influenza Type A (PCR) Neg for Influ A (Neg) 06/27/19 01:05 Influenza Type B (PCR) Neg for Influ B (Neg) 06/27/19 01:[address] head initial read no acute intracranial process, involutional changes, cataract surgery Chest x-ray as per my interpretation atelectasis EKG as per my interpretation : Rate 95, NSR, normal axis, LAE, T wave flattening lateral leads
[2019-06-27] MEDS ORDERED: ERTAPENEM SODIUM 10 ML IV STA (03:28)
[2019-06-27] MEDS ORDERED: ACETAMINOPHEN 325 MG TAB PO PRN (04:37)
[2019-06-27] MEDS ORDERED: Heparin IV Standard *NO* Bolus IV STA (04:37)
[2019-06-27] MEDS ORDERED: GLUCOSE 10 TABS/TUBE PO PRN (04:37)
[2019-06-27] MEDS ORDERED: POLYETHYLENE (MIRALAX) 17 GM PACK PO PRN (04:37)
[2019-06-27] MEDS ORDERED: GLUCOSE 40% GEL 15 GM TUBE PO PRN (04:37)
[2019-06-27] MEDS ORDERED: GLUCAGON FOR INJ 1 MG VIAL SQ PRN (04:37)
[2019-06-27] MEDS ORDERED: DEXTROSE 50% 50 ML SYRINGE IV PRN (04:37)
[2019-06-27] MEDS ORDERED: DOXYCYCLINE HYCLATE 100 MG in DEXTROSE 5% 100 ML IV STA (04:37)
[2019-06-27] MEDS ORDERED: CARBOHYDRATES FOR HYPOGLYCEMIA PO PRN (04:37)
[2019-06-27] MEDS ORDERED: SUCRALFATE 1 GM TAB PO PRN (04:37)
[2019-06-27] MEDS ORDERED: ERTAPENEM CONSULT ACTIVE PRN (05:09)
[2019-06-27] MEDS: INSULIN ASPART 100 UNITS/ML 3 ML PEN SC SCH ×4 (05:21→20:37)
[2019-06-27] MEDS: HEPARIN SODIUM/DEXTROSE 25,000 UNITS/500 ML BAG IV SCH ×2 (05:35→22:52)
[2019-06-27] MEDS: carvediloL 25 MG TAB PO SCH ×2 (05:36→20:41)
[2019-06-27] MEDS: ERTAPENEM SODIUM 1,000 MG in SODIUM CHLORIDE 0.9% 50 ML IV SCH (05:47)
[2019-06-27 05:58] LABS: Estimated Average Glucose 312 mg/dl; Hemoglobin A1C 12.5 % (4.5-5.6)
--- NOTE | 2019-06-27 06:13 | CT Scan Report ---
CT head/brain wo con CT DOSE: 614.27 mGy.cm HISTORY: Mental status change ams TECHNIQUE: Multiaxial CT images of the head were performed without the use of intravenous contrast. A dose lowering technique was utilized adhering to the principles of ALARA. Comparison: 11/18/2018 Findings: The paranasal sinuses and mastoid air cells are clear. The calvarium and skull base are int act. The ventricles and sulci are within normal limits. There is no mass, hematoma, midline shift, or acute infarct. Impression: No acute intracranial abnormality. ACT 112: Negative or not required by law. The above report was generated using voice recognition software. It may contain grammatical, syntax or spelling errors. Electronically signed by: Bradley Ruth M.D. 06/27/2019 6:12 AM
--- NOTE | 2019-06-27 06:21 | XRay Report ---
XR chest 1V portable CLINICAL HISTORY: SEPSIS dyspnea COMPARISON STUDY: 11/22/2018 FINDINGS: Prominent pulmonary vasculature. Mild cardiomegaly. Central catheter in superior vena cava. IMPRESSION: Mild congestive failure. No focal infiltrate. ACT 112: Negative or not required by law. The above report was generated using voice recognition software. It may contain grammatical, syntax or spelling errors. Electronically signed by: Bradley Ruth M.D. 06/27/2019 6:19 AM
[2019-06-27] MEDS ORDERED: XOPENEX/ATROVENT 1.25mg/0.5MG NEB COMBO NEB SCH (07:00)
[2019-06-27] MEDS: LEVALBUTEROL 1.25MG/0.5ML NEB INH SCH ×3 (07:40→19:37)
[2019-06-27] MEDS: IPRATROPIUM BROMIDE NEB SOLN 0.02% 2.5 ML VIAL INH SCH ×3 (07:40→19:37)
--- NOTE | 2019-06-27 08:40 | CT Scan Report ---
CT chest wo con CT DOSE: 860.28 mGy.cm HISTORY: Dyspnea cough TECHNIQUE: Multiaxial CT images of the chest were performed without contrast. A dose lowering techni que was utilized adhering to the principles of ALARA. COMPARISON: 11/18/2018 FINDINGS: Chronic interstitial and reticular nodular changes throughout both hemithoraces. Small pare nchymal infiltrate medial aspect right lower lobe. Dependent bibasilar atelectasis with mild chronic pleural thickening. Mediastinal and hilar adenopathy considered unchanged from the prior exam. IMPRESSION: 1. Chronic interstitial and reticulonodular change. 2. Small focal infiltrate medial aspect right lower lobe and to a lesser extent posterior aspect left base. 3. Stable mediastinal and hilar adenopathy. ACT 112: Negative or not required by law. The above report was generated using voice recognition software. It may contain grammatical, syntax or spelling errors. Electronically signed by: Bradley Ruth M.D. 06/27/2019 8:38 AM
[2019-06-27] MEDS ORDERED: INSULIN GLARGINE SOLOSTAR 100 UNITS/ML 3 ML PEN SQ SCH (09:00)
[2019-06-27] MEDS ORDERED: carvediloL 25 MG TAB PO SCH (09:00)
[2019-06-27] MEDS: TAMSULOSIN HCL 0.4 MG CAP PO SCH (09:01)
[2019-06-27] MEDS: FERROUS SULFATE 325 MG TAB PO SCH (09:01)
[2019-06-27] MEDS: PANCREAZE (LIPASE 10,500U) CAP PO SCH ×3 (09:01→17:14)
[2019-06-27] MEDS: DOCUSATE SODIUM 100 MG CAP PO SCH ×2 (09:01→20:42)
[2019-06-27] MEDS: ATORVASTATIN 40 MG TAB PO SCH (09:01)
[2019-06-27] MEDS: PANTOprazole 40 MG TAB PO SCH ×2 (09:01→20:41)
[2019-06-27] MEDS: ASPIRIN 81 MG ECTAB PO SCH (09:01)
[2019-06-27] MEDS: BuPROPion SR 100 MG TABCR PO SCH (09:01)
[2019-06-27] MEDS: DOXYCYCLINE HYCLATE 100 MG CAP PO SCH ×2 (09:01→20:40)
--- NOTE | 2019-06-27 09:44 | Electrocardiogram Report ---
Test Reason : Blood Pressure : / mmHG Vent. Rate : 095 BPM Atrial Rate : 095 BPM P-R Int : 178 ms QRS Dur : 094 ms QT Int : 360 ms P-R-T Axes : 058 035 062 degrees QTc Int : 452 ms Normal sinus rhythm Possible Left atrial enlargement Borderline ECG When compared with ECG of 08-JAN-2019 15:01, LA interval has decreased Vent. rate has increased BY 32 BPM Borderline criteria for Anterior infarct are no longer Present Confirmed by Dixon Shelley ([id number]) on 06/27/2019 9:44:09 AM Referred By: REFERRED SELF Confirmed By:Dixon Shelley
[2019-06-27] MEDS ORDERED: PHARMACY GLYCEMIC MGMT CONSULT SCH (10:23)
--- NOTE | 2019-06-27 11:00 | Hospitalist Progress Note ---
Date of Service June 27, 2019 Assessment & Plan (1) Respiratory failure, acute and chronic: Presented with acute hypoxemic respiratory failure, hx chronic respiratory failure 2 to COPD/SONJA on home O2 Secondary to COPD exacerbation secondary to CAP, known aspiration risk as per patient hx MRSA Received a call from patient's Mrs. Aury Bennett, voiced concern regarding possible COVID 19 virus infection, Patient son and had traveled extensively in past few weeks, they have been to a auto show in [place] 2 weeks back Last travel was a week back in [place] for another Auto Show Patient son works at [employer] which involves him trips to [place], [place], Had multiple trips in the past few weeks Worried about their personal exposure to COVID 19 Patient's had cough, sore throat for past several days, no fever no shortness of breath Patient developed symptoms 2 days back Cough, difficulty breathing, hypoxia, So became very confused unable to recognize family member, Admitted last night in ER with acute on chronic hypoxic respiratory failure Patient started on empiric antibiotic with Azactam/and doxycycline for atypical coverage Clinically improved today, denies of any shortness of breath at rest, on 3 L nasal cannula which is his baseline No audible wheeze I had an extensive discussion with Mrs. Bennett Patient does not meet current guidelines COVID 19 testing Attempts were made for suggestive of common viral/community-acquired pneumonia, and he responded adequately with antibiotic and supportive care Mrs. Bennett is very adamant, she feels very strongly that patient should be tested for COVID 19 As it will give rest of the family a guideline whether the need to be self quarantined or not Explained to Mrs. Bennett, all family members should be practicing social distancing, handwashing There is no indication for quarentine in this situation And also testing is done on the selective patient who has typical clinical presentation or in contact with a confirmed COVID 19 positive person and last 14 days result of the testing takes approximately 7 to 10 days Patient's and son still feels strongly about the test And not doing COVID 19 testing on patient prior to discharge-hospital is taking a rodriguez-and putting the rest of the family and community at risk I will reach out to our hospital infection control/administration, and discussed the guideline for the testing, and we will update Mrs. Bennett over phone regarding the decision. COVID 19 testing not ordered chronic diastolic heart failure (EF of 50-55%, TTE 2019), patient on the dry side-due to acute illness given gentle hydration given mild elevation of CR Hx of paroxysmal A. fib Remains rate controlled On Coumadin, INR subtherapeutic Prior history of CVA, patient is ordered IV heparin bridge with Coumadin till INR is 2, continue to monitor and telemetry DM2, insulin requiring, : Poorly controlled, hemoglobin A1c more than 12 Pharmacy consulted for glycemic management traveling buyer consulted pancreatic cancer status post surgery and chemotherapy chronic anemia (new baseline of 11), hemoglobin at baseline Acute renal failure on CKD stage III: Baseline creatinine 22 .1 Creatinine mildly elevated 2.2, For gentle hydration Repeat BMP Patient follows with [facility] chemical detection expert, Nephrology will be consulted if there is worsening of renal function in spite of supportive care Open wound on foot Wound care consulted Status post recent hip surgery Patient walks with a walker PT OT eval requested Out of bed as tolerated CODE STATUS: Full code DVT prophylaxis Coumadin/IV heparin bridge until INR is therapeutic Text document was generated using [employer] voice recognition software. It may contain grammatical or spelling errors. Kindly contact undersigned for clarification of any documentation item in question. Admission and Anticipated Discharge Date Admission Date: June 27, 2019 Subjective Patient seen at bedside, States "he feels very tired" awake, alert oriented to place and person, able to answer questions appropriately Having productive cough with yellowish sputum, afebrile No audible wheeze, On 3 L oxygen via nasal cannula-at home setting oxygen Complains of hip pain, which has been chronic Stable vitals Review of Systems Review of Systems: All systems reviewed & are unremarkable except as noted in HPI & below Constitutional: + fatigue and + malaise; no fever and no chills Respiratory: + cough and + sputum production; no dyspnea Physical Exam Constitutional: WD/WN, vitals as above + ill appearing Eyes: PERRL, conjunctivae normal, anicteric sclerae ENMT: external ear and nose normal, oropharynx normal Respiratory: + cough Auscultation: + crackles and + rales Cardiovascular: Rate/Rhythm: + abnormal rhythm Gastrointestinal (Abdomen): Inspection/Auscultation: normal bowel sounds Percussion/Palpation: abdomen soft; abdomen nontender Musculoskeletal: no cyanosis or clubbing, extremities motor strength 5/5 Ankle: no deformity and no skin erythema (Prior right heel/foot ulcer completely healed, no open wound noted) Neurologic: PERRL, EOMI, accommodation nl, no face palsy, no dysarthria Psychiatric: A+Ox3, euthymic affect Results & Data ([facility]) Vital Signs (Past 12 Hours) Vital Signs Temp Pulse Pulse Resp BP BP BP 06/27/19 07:40 78 16 06/27/19 07:35 37.1 C 75 20 152/68 H 06/27/19 07:26 76 06/27/19 06:47 81 06/27/19 04:15 37 C 82 18 168/73 H 06/27/19 04:00 81 20 135/61 06/27/19 03:45 80 30 H 133/61 06/27/19 03:30 82 28 H 134/62 06/27/19 03:15 83 29 H 134/59 L 06/27/19 03:01 85 21 146/62 H 06/27/19 02:55 84 26 H 06/27/19 02:46 86 27 H 153/62 H 06/27/19 02:38 37.7 C H 06/27/19 02:30 86 26 H 145/61 H 06/27/19 02:15 87 30 H 163/68 H 06/27/19 02:01 90 19 146/71 H 06/27/19 02:00 89 25 H 06/27/19 01:45 91 H 24 06/27/19 01:34 06/27/19 01:30 100 H 24 06/27/19 01:15 93 H 22 06/27/19 01:06 92 H 19 165/74 H 06/27/19 00:55 39.3 C H 91 H 20 139/63 Pulse Ox 06/27/19 07:40 97 06/27/19 07:35 96 06/27/19 07:26 06/27/19 06:47 06/27/19 04:15 98 06/27/19 04:00 92 06/27/19 03:45 94 06/27/19 03:30 91 06/27/19 03:15 90 06/27/19 03:01 96 06/27/19 02:55 96 06/27/19 02:46 97 06/27/19 02:38 06/27/19 02:30 98 06/27/19 02:15 95 06/27/19 02:01 97 06/27/19 02:00 97 06/27/19 01:45 96 06/27/19 01:34 95 06/27/19 01:30 95 06/27/19 01:15 97 06/27/19 01:06 95 06/27/19 00:55 89 L
--- NOTE | 2019-06-27 11:28 | Pharmacy Report ---
Glycemic Control Consultation - Date of Service June 27, 2019 - Scope Scope: Glycemic Pharmacist consulted for glycemic control and to write orders per [facility] inpatient glycemic control protocol. - Objective Weight: 102.6 kg Accuchecks BSG (last 24hrs): 06/27/19 06/27/19 06/27/19 01:16 04:57 07:34 Glucose 138 H POC Glucose 115 H 175 H Laboratory Data (last 24hrs): 06/27/19 01:16 Potassium 4.2 Carbon Dioxide 27 Anion Gap 6.0 Creatinine 2.24 H Est Cr Clr Drug Dosing 36.5 HbA1c: Hemoglobin A1c 12.5 % (4.5-5.6) H 06/27/19 01:16 - Recent Pertinent Medications Outpatient Anti-diabetic Regimen: * Lantus 40 units SQ BID * Novolog SS * A1c = 12.5 % 06/27/19 - (note pt w/ chronic anemia) The patient is currently receiving: * Basal insulin: Lantus 10 units every 12 hours * Correctional Insulin: Novolog Correction per scale ACHS Goal Range: Low 140 mg/dL - High 180 mg/dL Correction Factor: 25 mg/dL/unit * Prandial insulin: Per carb ratio of 1 unit per 15 grams CHO consumed Risk Factors for Insulin Resistance: * Infection: IV Ertapenem * Diet: Type 2 DM - Assessment & Plan Assessment & Plan: ASSESSMENT: * 63 year old male admitted with sepsis, pneumonia on IV ertapenem. * Type 2 diabetic, uncontrolled, known to pharmacy glycemic service from previous admissions. * Will begin with similar insulin doses as previous admission and titrate to goal. * ADA & AACE recommend a goal blood sugar range 140-180 mg/dl for the majority of critically ill & non-critically ill patients. However, more stringent targets may be selected in individual cases. Will utilize more stringent goal of 110-140mg/dl based on patient age & comorbidities. Additionally, tighter glycemic control is warranted to facilitate wound/infection healing. PLAN FOR INPATIENT GLYCEMIC CONTROL: * Increasing Lantus: 15 units x 1 dose now at 1130 then SQ BID * BSG < 120mg/dl - 15 units * BSG 120-200mg/dl - 25 units * BSG > 200mg/dl - 30 units * Change correction factor to 15 mg/dl/unit * Change carb ratio to 1 unit per 5 grams CHO consumed * Change goal range to Low 110 mg/dL - High 140 mg/dL * Please note that the plan above was derived based on current level of insulin resistance and hospital stress. These recommendations are appropriate for inpat ient admission only. Plan of care upon discharge will need to be reassessed to avoid potential outpatient hypo/hyperglycemia. Thank you.
[2019-06-27] MEDS ORDERED: INSULIN GLARGINE SOLOSTAR 100 UNITS/ML 3 ML PEN SC ONE (11:30)
[2019-06-27 12:18] LABS: Partial Thromboplastin Ratio 2.4
[2019-06-27 12:50] LABS: Partial Thromboplastin Time 67.2 Seconds (21.0-31.0)
[2019-06-27] MEDS: WARFARIN SOD 5 MG TAB PO SCH (17:12)
[2019-06-27 18:48] LABS: Appearance Urine Clear (Clear); Bacteria Urine Automated Negative (Negative); Bilirubin Urine Negative (Negative); Blood Urine Trace (Negative); Color Urine Yellow; Glucose Urine UA 2+ (Negative); Ketones Urine Negative (Negative); Leukocyte Esterase Urine Negative (Negative); Nitrite Urine Negative (Negative); Protein Urine 3+ (Negative); Specific Gravity Urine 1.016 (1.000-1.030); Urobilinogen Urine Negative (Negative); pH Urine 5.5 (4.5-7.5)
[2019-06-27 19:05] LABS: Amphetamines+Metham, Urine Neg (Neg); Barbiturates, Urine Neg (Neg); Benzodiazepine, Urine Neg (Neg); Cocaine, Urine Neg (Neg); MDMA (Ecstacy), Urine Pos (Neg); Methadone, Urine Neg (Neg); Opiate, Urine Neg (Neg); Phencyclidine, Urine Neg (Neg)
[2019-06-27 20:17] LABS: Partial Thromboplastin Time 82.6 Seconds (21.0-31.0)
[2019-06-27] MEDS: INSULIN GLARGINE SOLOSTAR 100 UNITS/ML 3 ML PEN SQ SCH (20:39)
[2019-06-27] MEDS: OXYCODONE HCL IR 5 MG TAB (IMMEDIATE RELEASE) PO PRN (23:26)
[2019-06-28] MEDS: LEVALBUTEROL 1.25MG/0.5ML NEB INH SCH ×6 (00:54→23:37)
[2019-06-28] MEDS: IPRATROPIUM BROMIDE NEB SOLN 0.02% 2.5 ML VIAL INH SCH ×5 (00:54→23:37)
[2019-06-28] MEDS ORDERED: HEPARIN 100 UNIT/ML 5ML FLUSH FLUSH PRN (03:17)
[2019-06-28 03:25] LABS: Basophils # (auto) 0.03 K/uL (0-0.2); Basophils % (auto) 0.3 %; Eosinophils # (auto) 0.09 K/uL (0-0.5); Eosinophils % (auto) 0.8 %; Hemoglobin 9.9 g/dL (14.0-18.0); Immature Granulocytes # (auto) 0.03 K/uL (0.00-0.02); Immature Granulocytes % (auto) 0.3 %; Lymphocytes # (auto) 1.15 K/uL (1.2-3.4); Lymphocytes % (auto) 10.8 %; Mean Corpuscular Hemoglobin 28.7 pg (25-34); Mean Corpuscular Hgb Conc 31.9 g/dL (32-36); Mean Corpuscular Volume 89.9 fL (80-100); Mean Platelet Volume 10.3 fL (7.4-10.4); Monocytes % (auto) 8.5 %; Neutrophils # (auto) 8.45 K/uL (1.4-6.5); Neutrophils % (auto) 79.3 %; Platelet Count 402 K/uL (130-400); RDW Coefficient of Variation 14.5 % (11.5-14.5); RDW Standard Deviation 47.9 fL (36.4-46.3); Red Blood Count 3.45 M/uL (4.7-6.1); White Blood Count 10.65 K/uL (4.8-10.8)
[2019-06-28 03:47] LABS: BUN Creatinine Ratio 22.3 (10-20); Calcium 8.5 mg/dl (8.5-10.1); Creatinine Clr Calc Pharmacy 43.1 ml/min; Est GFR (Non-African American) 36.2; Potassium 4.1 mmol/L (3.5-5.1)
[2019-06-28 03:52] LABS: INR 1.5 (0.9-1.1); Prothrombin Time 15.1 Seconds (9.0-12.0)
[2019-06-28] MEDS: GUAIFENESIN/DEXTROM SYRUP 200MG/20MG 10ML UDC PO PRN ×2 (04:15→16:07)
[2019-06-28 04:42] LABS: Partial Thromboplastin Time 82.6 Seconds (21.0-31.0)
[2019-06-28] MEDS: ERTAPENEM SODIUM 1,000 MG in SODIUM CHLORIDE 0.9% 50 ML IV SCH (05:54)
[2019-06-28] MEDS: HEPARIN SODIUM/DEXTROSE 25,000 UNITS/500 ML BAG IV SCH (07:09)
[2019-06-28] MEDS: PROMETHAZINE HCL 12.5 MG in SODIUM CHLORIDE 0.9% 50 ML IV PRN ×2 (07:38→19:50)
[2019-06-28] MEDS: PANCREAZE (LIPASE 10,500U) CAP PO SCH ×3 (07:58→16:11)
[2019-06-28] MEDS: DOCUSATE SODIUM 100 MG CAP PO SCH ×2 (08:00→21:43)
[2019-06-28] MEDS: FERROUS SULFATE 325 MG TAB PO SCH (08:00)
[2019-06-28] MEDS: ASPIRIN 81 MG ECTAB PO SCH (08:00)
[2019-06-28] MEDS: TAMSULOSIN HCL 0.4 MG CAP PO SCH (08:00)
[2019-06-28] MEDS: carvediloL 25 MG TAB PO SCH ×2 (08:00→20:31)
[2019-06-28] MEDS: ATORVASTATIN 40 MG TAB PO SCH (08:00)
[2019-06-28] MEDS: DOXYCYCLINE HYCLATE 100 MG CAP PO SCH (08:01)
[2019-06-28] MEDS: PANTOprazole 40 MG TAB PO SCH ×2 (08:01→20:31)
[2019-06-28] MEDS: BuPROPion SR 100 MG TABCR PO SCH (08:01)
[2019-06-28] MEDS: INSULIN GLARGINE SOLOSTAR 100 UNITS/ML 3 ML PEN SQ SCH ×2 (08:58→20:33)
[2019-06-28] MEDS: INSULIN ASPART 100 UNITS/ML 3 ML PEN SC SCH ×4 (08:58→20:31)
[2019-06-28] MEDS ORDERED: predniSONE 20 MG TAB PO SCH (09:00)
[2019-06-28] MEDS: AZITHROMYCIN 250 MG TAB PO SCH (10:27)
[2019-06-28 11:42] LABS: Partial Thromboplastin Ratio 1.6
[2019-06-28 11:55] LABS: Partial Thromboplastin Time 45.7 Seconds (21.0-31.0)
[2019-06-28] MEDS ORDERED: HEPARIN IV BOLUS 3,000 UNITS in SYRINGE 0 ML IV ONE (12:03)
--- NOTE | 2019-06-28 15:40 | XRay Report ---
XR chest 1V portable CLINICAL HISTORY: SOB COMPARISON STUDY: 06/27/2019 FINDINGS: The heart is mildly enlarged. There is a left-sided A-Port catheter. There is slight progre ssion in bilateral pulmonary airspace opacities. While likely representing pulmonary vascular congest ion superimposed on chronic lung disease, an acute infectious/inflammatory process could appear simil ar.[There are no significant pleural effusions. IMPRESSION: 1. Slight progression in the bilateral pulmonary opacities. While likely representing pulmonary vascu lar congestion superimposed on chronic lung disease, an acute infectious/inflammatory processes could appear similar ACT 112: Negative or not required by law. Electronically signed by: Chris Cid M.D. 06/28/2019 3:39 PM
--- NOTE | 2019-06-28 16:00 | Hospitalist Progress Note ---
Date of Service June 28, 2019 Assessment & Plan (1) Respiratory failure, acute and chronic: 06/28/2019 Patient is respiratory status worsened today, developed shortness of breath, respiratory distress Reports of not able to take deep breath, chest tightness/heaviness Audible wheeze noted Found to be hypoxic in 4 L oxygen via nasal cannula, oxygen supply increased to 6 L with SPO2 92% Start portable chest x-ray shows progression of bilateral pulmonary congestion/infiltration compared to yesterday's 06/27/2019 chest x-ray Ordered for stat proBNP/ABG and bio fire panel Pulmonology consulted Case discussed with on-call apprentice pattern maker Dr. Simpson Patient is ordered 40 mg IV Lasix stat Be Solu-Medrol 40 mg IV x1 now and every 8 hours Patient will be placed on BiPAP 16/6 FiO2 50% And will be evaluated by pulmonology team Continue with Zithromax/cefdinir With any progression/worsening of respiratory status, low threshold to transfer to ICU Presented with acute hypoxemic respiratory failure, hx chronic respiratory failure 2 to COPD/SONJA on home O2 Secondary to COPD exacerbation secondary to CAP, known aspiration risk as per patient hx of MRSA Speech pathology evaluation appreciated no aspiration noted, IV Invanz discontinued, antibiotic changed to p.o. cefdinir patient's Mrs. Aury Bennett, voiced concern regarding possible COVID 19 virus infection-due to exposure from family members Patient son and had traveled extensively in past few weeks-for Auto [employer]ctions -was in [place], [place], [place], [place] Last travel was a week back in [place] for another car Auction Worried about their personal exposure to COVID 19 Patient's had cough, sore throat for past several days, no fever no shortness of breath Patient developed symptoms 2 days back Cough, difficulty breathing, hypoxia-leading to ER visit and hospital admission Metabolic encephalopathy/confusion Patient was confused at home, his mentions that he could not recognize any family members, Was very disoriented, Possible metabolic encephalopathy secondary to hypoxia, pulmonary infection/pneumonia CT head noncontrast: No acute change Patient's mental status improved since admission after respiratory support with supplemental oxygen, nebulizer treatment, antibiotic therapy Was found to be awake alert oriented x3, conversing appropriately, No confusion noted COPD exacerbation Expiratory wheeze with very poor air intake noted on auscultation, as patient developed respiratory distress Ordered for neb treatment, IV Solu-Medrol Pulmonology consulted Discussed with pulmonology, patient was placed on BiPAP for respiratory support chronic diastolic heart failure (EF of 50-55%, TTE 2019), Possible decompensation of diastolic heart failure HFpEF -secondary to respiratory distress/hypoxia Worsening of respiratory distress, chest x-ray showed pulmonary congestion Ordered for stat proBNP Lasix 40 mg IV x1 stat Ordered for BiPAP Hx of paroxysmal A. fib Remains rate controlled On Coumadin, INR subtherapeutic Prior history of CVA, patient is ordered IV heparin bridge with Coumadin till INR is 2, continue to monitor and telemetry DM2, insulin requiring, : Poorly controlled, hemoglobin A1c more than 12 Pharmacy consulted for glycemic management inclusion paraeducator consulted pancreatic cancer status post surgery and chemotherapy On remission for the past 2-3 years chronic anemia (new baseline of 11), hemoglobin at baseline Acute renal failure on CKD stage III: Baseline creatinine 22 .1 Creatinine 1.9 today, order for Lasix 40 mg IV stat for possible decompensated CHF Repeat BMP 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, Nephrology will be consulted if there is worsening of renal function in spite of supportive care History of infected wound on rt foot/heel Well-healed, no open wound noted Wound care consulted Ordered for waffle boot, offloading Status post recent hip surgery Patient walks with a walker PT OT eval requested Out of bed as tolerated CODE STATUS: Full code DVT prophylaxis Coumadin/IV heparin bridge until INR is therapeutic Disposition: Continue to monitor in telemetry, Low threshold to ICU transfer with any evidence of progression of respiratory failure Text document was generated using [employer] voice recognition software. It may contain grammatical or spelling errors. Kindly contact undersigned for clarification of any documentation item in question. Admission and Anticipated Discharge Date Admission Date: June 27, 2019 Subjective Patient was found to be in acute respiratory distress, very hypoxic, unable to speak in complete sentence Saying " he cannot breathe," reports of chest heaviness/chest tightness Using accessory muscles to breathe SPO2 in low 90s on 4 L oxygen via nasal cannula Oxygen increased increased to 6 L with SPO2 increment noted to be 93% Patient received nebulizer treatment 2 hours earlier, very diminished air entry/expiratory wheeze noted Ordered for stat neb treatment Stat portable chest x-ray shows progression of bilateral pulmonary infiltrate versus congestion Stat ABG ordered Pulmonology consult requested Review of Systems Review of Systems: All systems reviewed & are unremarkable except as noted in HPI & below Constitutional: In respiratory distress Respiratory: + cough, + chest congestion, + dyspnea, + wheezing and + problem reported (Shortness of breath) Physical Exam Constitutional: WD/WN, vitals as above + acute distress (Due to shortness of breath), + ill appearing and + obese Eyes: PERRL, conjunctivae normal, anicteric sclerae ENMT: external ear and nose normal, oropharynx normal Respiratory: + respiratory distress, + uses accessory muscles, + cough and able to speak in complete sentences Auscultation: + diminished lung sounds (Very diminished air entry), + crackles, + rales and + wheezes Cardiovascular: Rate/Rhythm: + abnormal rhythm Gastrointestinal (Abdomen): Inspection/Auscultation: normal bowel sounds Percussion/Palpation: abdomen soft; abdomen nontender Musculoskeletal: no cyanosis or clubbing, extremities motor strength 5/5 Ankle: no deformity and no skin erythema (Prior right heel/foot ulcer completely healed, no open wound noted) Neurologic: PERRL, EOMI, accommodation nl, no face palsy, no dysarthria Psychiatric: Orientation: alert and oriented x 3 Affect: + anxious affect Results & Data ([facility]) Vital Signs (Past 12 Hours) Vital Signs Temp Pulse Pulse Resp BP BP Pulse Ox 06/28/19 15:53 73 19 95 06/28/19 14:58 36.9 C 78 19 150/72 H 90 06/28/19 13:37 79 18 95 06/28/19 11:26 37.5 C 78 20 149/69 H 91 06/28/19 08:00 91 H 06/28/19 07:24 85 16 97 06/28/19 07:23 36.9 C 83 20 161/73 H 91 06/28/19 04:33 36.7 C 83 20 157/[address] chest noncontrast 06/27/2019: IMPRESSION: 1. Chronic interstitial and reticulonodular change. 2. Small focal infiltrate medial aspect right lower lobe and to a lesser extent posterior aspect left base. 3. Stable mediastinal and hilar adenopathy. Chest x-ray 06/28/2019 IMPRESSION: 1. Slight progression in the bilateral pulmonary opacities. While likely representing pulmonary vascular congestion superimposed on chronic lung disease, an acute infectious/inflammatory processes could appear similar
[2019-06-28 16:04] LABS: Base Excess ABG -0.6 mEq/L (-9-1.8); HCO3 ABG 25 mmol/L (19-24); Oxygen Saturation ABG 94.8 % (90-95); PCO2 ABG 43 mmHg (35-46); PO2 ABG 72 mmHg (80-95); pH ABG 7.38 (7.35-7.45)
[2019-06-28 16:05] LABS: Allen Test Pos (Pos)
[2019-06-28] MEDS: WARFARIN SOD 5 MG TAB PO SCH ×2 (16:10→20:31)
[2019-06-28] MEDS ORDERED: FUROSEMIDE 20 MG in SYRINGE 0 ML IV ONE (16:15)
[2019-06-28] MEDS ORDERED: FUROSEMIDE 40 MG in SYRINGE 0 ML IV ONE (16:30)
[2019-06-28] MEDS ORDERED: methylPREDNISolone 40 MG in SYRINGE 0 ML IV ONE (16:30)
--- NOTE | 2019-06-28 17:14 | Hospitalist Progress Note ---
Date of Service June 28, 2019 Assessment & Plan Admission and Anticipated Discharge Date Admission Date: June 27, 2019 Subjective Attending addendum: Patient reassessed/follow-up visit for respiratory distress noted earlier : On BiPAP, appears to be much comfortble mentions that he feels much better, no respiratory distress, noted Patient is not tachycardic or tachypneic Able to speak with complete sentence ABG noted pH 7.38/PCO2 43/PO2 72/bicarb 25/5 L oxygen via nasal cannula Hypoxemic respiratory failure due to possible secondary to combination of acute COPD exacerbation/bilateral pneumonia/decompensated CHF proBNP elevated 6422 Patient is ordered 40 mg IV Lasix placed on Bipap 16/6 , Fio2 50 % -will cont on Bipap overnight pulmonology consulted and case discussed with regulatory consultant exterior designer already Continue to monitor hemodynamics closely Repeat chest x-ray ordered in [facility] cardiology consulted, patient is known to Dr. Grant Patient's Mrs. Liliana Bennett very concerned about pt's change is status /SOB and heart failure In the past patient has declined very rapidly, insists that patient needs to be seen by a regional sales coordinator right now and then transferred to [facility] under cardiology service Discussed the case with Dr. Grant Patient has chronic diastolic heart failure, possible decompensation secondary to hypoxemic respiratory failure, patient also received low-dose IV fluids for acute renal failure Cardiology agrees with IV Lasix Continue to monitor strict input and output, Dr. Gratn reviewed patient chart , and spoke with patient's over the phone No indication to transfer patient to a higher level of care- as patient is improving , responding adequately with diuretics therapy [employer] result came back positive for Human Metapneumovir PCR Discussed with Janet Schaeffer infectious disease Dr.Taesung Knutson -updated regarding Pts respiratory status and contact risk for COVID 19 through family members As [employer] positive for Human Metapneumovir PCR , it is highly unlikely pt can have 2 different viral infection simultaneously Risk for COVID 19 infection extremely low As per current guideline patient does not need to be tested for COVID 19 Patient's updated over the phone, agrees with the recommendation will update Night time regulatory consultant hospitalist Mrs Liliana Bennett # [phone] wants to have update with any change of pt;s status Cici Blandon MD Results & Data ([facility]) Vital Signs (Past 12 Hours) Vital Signs Temp Pulse Pulse Resp BP BP Pulse Ox 06/28/19 16:31 77 24 97 06/28/19 15:53 73 19 95 06/28/19 14:58 36.9 C 78 19 150/72 H 90 06/28/19 13:37 79 18 95 06/28/19 11:26 37.5 C 78 20 149/69 H 91 06/28/19 08:00 91 H 06/28/19 07:24 85 16 97 06/28/19 07:23 36.9 C 83 20 161/73 H 91
[2019-06-28 17:32] LABS: Adenovirus PCR Not Detected (NotDetected); Coronavirus 229E PCR Not Detected (NotDetected); Coronavirus HKU1 PCR Not Detected (NotDetected); Coronavirus NL63 PCR Not Detected (NotDetected); Coronavirus OC43PCR Not Detected (NotDetected); Rhinovirus/Enterovirus PCR Not Detected (NotDetected)
[2019-06-28 17:33] LABS: Bordetella parapertussis PCR Not Detected (NotDetected); Bordetella pertussis PCR Not Detected (NotDetected); Chlamydia pneumoniae PCR Not Detected (NotDetected); Human Metapneumovirus PCR DETECTED (NotDetected); Influenza A PCR Not Detected (NotDetected); Influenza B PCR Not Detected (NotDetected); Mycoplasma pneumoniae PCR Not Detected (NotDetected); Parainfluenza Virus 1 PCR Not Detected (NotDetected); Parainfluenza Virus 2 PCR Not Detected (NotDetected); Parainfluenza Virus 3 PCR Not Detected (NotDetected); Parainfluenza Virus 4 PCR Not Detected (NotDetected); Respiratory Syncytial VirusPCR Not Detected (NotDetected)
[2019-06-28] MEDS ORDERED: ALBUTEROL HFA 8 GM INHALER INH PRN (19:00)
[2019-06-28 19:07] LABS: Partial Thromboplastin Ratio 2.3
[2019-06-28 19:10] LABS: Partial Thromboplastin Time 65.1 Seconds (21.0-31.0)
--- NOTE | 2019-06-28 19:45 | Communication Note ---
Date of Service: June 28, 2019 Dr. Blandon (AM provider) requested resumption of home oral torsemide regimen. Ertapenem reinitiated due to worsening bilateral infiltrates on CXR in light of aspiration risk as per patient's account. Patient later requested [facility] telemetry charge nurse to to ask undersigned to transfer patient to PCU for closer monitoring.
[2019-06-28] MEDS: FLUTICASONE/VILANTEROL 100/25MCG 14 PUFFS/INHALER INH SCH (20:34)
[2019-06-28] MEDS: TORSEMIDE 10 MG TAB PO SCH (21:43)
[2019-06-28] MEDS ORDERED: ALBUMIN 25% 50 ML with FUROSEMIDE 20 MG IV ONE (22:00)
[2019-06-28] MEDS: OXYCODONE HCL IR 5 MG TAB (IMMEDIATE RELEASE) PO PRN (22:51)
[2019-06-29] MEDS: methylPREDNISolone 40 MG in SYRINGE 0 ML IV SCH ×3 (00:23→17:00)
[2019-06-29] MEDS: IPRATROPIUM BROMIDE NEB SOLN 0.02% 2.5 ML VIAL INH SCH ×6 (03:22→23:44)
[2019-06-29] MEDS: LEVALBUTEROL 1.25MG/0.5ML NEB INH SCH ×6 (03:23→23:44)
[2019-06-29] MEDS: ERTAPENEM SODIUM 1,000 MG in SODIUM CHLORIDE 0.9% 50 ML IV SCH (05:50)
[2019-06-29] MEDS: HEPARIN SODIUM/DEXTROSE 25,000 UNITS/500 ML BAG IV SCH (06:29)
[2019-06-29 07:26] LABS: Basophils # (auto) 0.01 K/uL (0-0.2); Basophils % (auto) 0.1 %; Hematocrit (blood only) 31.6 % (42-52); Immature Granulocytes # (auto) 0.02 K/uL (0.00-0.02); Immature Granulocytes % (auto) 0.2 %; Lymphocytes # (auto) 0.53 K/uL (1.2-3.4); Lymphocytes % (auto) 5.4 %; Mean Corpuscular Hemoglobin 28.5 pg (25-34); Mean Corpuscular Hgb Conc 31.6 g/dL (32-36); Mean Platelet Volume 10.3 fL (7.4-10.4); Monocytes # (auto) 0.16 K/uL (0.11-0.59); Monocytes % (auto) 1.6 %; Neutrophils # (auto) 9.06 K/uL (1.4-6.5); Neutrophils % (auto) 92.7 %; Platelet Count 412 K/uL (130-400); RDW Coefficient of Variation 14.6 % (11.5-14.5); RDW Standard Deviation 47.7 fL (36.4-46.3); Red Blood Count 3.51 M/uL (4.7-6.1); White Blood Count 9.78 K/uL (4.8-10.8)
--- NOTE | 2019-06-29 07:27 | XRay Report ---
XR chest 1V portable HISTORY: Shortness of breath. COMPARISON: Chest 06/28/2019. FINDINGS: No pneumothorax. Cardiomegaly, bilateral airspace opacities, and trace bilateral pleural ef fusions have progressed. Left jugular Port-A-Cath terminates at the distal SVC. IMPRESSION: Interval progression of the bilateral airspace opacities and trace bilateral pleural effusions. This favors progressive pulmonary edema or pneumonia. ACT 112: Negative or not required by law. Electronically signed by: Darrell Shultz M.D. 06/29/2019 7:25 AM
[2019-06-29] MEDS: INSULIN ASPART 100 UNITS/ML 3 ML PEN SC SCH ×4 (07:52→21:56)
[2019-06-29] MEDS: INSULIN GLARGINE SOLOSTAR 100 UNITS/ML 3 ML PEN SQ SCH ×2 (07:54→20:53)
[2019-06-29] MEDS: ATORVASTATIN 40 MG TAB PO SCH (07:55)
[2019-06-29] MEDS: DOCUSATE SODIUM 100 MG CAP PO SCH ×2 (07:55→21:52)
[2019-06-29] MEDS: PANCREAZE (LIPASE 10,500U) CAP PO SCH ×3 (07:55→17:01)
[2019-06-29] MEDS: TORSEMIDE 10 MG TAB PO SCH (07:56)
[2019-06-29] MEDS: ASPIRIN 81 MG ECTAB PO SCH (07:56)
[2019-06-29] MEDS: TAMSULOSIN HCL 0.4 MG CAP PO SCH (07:56)
[2019-06-29] MEDS: AZITHROMYCIN 250 MG TAB PO SCH (07:57)
[2019-06-29] MEDS: FERROUS SULFATE 325 MG TAB PO SCH (07:57)
[2019-06-29] MEDS: BuPROPion SR 100 MG TABCR PO SCH (07:57)
[2019-06-29 07:59] LABS: Albumin Level 2.5 gm/dl (3.4-5.0); BUN Creatinine Ratio 22.5 (10-20); Calcium 8.6 mg/dl (8.5-10.1); Creatinine Clr Calc Pharmacy 48.6 ml/min; Est GFR (Non-African American) 42.3; Potassium 4.1 mmol/L (3.5-5.1)
[2019-06-29 08:02] LABS: Albumin Globulin Ratio 0.5 (0.9-2); Bilirubin,Total 0.2 mg/dl (0.2-1); Globulin 4.6 gm/dl (2.5-4.0); Total Protein 7.1 gm/dl (6.4-8.2)
[2019-06-29] MEDS: OXYCODONE HCL IR 5 MG TAB (IMMEDIATE RELEASE) PO PRN ×2 (08:32→20:50)
[2019-06-29] MEDS: PANTOprazole 40 MG TAB PO SCH ×2 (08:32→20:50)
[2019-06-29] MEDS: carvediloL 25 MG TAB PO SCH ×2 (08:33→20:50)
[2019-06-29] MEDS ORDERED: CEFDINIR 300 MG CAP PO SCH (09:00)
[2019-06-29] MEDS ORDERED: ERTAPENEM CONSULT ACTIVE PRN (09:00)
[2019-06-29] MEDS ORDERED: FUROSEMIDE 40 MG in SYRINGE 0 ML IV SCH ×2 (09:00→18:30)
[2019-06-29 09:04] LABS: INR 1.9 (0.9-1.1); Partial Thromboplastin Ratio 2.5; Prothrombin Time 19.1 Seconds (9.0-12.0)
[2019-06-29 09:22] LABS: Partial Thromboplastin Time 69.2 Seconds (21.0-31.0)
--- NOTE | 2019-06-29 10:35 | Hospitalist Progress Note ---
Date of Service June 29, 2019 Assessment & Plan (1) Respiratory failure, acute and chronic: Multifactorial: Community-acquired pneumonia pneumonia with positive viral PCR for human metapneumovirus/acute COPD exacerbation/decompensated heart failure with diastolic dysfunction leading to volume overload Clinically much improved today No respiratory distress noted Patient is awake and alert conversant Appreciate input from pulmonology Patient will be continued with IV Solu-Medrol 40 mg 3 times daily Continue respiratory support On empiric antibiotic with IV Invanz and Zithromax If patient continues to do well clinically, will change to p.o. Zithromax and cefdinir tomorrow total 5 days of treatment will be appropriate Patient does not meet criteria for COVID 19 testing as per CDC guideline case discussed with infectious disease specialist at [facility], as patient is positive for viral PCR human metapneumovirus, clinical presentation suggestive of COPD exacerbation decompensated CHF recommends COVID 19 testing not indicated Patient continues to do well with supportive care and management as outlined above Acute decompensation of diastolic dysfunction chronic diastolic heart failure (EF of 50-55%, TTE 2018), Developed decompensates heart failure HFpEF Worsening of respiratory distress, chest x-ray showed pulmonary congestion proBNP elevated more than 4000 Patient treated with 40 mg of IV Lasix/BiPAP overnight Appreciate input from cardiology Continue with IV diuresis with Lasix 40 twice daily Hold home diuretics metolazone/torsemide while getting IV Lasix Metabolic encephalopathy/confusion Resolved Patient's mental status improved since admission after respiratory support with supplemental oxygen, nebulizer treatment, antibiotic therapy Was found to be awake alert oriented x3, conversing appropriately, No confusion noted Patient was confused at home, his mentions that he could not recognize any family members, Was very disoriented, Possible metabolic encephalopathy secondary to hypoxia, pulmonary infection/pneumonia CT head noncontrast: No acute change COPD exacerbation Continue nebulizer treatment IV Solu-Medrol Empiric antibiotic with IV Invanz, Zithromax Appreciate input from pulmonology Hx of paroxysmal A. fib Remains rate controlled On Coumadin, INR 1.9 today IV heparin discontinued continue on p.o. Coumadin goal INR 23 DM2, insulin requiring, : Poorly controlled, hemoglobin A1c more than 12 Pharmacy consulted for glycemic management nutrition educator consulted pancreatic cancer status post surgery and chemotherapy On remission for the past 2-3 years chronic anemia (new baseline of 11), hemoglobin at baseline Acute renal failure on CKD stage III: Patient started with IV Lasix diuretics for volume overload, decompensated CHF Monitor BMP daily Nephrology consulted, History of infected wound on rt foot/heel Well-healed, no open wound noted Wound care consulted Ordered for waffle boot, offloading Status post recent hip surgery Patient walks with a walker PT OT eval requested Out of bed as tolerated CODE STATUS: Full code DVT prophylaxis Coumadin Disposition: Continue to monitor in telemetry, update Given to patient's Liliana Bennett Text document was generated using [employer] voice recognition software. It may contain grammatical or spelling errors. Kindly contact undersigned for clarification of any documentation item in question. Admission and Anticipated Discharge Date Admission Date: June 27, 2019 Subjective Patient is seen and examined at bedside, Feels much better today, awake and alert, denies of any shortness of breath or orthopnea Was on BiPAP last night, no acute event Has cough, no fever or chills Treated oxygen via nasal cannula, which is patient's baseline Speaking in complete sentences, no respiratory distress or discomfort noted Review of Systems Review of Systems: All systems reviewed & are unremarkable except as noted in HPI & below Constitutional: no fever and no chills Respiratory: + cough; no dyspnea, no dyspnea on exertion and no wheezing Cardiovascular: no orthopnea, no palpitations, no lightheadedness, no syncope and no edema Gastrointestinal: no abdominal pain, no nausea and no vomiting Physical Exam Constitutional: WD/WN, vitals as above + obese; no acute distress (Due to shortness of breath) Eyes: PERRL, conjunctivae normal, anicteric sclerae ENMT: external ear and nose normal, oropharynx normal Respiratory: normal respiratory effort, + cough and able to speak in complete sentences; no respiratory distress and no audible wheezes Auscultation: + wheezes; no crackles and no rales Cardiovascular: Rate/Rhythm: + abnormal rhythm Gastrointestinal (Abdomen): Inspection/Auscultation: normal bowel sounds Percussion/Palpation: abdomen soft; abdomen nontender Musculoskeletal: no cyanosis or clubbing, extremities motor strength 5/5 Ankle: no deformity and no skin erythema (Prior right heel/foot ulcer completely healed, no open wound noted) Neurologic: PERRL, EOMI, accommodation nl, no face palsy, no dysarthria Psychiatric: A+Ox3, euthymic affect Orientation: alert and oriented x 3 Results & Data ([facility]) Vital Signs (Past 12 Hours) Vital Signs Temp Pulse Pulse Pulse Resp BP Pulse Ox 06/29/19 08:00 36.8 C 76 20 162/83 H 95 06/29/19 07:22 68 06/29/19 07:17 73 18 96 06/29/19 05:00 36.6 C 74 21 173/81 H 96 06/29/19 04:45 162/89 H 06/29/19 04:44 75 06/29/19 04:00 06/29/19 03:25 76 18 95 06/29/19 00:00 06/28/19 22:57 36.9 C 76 18 153/76 H 97 Pulse Ox 06/29/19 08:00 06/29/19 07:22 06/29/19 07:17 06/29/19 05:00 06/29/19 04:45 06/29/19 04:44 06/29/19 04:00 94 06/29/19 03:25 06/29/19 00:00 94 06/28/19 22:57 (1) Respiratory failure, acute and chronic Respiratory failure complication: hypoxia Qualified Code(s): J96.21 - Acute and chronic respiratory failure with hypoxia
--- NOTE | 2019-06-29 11:11 | Cardiology Consultation ---
Date of Consultation June 29, 2019 Assessment & Plan (1) Respiratory failure, acute and chronic: (2) Pneumonia: (3) Acute on chronic heart failure with preserved ejection fraction (HFpEF): (4) CKD (chronic kidney disease) stage 3, GFR 30-59 ml/min: (5) Paroxysmal atrial fibrillation: Patient admitted with community-acquired pneumonia and positive viral PCR for Human Metapneumovirus. Diuretic therapy held and treated with IV fluid due to acute kidney injury on presentation. Patiently subsequently developed volume overload/acute diastolic heart failure. He is received IV diuretic therapy last evening as well as in the a.m. today. His respiratory symptoms have improved. Recommend continuing Lasix 40 mg IV twice daily. Hold metolazone at this time. Monitor daily weight, fluid balance, GFR, and electrolytes. Dose warfarin for goal INR of 2.0-3.0. Supportive care/management of pneumonia as per internal medicine. History of Present Illness Reason for Consultation: CHF Requesting Physician: Dr. Blandon Attending Physician: Cici Blandon MD History of Present Illness 63-year-old patient presented to the emergency department with cough and shortness of breath. Diagnosed with community-acquired pneumonia. Viral PCR positive for human metapneumovir. Patient not tested for Covid 19 due to positive PCR. Patient was felt to be clinically dry on presentation with elevated creatinine and his diuretic therapy was stopped. IV fluid initiated. Developed worsening shortness of breath 06/28/2019. His IV fluid was discontinued and BiPAP was applied. Patient treated with IV furosemide with moderate diuresis. Respiratory symptoms have markedly improved. BiPAP discontinued. Remains in sinus rhythm since admission. This morning he is feeling better. Notes mild dyspnea with activity. Denies orthopnea, PND, or edema. No chest discomfort, palpitations, lightheadedness, dizziness, syncope, or near syncope. Tolerating diet and medications. No signs/symptoms of GI blood loss. Cardiac and medical history: 1. Pericardial effusion 2. Chronic diastolic heart failure 3. Paroxysmal atrial fibrillation 4. Cerebrovascular disease 5. Diabetes type 2 6. Obstructive sleep apnea on CPAP 7. Diabetic neuropathy 8. Restrictive lung disease on home oxygen 9. Pancreatic cancer status post Whipple in remission Allergies Allergy/AdvReac Type Severity Reaction Status Date / Time bee venom protein (honey bee) Allergy Severe anaphylaxis Verified 06/27/19 02:11 piperacillin Allergy Intermediate Hives Verified 06/27/19 12:56 lisinopril AdvReac Intermediate Elevated Verified 06/27/19 12:56 Potassium amlodipine AdvReac Mild Headache Verified 06/27/19 02:11 Home Medications Home Medications Medication Instructions Recorded Confirmed Type Lantus Solostar U-100 Insulin 40 unit SUBCUT BID 09/01/18 06/27/19 History albuterol sulfate 2.5 mg INHALATION Q4H PRN 09/01/18 06/27/19 History aspirin [Aspir-81] 81 mg PO DAILY 09/01/18 06/27/19 History atorvastatin 40 mg PO DAILY 09/01/18 06/27/19 History carvedilol 25 mg PO BID 09/01/18 06/27/19 History polyethylene glycol 3350 [Miralax] 17 g PO DAILY PRN 09/01/18 06/27/19 History sucralfate [Carafate] 1 g PO QID PRN 09/01/18 06/27/19 History bupropion HCl 200 mg PO DAILY 11/18/18 06/27/19 History omeprazole 20 mg PO BID 11/18/18 06/27/19 History oxycodone 5 mg PO Q4H PRN 11/18/18 06/27/19 History Creon 1 cap PO AC 03/25/19 06/27/19 History albuterol sulfate [ProAir HFA] 2 puff INHALATION Q4H PRN 03/25/19 06/27/19 His tory budesonide-formoterol 2 puff INHALATION HS 03/25/19 06/27/19 History docusate sodium 100 mg PO BID 03/25/19 06/27/19 History ferrous sulfate 325 mg PO DAILY 03/25/19 06/27/19 History gabapentin 200 mg PO BID PRN 03/25/19 06/27/19 History hydroxyzine HCl 25 mg PO TID PRN 03/25/19 06/27/19 History insulin aspart U-100 [Novolog 1 sliding scale dose SUBCUT AC 03/25/19 06/27/19 History U-100 Insulin aspart] tamsulosin 0.4 mg PO DAILY 03/25/19 06/27/19 History warfarin [Coumadin] 5 mg PO DIRECTED 06/27/19 06/27/19 History warfarin [Coumadin] 7.5 mg PO DIRECTED 06/27/19 06/27/19 History Patient History Medical History Asthma, mild persistent (Chronic) CKD (chronic kidney disease), stage III (Chronic) COPD (chronic obstructive pulmonary disease) (Chronic) 4L of O2 NC at home CVA (cerebral vascular accident) (Chronic) left sided weakness Depression (Chronic) Diabetic polyneuropathy (Chronic) Diastolic CHF (Chronic) DM type 2 (diabetes mellitus, type 2) (Chronic) Dyslipidemia (Chronic) GERD (gastroesophageal reflux disease) (Chronic) Glaucoma (Chronic) Osteoarthritis (Chronic) Pancreatic cancer (Chronic) Paroxysmal atrial fibrillation (Chronic) Pericardial effusion (Chronic) PTSD (post-traumatic stress disorder) (Chronic) Recurrent left pleural effusion (Chronic) Surgical History Hx of cataract surgery (Chronic) S/P tonsillectomy and adenoidectomy (Chronic) Social History Preferred Language: Cameroonian Communication Ability: Effective Safety Intern Required: No Beliefs That Will Affect Care: None marital status: Current Living Situation: Spouse current occupational status: unemployed and disabled Feels Safe at Home: Yes Smoking Status: Former smoker Tobacco Type: cigarettes ; Do You Dip or Chew Tobacco: No ; Hx Alcohol Use: No Hx Substance Use: No Review of Systems Review of Systems: All systems reviewed & are unremarkable except as noted in HPI & below Physical Exam Constitutional: well developed, well nourished, + ill appearing and + obese; no acute distress Respiratory: normal respiratory effort; no respiratory distress, no labored breathing, no retractions and does not use accessory muscles Auscultation: + diminished lung sounds, + crackles (Bases bilaterally) and + wheezes; no rhonchi Cardiovascular: Rate/Rhythm: regular rate and regular rhythm Heart Sounds: normal S1 and normal S2; no murmur and no cardiac rub Vessels: radial pulses present; no JVD Extremities: no edema Gastrointestinal (Abdomen): Inspection/Auscultation: abdomen normal to inspection and normal bowel sounds; abdomen not distended Percussion/Palpation: abdomen soft; abdomen nontender, no guarding and abdomen not rigid Musculoskeletal: no cyanosis or clubbing, extremities motor strength 5/5 Head/Neck/Chest: normocephalic and head atraumatic Skin: no rashes, warm and dry Neurologic: + does not move all extremities and no focal motor deficits Psychiatric: A+Ox3, euthymic affect Results & Data ([facility]) Vital Signs (Past 12 Hours) Vital Signs Temp Pulse Pulse Pulse Resp BP Pulse Ox 06/29/19 08:00 36.8 C 76 20 162/83 H 95 06/29/19 07:22 68 06/29/19 07:17 73 18 96 06/29/19 05:00 36.6 C 74 21 173/81 H 96 06/29/19 04:45 162/89 H 06/29/19 04:44 75 06/29/19 04:00 06/29/19 03:25 76 18 95 06/29/19 00:00 Pulse Ox 06/29/19 08:00 06/29/19 07:22 06/29/19 07:17 06/29/19 05:00 06/29/19 04:45 06/29/19 04:44 06/29/19 04:00 94 06/29/19 03:25 06/29/19 00:00 94 (1) Respiratory failure, acute and chronic Respiratory failure complication: hypoxia Qualified Code(s): J96.21 - Acute and chronic respiratory failure with hypoxia (2) Pneumonia Laterality: right Lung location: middle lobe of lung Pneumonia type: due to unspecified organism Qualified Code(s): J18.9 - Pneumonia, unspecified organism
[2019-06-29] MEDS ORDERED: INSULIN GLARGINE SOLOSTAR 100 UNITS/ML 3 ML PEN SC ONE (12:15)
--- NOTE | 2019-06-29 13:04 | Pulmonary Consultation ---
Date of Consultation June 29, 2019 Assessment & Plan (1) Acute on chronic heart failure with preserved ejection fraction (HFpEF): (2) Respiratory failure, acute and chronic: -- Acute on chronic Hypoxic respiratory failure Likely sec to COPD exacerbation likely secondary to metapneumovirus with a component of fluid overload secondary to diastolic CHF, BNP greater than 6000 Continue with inhaled bronchodilators, steroids, antibiotics with atypical coverage Diuretics as tolerated to keep negative balance Maintain SPO2 between 88 to 92% BiPAP nightly and as needed shortness of breath ESR greater than 90, CRP 4.63, procalcitonin is 0.16. Patient's upper resp iratory tract bio fire is positive for metapneumovirus Nasal MRSA negative, influenza negative at the time of presentation. Patient's presentation as well as CAT scan of the time of presentation does not correlate with Covid-19. --COPD with exacerbation Plan as above Patient is on LABA/ICS inhaler at home. Could consider adding Lama inhaler to i t Patient needs a follow-up with the supply assistant as an outpatient. --SONJA Continue with BiPAP nightly and PRN shortness of breath Plan: Diuresis to keep patient negative balance. So far patient is +1.7 L in the time of admission. Goal is to get him at least negative liter. Given that we have metapneumovirus likely component of his COPD exacerbation. It is okay to de-escalate the antibiotics. Titrate down steroids to 40 mg every 12 hours. Recommend taking patient off isolation. Daily chest x-rays. Respiratory failure complication: hypoxia Qualified Code(s): J96.21 - Acute and chronic respiratory failure with hypoxia (3) COPD exacerbation: History of Present Illness Attending Physician: Cici Blandon MD History of Present Illness 63-year-old male with past medical history of COPD, SONJA, chronic hypoxic respiratory failure on oxygen at home, diastolic CHF ejection fraction 50%, coronary artery disease/CVA. Was admitted to the hospital because of worsening shortness of breath going on since last 3- 4 days prior to admission. Associated with cough with phlegm. No hemoptysis. Yesterday pulmonary were consulted as patient was getting worse with wheezing. Chest x-ray was reviewed with hospitalist yesterday on the phone which showed increased vascular congestion. Was advised to get BNP and give 1 dose of Lasix and put the patient on BiPAP. Patient tolerated BiPAP well. At the time of examination patient stated that he is feeling much better compared to yesterday. Shortness of breath is improved. Still coughs occasionally but not bringing up any phlegm. Denies any odynophagia or dysphagia. Denies any coughing while eating. Patient does state that he usually coughs early in the morning which is usual for him bringing up clear phlegm. Denies any runny nose or tearing from the eyes. Social history: Greater than [id number] smoking history quit approximately 1 year ago, used to be heavy drinker now socially drinks, denies any illicit drug use. Allergies Allergy/AdvReac Type Severity Reaction Status Date / Time bee venom protein (honey bee) Allergy Severe anaphylaxis Verified 06/27/19 02:11 piperacillin Allergy Intermediate Hives Verified 06/27/19 12:56 lisinopril AdvReac Intermediate Elevated Verified 06/27/19 12:56 Potassium amlodipine AdvReac Mild Headache Verified 06/27/19 02:11 Home Medications Home Medications Medication Instructions Recorded Confirmed Type Lanreyus Solostar U-100 Insulin 40 unit SUBCUT BID 09/01/18 06/27/19 History albuterol sulfate 2.5 mg INHALATION Q4H PRN 09/01/18 06/27/19 History aspirin [Aspir-81] 81 mg PO DAILY 09/01/18 06/27/19 History atorvastatin 40 mg PO DAILY 09/01/18 06/27/19 History carvedilol 25 mg PO BID 09/01/18 06/27/19 History polyethylene glycol 3350 [Miralax] 17 g PO DAILY PRN 09/01/18 06/27/19 History sucralfate [Carafate] 1 g PO QID PRN 09/01/18 06/27/19 History bupropion HCl 200 mg PO DAILY 11/18/18 06/27/19 History omeprazole 20 mg PO BID 11/18/18 06/27/19 History oxycodone 5 mg PO Q4H PRN 11/18/18 06/27/19 History Creon 1 cap PO AC 03/25/19 06/27/19 History albuterol sulfate [ProAir HFA] 2 puff INHALATION Q4H PRN 03/25/19 06/27/19 History budesonide-formoterol 2 puff INHALATION HS 03/25/19 06/27/19 History docusate sodium 100 mg PO BID 03/25/19 06/27/19 History ferrous sulfate 325 mg PO DAILY 03/25/19 06/27/19 History gabapentin 200 mg PO BID PRN 03/25/19 06/27/19 History hydroxyzine HCl 25 mg PO TID PRN 03/25/19 06/27/19 History insulin aspart U-100 [Novolog 1 sliding scale dose SUBCUT AC 03/25/19 06/27/19 History U-100 Insulin aspart] tamsulosin 0.4 mg PO DAILY 03/25/19 06/27/19 History warfarin [Coumadin] 5 mg PO DIRECTED 06/27/19 06/27/19 History warfarin [Coumadin] 7.5 mg PO DIRECTED 06/27/19 06/27/19 History Patient History Medical History Asthma, mild persistent (Chronic) CKD (chronic kidney disease), stage III (Chronic) COPD (chronic obstructive pulmonary disease) (Chronic) 4L of O2 NC at home CVA (cerebral vascular accident) (Chronic) left sided weakness Depression (Chronic) Diabetic polyneuropathy (Chronic) Diastolic CHF (Chronic) DM type 2 (diabetes mellitus, type 2) (Chronic) Dyslipidemia (Chronic) GERD (gastroesophageal reflux disease) (Chronic) Glaucoma (Chronic) Osteoarthritis (Chronic) Pancreatic cancer (Chronic) Paroxysmal atrial fibrillation (Chronic) Pericardial effusion (Chronic) PTSD (post-traumatic stress disorder) (Chronic) Recurrent left pleural effusion (Chronic) Surgical History Hx of cataract surgery (Chronic) S/P tonsillectomy and adenoidectomy (Chronic) Social History Preferred Language: Greek Communication Ability: Effective Trend Investigator Required: No Beliefs That Will Affect Care: None marital status: Current Living Situation: Spouse current occupational status: unemployed and disabled Feels Safe at Home: Yes Smoking Status: Former smoker Tobacco Type: cigarettes ; Do You Dip or Chew Tobacco: No ; Hx Alcohol Use: No Hx Substance Use: No Review of Systems Review of Systems: All systems reviewed & are unremarkable except as noted in HPI & below Physical Exam Physical Exam: Constitutional: No acute distress HEENT: EOMI, PERRLA, thick neck, moist mucous membranes Respiratory system: Decreased air entry bilaterally, bilateral lower lobe crackles, mild expiratory wheeze bilaterally, no rhonchi CVS: S1-S2 positive, no murmurs or gallops Abdomen: Soft, nontender, nondistended, positive bowel sounds x4 Extremities: +2 pulses bilaterally radialis/ dorsalis pedis, no cyanosis, +1 edema Neuro: Awake alert oriented Psych: Normal mood and affect G/U: No Hussein Skin: no rashes, warm and dry Lymphatic: no cervical or axillary lymphadenopathy Results & Data ([facility]) Vital Signs (Past 12 Hours) Vital Signs Temp Pulse Pulse Pulse Resp BP Pulse Ox 06/29/19 11:49 36.7 C 72 18 151/70 H 97 06/29/19 11:33 71 18 97 06/29/19 08:00 36.8 C 76 20 162/83 H 95 06/29/19 07:22 68 06/29/19 07:17 73 18 96 06/29/19 05:00 36.6 C 74 21 173/81 H 96 06/29/19 04:45 162/89 H 06/29/19 04:44 75 06/29/19 04:00 06/29/19 03:25 76 18 95 Pulse Ox 06/29/19 11:49 06/29/19 11:33 06/29/19 08:00 06/29/19 07:22 06/29/19 07:17 06/29/19 05:00 06/29/19 04:45 06/29/19 04:44 06/29/19 04:00 94 06/29/19 03:25 Laboratory Tests 06/29/19 06/29/19 06/29/19 10:12 10:12 10:12 ESR > 90 H C-Reactive Protein 4.63 H Procalcitonin 0.16 06/27/19 06/27/19 06/28/19 01:53 02:50 15:48 ESR ABG pH Cancelled 7.36 7.38 ABG pCO2 Cancelled 45 43 ABG pO2 Cancelled 121 H 72 L ABG HCO3 Cancelled 25 H 25 H ABG O2 Saturation Cancelled 98.4 H 94.8 ABG Base Excess Cancelled -0.6 -0.6 C-Reactive Protein Procalcitonin 06/29/19 06/29/19 06/29/19 10:12 10:12 10:12 ESR > 90 H ABG pH ABG pCO2 ABG pO2 ABG HCO3 ABG O2 Saturation ABG Base Excess C-Reactive Protein 4.63 H Procalcitonin 0.16 06/29/19 07:16 06/29/19 07:16 Chest x-ray from today does show worsening infiltrates bilateral lower lobes with vascular congestion. CT chest from the time of admission 06/27/2019 personally reviewed PG Care Time/CCT Total # of Minutes Spent Total Time Spent with Patient: Total time spent is greater than 50% in co ordination of care (as documented) at patient's floor/unit and/or counseling patient: [place] [address] Inpt Consult Level 5 Patient Type New Diagnoses Acute on chronic heart failure with preserved ejection fraction (HFpEF) I50.33 Respiratory failure, acute and chronic J96.21 Respiratory failure complication: hypoxia COPD exacerbation J44.1
--- NOTE | 2019-06-29 13:52 | Pharmacy Report ---
Pharmacy Glycemic Short Note 2 - Date of Service June 29, 2019 - Glycemic Short BSG Results (Last 24 hours): 06/28/19 06/28/19 06/29/19 16:44 20:10 07:16 Glucose 181 H POC Glucose 170 H 202 H 06/29/19 06/29/19 07:37 11:36 Glucose POC Glucose 169 H 249 H OUTPATIENT ANTIDIABETIC REGIMEN: * Lantus 40 units SQ BID * Novolog SS * A1c = 12.5 % 06/27/19 - (note pt w/ chronic anemia) ASSESSMENT: 06/29/19 * Blood sugars well controlled yesterday, prednisone changed to solu-medrol last night, resulting in increased blood sugars. * Increase Lantus and tighten CF/CR for increase in steroid induced hyperglycemia. 06/27/19 * 63 year old male admitted with sepsis, pneumonia on IV ertapenem. * Type 2 diabetic, uncontrolled, known to pharmacy glycemic service from previous admissions. * Will begin with similar insulin doses as previous admission and titrate to goal. * ADA & AACE recommend a goal blood sugar range 140-180 mg/dl for the majority of critically ill & non-critically ill patients. However, more stringent targets may be selected in individual cases. Will utilize more stringent goal of 110-140mg/dl based on patient age & comorbidities. Additionally, tighter glycemic control is warranted to facilitate wound/infection healing. PLAN FOR INPATIENT GLYCEMIC CONTROL: * Increasing Lantus: 15 units x 1 dose now then SQ BID * BSG < 120mg/dl - 15 units * BSG 120-200mg/dl - 25 units * BSG > 200mg/dl - 30 units * TIGHTEN correction factor to 10 mg/dl/unit * TIGHTEN carb ratio to 1 unit per 3 grams CHO consumed * Goal range to Low 110 mg/dL - High 140 mg/dL PLAN FOR DISCHARGE: * Follows with Eduardo at [facility] in [facility], recommend continue follow up with him upon discharge
[2019-06-29] MEDS ORDERED: WARFARIN SOD 7.5 MG TAB PO SCH (16:00)
--- NOTE | 2019-06-29 17:34 | Nephrology Consultation ---
Date of Consultation June 29, 2019 Assessment & Plan (1) Acute kidney injury superimposed on CKD: baseline creatinine in [facility] 1.5-1.8. Presented 06/25 at 2.2; improved to 1.7 this am. however I expect that to worsen tomorrow am since in past 24 hrs he has had lasix IV 40 mg twice as well as torsemide 40 mg twice. even if worsens some in terms of creatinine, would resume lasix 40 mg iv bid 17 tomorrow unless dramatic/unexpected change. volume status, chemistries acceptable currently. no indication for renal imaging. -reordered lasix for tomorrow am 40 mg iv bid17 -ordered evening lasix dose from now until 0500 as prn sob 40 mg IV x 1 and HELD standing evening dose today only -daily bmp -needs OP med list updated w/ what he takes as OP >> pt cannot tell me , no diuretics on list -strict I/O -cont 1.8L FR; low Na diet >>please do daily standing wts Present on Admission?: Yes (2) Acute on chronic heart failure with preserved ejection fraction (HFpEF): volume control measures as above; f/u cardiology recs Present on Admission?: Yes History of Present Illness Reason for Consultation: acute renal failure Requesting Physician: Dr Blandon Attending Physician: Cici Blandon MD History of Present Illness 63 y/o M whom I'm asked to see for ELIZABETH after he was admitted 06/26 for acute and chronic respiratory failure from viral community acquired PNA. PMH includes chronic diastolic HF, DM on insulin, omno on cpap, restrictive lung dz on home 02, pancreatic cancer s/p remote [place], [facility]. His outpatient diuretics were he ld on presentation d/t ELIZABETH (do note however home med list does not include diuretics and would need to investigate if they were omitted at admission or held prior to admission-believe he is on torsemide 40 mg bid17). He then developed vol OL since admission. Lasix resumed last evening 40 mg IV; and bipap applied. He also had torsemide 40 mg po last evening and another dose this am. this po diuretic is now stopped. currently on lasix 40 mg iv bid. Cardiology and pulm following. Baseline creatinine 1.5-1.8 in [facility] as recently as 03/2019. However creatinine elevated at 2.2 on 06/19 as OP; was still 2.2 on presentation 06/26. downtrend since then to 1.7. Allergies Allergy/AdvReac Type Severity Reaction Status Date / Time bee venom protein (honey bee) Allergy Severe anaphylaxis Verified 06/27/19 02:11 piperacillin Allergy Intermediate Hives Verified 06/27/19 12:56 lisinopril AdvReac Intermediate Elevated Verified 06/27/19 12:56 Potassium amlodipine AdvReac Mild Headache Verified 06/27/19 02:11 Home Medications Home Medications Medication Instructions Recorded Confirmed Type Lantus Solostar U-100 Insulin 40 unit SUBCUT BID 09/01/18 06/27/19 History albuterol sulfate 2.5 mg INHALATION Q4H PRN 09/01/18 06/27/19 History aspirin [Aspir-81] 81 mg PO DAILY 09/01/18 06/27/19 History atorvastatin 40 mg PO DAILY 09/01/18 06/27/19 History carvedilol 25 mg PO BID 09/01/18 06/27/19 History polyethylene glycol 3350 [Miralax] 17 g PO DAILY PRN 09/01/18 06/27/19 History sucralfate [Carafate] 1 g PO QID PRN 09/01/18 06/27/19 History bupropion HCl 200 mg PO DAILY 11/18/18 06/27/19 History omeprazole 20 mg PO BID 11/18/18 06/27/19 History oxycodone 5 mg PO Q4H PRN 11/18/18 06/27/19 History Creon 1 cap PO AC 03/25/19 06/27/19 History albuterol sulfate [ProAir HFA] 2 puff INHALATION Q4H PRN 03/25/19 06/27/19 History budesonide-formoterol 2 puff INHALATION HS 03/25/19 06/27/19 History docusate sodium 100 mg PO BID 03/25/19 06/27/19 History ferrous sulfate 325 mg PO DAILY 03/25/19 06/27/19 History gabapentin 200 mg PO BID PRN 03/25/19 06/27/19 History hydroxyzine HCl 25 mg PO TID PRN 03/25/19 06/27/19 History insulin aspart U-100 [Novolog 1 sliding scale dose SUBCUT AC 03/25/19 06/27/19 History U-100 Insulin aspart] tamsulosin 0.4 mg PO DAILY 03/25/19 06/27/19 History warfarin [Coumadin] 5 mg PO DIRECTED 06/27/19 06/27/19 History warfarin [Coumadin] 7.5 mg PO DIRECTED 06/27/19 06/27/19 History Patient History Medical History Asthma, mild persistent (Chronic) CKD (chronic kidney disease), stage III (Chronic) COPD (chronic obstructive pulmonary disease) (Chronic) 4L of O2 NC at home CVA (cerebral vascular accident) (Chronic) left sided weakness Depression (Chronic) Diabetic polyneuropathy (Chronic) Diastolic CHF (Chronic) DM type 2 (diabetes mellitus, type 2) (Chronic) Dyslipidemia (Chronic) GERD (gastroesophageal reflux disease) (Chronic) Glaucoma (Chronic) Osteoarthritis (Chronic) Pancreatic cancer (Chronic) Paroxysmal atrial fibrillation (Chronic) Pericardial effusion (Chronic) PTSD (post-traumatic stress disorder) (Chronic) Recurrent left pleural effusion (Chronic) Surgical History Hx of cataract surgery (Chronic) S/P tonsillectomy and adenoidectomy (Chronic) Social History Preferred Language: Nigerien Communication Ability: Effective Editor Managing Director Required: No Beliefs That Will Affect Care: None marital status: Current Living Situation: Spouse current occupational status: unemployed and disabled Feels Safe at Home: Yes Smoking Status: Former smoker Tobacco Type: cigarettes ; Do You Dip or Chew Tobacco: No ; Hx Alcohol Use: No Hx Substance Use: No Review of Systems Review of Systems: All systems reviewed & are unremarkable except as noted in HPI & below Physical Exam Constitutional: well developed, well nourished and cooperative; no acute distress sitting up in chair watching TV on 02nc Eyes: EOM intact bilaterally ENMT: Ears: no external ear abnormality Nose: no external nose abnormality Mouth: + dry oral mucous membranes Neck: no nuchal rigidity Respiratory: normal respiratory effort; no respiratory distress and no labored breathing Auscultation: + diminished lung sounds and + crackles (fine posterior bases) Cardiovascular: Rate/Rhythm: regular rate and regular rhythm Extremities: no edema Gastrointestinal (Abdomen): Inspection/Auscultation: normal bowel sounds Percussion/Palpation: abdomen soft; abdomen nontender Musculoskeletal: Extremities: strength 5/5 throughout Skin: no rashes, warm and dry Neurologic: spivey, fluent speech, no tremor Psychiatric: A+Ox3, euthymic affect Speech: normal rate/rhythm/volume of speech Insight: + limited insight Judgement: + limited judgement Genitourinary: no wells Results & Data Vital Signs (Past 12 Hours) Vital Signs Temp Pulse Pulse Pulse Resp BP Pulse Ox 06/29/19 15:37 36.4 C L 65 20 149/69 H 95 06/29/19 15:17 66 18 99 06/29/19 14:53 71 06/29/19 11:49 36.7 C 72 18 151/70 H 97 06/29/19 11:33 71 18 97 06/29/19 08:00 36.8 C 76 20 162/83 H 95 06/29/19 07:22 68 06/29/19 07:17 73 18 96 Laboratory Results 06/29/19 07:16 06/29/19 07:16 UACM 3 >> clear yellow urine 3+ protein, 2+ glucose, trace blood, 5-10 rbc, 10-20 epis
[2019-06-29] MEDS ORDERED: FUROSEMIDE 40 MG in SYRINGE 0 ML IV PRN (18:10)
[2019-06-29] MEDS: FLUTICASONE/VILANTEROL 100/25MCG 14 PUFFS/INHALER INH SCH (20:50)
[2019-06-29] MEDS: GUAIFENESIN/DEXTROM SYRUP 200MG/20MG 10ML UDC PO PRN (21:52)
[2019-06-30] MEDS: IPRATROPIUM BROMIDE NEB SOLN 0.02% 2.5 ML VIAL INH SCH ×6 (02:37→23:14)
[2019-06-30] MEDS: LEVALBUTEROL 1.25MG/0.5ML NEB INH SCH ×6 (02:37→23:14)
[2019-06-30] MEDS: methylPREDNISolone 40 MG in SYRINGE 0 ML IV SCH (06:23)
[2019-06-30] MEDS: ERTAPENEM SODIUM 1,000 MG in SODIUM CHLORIDE 0.9% 50 ML IV SCH (06:24)
[2019-06-30 07:19] LABS: INR 2.6 (0.9-1.1)
[2019-06-30] MEDS: TAMSULOSIN HCL 0.4 MG CAP PO SCH (07:29)
[2019-06-30] MEDS: ASPIRIN 81 MG ECTAB PO SCH (07:29)
[2019-06-30] MEDS: ATORVASTATIN 40 MG TAB PO SCH (07:29)
[2019-06-30] MEDS: PANTOprazole 40 MG TAB PO SCH ×2 (07:29→21:19)
[2019-06-30] MEDS: carvediloL 25 MG TAB PO SCH ×2 (07:29→21:18)
[2019-06-30] MEDS: AZITHROMYCIN 250 MG TAB PO SCH (07:29)
[2019-06-30] MEDS: FERROUS SULFATE 325 MG TAB PO SCH (07:29)
[2019-06-30] MEDS: PANCREAZE (LIPASE 10,500U) CAP PO SCH ×3 (07:30→17:24)
[2019-06-30] MEDS: BuPROPion SR 100 MG TABCR PO SCH (07:30)
[2019-06-30] MEDS: FUROSEMIDE 40 MG in SYRINGE 0 ML IV SCH ×2 (07:31→17:24)
[2019-06-30] MEDS: GUAIFENESIN/DEXTROM SYRUP 200MG/20MG 10ML UDC PO PRN ×2 (07:31→21:17)
[2019-06-30 07:40] LABS: BUN Creatinine Ratio 30.9 (10-20); Calcium 7.8 mg/dl (8.5-10.1); Creatinine Clr Calc Pharmacy 47.8 ml/min; Est GFR (African American) 48.3; Est GFR (Non-African American) 41.7; Magnesium 2.7 mg/dl (1.8-2.4); Potassium 3.9 mmol/L (3.5-5.1)
[2019-06-30] MEDS: DOCUSATE SODIUM 100 MG CAP PO SCH ×2 (07:42→21:16)
[2019-06-30] MEDS: INSULIN ASPART 100 UNITS/ML 3 ML PEN SC SCH ×4 (07:43→21:25)
[2019-06-30] MEDS: INSULIN GLARGINE SOLOSTAR 100 UNITS/ML 3 ML PEN SQ SCH ×2 (07:44→21:22)
[2019-06-30] MEDS: HEPARIN SODIUM/DEXTROSE 25,000 UNITS/500 ML BAG IV SCH (09:33)
--- NOTE | 2019-06-30 10:00 | Pharmacy Report ---
Pharmacy Glycemic Short Note 2 - Date of Service June 30, 2019 - Glycemic Short BSG Results (Last 24 hours): 06/29/19 06/29/19 06/29/19 11:36 16:11 20:30 Glucose POC Glucose 249 H 94 100 H 06/30/19 06/30/19 06:54 07:30 Glucose 84 POC Glucose 80 OUTPATIENT ANTIDIABETIC REGIMEN: * Lantus 40 units SQ BID * Novolog SS * A1c = 12.5 % 06/27/19 - (note pt w/ chronic anemia) ASSESSMENT: 06/30/19 * Blood sugars decreased at dinner and bedtime to 94mg/dl, 100mg/dl -loosened CF/CR and decreased basal to prevent hypoglycemia at that time. * Fasting BSG 84mg/dl today, continue as adjusted last evening. Patient remains on Solu-Medrol 40mg IV Q12H. 06/29/19 * Blood sugars well controlled yesterday, prednisone changed to solu-medrol last night, resulting in increased blood sugars. * Increase Lantus and tighten CF/CR for increase in steroid induced hyperglycemia. 06/27/19 * 63 year old male admitted with sepsis, pneumonia on IV ertapenem. * Type 2 diabetic, uncontrolled, known to pharmacy glycemic service from previous admissions. * Will begin with similar insulin doses as previous admission and titrate to goal. * ADA & AACE recommend a goal blood sugar range 140-180 mg/dl for the majority of critically ill & non-critically ill patients. However, more stringent targets may be selected in individual cases. Will utilize more stringent goal of 110-140mg/dl based on patient age & comorbidities. Additionally, tighter glycemic control is warranted to facilitate wound/infection healing. PLAN FOR INPATIENT GLYCEMIC CONTROL: * Lantus: * BSG < 120mg/dl - 9 units * BSG 120-200mg/dl - 17 units * BSG > 200mg/dl - 25 units * Correction factor: 15 mg/dl/unit * Carb ratio: 1 unit per 5 grams CHO consumed * Goal range to Low 110 mg/dL - High 140 mg/dL PLAN FOR DISCHARGE: * Follows with Eduardo at [facility] clinic in [facility], recommend continue follow up with him upon discharge
--- NOTE | 2019-06-30 11:31 | Pulmonology Progress Note ---
Date of Service June 30, 2019 Assessment & Plan (1) COPD exacerbation: Impression: 63-year-old male with chronic diastolic heart failure and reported history of obstructive lung disease admitted with shortness of breath. Appears to be related to fluid overload as the patient has responded quite favorably to nocturnal noninvasive positive pressure ventilation and diuretics. Recommendations: 1. Diastolic heart failure: Continue aggressive blood pressure control with target blood pressure less than 125/75. Continue diuretics with goal to target net negative I/oh. Close attention to kidney function recommended given his chronic kidney disease. 2. Hypoxemic respiratory failure: The patient is back to his baseline oxygen requirement. Continue to wean as tolerated. 3. COPD: Exacerbation due to metapneumovirus. Decrease azithromycin down to 250 mg daily and plan to complete total 5 days. Discontinue methylprednisolone and change to oral prednisone for 5 days at 40 mg daily. Continue Breo and Spiriva. 4. Sleep disordered breathing: Continue nocturnal positive airway pressure. Patient may be approaching discharge and may be eligible to be dismissed from the hospital with outpatient pulmonary follow-up. (2) Acute on chronic heart failure with preserved ejection fraction (HFpEF): (3) Respiratory failure, acute and chronic: Respiratory failure complication: hypoxia Qualified Code(s): J96.21 - Acute and chronic respiratory failure with hypoxia Subjective Patient seen and examined. He states his breathing is showing slow and steady improvement. He reports no wheezing. He is not noted any significant lower extremity edema. His appetite is good. He is anxious to be considered for potential dismissal from the hospital. Review of Systems Review of Systems: Unchanged from prior Physical Exam Constitutional: WD/WN, vitals as above Neck: trachea midline, no thyromegaly Respiratory: normal respiratory effort, lungs clear to auscultation Cardiovascular: RRR, no murmur, no edema Gastrointestinal (Abdomen): normal bowel sounds, soft, nontender, no hepatosplenomegaly Musculoskeletal: Extremities: extremities normal to inspection Skin: no rashes, warm and dry Neurologic: Nonfocal exam Lymphatic: no cervical lymphadenopathy Results & Data ([facility]) Vital Signs (Past 12 Hours) Vital Signs Temp Pulse Pulse Resp BP Pulse Ox 06/30/19 11:17 78 16 99 06/30/19 07:34 70 16 97 06/30/19 07:25 36.6 C 70 20 158/80 H 96 06/30/19 04:52 36.7 C 64 20 150/77 H 98 06/30/19 02:38 61 17 98 06/30/19 02:37 63 17 98 06/30/19 01:25 77 18 97 06/29/19 23:44 72 72 18 96 06/29/19 23:32 36.9 C 65 20 137/66 93 Laboratory Results 06/29/19 07:16 06/30/19 06:54 Diagnostic Findings No new films PG Care Time/CCT Total # of Minutes Spent Total Time Spent with Patient: Total time spent is greater than 50% in coordination of care (as documented) at patient's floor/unit and/or counseling patient: Coding Level of Care Code 17335 Subseq Hosp Care Lvl 3 Diagnoses COPD exacerbation J44.1 Acute on chronic heart failure with preserved ejection fraction (HFpEF) I50.33 Respiratory failure, acute and chronic J96.21 Respiratory failure complication: hypoxia
--- NOTE | 2019-06-30 12:04 | Cardiology Progress Note ---
Date of Service June 30, 2019 Assessment & Plan (1) Respiratory failure, acute and chronic: (2) Pneumonia: (3) Acute on chronic heart failure with preserved ejection fraction (HFpEF): (4) CKD (chronic kidney disease) stage 3, GFR 30-59 ml/min: (5) Paroxysmal atrial fibrillation: Respiratory status improved with IV diuretic therapy. IV Lasix may be discontinued today. Patient may resume torsemide 40 mg twice daily in addition to metolazone on Mondays and Fridays. Continue other cardiovascular medications as previously ordered in the outpatient setting. Supportive care and treatment of community-acquired pneumonia as per internal medicine. No further inpatient cardiovascular testing or intervention at this time. Subjective Patient seen and examined the bedside. Respiratory status improved. Denies chest pain or palpitations. Remains in sinus rhythm on telemetry. Weight is down 2 kg with IV diuretic therapy. Renal function remains stable. Patient requesting discharge if possible. Review of Systems Review of Systems: All systems reviewed & are unremarkable except as noted in HPI & below Physical Exam Constitutional: well developed, well nourished, + ill appearing and + obese; no acute distress Respiratory: normal respiratory effort; no respiratory distress, no labored breathing, no retractions and does not use accessory muscles Auscultation: + diminished lung sounds; no crackles (Bases bilaterally), no rhonchi and no wheezes Cardiovascular: Rate/Rhythm: regular rate and regular rhythm Heart Sounds: normal S1 and normal S2; no murmur and no cardiac rub Vessels: radial pulses present; no JVD Extremities: no edema Gastrointestinal (Abdomen): Inspection/Auscultation: abdomen normal to inspection and normal bowel sounds; abdomen not distended Percussion/Palpation: abdomen soft; abdomen nontender, no guarding and abdomen not rigid Musculoskeletal: no cyanosis or clubbing, extremities motor strength 5/5 Head/Neck/Chest: normocephalic and head atraumatic Skin: no rashes, warm and dry Neurologic: + does not move all extremities and no focal motor deficits Psychiatric: A+Ox3, euthymic affect Results & Data Vital Signs (Past 12 Hours) Vital Signs Temp Pulse Pulse Resp BP Pulse Ox 06/30/19 11:17 78 16 99 06/30/19 07:34 70 16 97 06/30/19 07:25 36.6 C 70 20 158/80 H 96 06/30/19 04:52 36.7 C 64 20 150/77 H 98 06/30/19 02:38 61 17 98 06/30/19 02:37 63 17 98 06/30/19 01:25 77 18 97 (1) Respiratory failure, acute and chronic Respiratory failure complication: hypoxia Qualified Code(s): J96.21 - Acute and chronic respiratory failure with hypoxia (2) Pneumonia Laterality: right Lung location: middle lobe of lung Pneumonia type: due to unspecified organism Qualified Code(s): J18.9 - Pneumonia, unspecified organism
[2019-06-30] MEDS: WARFARIN SOD 5 MG TAB PO SCH (17:24)
--- NOTE | 2019-06-30 18:15 | Hospitalist Progress Note ---
Date of Service June 30, 2019 Assessment & Plan (1) Respiratory failure, acute and chronic: Multifactorial: Community-acquired pneumonia pneumonia with positive viral PCR for human metapneumovirus/acute COPD exacerbation/decompensated heart failure with diastolic dysfunction leading to volume overload Continues to improve clinically, no confusion alert awake oriented x3 no respiratory distress Appreciate input from pulmonology and cardiology IV Solu-Medrol discontinued changed to p.o. prednisone Antibiotic change to p.o. Zithromax and cefdinir Patient does not meet criteria for COVID 19 testing as per CDC guideline case discussed with infectious disease specialist at [facility], as patient is positive for viral PCR human metapneumovirus, clinical presentation suggestive of COPD exacerbation decompensated CHF recommends COVID 19 testing not indicated Patient continues to do well with supportive care and management as outlined above Acute decompensation of diastolic dysfunction chronic diastolic heart failure (EF of 50-55%, TTE 2018), Developed decompensates heart failure HFpEF Clinically improved with IV Lasix, Renal function remains stable Appreciate input from cardiology iV Lasix discontinued, resumed patient home diuretics: Torsemide 40 mg twice daily in addition to metolazone 30 minutes after a.m. dose of torsemide twice a week/on Monday and Monday Metabolic encephalopathy/confusion Resolved Patient's mental status improved since admission after respiratory support with supplemental oxygen, nebulizer treatment, antibiotic therapy Alert oriented conversing appropriately Possible metabolic encephalopathy secondary to hypoxia, pulmonary infection/pneumonia CT head noncontrast: No acute change COPD exacerbation Improved, changed to p.o. Solu-Medrol Antibiotic changed to p.o. Zithromax and cefdinir Appreciate input from pulmonology Hx of paroxysmal A. fib Remains rate controlled On Coumadin INR therapeutic DM2, insulin requiring, : Poorly controlled, hemoglobin A1c more than 12 Pharmacy consulted for glycemic management adaptive physical educator consulted pancreatic cancer status post surgery and chemotherapy On remission for the past 2-3 years chronic anemia (new baseline of 11), hemoglobin at baseline Acute renal failure on CKD stage III: Patient started with IV Lasix diuretics for volume overload, decompensated CHF Monitor BMP daily Nephrology consulted, History of infected wound on rt foot/heel Well-healed, no open wound noted Wound care consulted Ordered for waffle boot, offloading Status post recent hip surgery Patient walks with a walker PT OT eval requested Out of bed as tolerated CODE STATUS: Full code DVT prophylaxis Coumadin Disposition: Continue to monitor in telemetry, update Given to patient's Liliana Bennett Text document was generated using [employer] voice recognition software. It may contain grammatical or spelling errors. Kindly contact undersigned for clarification of any documentation item in question. Admission and Anticipated Discharge Date Admission Date: June 27, 2019 Subjective pt reports of feeling much better, sitting up, on chair on 3 L oxygen via nasal cannula, able to get out of bed, and walk Denies of any orthopnea No fever or chills, cough is improved Awake alert oriented x3, no confusion or disorientation noted Review of Systems Review of Systems: All systems reviewed & are unremarkable except as noted in HPI & below Constitutional: no fever, no chills, no fatigue, no weakness and no problem reported Respiratory: + cough; no dyspnea, no dyspnea on exertion and no wheezing Cardiovascular: no chest pain, no dyspnea, no dyspnea on exertion, no orthopnea, no paroxysmal nocturnal dyspnea, no palpitations, no lightheadedness, no syncope and no edema Neurologic: no memory loss Psychiatric: no confusion Physical Exam Constitutional: WD/WN, vitals as above Eyes: PERRL, conjunctivae normal, anicteric sclerae ENMT: external ear and nose normal, oropharynx normal Respiratory: + cough; no respiratory distress and no audible wheezes Auscultation: no crackles, no rales and no wheezes Cardiovascular: Rate/Rhythm: regular rate and regular rhythm Vessels: no JVD Extremities: no pedal edema and no edema Gastrointestinal (Abdomen): Inspection/Auscultation: normal bowel sounds Percussion/Palpation: abdomen soft; abdomen nontender Musculoskeletal: no cyanosis or clubbing, extremities motor strength 5/5 Neurologic: PERRL, EOMI, accommodation nl, no face palsy, no dysarthria Psychiatric: A+Ox3, euthymic affect Orientation: alert and oriented x 3 Results & Data ([facility]) Vital Signs (Past 12 Hours) Vital Signs Temp Pulse Pulse Pulse Resp BP Pulse Ox 06/30/19 16:00 64 06/30/19 15:50 36.5 C 63 20 160/82 H 99 06/30/19 15:19 64 20 100 06/30/19 12:00 36.6 C 64 20 132/71 97 06/30/19 11:17 78 16 99 06/30/19 07:34 70 16 97 06/30/19 07:25 36.6 C 70 20 158/80 H 96 (1) Respiratory failure, acute and chronic Respiratory failure complication: hypoxia Qualified Code(s): J96.21 - Acute and chronic respiratory failure with hypoxia
[2019-06-30] MEDS ORDERED: GABAPENTIN 100 MG CAP PO PRN (18:42)
[2019-06-30] MEDS: FLUTICASONE/VILANTEROL 100/25MCG 14 PUFFS/INHALER INH SCH (21:16)
[2019-06-30] MEDS: OXYCODONE HCL IR 5 MG TAB (IMMEDIATE RELEASE) PO PRN (21:16)
[2019-06-30] MEDS: TORSEMIDE 10 MG TAB PO SCH (21:18)
[2019-06-30] MEDS: CEFDINIR 300 MG CAP PO SCH (21:19)
[2019-07-01] MEDS: LEVALBUTEROL 1.25MG/0.5ML NEB INH SCH ×4 (03:07→15:14)
[2019-07-01] MEDS: IPRATROPIUM BROMIDE NEB SOLN 0.02% 2.5 ML VIAL INH SCH ×4 (03:07→15:14)
[2019-07-01 06:53] LABS: INR 2.7 (0.9-1.1); Prothrombin Time 26.6 Seconds (9.0-12.0)
[2019-07-01 07:18] LABS: BUN Creatinine Ratio 28.5 (10-20); Calcium 7.6 mg/dl (8.5-10.1); Est GFR (African American) 45.7; Est GFR (Non-African American) 39.4; Magnesium 2.6 mg/dl (1.8-2.4); Potassium 3.9 mmol/L (3.5-5.1)
[2019-07-01] MEDS ORDERED: metOLazone 2.5 MG TABLET PO ONE (08:30)
--- NOTE | 2019-07-01 08:33 | Pharmacy Report ---
Pharmacy Glycemic Short Note 2 - Date of Service July 01, 2019 - Glycemic Short BSG Results (Last 24 hours): 06/30/19 06/30/19 06/30/19 11:40 16:22 20:18 Glucose POC Glucose 176 H 233 H 255 H 07/01/19 07/01/19 06:21 07:19 Glucose 83 POC Glucose 90 OUTPATIENT ANTIDIABETIC REGIMEN: * Lantus 40 units SQ BID * Novolog SS * A1c = 12.5 % 06/27/19 - (note pt w/ chronic anemia) ASSESSMENT: 07/01/19 * 63 year old male admitted with sepsis, pneumonia on IV ertapenem. * Type 2 diabetic, uncontrolled, known to pharmacy glycemic service from previous admissions. * Steroids changed from Solu-Medrol 40 IV Q12H to Prednisone 40 mg PO Daily today. * Fasting BSG 83 mg/dL this AM, will hold basal insulin dose this AM. * Loosened carb ratio slightly given decrease in steroid dose. PLAN FOR INPATIENT GLYCEMIC CONTROL: * Lantus: - held this AM * BSG < 140mg/dl - 15 units * BSG 140 mg/dl and above - 25 units * Correction factor: 15 mg/dl/unit * Carb ratio: 1 unit per 5 grams CHO consumed * Goal range to Low 110 mg/dL - High 140 mg/dL PLAN FOR DISCHARGE: * Follows with Eduardo at [facility] clinic in [facility], recommend continue follow up with him upon discharge
[2019-07-01] MEDS: PANCREAZE (LIPASE 10,500U) CAP PO SCH ×2 (08:48→11:47)
[2019-07-01] MEDS: TORSEMIDE 10 MG TAB PO SCH (08:48)
[2019-07-01] MEDS: PANTOprazole 40 MG TAB PO SCH (08:49)
[2019-07-01] MEDS: TAMSULOSIN HCL 0.4 MG CAP PO SCH (08:49)
[2019-07-01] MEDS: carvediloL 25 MG TAB PO SCH (08:49)
[2019-07-01] MEDS: ASPIRIN 81 MG ECTAB PO SCH (08:50)
[2019-07-01] MEDS: ATORVASTATIN 40 MG TAB PO SCH (08:50)
[2019-07-01] MEDS: CEFDINIR 300 MG CAP PO SCH (08:50)
[2019-07-01] MEDS: FERROUS SULFATE 325 MG TAB PO SCH (08:51)
[2019-07-01] MEDS: BuPROPion SR 100 MG TABCR PO SCH (08:51)
[2019-07-01] MEDS: INSULIN ASPART 100 UNITS/ML 3 ML PEN SC SCH ×2 (08:51→11:45)
[2019-07-01] MEDS ORDERED: UMECLIDINIUM BROMIDE 62.5MCG/BLISTER 7 PUFFS/INHALER INH SCH (09:00)
[2019-07-01] MEDS ORDERED: predniSONE 20 MG TAB PO SCH (09:00)
[2019-07-01] MEDS ORDERED: AZITHROMYCIN 250 MG TAB PO SCH (09:00)
[2019-07-01] MEDS: DOCUSATE SODIUM 100 MG CAP PO SCH (09:04)
[2019-07-01 09:29] LABS: MDA negative; MDEA negative; MDMA (Ecstasy) Urine, Confirm negative
[2019-07-01] MEDS ORDERED: metOLazone 2.5 MG TABLET PO SCH (09:30)
--- NOTE | 2019-07-01 10:10 | Nephrology Progress Note ---
Date of Service July 01, 2019 Assessment & Plan (1) Acute kidney injury superimposed on CKD: baseline creatinine in [facility] 1.5-1.8. Presented 06/25 at 2.2; improved to 1.7 and has remained stable for the past 2 days. no indication for renal imaging. Patient was on IV Lasix now back on home dose of p.o. torsemide and metolazone. -daily bmp -needs OP med list updated w/ what he takes as OP >> pt cannot tell me , no diuretics on list -strict I/O -cont 1.8L FR; low Na diet -From renal standpoint, patient can be discharged. He will need BMP next week and renal follow-up in 2 to 3 weeks. (2) Acute on chronic heart failure with preserved ejection fraction (HFpEF): volume control measures as above; continue torsemide 40 mg p.o. twice stacy y and metolazone on Monday and Monday per cardiology. Admission and Anticipated Discharge Date Admission Date: June 27, 2019 Subjective He feels better today. Breathing is at baseline. He is on 3 L of oxygen which is close to home oxygen usage. Renal function is stable. Patient would like to be discharged. Review of Systems Review of Systems: All systems reviewed & are unremarkable except as noted in HPI & below Physical Exam Physical Exam: General exam: Appears comfortable on oxygen, no acute distress HEENT: Pupils are equal and reactive to light Neck: No JVD, neck is supple trachea is midline Respiratory system: Wheezing bilaterally. Gastrointestinal: Abdomen is soft, non distended, non tender, bowel sounds are present CVS: Regular rate and rhythm. No murmurs, rubs or gallops Musculoskeletal: No joint or muscle tenderness Extremities: Non tender, no edema, peripheral pulses are present Neuro: Oriented, no tremors, no focal neurological deficits Skin: No rashes Results & Data ([facility]) Vital Signs (Past 12 Hours) Vital Signs Temp Pulse Pulse Pulse Resp BP BP 07/01/19 08:00 60 07/01/19 07:30 37 C 66 18 145/74 H 07/01/19 07:14 68 17 07/01/19 03:49 36.5 C 61 18 146/82 H 07/01/19 03:07 64 64 18 06/30/19 23:53 36.9 C 64 18 144/69 H 06/30/19 23:16 60 60 20 Pulse Ox 07/01/19 08:00 07/01/19 07:30 98 07/01/19 07:14 91 07/01/19 03:49 99 07/01/19 03:07 97 06/30/19 23:53 97 06/30/19 23:16 98 Laboratory Results 07/01/19 06:21
--- NOTE | 2019-07-01 11:30 | Cardiology Progress Note ---
Date of Service July 01, 2019 Assessment & Plan (1) Respiratory failure, acute and chronic: (2) Pneumonia: (3) Acute on chronic heart failure with preserved ejection fraction (HFpEF): (4) CKD (chronic kidney disease) stage 3, GFR 30-59 ml/min: (5) Paroxysmal atrial fibrillation: IV diuretic therapy discontinued. Continue torsemide 40 mg twice daily in addition to metolazone on Mondays and Fridays. Continue other cardiovascular medications as previously ordered in the outpatient setting. Supportive care and treatment of community-acquired pneumonia as per internal medicine. No further inpatient cardiovascular testing or intervention at this time. Cardiology will sign off. Please call with questions. Subjective Patient seen and examined the bedside. Cough improving. Denies chest pain or palpitations. Remains in sinus rhythm on telemetry. Tolerating medications. Anxious for discharge. Offers no other concerns/complaints this time. Review of Systems Review of Systems: All systems reviewed & are unremarkable except as noted in HPI & below Physical Exam Constitutional: well developed, well nourished, + ill appearing and + obese; no acute distress Respiratory: normal respiratory effort; no respiratory distress, no labored breathing, no retractions and does not use accessory muscles Auscultation: + diminished lung sounds and + rhonchi (scattered B/L); no crackles (Bases bila terally) and no wheezes Cardiovascular: Rate/Rhythm: regular rate and regular rhythm Heart Sounds: normal S1 and normal S2; no murmur and no cardiac rub Vessels: radial pulses present; no JVD Extremities: no edema Gastrointestinal (Abdomen): Inspection/Auscultation: abdomen normal to inspection and normal bowel sounds; abdomen not distended Percussion/Palpation: abdomen soft; abdomen nontender, no guarding and abdomen not rigid Musculoskeletal: no cyanosis or clubbing, extremities motor strength 5/5 Head/Neck/Chest: normocephalic and head atraumatic Skin: no rashes, warm and dry Neurologic: + does not move all extremities and no focal motor deficits Psychiatric: A+Ox3, euthymic affect Results & Data Vital Signs (Past 12 Hours) Vital Signs Temp Pulse Pulse Pulse Pulse Resp BP 07/01/19 11:13 60 18 07/01/19 08:00 60 07/01/19 07:30 37 C 66 18 07/01/19 07:14 68 17 07/01/19 03:49 36.5 C 61 18 146/82 H 07/01/19 03:07 64 64 18 06/30/19 23:53 36.9 C 64 18 BP Pulse Ox 07/01/19 11:13 98 07/01/19 08:00 07/01/19 07:30 145/74 H 98 07/01/19 07:14 91 07/01/19 03:49 99 07/01/19 03:07 97 06/30/19 23:53 144/69 H 97 (1) Respiratory failure, acute and chronic Respiratory failure complication: hypoxia Qualified Code(s): J96.21 - Acute and chronic respiratory failure with hypoxia (2) Pneumonia Laterality: right Lung location: middle lobe of lung Pneumonia type: due to unspecified organism Qualified Code(s): J18.9 - Pneumonia, unspecified organism
--- NOTE | 2019-07-01 11:47 | Hospitalist Progress Note ---
Date of Service July 01, 2019 Assessment & Plan (1) Respiratory failure, acute and chronic: Multifactorial: Community-acquired pneumonia pneumonia with positive viral PCR for human metapneumovirus/acute COPD exacerbation/decompensated heart failure with diastolic dysfunction leading to volume overload Continues to improve clinically, no confusion alert awake oriented x3 no respiratory distress Appreciate input from pulmonology and cardiology IV Solu-Medrol discontinued changed to p.o. prednisone Antibiotic change to p.o. Zithromax and cefdinir Patient does not meet criteria for COVID 19 testing as per CDC guideline case discussed with infectious disease specialist at [facility], as patient is positive for viral PCR human metapneumovirus, clinical presentation suggestive of COPD exacerbation decompensated CHF recommends COVID 19 testing not indicated Patient continues to do well with supportive care and management as outlined above Shortness of breath, cough, hypoxia is completely resolved Respiratory status back to baseline Stable to be discharged home today Acute decompensation of diastolic dysfunction chronic diastolic heart failure (EF of 50-55%, TTE 2018), Developed decompensates heart failure HFpEF Clinically improved with IV Lasix, Renal function remains stable Appreciate input from cardiology Will be discharged today ambulating with patient home diuretics: Torsemide 40 mg twice daily in addition to metolazone 30 minutes after a.m. dose of torsemide twice a week/on Monday and Monday Metabolic encephalopathy/confusion Resolved Patient's mental status improved since admission after respiratory support with supplemental oxygen, nebulizer treatment, antibiotic therapy Alert oriented conversing appropriately Possible metabolic encephalopathy secondary to hypoxia, pulmonary infection/pneumonia CT head noncontrast: No acute change COPD exacerbation Improved, Antibiotic changed to p.o. Zithromax and cefdinir Appreciate input from pulmonology Discharged home will be on prednisone 40 mg daily for 5 days only Total 5 days of p.o. Zithromax Hx of paroxysmal A. fib Remains rate controlled On Coumadin INR therapeutic DM2, insulin requiring, : Poorly controlled, hemoglobin A1c more than 12 Pharmacy consulted for glycemic management religious educator consulted pancreatic cancer status post surgery and chemotherapy On remission for the past 2-3 years chronic anemia (new baseline of 11), hemoglobin at baseline Acute renal failure on CKD stage III: Patient started with IV Lasix diuretics for volume overload, decompensated CHF Monitor BMP daily Nephrology consulted, History of infected wound on rt foot/heel Well-healed, no open wound noted Wound care consulted Ordered for waffle boot, offloading Status post recent hip surgery Patient walks with a walker PT OT eval requested/commence return home with family support Out of bed as tolerated CODE STATUS: Full code DVT prophylaxis Coumadin Disposition: Stable to be discharged home Text document was generated using [employer] voice recognition software. It may contain grammatical or spelling errors. Kindly contact undersigned for clarification of any documentation item in question. Admission and Anticipated Discharge Date Admission Date: June 27, 2019 Subjective Sitting up in chair, feels completely fine, untreated oxygen via nasal cannula which is his baseline Cough is improved, no fever or chills, no orthopnea Dyspnea on exertion Stable to be discharged home today Review of Systems Review of Systems: All systems reviewed & are unremarkable except as noted in HPI & below Constitutional: no fever, no chills and no weakness Respiratory: no dyspnea, no dyspnea on exertion, no pain with cough and no wheezing Physical Exam Constitutional: WD/WN, vitals as above + obese; no acute distress (Due to shortness of breath) Eyes: PERRL, conjunctivae normal, anicteric sclerae ENMT: external ear and nose normal, oropharynx normal Respiratory: + cough; no respiratory distress and no audible wheezes Auscultation: no crackles, no rales and no wheezes Cardiovascular: Rate/Rhythm: regular rate and regular rhythm Vessels: no JVD Extremities: no pedal edema and no edema Gastrointestinal (Abdomen): Inspection/Auscultation: normal bowel sounds Percussion/Palpation: abdomen soft; abdomen nontender Musculoskeletal: no cyanosis or clubbing, extremities motor strength 5/5 Ankle: no deformity and no skin erythema (Prior right heel/foot ulcer completely healed, no open wound noted) Neurologic: PERRL, EOMI, accommodation nl, no face palsy, no dysarthria Psychiatric: A+Ox3, euthymic affect Orientation: alert and oriented x 3 Affect: + anxious affect Results & Data ([facility]) Vital Signs (Past 12 Hours) Vital Signs Temp Pulse Pulse Pulse Pulse Resp BP 07/01/19 11:30 37 C 60 66 18 07/01/19 11:13 60 18 07/01/19 08:00 60 07/01/19 07:30 37 C 66 18 07/01/19 07:14 68 17 07/01/19 03:49 36.5 C 61 18 146/82 H 07/01/19 03:07 64 64 18 06/30/19 23:53 36.9 C 64 18 BP Pulse Ox 07/01/19 11:30 145/74 H 98 07/01/19 11:13 98 07/01/19 08:00 07/01/19 07:30 145/74 H 98 07/01/19 07:14 91 07/01/19 03:49 99 07/01/19 03:07 97 06/30/19 23:53 144/69 H 97 (1) Respiratory failure, acute and chronic Respiratory failure complication: hypoxia Qualified Code(s): J96.21 - Acute and chronic respiratory failure with hypoxia
[2019-07-01] MEDS ORDERED: INSULIN GLARGINE SOLOSTAR 100 UNITS/ML 3 ML PEN SQ SCH (21:00)
--- NOTE | 2019-07-02 12:19 | Discharge Summary ---
Date of Service July 02, 2019 Admission HPI Per Admitting Provider History obtained from patient family and records. Unable to obtain history from patient secondary to obtunded state. Medical history is significant for chronic respiratory failure 2 to COPD/SONJA on home O2, chronic diastolic heart failure (EF of 50-55%, TTE 2018) CAD/CVA as per records, AF on Coumadin, hypertension, hyperlipidemia, DM2, insulin requiring, chronic hyponatremia, pancreatic cancer status post surgery and chemotherapy, chronic renal insufficiency (baseline creatinine 1.6), chronic anemia (new baseline of 11) past tobacco and alcohol abuse, history of MRSA as per records, aspiration risk as per . Recent confinement March 2019 for hypertension, left femoral fracture secondary to mechanical fall, diabetic toe infection. Patient transferred to [facility] due to complexity of surgical procedure and multiple medical comorbidities. Patient confined to [facility] from March 28-2018. Patient underwent ORIF of left intertrochanteric left hip fracture and I&D of left foot ulcer. Subsequently discharged on Keflex. Patient discharged on Coumadin for A. fib. No concerns on recent outpatient [facility] Orthopedics follow-up visit last month. Follow-up visit scheduled in 6 to 8 weeks as per note. 2 days history of junky cough symptoms, poor appetite, decreased mentation. Patient around a sick grandchild as per . No recent travel although and son had traveled to [facility] last month. Worsening respiratory distress noted at home. Patient brought to the ER for evaluation. Patient received Vancomycin and Cefepime for sepsis. MEDICAL HISTORY: As above. SURGICAL HISTORY: He has had tonsillectomy/adenoidectomy, pancreatic cancer surgery, knee surgery, cataract surgery, foot debridement, left pleurectomy, decortication, thoracoscopy, Right femoral fracture surgery FAMILY HISTORY: Hypertension, heart disease, diabetes. PERSONAL/SOCIAL HISTORY: Past tobacco and alcohol abuse. On disability. Principal Diagnosis Pneumonia, decompensated congestive heart failureresolved Discharge Exam Constitutional WD/WN, vitals as above + obese; no acute distress (Due to shortness of breath) Eyes PERRL, conjunctivae normal, anicteric sclerae ENMT external ear and nose normal, oropharynx normal Respiratory + cough; no respiratory distress and no audible wheezes Auscultation: no crackles, no rales and no wheezes Cardiovascular Rate/Rhythm: regular rate and regular rhythm Vessels: no JVD Extremities: no pedal edema and no edema Gastrointestinal (Abdomen) Inspection/Auscultation: normal bowel sounds Percussion/Palpation: abdomen soft; abdomen nontender Musculoskeletal no cyanosis or clubbing, extremities motor strength 5/5 Ankle: no deformity and no skin erythema (Prior right heel/foot ulcer completely healed, no open wound noted) Neurologic PERRL, EOMI, accommodation nl, no face palsy, no dysarthria Psychiatric A+Ox3, euthymic affect Orientation: alert and oriented x 3 Affect: + anxious affect Discharge Data Allergies Allergy/AdvReac Type Severity Reaction Status Date / Time bee venom protein (honey bee) Allergy Severe anaphylaxis Verified 06/27/19 02:11 piperacillin Allergy Intermediate Hives Verified 06/27/19 12:56 lisinopril AdvReac Intermediate Elevated Verified 06/27/19 12:56 Potassium amlodipine AdvReac Mild Headache Verified 06/27/19 02:11 Consultations 06/27/19 03:06 ED Decision to Admit Stat 06/27/19 04:37 Consult Case Management - Discharge Planning Routine 06/28/19 15:39 Consult Pulmonology Routine 06/28/19 17:35 Consult Cardiology Routine 06/28/19 18:56 Consult Nephrology Routine Ordered Studies 06/27/19 01:27 CT head/brain wo con [facility] 06/27/19 08:00 CT chest wo con [facility] Hospital Course (1) Respiratory failure, acute and chronic: Multifactorial: Community-acquired pneumonia pneumonia with positive viral PCR for human metapneumovirus/acute COPD exacerbation/decompensated heart failure with diastolic dysfunction leading to volume overload Continues to improve clinically, no confusion alert awake oriented x3 no respiratory distress Appreciate input from pulmonology and cardiology IV Solu-Medrol discontinued changed to p.o. prednisone Antibiotic change to p.o. Zithromax and cefdinir Patient does not meet criteria for COVID 19 testing as per CDC guideline case discussed with infectious disease specialist at [facility], as patient is positive for viral PCR human metapneumovirus, clinical presentation suggestive of COPD exacerbation decompensated CHF recommends COVID 19 testing not indicated Patient continues to do well with supportive care and management as outlined above Shortness of breath, cough, hypoxia is completely resolved Respiratory status back to baseline Stable to be discharged home today Acute decompensation of diastolic dysfunction chronic diastolic heart failure (EF of 50-55%, TTE 2019), Developed decompensates heart failure HFpEF Clinically improved with IV Lasix, Renal function remains stable Appreciate input from cardiology Will be discharged today ambulating with patient home diuretics: Torsemide 40 mg twice daily in addition to metolazone 30 minutes after a.m. dose of torsemide twice a week/on Monday and Monday Metabolic encephalopathy/confusion Resolved Patient's mental status improved since admission after respiratory support with supplemental oxygen, nebulizer treatment, antibiotic therapy Alert oriented conversing appropriately Possible metabolic encephalopathy secondary to hypoxia, pulmonary infection/pneumonia CT head noncontrast: No acute change COPD exacerbation Improved, Antibiotic changed to p.o. Zithromax and cefdinir Appreciate input from pulmonology Discharged home will be on prednisone 40 mg daily for 5 days only Total 5 days of p.o. Zithromax Hx of paroxysmal A. fib Remains rate controlled On Coumadin INR therapeutic DM2, insulin requiring, : Poorly controlled, hemoglobin A1c more than 12 Pharmacy consulted for glycemic management certified adapted physical educator consulted pancreatic cancer status post surgery and chemotherapy On remission for the past 2-3 years chronic anemia (new baseline of 11), hemoglobin at baseline Acute renal failure on CKD stage III: Patient started with IV Lasix diuretics for volume overload, decompensated CHF Monitor BMP daily Nephrology consulted, History of infected wound on rt foot/heel Well-healed, no open wound noted Wound care consulted Ordered for waffle boot, offloading Status post recent hip surgery Patient walks with a walker PT OT eval requested/commence return home with family support Out of bed as tolerated CODE STATUS: Full code DVT prophylaxis Coumadin Disposition: Stable to be discharged home Text document was generated using [employer] voice recognition software. It may contain grammatical or spelling errors. Kindly contact undersigned for clarification of any documentation item in question. Total Time Total Time Spent Total Time Spent (In Minutes): 40 minutes Total Time Includes: Examination of the Patient, Discharge Planning, Medication Reconciliation and Communication With Other Providers Discharge Plan Discharge Items Patient Disposition: Home - Self-Care Reason For Visit: RESP FAILURE Discharge Diagnosis: Pneumonia, decompensated congestive heart failureresolved Activity: Resume your previous activity Non-emergency contact: Primary Care Provider Call non-emergency contact if: you have any medication questions Follow-up/Referrals: Nikhil Grant DO [Hot Box Spotter] - Yana Luis DO [Primary Care Provider] - Deborah Matta MD [Physician] - (In 2-3 weeks) Diet: Carb Consistent or DM2 and Heart Healthy Fluids: 1800ml (7 cups) Ambulatory Orders: Basic Metabolic Panel (Routine) Timeframe: 1 Week Location: Determined by Patient Ordered By: Cici Mejia Attending Provider Instructions: Lab work: Basic metabolic panel next week Follow-up with kidney specialist/Dr. Matta in 2-3 weeks Routine cardiology follow-up with Dr. Grant as scheduled New medications: Zithromax 250 mg 1 tablet daily for 1 more day-antibiotic for pneumonia Prednisone 40 mg 1 tablet daily for 4 more days Please take care of yourself, Wash your hands with soap and water Stay home except for emergencies/doctor's visit /keep safe distance from people ( at least 3-6 feet) , to prevent infection with virus Please continue to take water pills/diuretics:-For congestive heart failure 1. Torsemide 20 mg -take 2 tablets / 40 mg twice daily 2. Zaroxolyn/metolazone2.5 mg 1 tablet 30 minutes after morning dose of torsemide on Monday/and Monday Call your Primary Care doctor if any of the following symptoms or problems start or get worse: * Shortness of breath or difficulty breathing * Wake up at night short of breath * Chest pain * Cough * Swelling of your hands, feet, or legs * More fatigued or tired with your normal activity * Palpitations - sudden fast heart beats WEIGHT * Weigh yourself every morning after using the bathroom. * Use the same scale. * Wear the same amount of clothing. * Write your weight down on a chart. * Call your Primary Care doctor if you gain more than 2-3 pounds in 1-2 days. MEDICATIONS * Use this discharge instruction sheet for medication instructions. * Take your medications at the time your doctor ordered. * Do not skip a dose of your medicines. * If you miss a dose of medicine, take it as soon as possible, but DO NOT DOUBLE A DOSE. * Read your medicine information when you get home. * Know all of the side effects of your medicine. If in doubt, ask your pharmacist * Call your Primary Care doctor's office if you have any side effects. * Be sure all of your doctors know what medicine and herbs you take (including cold, flu, and herbal medicine). Take the following with you to your follow-up doctor appointments: * Weight Chart * Medication List * List of questions Do not drink excessive alcohol, beer or wine. Pending Studies at Discharge: Yes Studies:: Lab work: Basic metabolic panel next week Stand-Alone Forms: My [facility] OmPrompt, Smoking Cessation Medications and DC Order Prescriptions: New prednisone 20 mg Tablet 40 mg PO DAILY 4 Days Qty: 8 RF: 0 Continued omeprazole 20 mg Capsule,Delayed Release(Dr/Ec) 20 mg PO BID RF: 0 oxycodone 5 mg Tablet 5 mg PO Q4H PRN (Reason: Pain) RF: 0 bupropion HCl 200 mg Tablet Sustained-Release 12 Hr 200 mg PO DAILY RF: 0 atorvastatin 40 mg Tablet 40 mg PO DAILY RF: 0 carvedilol 25 mg Tablet 25 mg PO BID RF: 0 albuterol sulfate 2.5 mg /3 mL (0.083 %) Solution For Nebulization 2.5 mg INHALATION Q4H PRN (Reason: Wheezing) RF: 0 sucralfate [Carafate] 1 gram Tablet 1 g PO QID PRN (Reason: DYSEPSIA) RF: 0 aspirin [Aspir-81] 81 mg Tablet,Delayed Release (Dr/Ec) 81 mg PO DAILY RF: 0 polyethylene glycol 3350 [Miralax] 17 gram/dose Powder 17 g PO DAILY PRN (Reason: Constipation) RF: 0 Lantus Solostar U-100 Insulin 100 unit/mL (3 mL) Insulin Pen 40 unit SUBCUT BID RF: 0 tamsulosin 0.4 mg Capsule 0.4 mg PO DAILY RF: 0 insulin aspart U-100 [Novolog U-100 Insulin aspart] 100 unit/mL Solution 1 sliding scale dose SUBCUT AC RF: 0 ferrous sulfate 325 mg (65 mg iron) Tablet 325 mg PO DAILY RF: 0 docusate sodium 100 mg Capsule 100 mg PO BID RF: 0 hydroxyzine HCl 25 mg Tablet 25 mg PO TID PRN (Reason: Anxiety) RF: 0 gabapentin 100 mg Capsule 200 mg PO BID PRN (Reason: Pain) RF: 0 albuterol sulfate [ProAir HFA] 90 mcg/actuation Hfa Aerosol Inhaler 2 puff INHALATION Q4H PRN (Reason: Wheezing) RF: 0 budesonide-formoterol 160-4.5 mcg/actuation Hfa Aerosol Inhaler 2 puff INHALATION HS RF: 0 Creon 24,000-76,000 -120,000 unit Capsule,Delayed Release(Dr/Ec) 1 cap PO AC RF: 0 warfarin [Coumadin] 7.5 mg Tablet 7.5 mg PO DIRECTED RF: 0 warfarin [Coumadin] 5 mg Tablet 5 mg PO DIRECTED RF: 0 torsemide 20 mg tablet 40 mg PO BID RF: 0 metolazone 2.5 mg Tablet 2.5 mg PO DIRECTED RF: 0 Discharge Orders: Discharge Order (Routine); Ordered 07/01/19 Ordered By: Cici Blandon Admission Data Admit Date/Time: 06/27/19 03:28 Attending Provider: Cici Blandon Admit Provider: Med Maya Primary Care Provider: Yana Luis Other Providers: Med Maya ; Analy Simpson ; Jared Bah ; Nikhil Grant ; Ronnie López ; Leon Cardenas ; Gregory Read ; Bradley Collins ; Vannessa Rob ; Marisol Cantu ; Nadeem York ; Ayala Gonzalez ; Paul Samuel ; Kaitlynn Mattson ; Amaya Barahona ; Deborah Matta Other Interventions: Discharge Summary Assessment (RN) Last Done: 07/01/19 11:30 DC Date/Time DO NOT enter until pt leaves facility: 07/01/19 16:14
--- NOTE | 2019-07-05 14:54 | Coding Query ---
CODING QUERY To promote full compliance with coding requirements relating to patient care, provider participation is requested in all cases of digital content marketing manager uncertainty. Please assist us with the question(s) below: Coding Question(s): Severe sepsis was documented on the history and physical but not followed through out the record, please clarify the diagnosis belo Physician's Response(s): (x ) Severe Sepsis ( ) Severe Sepsis ruled out ( ) Other Please specify Thank you Belle Kitchen Principal Diagnosis: "that condition established after study, to be chiefly responsible for occasioning the admission of the patient to the hospital for care." Co-Existing Principal Diagnosis: "when two or more diagnoses equally meet the criteria for principal diagnosis as determined by the circumstances of admission, diagnostic work up, and/or therapy provided, and the Alphabetic Index, Tabular List, or another coding guideline does not provide sequencing direction, any one of the diagnoses may be sequenced first." "When the physician has documented what appears to be a current diagnosis in the body of the record, but has not included the diagnosis in the final diagnostic statement, the physician should be asked whether the diagnosis should be added." (Source [facility]oding [facility] 2 QTR90. p3-4) EMILEE
== END 2019-07-01 16:14 | disposition home or self-care (01) | DRG 871 ==
LOC: ED 00:52 → 2N 03:28 → 2S 06-28 22:52

== ENCOUNTER 2019-12-07 03:49 | Inpatient (IN) ==
[~2019-12-07 03:49] MED LIST changes: -ALBINS/ INH; -ALBU18002 INH; -ASPI81TA28 PO; -BUPR-269 PO; -CLC6 PO; -CRG25 PO; -EPP3/2 IM; -FLUT1INH INH; -FRRS300 PO; -GABA-1220 PO; -HYDR-3124 PO; -INSDGIPEN SC; +INSULIN ASPART 100 UNITS/ML 3 ML PEN SC SCH; -LSX40 PO; -METO2.5T PO; -NITR0.4S UT; -NUTRMIS PO; -OXGN; -OXYC-90 PO; -PANC1CAP PO; -POLY335019 PO; -PRLSR20 PO; -SENN8.6T7 PO; -SUCR1TAB29 PO
[2019-12-07] MEDS ORDERED: ACETAMINOPHEN 325 MG TAB PO PRN (13:31)
[2019-12-07 14:00] LABS: Hematocrit (blood only) 37.3 % (42-52); Hemoglobin 12.7 g/dL (14.0-18.0); Mean Corpuscular Hemoglobin 28.8 pg (25-34); Mean Corpuscular Volume 84.6 fL (80-100); Mean Platelet Volume 10.2 fL (7.4-10.4); Platelet Count 361 K/uL (130-400); RDW Coefficient of Variation 13.8 % (11.5-14.5); Red Blood Count 4.41 M/uL (4.7-6.1); White Blood Count 11.64 K/uL (4.8-10.8)
[2019-12-07] MEDS ORDERED: DOCUSATE SODIUM 100 MG CAP PO PRN (14:01)
[2019-12-07] MEDS ORDERED: POLYETHYLENE (MIRALAX) 17 GM PACK PO PRN (14:01)
[2019-12-07 14:15] LABS: INR 3.3 (0.9-1.1); Prothrombin Time 32.4 Seconds (9.0-12.0)
--- NOTE | 2019-12-07 14:19 | History & Physical Report ---
Date of Service December 07, 2019 Assessment & Plan (1) Near syncope: (2) Fall: -Admit to [facility] with telemetry -Patient presenting as a transfer from [facility] ED. Last evening around 11 PM, patient stood up from his chair to go to the kitchen when he reports he felt lightheaded and his legs gave out from under him and he fell to the ground. No loss of consciousness. -Head CT, C-spine CT, pelvis x-ray, sacral x-ray performed at [place] all negative for acute findings -Suspect orthostasis from dehydration from hyperglycemia -Brain MRI to r/o CVA -Troponin negative, EKG without acute ST changes. Check resting echo -Orthostatic BPs -PT/OT (3) Acute kidney injury superimposed on chronic kidney disease: (4) CKD (chronic kidney disease), stage III: -Creatinine 2.7, up from baseline of ~ 1.5 -Likely prerenal in nature secondary to dehydration from hyperglycemia -IVF, cautiously given history of chronic diastolic CHF -Hold diuretics (5) DM type 2 (diabetes mellitus, type 2): -Glucose 404 -Does not appear to be in DKA; no anion gap, normal HCO3 -Start insulin drip -Hgb A1c 12.5 06/2019, update Hgb A1c (6) Chronic diastolic CHF (congestive heart failure): -Holding diuretics due to ELIZABETH, orthostasis, dehydration (7) Paroxysmal atrial fibrillation: -Rate controlled on carvedilol, will reduce dose from 37.5 mg twice daily to 25 mg twice daily due to mild bradycardia and borderline hypotension -Anticoagulated on Coumadin, INR 3.3; hold Coumadin today (8) COPD (chronic obstructive pulmonary disease): -No signs of acute exacerbation, continue home inhalers -Saturating well on chronic 4 L of O2 (9) History of CVA (cerebrovascular accident): -Continue aspirin, statin (10) Chronic pain: -Continue home medications (11) DVT prophylaxis: -Anticoagulated on Coumadin, INR 3.3 Admission and Anticipated Discharge Date Admission Date: December 07, 2019 History of Present Illness Chief Complaint: Fall, near syncope Primary Care Provider: Yana Luis DO 64-year-old male with PMH DM type II, CKD stage III, chronic hypoxic respiratory failure on 4 L of oxygen, COPD, history of CVA, paroxysmal atrial fibrillation anticoagulant on Coumadin, chronic diastolic CHF, pancreatic cancer s/p surgery and chemotherapy who was transferred from [facility] ED for evaluation of fall and near syncope. Patient reports that around 11:00 last evening, he stood up from his chair to go to the kitchen. While in the kitchen, he reports he started feel lightheaded and his legs gave out from under him. Patient reports hitting his head and tailbone. Patient denies any loss of consciousness. Denies associated chest pain or shortness of breath. Did not check his blood sugar at the time of the event. Reports he otherwise has been feeling well recently. No other recent illnesses, fevers, chills. Denies abdominal pain, nausea, vomiting, diarrhea. No urinary symptoms. At [facility] ED, patient was found to be hyperglycemic (exact glucose unavailable at this time). Head CT negative for acute findings, C-spine CT negative for acute findings, sacral x-ray negative for acute findings, pelvis x-ray negative for acute findings. Patient and family requested to be transferred to [facility]. Allergies Allergy/AdvReac Type Severity Reaction Status Date / Time bee venom protein (honey bee) Allergy Severe anaphylaxis Verified 06/27/19 02:11 piperacillin Allergy Intermediate Hives Verified 06/27/19 12:56 lisinopril AdvReac Intermediate Elevated Verified 06/27/19 12:56 Potassium amlodipine AdvReac Mild Headache Verified 06/27/19 02:11 Home Medications Home Medications Medication Instructions Recorded Confirmed Type Lantus Solostar U-100 Insulin 40 unit SUBCUT BID 09/01/18 12/07/19 History albuterol sulfate 2.5 mg INHALATION Q4H PRN 09/01/18 12/07/19 History aspirin [Aspir-81] 81 mg PO DAILY 09/01/18 12/07/19 History atorvastatin 40 mg PO DAILY 09/01/18 12/07/19 History carvedilol 37.5 mg PO BID 09/01/18 12/07/19 History polyethylene glycol 3350 [Miralax] 17 g PO DAILY PRN 09/01/18 12/07/19 History sucralfate [Carafate] 1 g PO QID PRN 09/01/18 12/07/19 History omeprazole 20 mg PO BID 11/18/18 12/07/19 History oxycodone 10 mg PO TID PRN 11/18/18 12/07/19 History Creon 1 cap PO AC PRN 03/25/19 12/07/19 History albuterol sulfate [ProAir HFA] 2 puff INHALATION Q4H PRN 03/25/19 12/07/19 History budesonide-formoterol 2 puff INHALATION BID 03/25/19 12/07/19 History docusate sodium 100 mg PO BID PRN 03/25/19 12/07/19 History insulin aspart U-100 [Novolog 1 sliding scale dose SUBCUT AC 03/25/19 12/07/19 History U-100 Insulin aspart] tamsulosin 0.4 mg PO DAILY 03/25/19 12/07/19 History warfarin [Coumadin] 5 mg PO TUSA 06/27/19 12/07/19 History warfarin [Coumadin] 7.5 mg PO SUMOWETHFR 06/27/19 12/07/19 History metolazone 2.5 mg PO MOFR 07/01/19 12/07/19 History torsemide 40 mg PO BID 07/01/19 12/07/19 History cholecalciferol (vitamin D3) 50 mcg PO DAILY 12/07/19 12/07/19 History duloxetine 40 mg PO DAILY 12/07/19 12/07/19 History trazodone 25 - 50 mg PO HS PRN 12/07/19 12/07/19 History Past Med/Surg History Medical History Anemia of chronic disease Anticoagulated Asthma, mild persistent Chronic diastolic CHF (congestive heart failure) CKD (chronic kidney disease), stage III COPD (chronic obstructive pulmonary disease) 4L of O2 NC at home CVA (cerebral vascular accident) left sided weakness Depression Diabetic polyneuropathy Diastolic CHF DM type 2 (diabetes mellitus, type 2) Dyslipidemia GERD (gastroesophageal reflux disease) Glaucoma Hypertension Osteoarthritis Pancreatic cancer Paroxysmal atrial fibrillation Pericardial effusion PTSD (post-traumatic stress disorder) Recurrent left pleural effusion Surgical History History of partial pancreatectomy History of splenectomy Hx of cataract surgery S/P tonsillectomy and adenoidectomy Family History Mother Breast cancer Diabetes Social History Smoking Status: Former smoker Hx Alcohol Use: No Hx Substance Use: No Preferred Language: [place] Communication Ability: Effective Application Integration Engineer Required: No Beliefs That Will Affect Care: None marital status: Current Living Situation: Spouse current occupational status: unemployed and disabled Other Information That Helps Us Care for You: No Feels Safe at Home: Yes Safety Concerns: Feels Safe At This Time Review of Systems Review of Systems: ROS per HPI, all other systems reviewed and negative Physical Exam Physical Exam: Please refer to Dr. Farmer's addendum for physical exam. Results & Data Results & Data ([facility]) Vital Signs (Past 12 Hours) Vital Signs Temp Pulse Resp BP Pulse Ox 12/07/19 13:33 36.5 C 64 18 104/62 97 12/07/19 13:25 36.5 C 64 18 109/66 97 Laboratory Results Short CBC 12/07/19 Range/Units 13:47 WBC 11.64 H (4.8-10.8) K/uL Hgb 12.7 L (14.0-18.0) g/dL Hct 37.3 L (42-52) % Plt Count 361 (130-400) K/uL BMP 12/07/19 13:47 Sodium 126 L Potassium 3.6 Chloride 89 L Carbon Dioxide 28 BUN 52 H Creatinine 2.70 H Glucose 404 H* Calcium 9.3 Cardiac Enzymes 12/07/19 Range/Units 13:47 Troponin I < 0.015 (0-0.045) ng/ml Code Status & VTE Plan VTE Prophylaxis Plan VTE Prophylaxis will be ordered: No
[2019-12-07 14:25] LABS: BUN Creatinine Ratio 19.1 (10-20); Blood Urea Nitrogen 52 mg/dl (7-18); Calcium 9.3 mg/dl (8.5-10.1); Carbon Dioxide 28 mmol/L (21-32); Chloride 89 mmol/L (98-107); Creatinine Clr Calc Pharmacy 32.9 ml/min; Est GFR (African American) 27.4; Est GFR (Non-African American) 23.7; Glucose 404 mg/dl (70-99); Potassium 3.6 mmol/L (3.5-5.1); Sodium 126 mmol/L (136-145); Troponin I < 0.015 ng/ml (0-0.045)
[2019-12-07] MEDS ORDERED: OXYCODONE HCL IR 5 MG TAB (IMMEDIATE RELEASE) PO PRN ×2 (14:33→18:25)
[2019-12-07 14:37] LABS: Beta-Hydroxybutyrate 10.99 mg/dl (0.2-2.81)
[2019-12-07] MEDS ORDERED: INSULIN PROTOCOL GOAL RANGE ONE (14:53)
[2019-12-07] MEDS ORDERED: MODERATE STRESS LEVEL ONE (14:53)
[2019-12-07] MEDS ORDERED: POTASSIUM CHLORIDE 20 MEQ TABCR PO ONE (14:54)
[2019-12-07] MEDS ORDERED: PHARMACY GLYCEMIC MGMT CONSULT PRN (15:00)
--- NOTE | 2019-12-07 15:00 | Communication Note ---
Date of Service: December 07, 2019 Attending Addendum: care coordinated with DAVID Pizarro please refer to her notes for full details, I agree with her notes patient seen and examined, records reviewed by myself as well on exam, patient seen resting in bed, comfortable, oriented x 3, in good spirits main symptom is lower back pain- chronic but increased after falling last night denies active dizziness, headache, changes with vision, focal neuro deficits no chest pain, dyspnea, palpitations no other symptoms VS noted and reviewed General- oriented x 3, not in distress, speaks in sentences with no effort or accessory muscle use Head- atraumatic Eyes- PERRL, EOMI, anicteric ENT- (+) dry oral mucosa, oropharynx clear Neck- supple, no JVD, no adenopathy, no thyromegaly; carotids +2/2, no bruits appreciated Lungs- clear to auscultation bilaterally, no rales/wheezes Heart- normal rate- HR 66, regular rhythm; no murmur, no gallop, no rub appreciated Abdomen- normal bowel sounds, nondistended, soft, nontender, no masses or hepatosplenomegaly Extremities- no pretibial edema, no calf tenderness; peripheral pulses intact Back- NO hematoma, erythema; (+) moderate tenderness on the lower back Neuro- alert, oriented x 3; CN 2-12 grossly intact; motor 5/5 bilaterally;sensation 100% on all extremities; no other gross focal neurologic deficits Skin- warm & dry WBC 11.6 Hg 12.7 Plt 361 Na 126 HCO3 28 BUN 52 Crea 2.7 Gluc 404 Beta Hydroxy 10.99 HCO3 normal ASSESSMENT AND PLAN 64 year old male with history of CHF Diastolic Type on Torsemide and Metolazone, DM 2, HTN, CKD III, CAD, A fib oin Coumadin, and other problems noted below presenting with lightheadedness and fall-> transferred from [facility] for further evaluation per family request. PRESYNCOPE, S/P FALL LIKELY SECONDARY TO ORTHOSTATIC HYPOTENSION, DEHYDRATION patient landed on his buttocks, hitting back of his head on hardwood floor, no loss of consciousness CT head, CT C spine, Xray of pelvis done in [facility] check Orthostatic BP Echo Telemetry monitoring Brain MRI r/o CVA given A fib (although already on coumadin , INR 3.3) IV NSS at 80cc/hr monitor while on IV fluids in light of Diastolic CHF Hold Torsemide and Metolazone decrease Carvedilol from 37.5mg bid to 25mg bid PT/OT ACUTE RENAL FAILURE ON CKD III, likely PRERENAL ETIOLOGY dehydration likely the result of hyperglycemia/uncontrolled DM, concurrent Torsemide and Metolazone denies poor intake, vomiting or diarrhea baseline crea 1.6 now 2.7 management of fluids and medications as per #1 HYPERGLYCEMIA, DM 2 BSG 404 no anion gap, HCO3 normal (+) beta hydroxybutyric acid Insulin drip ordered Pharmacy Glycemic Control consult HYPONATREMIA corrected Na 131 likely hypovolemic monitor BMP q6h other diagnoses and plan of care as per DAVID Pizarro's notes Nj Farmer MD
[2019-12-07] MEDS ORDERED: INSULIN HUMAN REGULAR IV BOLUS 3 UNITS in SYRINGE 0 ML IV ONE (15:15)
--- NOTE | 2019-12-07 15:17 | Pharmacy Report ---
Glycemic Control Consultation - Date of Service December 07, 2019 - Scope Scope: Glycemic Pharmacist consulted for glycemic control and to write orders per [facility] inpatient glycemic control protocol. - Objective Weight: 121 kg Accuchecks BSG (last 24hrs): 12/07/19 12/07/19 12/07/19 13:35 13:37 13:47 Glucose 404 H* POC Glucose 443 H* 411 H* Laboratory Data (last 24hrs): 12/07/19 13:47 Potassium 3.6 Carbon Dioxide 28 Anion Gap 9.0 Creatinine 2.70 H Est Cr Clr Drug Dosing 32.9 Beta-Hydroxybutyric Acd 10.99 H HbA1c: Pending for 12/07/19 - Recent Pertinent Medications Outpatient Anti-diabetic Regimen: * Lantus 40 units SQ BID * NovoLog per scale AC - Assessment & Plan Assessment & Plan: ASSESSMENT: * 64yo T2DM male admitted for syncope/fall and severe hyperglycemia. * Degree of outpatient control unknown - A1c pending * Provider initiated IV insulin infusion for SEVERE hyperglycemia without hyperglycemic crisis. No outpatient insulin administered since last evening. * Only able to use gentle hydration d/t CHF. * Will overlap IV insulin with basal insulin and transition to SQ basal bolus insulin regimen when criteria met (BSG < 180 x 2, IV insulin infusion rate 1 unit/hr or below) PLAN FOR INPATIENT GLYCEMIC CONTROL: * Starting IV insulin infusion per moderate stress protocol * Goal Range 140 - 180 mg/dl * Basal insulin * Lantus 40 units SQ BID - will overlap with IV insulin infusion and titrate as needed based on AM fasting BSGs * Bolus insulin- per IV insulin infusion calculator (CHO ratio based on IV insulin infusion rate) * Please note that the plan above was derived based on current level of insulin resistance and hospital stress. These recommendations are appropriate for inpatient admission only. Plan of care upon discharge will need to be reassessed to avoid potential outpatient hypo/hyperglycemia. Thank you.
[2019-12-07] MEDS: SODIUM CHLORIDE 0.9% 1000ML 1,000 ML IV SCH (15:24)
[2019-12-07] MEDS: INSULIN REGULAR 250 UNITS in SODIUM CHLORIDE 0.9% 247.5 ML IV SCH ×2 (15:27→19:37)
--- NOTE | 2019-12-07 17:15 | Magnetic Resonance Report ---
MRI OF THE BRAIN WITHOUT IV CONTRAST CLINICAL HISTORY: Near syncope. COMPARISON STUDY: CT of the brain dated 06/27/2019. TECHNIQUE: MRI of the brain was performed utilizing various T1 and T2-weighted sequences in the axial , sagittal, and coronal planes. IV contrast was not administered for this examination. The examinatio n is modestly degraded by motion artifact. FINDINGS: Brain parenchyma: There is minimal microangiopathic change. The brain parenchyma is otherwise normal in appearance. There is no hemorrhage or mass effect. There is no restricted diffusion to suggest acu te ischemia. Meza-white matter differentiation is preserved. No extra-axial fluid collection is seen. The cerebellar tonsils are normal in configuration. Ventricles, sulci, and cisterns: Normal in configuration. Pituitary and sella: Unremarkable. Intracranial vasculature: Normal flow voids are maintained at the skull base. Orbits: The bony orbits are grossly intact. Orbital contents are normal in appearance noting bilatera l ocular lens implants. Sinuses and mastoids: There are bilateral mastoid effusions. Mild mucosal thickening is noted in the left maxillary sinus. The remaining paranasal sinuses are clear. Calvarium: Unremarkable. Cervical cord: Partially visualized cervical spinal cord is normal in morphology and signal intensity . IMPRESSION: No acute intracranial abnormality. ACT 112: Negative or not required by law. Electronically signed by: Ang Becker M.D. 12/07/2019 5:14 PM
[2019-12-07] MEDS ORDERED: Nursing to Pharmacy Communication ONE (17:30)
[2019-12-07] MEDS: INSULIN ASPART 100 UNITS/ML 3 ML PEN SC SCH ×2 (18:29→20:49)
[2019-12-07] MEDS ORDERED: METOCLOPRAMIDE HCL 5 MG TABLET PO PRN (18:47)
[2019-12-07 19:52] LABS: BUN Creatinine Ratio 17.8 (10-20); Calcium 8.8 mg/dl (8.5-10.1); Creatinine Clr Calc Pharmacy 30.7 ml/min; Est GFR (African American) 25.3; Est GFR (Non-African American) 21.8; Potassium 3.8 mmol/L (3.5-5.1)
[2019-12-07 20:05] LABS: Beta-Hydroxybutyrate 0.94 mg/dl (0.2-2.81)
[2019-12-07] MEDS ORDERED: INSULIN GLARGINE SOLOSTAR 100 UNITS/ML 3 ML PEN SC ONE (20:15)
[2019-12-07] MEDS: FLUTICASONE/VILANTEROL 200/25MCG 14 PUFFS/INHALER INH SCH (20:48)
[2019-12-07] MEDS: carvediloL 25 MG TAB PO SCH (20:49)
[2019-12-07] MEDS: PANTOprazole 40 MG TAB PO SCH (20:50)
[2019-12-07] MEDS ORDERED: [UNRECOGNIZED DRUG - REMARK] ONE (21:45)
[2019-12-08] MEDS ORDERED: DC IV INSULIN INFUSION 1 EA DEVI SCH
[2019-12-08 01:07] LABS: BUN Creatinine Ratio 20.9 (10-20); Calcium 8.5 mg/dl (8.5-10.1); Creatinine Clr Calc Pharmacy 34.6 ml/min; Est GFR (African American) 29.1; Est GFR (Non-African American) 25.1; Potassium 3.8 mmol/L (3.5-5.1)
[2019-12-08] MEDS: INSULIN ASPART 100 UNITS/ML 3 ML PEN SC SCH ×5 (03:40→20:59)
[2019-12-08] MEDS: SODIUM CHLORIDE 0.9% 1000ML 1,000 ML IV SCH ×3 (03:40→19:17)
[2019-12-08] MEDS ORDERED: INSULIN GLARGINE SOLOSTAR 100 UNITS/ML 3 ML PEN SC ONE (07:45)
[2019-12-08 07:46] LABS: Hematocrit (blood only) 37.7 % (42-52); Hemoglobin 12.3 g/dL (14.0-18.0); Mean Corpuscular Hemoglobin 28.7 pg (25-34); Mean Corpuscular Hgb Conc 32.6 g/dL (32-36); Mean Corpuscular Volume 87.9 fL (80-100); Mean Platelet Volume 10.4 fL (7.4-10.4); Platelet Count 360 K/uL (130-400); RDW Coefficient of Variation 14.3 % (11.5-14.5); RDW Standard Deviation 46.3 fL (36.4-46.3); Red Blood Count 4.29 M/uL (4.7-6.1); White Blood Count 16.75 K/uL (4.8-10.8)
[2019-12-08 08:04] LABS: INR 4.2 (0.9-1.1); Prothrombin Time 40.8 Seconds (9.0-12.0)
[2019-12-08 08:25] LABS: BUN Creatinine Ratio 21.3 (10-20); Calcium 8.7 mg/dl (8.5-10.1); Creatinine Clr Calc Pharmacy 38.2 ml/min; Est GFR (African American) 32.8; Est GFR (Non-African American) 28.3; Potassium 3.9 mmol/L (3.5-5.1)
[2019-12-08] MEDS: DULOXETINE HCL 20 MG CAP PO SCH (08:31)
[2019-12-08] MEDS: carvediloL 25 MG TAB PO SCH ×2 (08:32→21:00)
[2019-12-08] MEDS: PANTOprazole 40 MG TAB PO SCH ×2 (08:32→21:01)
[2019-12-08] MEDS: ATORVASTATIN 40 MG TAB PO SCH (08:33)
[2019-12-08] MEDS: ASPIRIN 81 MG ECTAB PO SCH (08:33)
[2019-12-08] MEDS: TAMSULOSIN HCL 0.4 MG CAP PO SCH (08:33)
[2019-12-08] MEDS: CHOLECALCIFEROL 1,000 UNITS 25 MCG TAB PO SCH (08:33)
[2019-12-08] MEDS ORDERED: INSULIN GLARGINE SOLOSTAR 100 UNITS/ML 3 ML PEN SC SCH (09:00)
--- NOTE | 2019-12-08 09:37 | Pharmacy Report ---
Pharmacy Glycemic Short Note 2 - Date of Service December 08, 2019 - Glycemic Short BSG Results (Last 24 hours): 12/07/19 12/07/19 12/07/19 13:35 13:37 13:47 Glucose 404 H* POC Glucose 443 H* 411 H* 12/07/19 12/07/19 12/07/19 17:15 18:25 18:50 Glucose 410 H* POC Glucose 437 H* 375 H* 12/07/19 12/07/19 12/07/19 19:29 20:30 21:27 Glucose POC Glucose 382 H* 328 H* 188 H 12/07/19 12/07/19 12/07/19 22:36 23:28 23:29 Glucose POC Glucose 142 H 80 93 12/07/19 12/08/19 12/08/19 23:30 00:13 00:14 Glucose POC Glucose 81 69 L* 69 L* 12/08/19 12/08/19 12/08/19 00:32 00:35 03:21 Glucose 84 POC Glucose 88 182 H 12/08/19 12/08/19 07:06 07:48 Glucose 218 H POC Glucose 228 H OUTPATIENT ANTIDIABETIC REGIMEN: * Lantus 40 units SQ BID * NovoLog per scale AC * A1c - pending ASSESSMENT: 12/07: * Patient was transitioned off IV insulin infusion around midnight. Majority of BSGS have been above goal since then. * Fasting BSG of 228 mg/dL. I will continue increased dose of Lantus (50 units) this morning and plan to resume home dose this evening if BSGs are trending down throughout the day. * Post prandial BSGs are elevated -> tighten Novolog coverage 12/06: * 64yo T2DM male admitted for syncope/fall and severe hyperglycemia. * Degree of outpatient control unknown - A1c pending * Provider initiated IV insulin infusion for SEVERE hyperglycemia without hyperglycemic crisis. No outpatient insulin administered since last evening. * Only able to use gentle hydration d/t CHF. * Will overlap IV insulin with basal insulin and transition to SQ basal bolus insulin regimen when criteria met (BSG < 180 x 2, IV insulin infusion rate 1 unit/hr or below) PLAN FOR INPATIENT GLYCEMIC CONTROL: * Hold outpatient oral diabetes medications * Basal insulin * Lantus 50 units SQ this morning, then Lantus 40-50 units SQ BID: * 40 units for BSG < 200 mg/dL * 50 units for BSG 200 mg/dL or more * Bolus insulin * NovoLog per scale ACHS or Q6hrs while NPO * Goal Range: Low 110 mg/dL - High 140 mg/dL * Correction Factor: 10 mg/dL/unit * Nutritional / Prandial insulin per carb ratio of 1 unit per 4 grams CHO consumed PLAN FOR DISCHARGE: * pending A1c result Thank you.
--- NOTE | 2019-12-08 10:04 | Electrocardiogram Report ---
Test Reason : Blood Pressure : / mmHG Vent. Rate : 064 BPM Atrial Rate : 064 BPM P-R Int : 208 ms QRS Dur : 100 ms QT Int : 462 ms P-R-T Axes : 055 009 069 degrees QTc Int : 476 ms Normal sinus rhythm first degree AVB When compared with ECG of 27-JUN-2019 01:04, Vent. rate has decreased BY 31 BPM First Degree aVB is present Confirmed by Norm Crouch ([id number]) on 12/08/2019 10:04:20 AM Referred By: Med Maya Confirmed By:Norm Crouch
--- NOTE | 2019-12-08 14:14 | Hospitalist Progress Note ---
Date of Service December 08, 2019 Assessment & Plan (1) Near syncope: Multiple contributing factors to this event are likely including but not limited to significant peripheral neuropathy of the feet and hands with lack of proprioception of feet, orthostatic hypotension that may have been contributing, dehydration evidenced by renal failure and dry mucous membranes, and medications including the recent Lyrica and Cymbalta in the contxt of chronic oxycodone for chronic pain. Most importantly will be for him to get better control of his diabetes to start. Here workup has been negative for other cardiac cause and PT/OT are in agreement that he would be fine to return home. (2) Fall: Telemetry review reveals 1 AV block consistently-would recommend speaking with his PCP as outpatient regarding adjustment of his Carvedilol, currently asymptomatic. Patient presenting as a transfer from [facility] ED. -Head CT, C-spine CT, pelvis x-ray, sacral x-ray performed at [facility] all negative for acute findings -Suspect orthostasis from dehydration from hyperglycemia MRI brain is negative Troponin negative, EKG without acute ST changes. Resting echo is negative. Continue monitoring orthostatics. PT/OT clear patient to home. (3) DM type 2 (diabetes mellitus, type 2): Uncontrolled as outpatient (A1C>13) with complications. Inpatient glucose is controlled. (4) Chronic diastolic CHF (congestive heart failure): -Holding diuretics due to ELIZABETH, orthostasis, dehydration. Continue IVFs. (5) Paroxysmal atrial fibrillation: -Rate controlled on carvedilol, will reduce dose from 37.5 mg twice daily to 25 mg twice daily due to mild bradycardia and borderline hypotension -Anticoagulated on Coumadin, INR 3.3; hold Coumadin today (6) COPD (chronic obstructive pulmonary disease): -No signs of acute exacerbation, continue home inhalers -Saturating well on chronic 4 L of O2 (7) History of CVA (cerebrovascular accident): -Continue aspirin, statin (8) Chronic pain: -Continue home medications including oxycodone 30mg daily. (9) Acute on chronic kidney failure: Improved with IVFs. baseline creatinine of ~ 1.5 Likely prerenal in nature secondary to dehydration from hyperglycemia IVF, cautiously given history of chronic diastolic CHF Hold diuretics (10) DVT prophylaxis: -Anticoagulated on Coumadin, INR 4.2 so continue to hold coumadin. Admission and Anticipated Discharge Date Admission Date: December 07, 2019 Subjective Pt feels better today. Two nights ago he got up in his kitchen, didn't wait very long, and started walking. He then felt lightheaded and nautious and then fell backward and hit his head on the kitchen floor. No LOC. He initially went to [facility] and workup included -Head CT, C-spine CT, pelvis x-ray, sacral x-ray all negative for acute findings. He was transferred here and Brain MRI to r/o CVA was negative, serial troponin was negative and EKG was without acute ST changes. A resting echo was normal. IVF were given overnight. Orthostatics were positive. Pt reports feeling better. However, he is a chronic oxycodone user and has not received this over the past day. He is tolerating PO, breathing well, denies chest pain. Reports significant peripheral polyneuropathy related to diabetes that is not controlled. (A1C on 12/07/19 was 13.7). He also reprts changing medications recently. He was told by one Dr. to stop lyrica, and to continue on Cymbalta. However, he became confused wtih this and continued the Lyrica which causes him to gain fluid, not taking the Cymbalta. His then recognized the mistake and corrected it per the original instructions just 2-3 weeks ago. Unsure if this may have contributed to the fall. Review of Systems Review of Systems: All systems reviewed & are unremarkable except as noted in Subjective Physical Exam Physical Exam: CONSTITUTIONAL: obese, vitals as above, generally well- appearing EYES: normal conjunctivae, no scleral icterus ENT: external ear and nose normal, oropharynx clear, MM are dry. NECK: trachea midline, no lymphadenopathy RESPIRATORY: clear to auscultation bilaterally, no crackles, rales or wheezes, normal respiratory effort CARDIOVASCULAR: regular rate and rhythm, S1 and 2 heard without murmurs, gallops or rubs, no JVD, no peripheral edema GASTROINTESTINAL: soft, nontender, nondistended. MUSCULOSKELETAL: strength 5/5 throughout, head is normocephalic and atraumatic SKIN: warm and dry NEUROLOGIC: No facial palsy, no dysarthria. CN 2-12 grossly intact, normal cognition, normal speech, no tremor PSYCHIATRIC: alert cooperative and oriented to person, place and time. Results & Data Results & Data ([facility]) Vital Signs (Past 12 Hours) Vital Signs Temp Pulse Resp BP BP Pulse Ox 12/08/19 12:53 36.7 C 66 18 162/73 H 96 12/08/19 06:36 36.9 C 78 19 149/77 H 97 12/08/19 02:37 36.9 C 66 19 117/73 97 Laboratory Results Short CBC 12/08/19 Range/Units 07:06 WBC 16.75 H (4.8-10.8) K/uL Hgb 12.3 L (14.0-18.0) g/dL Hct 37.7 L (42-52) % Plt Count 360 (130-400) K/uL BMP 12/07/19 12/07/19 12/08/19 13:47 18:50 00:35 Sodium 126 L 127 L 134 L D Potassium 3.6 3.8 3.8 Chloride 89 L 92 L 95 L Carbon Dioxide 28 27 32 BUN 52 H 51 H 54 H Creatinine 2.70 H 2.89 H 2.57 H D Glucose 404 H* 410 H* 84 Calcium 9.3 8.8 8.5 12/08/19 07:06 Sodium 132 L Potassium 3.9 Chloride 96 L Carbon Dioxide 29 BUN 50 H Creatinine 2.33 H Glucose 218 H Calcium 8.7 Cardiac Enzymes 12/07/19 Range/Units 13:47 Troponin I < 0.015 (0-0.045) ng/ml Medications Administered Aspirin (Aspirin 81 Mg Ectab) 81 mg PO DAILY GWEN Stop: 01/07/20 08:59 Last Admin: 12/08/19 08:33 Dose: 81 mg Documented by: [id number] Atorvastatin Calcium (Atorvastatin 40 Mg Tab) 40 mg PO DAILY GWEN Stop: 01/07/20 08:59 Last Admin: 12/08/19 08:33 Dose: 40 mg Documented by: [id number] Carvedilol (Carvedilol 25 Mg Tab) 25 mg PO BID GWEN Stop: 01/06/20 20:59 Last Admin: 12/08/19 08:32 Dose: 25 mg Documented by: [id number] Admin: 12/07/19 20:49 Dose: 25 mg Documented by: [id number] Duloxetine HCl (Duloxetine Hcl 20 Mg Cap) 40 mg PO DAILY GWEN Stop: 01/07/20 08:59 Last Admin: 08/30/20 08:31 Dose: 40 mg Documented by: [id number] Fluticasone/Vilanterol (Fluticasone/Vilanterol 200/25mcg 14 Puffs/Inhaler) 1 puffs INH PM GWEN Stop: 01/06/20 20:59 Last Admin: 12/07/19 20:48 Dose: 1 puffs Documented by: [id number] Sodium Chloride (Nss 1000ml) 1,000 mls @ 125 mls/hr IV .Q8H [facility] Stop: 01/06/20 13:44 Last Admin: 12/08/19 11:29 Dose: 125 mls/hr Documented by: [id number] Infusion: 12/08/19 11:26 Dose: 0 mls/hr Documented by: [id number] Infusion: 12/08/19 11:25 Dose: 125 mls/hr Documented by: [id number] Infusion: 12/08/19 11:17 Dose: 0 mls/hr Documented by: [id number] Admin: 12/08/19 03:40 Dose: 125 mls/hr Documented by: [id number] Infusion: 12/08/19 03:40 Dose: 80 mls/hr Documented by: [id number] Admin: 12/07/19 15:24 Dose: 80 mls/hr Documented by: [id number] Insulin Aspart (Insulin Aspart 100 Units/Ml 3 Ml Pen) 0 units SC ACHS [facility] Stop: 01/07/20 03:29 Last Admin: 12/08/19 13:33 Dose: 19 units Documented by: [id number] Cosigned by: [id number] Admin: 12/08/19 08:46 Dose: 15 units Documented by: [id number] Cosigned by: [id number] Admin: 12/08/19 03:40 Dose: Not Given Documented by: [id number] Oxycodone HCl (Oxycodone Hcl Ir 5 Mg Tab (Immediate Release)) 5 mg PO TID PRN PRN Reason: Pain Stop: 12/21/19 18:24 Last Admin: 12/07/19 18:38 Dose: 5 mg Documented by: [id number] Pantoprazole Sodium (Pantoprazole 40 Mg Tab) 40 mg PO BID [facility] Stop: 01/06/20 20:59 Last Admin: 12/08/19 08:32 Dose: 40 mg Documented by: [id number] Admin: 12/07/19 20:50 Dose: 40 mg Documented by: [id number] Tamsulosin HCl (Tamsulosin Hcl 0.4 Mg Cap) 0.4 mg PO DAILY GWEN Stop: 01/07/20 08:59 Last Admin: 12/08/19 08:33 Dose: 0.4 mg Documented by: [id number] Vitamin D (Cholecalciferol 1,000 Units 25 Mcg Tab) 2,000 units PO DAILY GWEN Stop: 01/07/20 08:59 Last Admin: 12/08/19 08:33 Dose: 2,000 units Documented by: [id number]
[2019-12-08] MEDS ORDERED: OXYCODONE HCL IR 5 MG TAB (IMMEDIATE RELEASE) PO STA (16:19)
[2019-12-08] MEDS ORDERED: OXYCODONE HCL IR 5 MG TAB (IMMEDIATE RELEASE) PO PRN (16:19)
[2019-12-08] MEDS ORDERED: ONDANSETRON INJ 2 MG/ML 2 ML VIAL IV PRN (16:20)
[2019-12-08] MEDS: INSULIN GLARGINE SOLOSTAR 100 UNITS/ML 3 ML PEN SC SCH (20:59)
[2019-12-08] MEDS: FLUTICASONE/VILANTEROL 200/25MCG 14 PUFFS/INHALER INH SCH (21:00)
[2019-12-09] MEDS ORDERED: INSULIN ASPART 100 UNITS/ML 3 ML PEN SC SCH (02:00)
[2019-12-09] MEDS: SODIUM CHLORIDE 0.9% 1000ML 1,000 ML IV SCH ×2 (02:27→09:19)
[2019-12-09 05:46] LABS: Estimated Average Glucose 346 mg/dl; Hemoglobin A1C 13.7 % (4.5-5.6)
[2019-12-09 06:22] LABS: Hemoglobin 11.2 g/dL (14.0-18.0); Mean Corpuscular Hemoglobin 28.9 pg (25-34); Mean Corpuscular Hgb Conc 32.9 g/dL (32-36); Mean Corpuscular Volume 87.6 fL (80-100); Mean Platelet Volume 9.7 fL (7.4-10.4); Platelet Count 311 K/uL (130-400); RDW Coefficient of Variation 14.5 % (11.5-14.5); RDW Standard Deviation 46.6 fL (36.4-46.3); Red Blood Count 3.88 M/uL (4.7-6.1); White Blood Count 10.46 K/uL (4.8-10.8)
[2019-12-09 06:33] LABS: INR 3.2 (0.9-1.1); Prothrombin Time 31.6 Seconds (9.0-12.0)
[2019-12-09 06:52] LABS: BUN Creatinine Ratio 22.7 (10-20); Creatinine Clr Calc Pharmacy 47.5 ml/min; Est GFR (African American) 43.6; Est GFR (Non-African American) 37.6; Potassium 3.9 mmol/L (3.5-5.1)
[2019-12-09] MEDS: DULOXETINE HCL 20 MG CAP PO SCH (07:53)
[2019-12-09] MEDS: CHOLECALCIFEROL 1,000 UNITS 25 MCG TAB PO SCH (07:54)
[2019-12-09] MEDS: ATORVASTATIN 40 MG TAB PO SCH (07:54)
[2019-12-09] MEDS: carvediloL 25 MG TAB PO SCH (07:54)
[2019-12-09] MEDS: ASPIRIN 81 MG ECTAB PO SCH (07:54)
[2019-12-09] MEDS: TAMSULOSIN HCL 0.4 MG CAP PO SCH (07:54)
[2019-12-09] MEDS: PANTOprazole 40 MG TAB PO SCH (07:54)
[2019-12-09] MEDS: INSULIN GLARGINE SOLOSTAR 100 UNITS/ML 3 ML PEN SC SCH (09:16)
[2019-12-09] MEDS: INSULIN ASPART 100 UNITS/ML 3 ML PEN SC SCH ×3 (09:17→18:07)
--- NOTE | 2019-12-09 11:44 | Pharmacy Report ---
Pharmacy Glycemic Short Note 2 - Date of Service December 09, 2019 - Glycemic Short BSG Results (Last 24 hours): 12/08/19 12/08/19 12/09/19 16:45 20:10 02:22 Glucose POC Glucose 157 H 142 H 76 12/09/19 12/09/19 12/09/19 03:58 06:07 07:26 Glucose 112 H POC Glucose 105 H 122 H 12/09/19 11:29 Glucose POC Glucose 200 H OUTPATIENT ANTIDIABETIC REGIMEN: * Lantus 40 units SQ BID * NovoLog per scale AC * A1c: 13.7% (12/07/19) ASSESSMENT: 12/08: * WS received 141 units of insulin yesterday * 90 units of basal, 51 units of prandial/correctional * BSGs of 228, 247, 157, 142, 76, and 105 mg/dL yesterday * Will maintain carb ratio, but loosen CF due to lower BSGs overnight * Fasting BSG this morning of 122 mg/dL - will continue basal insulin scale 12/07: * Patient was transitioned off IV insulin infusion around midnight. Majority of BSGS have been above goal since then. * Fasting BSG of 228 mg/dL. I will continue increased dose of Lantus (50 units) this morning and plan to resume home dose this evening if BSGs are trending down throughout the day. * Post prandial BSGs are elevated -> tighten Novolog coverage 12/06: * 64yo T2DM male admitted for syncope/fall and severe hyperglycemia. * Degree of outpatient control unknown - A1c pending * Provider initiated IV insulin infusion for SEVERE hyperglycemia without hyperglycemic crisis. No outpatient insulin administered since last evening. * Only able to use gentle hydration d/t CHF. * Will overlap IV insulin with basal insulin and transition to SQ basal bolus insulin regimen when criteria met (BSG < 180 x 2, IV insulin infusion rate 1 unit/hr or below) PLAN FOR INPATIENT GLYCEMIC CONTROL: * Hold outpatient oral diabetes medications * Basal insulin * Continue Lantus scale * 40 units for BSG < 200 mg/dL * 50 units for BSG 200 mg/dL or more * Bolus insulin - loosen CF * NovoLog per scale ACHS or Q6hrs while NPO * Goal Range: Low 110 mg/dL - High 140 mg/dL * Correction Factor: 15 mg/dL/unit * Nutritional / Prandial insulin per carb ratio of 1 unit per 4 grams CHO consumed PLAN FOR DISCHARGE: * SASCHA Thank you.
--- NOTE | 2019-12-09 14:50 | Discharge Summary ---
Date of Service December 09, 2019 Admission HPI Per Admitting Provider 64-year-old male with PMH DM type II, CKD stage III, chronic hypoxic respiratory failure on 4 L of oxygen, COPD, history of CVA, paroxysmal atrial fibrillation anticoagulant on Coumadin, chronic diastolic CHF, pancreatic cancer s/p surgery and chemotherapy who was transferred from [facility] ED for evaluation of fall and near syncope. Patient reports that around 11:00 last evening, he stood up from his chair to go to the kitchen. While in the kitchen, he reports he started feel lightheaded and his legs gave out from under him. Patient reports hitting his head and tailbone. Patient denies any loss of consciousness. Denies associated chest pain or shortness of breath. Did not check his blood sugar at the time of the event. Reports he otherwise has been feeling well recently. No other recent illnesses, fevers, chills. Denies abdominal pain, nausea, vomiting, diarrhea. No urinary symptoms. At [facility] ED, patient was found to be hyperglycemic (exact glucose unavailable at this time). Head CT negative for acute findings, C-spine CT negative for acute findings, sacral x-ray negative for acute findings, pelvis x-ray negative for acute findings. Patient and family requested to be transferred to [facility]. Admission Exam Per Admitting Provider VS noted and reviewed General- oriented x 3, not in distress, speaks in sentences with no effort or accessory muscle use Head- atraumatic Eyes- PERRL, EOMI, anicteric ENT- (+) dry oral mucosa, oropharynx clear Neck- supple, no JVD, no adenopathy, no thyromegaly; carotids +2/2, no bruits appreciated Lungs- clear to auscultation bilaterally, no rales/wheezes Heart- normal rate- HR 66, regular rhythm; no murmur, no gallop, no rub appreciated Abdomen- normal bowel sounds, nondistended, soft, nontender, no masses or hepatosplenomegaly Extremities- no pretibial edema, no calf tenderness; peripheral pulses intact Back- NO hematoma, erythema; (+) moderate tenderness on the lower back Neuro- alert, oriented x 3; CN 2-12 grossly intact; motor 5/5 bilaterally;sensation 100% on all extremities; no other gross focal neurologic deficits Skin- warm & dry Principal Diagnosis Presyncope with fall Uncontrolled complicated DMII Questionable rickettsial illness First degree AV Block Acute renal failure Discharge Exam CONSTITUTIONAL: obese, vitals as above, generally well-appearing EYES: normal conjunctivae, no scleral icterus ENT: external ear and nose normal, oropharynx clear, MM are dry. NECK: trachea midline, no lymphadenopathy RESPIRATORY: clear to auscultation bilaterally, no crackles, rales or wheezes, normal respiratory effort CARDIOVASCULAR: regular rate and rhythm, S1 and 2 heard without murmurs, gallops or rubs, no JVD, no peripheral edema GASTROINTESTINAL: soft, nontender, nondistended. MUSCULOSKELETAL: strength 5/5 throughout, head is normocephalic and atraumatic SKIN: warm and dry NEUROLOGIC: No facial palsy, no dysarthria. CN 2-12 grossly intact, normal cognition, normal speech, no tremor PSYCHIATRIC: alert cooperative and oriented to person, place and time. Discharge Data Allergies Allergy/AdvReac Type Severity Reaction Status Date / Time bee venom protein (honey bee) Allergy Severe anaphylaxis Verified 06/27/19 02:11 piperacillin Allergy Intermediate Hives Verified 06/27/19 12:56 lisinopril AdvReac Intermediate Elevated Verified 06/27/19 12:56 Potassium amlodipine AdvReac Mild Headache Verified 06/27/19 02:11 Consultations 12/07/19 13:34 Consult Case Management - Discharge Planning Routine Ordered Studies 12/07/19 13:45 MR brain wo con Routine Hospital Course (1) Near syncope: Multiple contributing factors to this event are likely including but not limited to significant peripheral neuropathy of the feet and hands with lack of proprioception of feet, orthostatic hypotension that may have been contributing, dehydration evidenced by renal failure and dry mucous membranes, and medications including the recent Lyrica and Cymbalta in the contxt of chronic oxycodone for chronic pain. Most importantly will be for him to get better control of his diabetes to start. Here workup has been negative for other cardiac cause and PT/OT are in agreement that he would be fine to return home. On day of discharge he also showed me a targetoid lesion in a picture which was a rash on his chest just 3 weeks ago. Lyme was checked and negative and Anaplasma was still pending at discharge. (2) Fall: Telemetry review reveals 1 AV block consistently-would recommend speaking with his PCP as outpatient regarding adjustment of his Carvedilol, currently asymptomatic. Patient presenting as a transfer from [facility] ED. -Head CT, C-spine CT, pelvis x-ray, sacral x-ray performed at [facility] all negative for acute findings -Suspect orthostasis from dehydration from hyperglycemia MRI brain is negative Troponin negative, EKG without acute ST changes. Resting echo is negative. Continue monitoring orthostatics. PT/OT clear patient to home. (3) DM type 2 (diabetes mellitus, type 2): Uncontrolled as outpatient (A1C>13) with complications. Inpatient glucose is controlled. (4) Chronic diastolic CHF (congestive heart failure): -Holding diuretics due to ELIZABETH, orthostasis, dehydration. Continue IVFs. (5) Paroxysmal atrial fibrillation: -Rate controlled on carvedilol, will reduce dose from 37.5 mg twice daily to 25 mg twice daily due to mild bradycardia and borderline hypotension -Anticoagulated on Coumadin, INR 3.3; hold Coumadin today (6) COPD (chronic obstructive pulmonary disease): -No signs of acute exacerbation, continue home inhalers -Saturating well on chronic 4 L of O2 (7) History of CVA (cerebrovascular accident): -Continue aspirin, statin (8) Chronic pain: -Continue home medications including oxycodone 30mg daily. (9) Acute on chronic kidney failure: Improved with IVFs. baseline creatinine of ~ 1.5 Likely prerenal in nature secondary to dehydration from hyperglycemia IVF, cautiously given history of chronic diastolic CHF held diuretics throughout hospitalization. Added back at half dose at [facility] in 1-2 weeks. At time of discharge he was mentating and ambulating at baseline and was tolerating PO. He was hemodynamically stable and afebrile and was oxygenating well on his chronic 4LPM oxygen supplement. He was discharged in stable condition with close primary care follow-up recommended. Total Time Total Time Spent Total Time Spent (In Minutes): 60 Total Time Includes: Examination of the Patient, Discharge Planning, Medication Reconciliation and Communication With Other Providers Discharge Plan Discharge Items Patient Disposition: Home - Self-Care Reason For Visit: HYPERGLYCEMIA WITH RECCURENT CELLS Discharge Diagnosis: Presyncope with fall Uncontrolled complicated DMII Questionable rickettsial illness First degree AV Block Acute renal failure Smoking Activity: Resume your previous activity Non-emergency contact: Primary Care Provider Call non-emergency contact if: you have any medication questions, your symptoms worsen, your pain is not controlled and you have a fever Follow-up/Referrals: Yana Luis DO [Primary Care Provider] - 12/17/19 1:30 pm (Date & Time 12/17/2019 1:30 PM Provider Yana Luis DO Department Internal Medicine [facility] ) Diet: Carb Consistent or DM2 and Low Sodium (2gm) Addtl Attending Provider Instructions: Please take all medications as listed in the discharge list below. You had tick labs drawn that were pending at the time of discharge. Please follow-up with your primary care physician (PCP) above to find out these results (Lyme and Anaplasma). I did call [facility] and your Lyme was checked on 11/10 and negative. Additionally you torsemide was reduced because your kidney function was reduced in the hospital. It is recommended that you discuss this with your PCP and have nonfasting labs to monitor your kidney function and electrolytes in 1-2 weeks. It is strongly recommended you get your HbA1C level down to 6.5. It is currently over 13 reflecting poor control which can affect your nervous system negatively and contribute to falls in the future. You were found to have 1AV block on cardiac monitoring in the hospital. Therefore your Coreg medication was reduced. It may be a question for your supervisor customer complaint service if he wants to decrease your Coreg medication further because of your recurring falls. Please follow-up with your Anticoagulation Clinic some time this week to ensure your INR is at goal. It is strongly recommended that you stop smoking as this is terrible for your health. You are being given nicotine patches to help in this effort. It was a pleasure taking care of you! Please call if you have any questions or problems. You can reach a [facility] hospitalist on duty at [facility] 24 hours a day by calling [phone]. Take care of yourself. Lydia Schmidt DO [facility] Hospitalist Pending Studies at Discharge: Yes Studies:: Bashir Anaplasma PCR Stand-Alone Forms: My [facility], Smoking Cessation Medications and DC Order Prescriptions: New carvedilol 25 mg Tablet 25 mg PO BID Qty: 60 RF: 1 torsemide 20 mg tablet 20 mg PO DAILY Qty: 30 RF: 0 nicotine [Nicoderm CQ] 21 mg/24 hr patch 24 hour 1 patch transdermal DAILY Qty: 14 RF: 1 Continued omeprazole 20 mg Capsule,Delayed Release(Dr/Ec) 20 mg PO BID RF: 0 oxycodone 5 mg Tablet 10 mg PO TID PRN (Reason: Pain) RF: 0 cholecalciferol (vitamin D3) 50 mcg (2,000 unit) Tablet 50 mcg PO DAILY RF: 0 trazodone 50 mg tablet 25 - 50 mg PO HS PRN (Reason: Insomnia) RF: 0 duloxetine 20 mg capsule,delayed release(DR/EC) 40 mg PO DAILY RF: 0 atorvastatin 40 mg Tablet 40 mg PO DAILY RF: 0 albuterol sulfate 2.5 mg /3 mL (0.083 %) Solution For Nebulization 2.5 mg INHALATION Q4H PRN (Reason: Wheezing) RF: 0 sucralfate [Carafate] 1 gram Tablet 1 g PO QID PRN (Reason: DYSEPSIA) RF: 0 aspirin [Aspir-81] 81 mg Tablet,Delayed Release (Dr/Ec) 81 mg PO DAILY RF: 0 polyethylene glycol 3350 [Miralax] 17 gram/dose Powder 17 g PO DAILY PRN (Reason: Constipation) RF: 0 Lantus Solostar U-100 Insulin 100 unit/mL (3 mL) Insulin Pen 40 unit SUBCUT BID RF: 0 tamsulosin 0.4 mg Capsule 0.4 mg PO DAILY RF: 0 insulin aspart U-100 [Novolog U-100 Insulin aspart] 100 unit/mL Solution 1 sliding scale dose SUBCUT AC RF: 0 docusate sodium 100 mg Capsule 100 mg PO BID PRN (Reason: Constipation) RF: 0 albuterol sulfate [ProAir HFA] 90 mcg/actuation Hfa Aerosol Inhaler 2 puff INHALATION Q4H PRN (Reason: Wheezing) RF: 0 budesonide-formoterol 160-4.5 mcg/actuation Hfa Aerosol Inhaler 2 puff INHALATION BID RF: 0 Creon 24,000-76,000 -120,000 unit Capsule,Delayed Release(Dr/Ec) 1 cap PO AC PRN (Reason: Dyspepsia) RF: 0 warfarin [Coumadin] 7.5 mg Tablet 7.5 mg PO SUMOWETHFR RF: 0 warfarin [Coumadin] 5 mg Tablet 5 mg PO TUSA RF: 0 metolazone 2.5 mg Tablet 2.5 mg PO MOFR RF: 0 Discontinued carvedilol 25 mg Tablet 37.5 mg PO BID RF: 0 torsemide 20 mg tablet 40 mg PO BID RF: 0 Discharge Orders: Discharge Order (Routine); Ordered 12/09/19 Ordered By: Lydia Schmidt Admission Data Admit Date/Time: 12/07/19 15:59 Attending Provider: Lydia Schmidt Admit Provider: Med Maya Primary Care Provider: Yana Luis Other Interventions: Discharge Summary Assessment (RN) Last Done: 12/09/19 15:27
[2019-12-09 14:52] LABS: Lyme Ab IgG w/WB Rflx Negative (Negative); Lyme Ab IgM w/WB Rflx Negative (Negative)
[2019-12-09] MEDS ORDERED: WARFARIN SOD 7.5 MG TAB PO SCH (16:00)
[2019-12-10] MEDS ORDERED: WARFARIN SOD 5 MG TAB PO SCH (16:00)
== END 2019-12-09 18:37 | disposition home or self-care (01) | DRG 74 ==
LOC: 2N 13:15 → INTOOBSV 13:15 → SUATTDRO 15:59

== ENCOUNTER 2024-04-29 01:43 | Inpatient (IN) ==
--- OUTSIDE RECORDS SUMMARY | 2024-04-29 01:49 | External Medical Summary | Summary of Care ---
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 Medical Devices Implanted Type Area Property Man Device Identifier Shelf Expiration Date Model / Serial / Lot Implant Femoral Bone - [id number] Implanted:Qty: 1 on 03/29/2019 by Robert Heller MD at OR [facility] [place] Left: Leg Upper [employer] 05/08/2028 8146-11-380 / / [id number] Screw Lag Hfn [id number] - [id number] Implanted:Qty: 1 on 03/29/2019 by Robert Heller MD at OR [facility] [place] Left: Leg Upper [employer]ET : TRAUMA 07/13/2027 [id number] / / [id number] Screw Hfn Ar 80mm - [id number] Implanted:Qty: 1 on 03/29/2019 by Robert Heller MD at OR [facility] [place] Left: Leg Upper BIOMET : TRAUMA 02/23/2027 [id number] / / [id number] Screw Hfn 5x44mm - [id number] Implanted:Qty: 1 on 03/29/2019 by Robert Heller MD at OR [facility] [place] Left: Leg Upper BIOMET : TRAUMA 11/06/2024 [id number] / / [id number] Screw Hfn 5x40mm - [id number] Implanted:Qty: 1 on 03/29/2019 by Robert Heller MD at [facility] Left: Leg Upper BIOMET : TRAUMA 12/28/2027 [id number] / / [id number] documented as of this encounter Visit Diagnoses Diagnosis Anticoagulation management encounter- Primary Encounter for therapeutic drug monitoring Paroxysmal atrial fibrillation (HCC) Atrial fibrillation documented in this encounter Advance Directives Documents on File Type Date Recorded Patient Clin Asst Expl anation Advance Directives and Livin g Will 09/05/2017 LIVING WILL Power of Electrical Electronics Technician 09/05/2017 POWER OF A TTORNEY * Full Code (Latest Code Status on File) Date Activated Date Inactivated Comments 03/28/2019 2:49 PM 04/01/2019 11:08 PM This ord er reflects the patients wishes and were consensually agreed upon. Question Answer Comments Discussion of Advance Directives occurred with: Patient/Family Care Teams Director Alumni Relations Relationship Specialty Start Date End Date Yana Luis DO [address] [place] [address] [place] [address] PCP - General Internal Medicine 11/04/16 documented as of this encounter"
--- OUTSIDE RECORDS SUMMARY | 2024-04-29 01:49 | External Medical Summary | Summary of Care ---
Author Name Unknown Organization [facility] Address [address] [place] [address] Phone [phone] Care Team Providers Care Pediatric Intensive Physician Name Role Phone Yana Luis DO Primary Care Provider [phone] Encounter Details Date Type Department Care Team (Late st Contact Info) Description 04/13/2024 Result Scan Unspecified Department <No scans attached> Allergies Active Allergy Reactions Criticality Noted Date [...] as of this encounter (statuses as of 04/17/2024) Medications ALBUTEROL SULFATE HFA 108 (90 BASE) MCG/ACT IN AERSIndications:A sthma, allergic 2 inhalations every 4 hours as needed for wheezing 1 Inhaler 5 08/11/19 13 Active Additional Information Patient taking differently: (No route reported), Informant: Patient, Reported on 02/15/2022 B-D ULTRAFINE III (8MM) SHORT PEN MISCIndications:D M type 2, goal: symptom mgmt ([facility]) USE DIRECTED WITH INSULIN PEN Dx: 250.00 100 Each 5 01/21/20 14 Active omeprazole (PRILOSEC) 20 MG CPDR Take 1 Capsule by mouth in the morning and 1 Capsule before bedtime. 12/01/19 16 Active glucagon (GLUCAGEN) 1 MG KIT 1 mg once. Use as directed by automobile body repair chief from the [place]. Active oxyCODONE (OXY IR) 5 MG immediate release tablet Take 2 Tablets by mouth in the morning and 2 Tablets at noon and 2 Tablets before bedtime. Ordered by [facility]. Active oxygen GAS Use as [...] polyneuropathy associated with type 2 diabetes mellitus ([facility]),Type 2 diabetes mellitus with hemoglobin A1c goal of less than 8.0% ([facility]) Accu-Chek Margareth glucose meter 1 Device 01/04/20 18 Active fluticasone (FLONASE) 50 MCG/ACT nasal sprayIndications: Chronic hypoxemic respiratory failure (HCC),Mild intermittent asthma with acute exacerbation,Acut e recurrent maxillary sinusitis 2 sprays in each nostril twice daily x 3-5 days. Then once daily 1 Inhaler 1 03/06/20 18 Active Budesonide-Formot kelvin Fumarate 160-4.5 MCG/ACT Inhalation AerosolIndication s:Chronic hypoxemic respiratory failure (HCC) Inhale 2 Puffs by mouth in the morning and 2 Puffs before bedtime. 1 Inhaler 5 03/22/20 18 Active Pancrelipase, Qzp-Bgxu-Ouwy, (CREON 68674) 87650 UNIT CPEP Take 1 Capsule by mouth [...] overdose. Seek immediate medical attention. https://www.youtub e.com/watch?v=v26c [email or web address] Active Ipratropium-Albut kelvin 0.5-2.5 (3) MG/3ML Inhalation Solution (Duoneb)Indicatio ns:COPD, group C, by GOLD 2017 classification ([facility]) Inhale 3 mL via nebulizer 4 times a day. 360 mL 5 02/25/20 21 Active Sucralfate 1 GM Oral [...] 2 doses in 1 week, Reported on 07/06/2023 Torsemide 20 MG Oral Tablet (Demadex) Take [...] hemoglobin A1c goal of less than 8.0% ([facility]) Inject 60 Units under the skin in [...] as of this encounter (statuses as of 04/17/2024) Active Problems Problem Noted Date Diagnosed Date Elevated prostate specific antigen (PSA) 022 Type I diabetes mellitus wit h stage 4 chronic kidney disease 02/15/2022 Type 1 diabetes mellitus wit h hemoglobin A1c goal of less than 8.0% 02/15/2022 Lymphadenopathy 02/15/2022 History of ID (myocardial infarction) 02/04/2022 Major depressive disorder, single [...] as of this encounter (statuses as of 04/17/2024) Resolved Problems Problem Noted Date Diagnosed Date [...] due to stage 3b chronic kidney disease 02/17/2006/23/2021 Overview: Per CKD protocol - Per CKD protocol Anemia of chronic renal fail ure, stage 3 (moderate) 12/17/2019 02/20/2020 Overview: Per CKD protocol Closed displaced intertrocha nteric fracture of left femur 04/16/2019 04/25/2019 Coronary atherosclerosis of [place] coronary artery 04/11/2019 04/11/2019 Type 2 diabetes [...] 08/29/2017 08/22/2018 Overview: Per CKD protocol #1 terminal system operator current use of ant icoagulant therapy 06/14/2017 01/31/2018 Overview (07/25/2017): Amena ICD-10 update of inactive term Body mass [...] as of this encounter (statuses as of 04/17/2024) Immunizations Name Administration Dates Next Due HEP A - Hepatitis A (Adult > 18 yrs) 11/08/2016 Hepatitis B, 20+ yrs 11/07/2016,01/22/2014,12/16 MMR - Measles/Mumps/Rubella Vaccine 11/07/2016 Pneumococcal Conjugate Vacc, 13 Valent (Prevnar) 11/08/2016 Pneumococcal Conjugate Vacci ne, 20-valent ([id number]) 02/04/2022 Pneumococcal Polysaccharide PPV23 (Pneumovax) 11/07/2016,01/12/2011 Rabies Vaccine (Rabavert) 11/16/2017 Season Influenza, Quad, PF, Adjuvanted, 65+ Yrs, IM (FLUAD) 03/13/2020 Seasonal Influenza Vac., MDV , IM, 0.5 mL (Fluzone) 12/10/2015,12/16/2013,01/01/2013,02/22,12/23/2010,02/08/2010 Seasonal Influenza, Quadriva lent Hd (Fluzone Hd) [...] Anthony Benitez RN documented in this encounter Plan of Treatment Upcoming Encounters Date Type Department Care Team (Late st Contact Info) Description 04/23/2024 3:10 PM EST Anticoagulation Pharmacy, [address] [place] [address] [place] [address] 04/23/2024 3:30 PM EST Office Visit Nephrology [address] [place] [address] Linnette Ferris PA-C [address] [place] [address] 06/11/2024 2:00 PM EST Office Visit Cardiology, [facility] [address] [facility] [place] [address] Ama Kay CRNP [address] [facility] [place] [address] 06/21/2024 2:00 PM EDT Telemedicine Endocrinology [address] [place] [phone] Janet, Pharmacist Endocrinology [address] [place] [address] Health Maintenance Due Date Last Done Comments Cologuard 10/26/1999 Colonoscopy 10/26/1999 Colorectal Cancer Screening 10/26/1999 Fecal Occult Blood Test 10/26/1999 Sigmoidoscopy 10/26/1999 Zoster Vaccines (3 of 3) 01/02/2017 017, 11/07/2016, 01/22/2016, Additional history exists Adult Wellness Visit 2020 Diabetic Foot Exam 10/08/2023 10/07/2022, 0 11/05/2021, 03/13/2020, Additional history exists COVID-19 Vaccine ( season) 2023 Influenza Vaccine (FLU shot) (#1) 2023 02/06/2023, 02/04/2022, 02/24/2021, Additional history exists Albumin/Creatinine Ratio 01/13/2024 023, 02/15/2022, 10/13/2020, Additional history exists Diabetic Eye Exam 03/29/2024 03/29/2023, , 05/09/2022, Additional history exists Nephrology Referral 08/06/2024 08/07/2023 PTH 08/06/2024 08/07/2023, 09/10, 07/09/2020, Additional history exists Phosphate 08/06/2024 08/07/2023, 01/10, 09/27/2022, Additional history exists HbA1c 08/18/2024 02/19/2024, 05/11, 09/15/2022, Additional history exists GFR 10/11/2024 04/13/2024, 02/08, 10/06/2023, Additional history exists O2 ASSESSMENT COMPLETED IN PAST YEAR FOR COPD 11/26/2024 11/27/2023 Depression Monitoring 01/16/2025 01/17/2024 Hgb 04/13/2025 04/13/2024, 02/08, 10/06/2023, Additional history exists DTap/Tdap Vaccines (3 - Td or Tdap) 11/07/2026 11/07/2016, 2013, 10/16/2006, Additional history exists Hepatitis B Vaccine Completed 05/26/2017, 12/13/2016, 11/11/2016, Additional history exists AAA Screening Completed 03/25/2019 Pneumococcal Vaccine: 50+ Years Completed 02/04/2022, 11/08/2016, 11/07/2016, Additional history exists Alpha-1 Antitrypsin Completed 10/07/2022 HPV (Gardasil) Vaccine Aged Out No lo nger eligible based on patient's age to complete this topic MENINGOCOCCAL (MENACTRA/MENVEO) Aged Out No longer eligible based on patient's age to complete this topic documented as of this encounter Medical Devices Implanted Type Area Correspondence School Teacher Device Identifier Shelf Expiration Date Model / Serial / Lot Implant Femoral Bone - [id number] Implanted:Qty: 1 on 03/29/2019 by Robert Heller MD at OR [facility] [place] Left: Leg Upper [employer] 05/08/2028 8146-11-380 / / [id number] Screw Lag Hfn [id number] - [id number] Implanted:Qty: 1 on 03/29/2019 by Robert Heller MD at OR [facility] [place] Left: Leg Upper [employer] : TRAUMA 07/13/2027 [id number] / / [id number] Screw Hfn Ar 80mm - [id number] Implanted:Qty: 1 on 03/29/2019 by Robert Heller MD at OR [facility] [place] Left: Leg Upper [employer] : TRAUMA 02/23/2027 [id number] / / [id number] Screw Hfn 5x44mm - [id number] Implanted:Qty: 1 on 03/29/2019 by Robert Heller MD at OR [facility] [place] Left: Leg Upper [employer] : TRAUMA 11/06/2024 [id number] / / [id number] Screw Hfn 5x40mm - [id number] Implanted:Qty: 1 on 03/29/2019 by Robert Heller MD at OR [facility] [place] Left: Leg Upper [employer] : TRAUMA 12/28/2027 [id number] / / [id number] documented as of this encounter Procedures Procedure Name Priority Date/Time Associated Diagnosis Comments OUTSIDE LAB RESULTS 04/13/2024 documented in this encounter Results * OUTSIDE LAB RESULTS (04/13/2024) 04/13/2024 us No Physician Data Unknown LABORATORY Final Result documented in this encounter Advance Directives Documents on File Type Date Recorded Patient Applications Project Manager Expl anation Advance Directives and Livin g Will 09/05/2017 LIVING WILL Power of Head Of Commission Department 09/05/2017 POWER OF A TTORNEY * Full Code (Latest Code Status on File) Date Activated Date Inactivated Comments 03/28/2019 2:49 PM 04/01/2019 11:08 PM This orde r reflects the patients wishes and were consensually agreed upon. Question Answer Comments Discussion of Advance Directives occurred with: Patient/Family Care Teams Pediatric Intensive Physician Relationship Specialty Start Date End Date Yana Luis DO [address] [place] [address] [place] [address] PCP - General Internal Medicine 11/04/16 documented as of this encounter
--- OUTSIDE RECORDS SUMMARY | 2024-04-29 01:49 | External Medical Summary ---
Author Name Unknown Address Unknown Organization K01:[place] [place] [address] [place] [address] Laboratory Report Ordering Provider Test Date Status BRENTON CARREONSANDI 04/23/2024 16:23:41 Final Warfarin Therapy
INR: 2 .0-3.0 conventional anticoagulation
INR: 2.5- 3.5 high intensity anticoagulation Observation Date Value Abnormality Reference (Units ) Status PT 04/23/2024 16:23:41 25.5 Above high normal 11 .6-15.2 (seconds) Final INR 04/23/2024 16:23:41 2.3 Above high normal 0. 8-1.2 Final Performing Location [facility] [place] [address] [place] [address]
--- OUTSIDE RECORDS SUMMARY | 2024-04-29 01:49 | External Medical Summary | Summary of Care ---
Author Name Unknown Organization [facility] Address [address] [place] [address] Phone [phone] Care Team Providers Care Tombstone Polisher Name Role Phone Yana Luis DO Primary Care Provider Encounter Details Date Type Department Care Team (Late st Contact Info) Description 04/16/2024 Orders Only Family Medicine [address] [phone] [address]ana Luis [address] [address] Allergies Active Allergy Reactions Criticality Noted Date [...] as of this encounter (statuses as of 04/16/2024) Medications ALBUTEROL SULFATE HFA 108 (90 BASE) MCG/ACT IN AERSIndications:A sthma, allergic 2 inhalations every 4 hours as needed for wheezing 1 Inhaler 5 08/11/19 13 Active Additional Information Patient taking differently: (No route reported), Informant: Patient, Reported on 02/15/2022 B-D ULTRAFINE III (8MM) SHORT PEN MISCIndications:D M type 2, goal: symptom mgmt ([facility]) USE DIRECTED WITH INSULIN PEN Dx: 250.00 100 Each 5 01/21/20 14 Active omeprazole (PRILOSEC) 20 MG CPDR Take 1 Capsule by mouth in the morning and 1 Capsule before bedtime. 12/01/19 16 Active glucagon (GLUCAGEN) 1 MG KIT 1 mg once. Use as directed by tobacco roller from the [place]. Active oxyCODONE (OXY IR) 5 MG immediate release tablet Take 2 Tablets by mouth in the morning and 2 Tablets at noon and 2 Tablets before bedtime. Ordered by [facility] pain clinic. Active oxygen GAS Use [...] polyneuropathy associated with type 2 diabetes mellitus ([facility]),Type 2 diabetes mellitus with hemoglobin A1c goal of less than 8.0% ([facility]) Accu-Chek Margareth glucose meter 1 Device [...] 1 Inhaler 5 03/22/20 18 Active Pancrelipase, Mct-Ucyz-Eusb, (CREON 30063) 17992 UNIT CPEP Take 1 Capsule by mouth [...] overdose. Seek immediate medical attention. https://www.youtub e.com/watch?v=v26c [email or web address] Active Ipratropium-Albut kelvin 0.5-2.5 (3) MG/3ML Inhalation Solution (Duoneb)Indicatio ns:COPD, group C, by GOLD 2017 classification ([facility]) Inhale 3 mL via nebulizer 4 [...] hemoglobin A1c goal of less than 8.0% ([facility]) Inject 60 Units under the skin [...] as of this encounter (statuses as of 04/16/2024) Active Problems Problem Noted Date Diagnosed Date Elevated prostate specific antigen (PSA) 022 Type I diabetes mellitus wit h stage 4 chronic kidney disease 02/15/2022 Type 1 diabetes mellitus wit h hemoglobin A1c goal of less than 8.0% 02/15/2022 Lymphadenopathy 02/15/2022 History of [place] (myocardial infarction) 02/04/2022 Major depressive disorder, single [...] as of this encounter (statuses as of 04/16/2024) Resolved Problems Problem Noted Date Diagnosed Date [...] left femur 04/16/2019 04/25/2019 Coronary atherosclerosis of [place] coronary artery 04/11/2019 04/11/2019 Type 2 diabetes mellitus wit h diabetic peripheral angiopathy without gangrene, with long-term current use of insulin 04/11/2019 11/08/2 022 Diabetic foot infection 04/11/201906/09 Anemia due [...] 08/29/2017 08/22/2018 Overview: Per CKD protocol #1 long term care phlebotomist current use of ant icoagulant therapy 06/14/2017 [...] as of this encounter (statuses as of 04/16/2024) Immunizations Name Administration Dates Next Due HEP A - Hepatitis A (Adult > 18 yrs) 11/08/2016 Hepatitis B, 20+ yrs 11/07/2016,01/22/2014,12/16 MMR - Measles/Mumps/Rubella Vaccine 11/07/2016 Pneumococcal Conjugate Vacc, 13 Valent (Prevnar) 11/08/2016 Pneumococcal Conjugate Vacci ne, 20-valent ([id number]) 02/04/2022 Pneumococcal Polysaccharide PPV23 (Pneumovax) 11/07/2016,01/12/2011 Rabies [...] Description 04/23/2024 3:10 PM EST Anticoagulation Pharmacy, [address] [place] [address] [place] [address] 04/23/2024 3:30 PM EST Office Visit Nephrology [address] [place] [address] Linnette Ferris PA-C [address] [place] [address] 06/11/2024 2:00 PM EST Office Visit Cardiology, [facility] [address] [facility] [place] [address] Ama Kay CRNP [address] [place] [address] 06/21/2024 2:00 PM EDT Telemedicine Endocrinology Tommy Liu, Janet [address] [place] [phone] Janet, Pharmacist Endocrinology [address] [place] [address] Health Maintenance Due Date Last Done [...] 08/06/2024 08/07/2023, 01/10, 09/27/2022, Additional history exists GFR 08/18/2024 04/13/2024, 02/08, 10/06/2023, Additional history exists HbA1c 08/18/2024 02/19/2024, 05/11, 09/15/2022, Additional history exists O2 ASSESSMENT COMPLETED IN PAST YEAR FOR COPD 11/26/2024 11/27/2023 Depression Monitoring 01/16/2025 01/17/2024 Hgb 02/18/2025 04/13/2024, 02/08, 10/06/2023, Additional history exists DTap/Tdap [...] this encounter Medical Devices Implanted Type Area Landing Signal Officer Device Identifier Shelf Expiration Date Model / Serial / Lot Implant Femoral Bone - [id number] Implanted:Qty: 1 on 03/29/2019 by Robert Heller MD at OR [facility] [place] Left: Leg Upper [employer] 05/08/2028 8146-11-380 / / [id number] Screw Lag Hfn [id number] - [id number] Implanted:Qty: 1 on 03/29/2019 by Robert Heller MD at OR [facility] [place] Left: Leg Upper [employer] : TRAUMA 07/13/2027 [id number] / / [id number] Screw Hfn Ar 80mm - [id number] Implanted:Qty: 1 on 03/29/2019 by Robert Heller MD at OR [facility] [place] Left: Leg Upper [employer] : TRAUMA 02/23/2027 [id number] / / [id number] Screw Hfn 5x44mm - [id number] Implanted:Qty: 1 on 03/29/2019 by Robert Heller MD at OR [facility] [place] Left: Leg Upper [employer] : TRAUMA 11/06/2024 [id number] / / [id number] Screw Hfn 5x40mm - [id number] Implanted:Qty: 1 on 03/29/2019 by Robert Heller MD at OR [facility] [place] Left: Leg Upper [employer] : TRAUMA 12/28/2027 [id number] / / [id number] documented as of this encounter Procedures Procedure Name Priority Date/Time Associated Diagnosis Comments CHEMISTRY-OUTSIDE Routine 04/13/2024 documented in this encounter Results * (ABNORMAL) CHEMISTRY-OUTSIDE (04/13/2024) Not all results display below - see scan for full detail OUTSIDE LAB (SEE SCANNED REPORT) Comment:SCAN INCLUDES - CBCD , CMP, IRON/TIBC, FERRITIN CREATININE 3.35(A) 0.70 - 1.30 MG/DL OUTSIDE LAB (SEE SCANNED REPORT) EGFR 19(L) >=60 ML/MIN/1.7 3M2 OUTSIDE LAB (SEE SCANNED REPORT) POTASSIUM 3.7 3.5 - 5.1 MMOL/L OUTSIDE LAB (SEE SCANNED REPORT) GLUCOSE 219(A) 70 - 110 MG/DL OUTSIDE LAB (SEE SCANNED REPORT) HOURS FASTING OUTSID E LAB (SEE SCANNED REPORT) TRIGLYCERIDES-OUT SIDE LAB OUTSIDE LAB (SEE SCANNED REPORT) CHOLESTEROL-OUTSI DE LAB OUTSIDE LAB (SEE SCANNED REPORT) HDL-OUTSIDE LAB OUTS CHIDI LAB (SEE SCANNED REPORT) CHOL/HDL RATIO-OUTSIDE LAB OUTSIDE LA B (SEE SCANNED REPORT) LDL (CALCULATED)-OUTS CHIDI LAB OUTSIDE LAB (SEE SCANNED REPORT) LDL (DIRECT MEASURE)-OUTSIDE LAB OUTSIDE LAB (SEE SCANNED REPORT) HEMOGLOBIN, W8M-KGNRLAB LAB OUTSIDE LAB (SEE SCANNED REPORT) PHOSPHORUS-OUTSID E LAB OUTSIDE LAB (SEE SCANNED REPORT) PTH-OUTSIDE LAB OUTS CHIDI LAB (SEE SCANNED REPORT) MICROALBUMIN RATIO-OUTSIDE LAB OUTSIDE LA B (SEE SCANNED REPORT) PROTEIN, UA-OUTSIDE LAB OUTSIDE LAB (SEE SCANNED REPORT) HGB 11.7(A) 13.5 - 18.0 GM/DL OUTSIDE LAB (SEE SCANNED REPORT) 04/13/2024 us Nikhil Tuttle DO LABORATORY Final Resu lt OUTSIDE LAB (SEE SCANNED REPORT) documented in this encounter Advance Directives Documents on File Type Date Recorded Patient Partner Management Consultant Expl anation Advance Directives and Livin g Will 09/05/2017 LIVING WILL Power of Battery Starter 09/05/2017 POWER OF A TTORNEY * Full Code (Latest Code Status on File) Date Activated Date Inactivated Comments 03/28/2019 2:49 PM 04/01/2019 11:08 PM This orde r reflects the patients wishes and were consensually agreed upon. Question Answer Comments Discussion of Advance Directives occurred with: Patient/Family Care Teams Tombstone Polisher Relationship Specialty Start Date End Date Yana Luis DO [address] [place] [address] [place] [phone] PCP - General Internal Medicine 11/04/16 documented as of this encounter
--- OUTSIDE RECORDS SUMMARY | 2024-04-29 01:49 | External Medical Summary | Summary of Care ---
Author Name Unknown Organization [facility] Address [address] [place] [address] Phone [phone] Care Team Providers Care Carpenter Labor Supervisor Name Role Phone Yana Luis DO Primary Care Provider [phone] Reason for Visit * Reason Comments Outpatient Testing Encounter Details Date Type Department Care Team (Late st Contact Info) Description 04/23/2024 4:10 PM EST Laboratory Laboratory [address] [place] [phone] [place] [address] Paroxysmal atrial fibrillation (HCC) Allergies Active Allergy [...] as of this encounter (statuses as of 04/23/2024) Medications ALBUTEROL SULFATE HFA 108 (90 BASE) MCG/ACT IN AERSIndications:A sthma, allergic 2 inhalations every 4 hours as needed for wheezing 1 Inhaler 5 08/11/19 13 Active Additional Information Patient taking differently: (No route reported), Informant: Patient, Reported on 04/23/2024 B-D ULTRAFINE III (8MM) SHORT PEN MISCIndications:D M type 2, goal: symptom mgmt ([facility]) USE DIRECTED WITH INSULIN PEN Dx: 250.00 100 Each 5 01/21/20 14 Active omeprazole (PRILOSEC) 20 MG CPDR Take 1 Capsule by mouth in the morning and 1 Capsule before bedtime. 12/01/19 16 Active glucagon (GLUCAGEN) 1 MG KIT 1 mg once. Use as directed by assistant front office manager from the [place]. Active oxyCODONE (OXY IR) 5 MG immediate release tablet Take 2 Tablets by mouth in the morning and 2 Tablets at noon and 2 Tablets before bedtime. Ordered by The [facility] pain clinic. Active oxygen GAS Use [...] polyneuropathy associated with type 2 diabetes mellitus ([facility]),Type 2 diabetes mellitus with hemoglobin A1c goal of less than 8.0% ([facility]) Accu-Chek Margareth glucose meter 1 Device 01/04/20 18 Active fluticasone (FLONASE) 50 MCG/ACT nasal sprayIndications: Chronic hypoxemic respiratory failure ([facility]),Mild intermittent asthma with acute exacerbation,Acut e recurrent maxillary sinusitis 2 sprays in each nostril twice daily x 3-5 days. Then once daily 1 Inhaler 1 03/06/20 18 Active Budesonide-Formot kelvin Fumarate 160-4.5 MCG/ACT Inhalation AerosolIndication s:Chronic hypoxemic respiratory failure (HCC) Inhale 2 Puffs by mouth in the morning and 2 Puffs before bedtime. 1 Inhaler 5 03/22/20 18 Active Pancrelipase, Dys-Tqao-Tbam, (CREON 45992) 75106 UNIT CPEP Take 1 Capsule by mouth [...] overdose. Seek immediate medical attention. https://www.youtub e.com/watch?v=v26c Lwl8IqA Active Ipratropium-Albut kelvin 0.5-2.5 (3) MG/3ML Inhalation Solution (Duoneb)Indicatio ns:COPD, group C, by GOLD 2017 classification ([facility]) Inhale 3 mL via nebulizer 4 [...] hemoglobin A1c goal of less than 8.0% (HCC) Inject 60 Units under the skin in [...] as of this encounter (statuses as of 04/23/2024) Active Problems Problem Noted Date Diagnosed Date Elevated prostate specific antigen (PSA) Type I diabetes mellitus wit h stage 4 chronic kidney disease 02/15/2022 Type 1 diabetes mellitus wit h hemoglobin A1c goal of less than 8.0% 02/15/2022 Lymphadenopathy 02/15/2022 History of [place] (myocardial infarction) 02/04/2022 Major depressive disorder, single [...] as of this encounter (statuses as of 04/23/2024) Resolved Problems Problem Noted Date Diagnosed Date [...] left femur 04/16/2019 04/25/2019 Coronary atherosclerosis of [place] coronary artery 04/11/2019 04/11/2019 Type 2 diabetes [...] 08/29/2017 08/22/2018 Overview: Per CKD protocol #1 [facility] current use of ant icoagulant therapy 06/14/2017 [...] as of this encounter (statuses as of 04/23/2024) Immunizations Name Administration Dates Next Due HEP A - Hepatitis A (Adult > 18 yrs) 11/08/2016 Hepatitis B, 20+ yrs 11/07/2016,01/22/2014,12/16 MMR - Measles/Mumps/Rubella Vaccine 11/07/2016 Pneumococcal Conjugate Vacc, 13 Valent (Prevnar) 11/08/2016 Pneumococcal Conjugate Vacci ne, 20-valent ([id number]) 02/04/2022 Pneumococcal Polysaccharide PPV23 (Pneumovax) 11/07/2016,01/12/2011 Rabies [...] Assessment Author Yes 03/30/2019 11:25 AM EST Heron Meagan D * Do you have difficulty dressing or [...] Care Team (Late st Contact Info) Description 04/24/2024 7:00 AM EST Anticoagulation Pharmacy, [address] [place] [address] [place] [address] 06/11/2024 2:00 PM EST Office Visit Cardiology, [facility] [place] [address] Ama Kay CRNP [address] [place] [address] [place] [address] 06/21/2024 2:00 PM EDT Telemedicine Endocrinology [address] [place] [address] Janet, Pharmacist Endocrinology [address] [place] [address] 12/19/2024 2:40 PM EDT Office Visit Nephrology [address] [place] [phone] Ayala Gonzalez MD [address] [place] [address] Pending Results Name Type Priority Associated Diagnoses Date /Time PT INR Lab Routine Paroxysmal atrial fibrillation (HCC) 04/23/2024 4:23 PM EST Health Maintenance Due Date Last Done Comments [...] this encounter Medical Devices Implanted Type Area Caustic Room Attendant Device Identifier Shelf Expiration Date Model / Serial / Lot Implant Femoral Bone - [id number] Implanted:Qty: 1 on 03/29/2019 by Robert H[place] [facility] [place] Leg Upper [employer] 05/08/2028 8146-11-380 / / [id number] Screw Lag Hfn [id number] - [id number] Implanted:Qty: 1 on 03/29/2019 by Robert Heller [place] [facility] [place]: Leg Upper [employer] : TRAUMA 07/13/2027 [id number] / / [id number] Screw Hfn Ar 80mm - [id number] Implanted:Qty: 1 on 03/29/2019 by Robert Heller MD [place] [facility] [place]: Leg Upper [employer] : TRAUMA 02/23/2027 [id number] / / [id number] Screw Hfn 5x44mm - [id number] Implanted:Qty: 1 on 03/29/2019 by Robert Heller MD [place] [facility] [place]: Leg Upper [employer] : TRAUMA 11/06/2024 [id number] / / [id number] Screw Hfn 5x40mm - [id number] Implanted:Qty: 1 on 03/29/2019 by Robert Heller MD [place] [facility] [place]: Leg Upper [employer] : TRAUMA 12/28/2027 [id number] / / [id number] documented as of this encounter Visit Diagnoses Diagnosis Paroxysmal atrial fibrillation (HCC) Atrial fibrillation documented in this encounter Advance Directives Documents on File Type Date Recorded Patient Fruit I Farmworker Expl anation Advance Directives and Livin g Will 09/05/2017 LIVING WILL Power of Mail Handler Equipment Operator 09/05/2017 POWER OF A TTORNEY * Full Code (Latest Code Status on File) Date Activated Date Inactivated Comments 03/28/2019 2:49 PM 04/01/2019 11:08 PM This orde r reflects the patients wishes and were consensually agreed upon. Question Answer Comments Discussion of Advance Directives occurred with: Patient/Family Care Teams Carpenter Labor Supervisor Relationship Specialty Start Date End Date Yana Luis DO [address] [place] [address] [place] [address] PCP - General Internal Medicine 11/04/16 documented as of this encounter
--- OUTSIDE RECORDS SUMMARY | 2024-04-29 01:49 | External Medical Summary | Summary of Care ---
Author Name Unknown Organization [facility] Address [address] [place] [address] Phone [phone] Care Team Providers Care Cpa Tax Name Role Phone Yana Luis DO Primary Care Provider Encounter Details Date Type Department Care Team (Late st Contact Info) Description 04/23/2024 Orders Only Pharmacy, [address] [place] [address] [facility] [address] [facility] [place] [address] Paroxysmal atrial fibrillation (HCC)* Allergies Active Allergy Reactions Criticality Noted Date [...] MISCIndications:D M type 2, goal: symptom mgmt ([facility]) USE DIRECTED WITH INSULIN PEN Dx: 250.00 100 Each 5 01/21/20 14 Active omeprazole (PRILOSEC) 20 MG CPDR Take 1 Capsule by mouth in the morning and 1 Capsule before bedtime. 12/01/19 16 Active glucagon (GLUCAGEN) 1 MG KIT 1 mg once. Use as directed by guitar repair technician from the [place]. Active oxyCODONE (OXY IR) 5 MG immediate release tablet Take 2 Tablets by mouth in the morning and 2 Tablets at noon and 2 Tablets before bedtime. Ordered by [facility] pain clinic. Active oxygen GAS Use as [...] polyneuropathy associated with type 2 diabetes mellitus ([facility]),Type 2 diabetes mellitus with hemoglobin A1c goal of less than 8.0% ([facility]) Accu-Chek Margareth glucose meter 1 Device 01/04/20 18 Active fluticasone (FLONASE) 50 MCG/ACT nasal sprayIndications: Chronic hypoxemic respiratory failure ([facility]),Mild intermittent asthma with acute exacerbation,Acut e recurrent maxillary sinusitis 2 sprays in each nostril twice daily x 3-5 days. Then once daily 1 Inhaler 1 03/06/20 18 Active Budesonide-Formot kelvin Fumarate 160-4.5 MCG/ACT Inhalation AerosolIndication s:Chronic hypoxemic respiratory failure (HCC) Inhale 2 Puffs by mouth in the morning and 2 Puffs before bedtime. 1 Inhaler 5 03/22/20 18 Active Pancrelipase, Tnf-Zqoj-Rbxh, (CREON 60972) 77579 UNIT CPEP Take 1 Capsule by mouth [...] overdose. Seek immediate medical attention. https://www.youtub e.com/watch?v=v26c Jlf7JfN Active Ipratropium-Albut kelvin 0.5-2.5 (3) MG/3ML Inhalation Solution (Duoneb)Indicatio ns:COPD, group C, by GOLD 2017 classification ([facility]) Inhale 3 mL via nebulizer 4 times [...] hemoglobin A1c goal of less than 8.0% ([facility]) Inject 60 Units under the skin in [...] than 8.0% 02/15/2022 Lymphadenopathy 02/15/2022 History of [place] (myocardial infarction) 02/04/2022 Major depressive disorder, single [...] left femur 04/16/2019 04/25/2019 Coronary atherosclerosis of [place] coronary artery 04/11/2019 04/11/2019 Type 2 diabetes [...] 08/29/2017 08/22/2018 Overview: Per CKD protocol #1 retirement current use of ant icoagulant therapy 06/14/2017 [...] (Prevnar) 11/08/2016 Pneumococcal Conjugate Vacci ne, 20-valent ([id number]) 02/04/2022 Pneumococcal Polysaccharide PPV23 (Pneumovax) 11/07/2016,01/12/2011 Rabies [...] 01/17/2024 Does the household have a re lar source of income? (Household - for ages [...] Assessment Author Yes 03/30/2019 11:25 AM EST Osmanyjeussmarysol Meagan Charly * Do you have difficulty dressing or [...] 04/24/2024 7:00 AM EST Anticoagulation Pharmacy, [address] [place] [address] [place] [address] 06/11/2024 2:00 PM EST Office Visit Cardiology, [facility] [address] [facility] [place] [address] Ama Kay CRNP [address] [place] [phone] 06/21/2024 2:00 PM EDT Telemedicine Endocrinology [address] [place] [address] Janet, Pharmacist Endocrinology [address] [place] [address] Scheduled Orders Name Type Priority Associated Diagnoses Orde r Schedule PT INR Lab Routine Paroxysmal atrial fibrillation (HCC) Expected: 04/23/2024, Expires: 04/23/2025 Health Maintenance Due Date Last Done Comments [...] this encounter Medical Devices Implanted Type Area Triage Rn Device Identifier Shelf Expiration Date Model / Serial / Lot Implant Femoral Bone - [id number] Implanted:Qty: 1 on 03/29/2019 [place] [facility] [place] Leg Upper [employer] 05/08/2028 8146-11-380 / / [id number] Screw Lag Hfn [id number] - [id number] Implanted:Qty: 1 on 03/29/2019 [place] [facility] [place] Leg Upper [employer] : TRAUMA 07/13/2027 [id number] / / [id number] Screw Hfn Ar 80mm - [id number] Implanted:Qty: 1 on 03/29/2019 [place] [facility] [place] Leg Upper [employer] : TRAUMA 02/23/2027 [id number] / / [id number] Screw Hfn 5x44mm - [id number] Implanted:Qty: 1 on 03/29/2019 [place] [facility] [place] Leg Upper [employer] : TRAUMA 11/06/2024 [id number] / / [id number] Screw Hfn 5x40mm - [id number] Implanted:Qty: 1 on 03/29/2019 [place] [facility] [place] Leg Upper [employer] : TRAUMA 12/28/2027 [id number] / / [id number] documented as of this encounter Visit Diagnoses Diagnosis Paroxysmal atrial fibrillation (HCC)- Primary Atrial fibrillation documented in this encounter Advance Directives Documents on File Type Date Recorded Patient Superintendent Car Construction Expl anation Advance Directives and Livin g Will 09/05/2017 LIVING WILL Power of Beautician Apprentice 09/05/2017 POWER OF A TTORNEY * Full Code (Latest Code Status on File) Date Activated Date Inactivated Comments 03/28/2019 2:49 PM 04/01/2019 11:08 PM This orde r reflects the patients wishes and were consensually agreed upon. Question Answer Comments Discussion of Advance Directives occurred with: Patient/Family Care Teams Cpa Tax Relationship Specialty Start Date End Date Yana Luis DO [address] [place] [address] [place] [address] PCP - General Internal Medicine 11/04/16 documented as of this encounter
--- OUTSIDE RECORDS SUMMARY | 2024-04-29 01:50 | External Medical Summary | Summary of Care ---
Author Name Unknown Organization [facility] Address [address] [place] [address] Phone [phone] Care Team Providers Care Lower School Music Teacher Name Role Phone Yana Luis DO Primary Care Provider [phone] Encounter Details Date Type Department Care Team (Late st Contact Info) Description 04/08/2024 Orders Only Outcomes Research Department [address] [place] [address] Liliana Gomez CHRA MyCode Research Other*[id number] Allergies Active Allergy Reactions Criticality Noted Date [...] as of this encounter (statuses as of 04/08/2024) Medications ALBUTEROL SULFATE HFA 108 (90 BASE) MCG/ACT IN AERSIndications:A sthma, allergic 2 inhalations every 4 hours as needed for wheezing 1 Inhaler 5 08/11/19 13 Active Additional Information Patient taking differently: (No route reported), Informant: Patient, Reported on 02/15/2022 B-D ULTRAFINE III (8MM) SHORT PEN MISCIndications:D M type 2, goal: symptom mgmt ([facility]) USE DIRECTED WITH INSULIN PEN Dx: 250.00 100 Each 5 01/21/20 14 Active omeprazole (PRILOSEC) 20 MG CPDR Take 1 Capsule by mouth in the morning and 1 Capsule before bedtime. 12/01/19 16 Active glucagon (GLUCAGEN) 1 MG KIT 1 mg once. Use as directed by drainage inspector from the [place]. Active oxyCODONE (OXY IR) 5 MG immediate release tablet Take 2 Tablets by mouth in the morning and 2 Tablets at noon and 2 Tablets before bedtime. Ordered by The [facility] pain clinic. Active oxygen GAS Use [...] polyneuropathy associated with type 2 diabetes mellitus ([facility]),Type 2 diabetes mellitus with hemoglobin A1c goal of less than 8.0% ([facility]) Accu-Chek Margareth glucose meter [...] 1 Inhaler 5 03/22/20 18 Active Pancrelipase, Jfb-Ttfs-Sjdk, (CREON 97169) 44003 UNIT CPEP Take 1 Capsule by mouth [...] the Emergency room. 2 Device 3 01/10/20 Active Additional Information Patient not taking.Reported on [...] suspected opioid overdose. Seek immediate medical attention. https://www.Hyperink.com/watch?v=v26c Wch1LqJ Active Ipratropium-Albut kelvin 0.5-2.5 (3) MG/3ML Inhalation Solution (Duoneb)Indicatio ns:COPD, group C, by GOLD 2017 classification ([facility]) Inhale 3 mL via [...] as of this encounter (statuses as of 04/08/2024) Active Problems Problem Noted Date Diagnosed Date Elevated prostate specific antigen (PSA) 022 Type I diabetes mellitus wit h stage 4 chronic kidney disease 02/15/2022 Type 1 diabetes mellitus wit h hemoglobin A1c goal of less than 8.0% 02/15/2022 Lymphadenopathy 02/15/2022 History of [place] (myocardial infarction) 02/04/2022 Major depressive disorder, single [...] as of this encounter (statuses as of 04/08/2024) Resolved Problems Problem Noted Date Diagnosed Date [...] left femur 04/16/2019 04/25/2019 Coronary atherosclerosis of [place] coronary artery 04/11/2019 04/11/2019 Type 2 diabetes [...] 08/29/2017 08/22/2018 Overview: Per CKD protocol #1 correction current use of ant icoagulant therapy 06/14/2017 [...] as of this encounter (statuses as of 04/08/2024) Immunizations Name Administration Dates Next Due HEP A - Hepatitis A (Adult > 18 yrs) 11/08/2016 Hepatitis B, 20+ yrs 11/07/2016,01/22/2014,12/16 MMR - Measles/Mumps/Rubella Vaccine 11/07/2016 Pneumococcal Conjugate Vacc, 13 Valent (Prevnar) 11/08/2016 Pneumococcal Conjugate Vacci ne, 20-valent ([id number]) 02/04/2022 Pneumococcal Polysaccharide PPV23 (Pneumovax) 11/07/2016,01/12/2011 Rabies [...] Description 04/23/2024 3:10 PM EST Anticoagulation Pharmacy, [address] [place] [address] [place] [address] 04/23/2024 3:30 PM EST Office Visit Nephrology [address] [place] [address] Linnette Ferris PA-C [address] [facility] [place] [address] 06/11/2024 2:00 PM EST Office Visit Cardiology, [facility] [address] [facility] [place] [address] Ama Kay CRNP [address] [place] [address] [place] [phone] 06/21/2024 2:00 PM EDT Telemedicine Endocrinology [address] [place] [address] Janet, Pharmacist Endocrinology [address] [place] [address] Scheduled Orders Name Type Priority Associated Diagnoses Orde r Schedule MYCODE INITIAL ADULT Lab Routine MyCode Research Other*[id number] Expected: 04/08/2024 (Approximate), Expires: 04/28/2025 Health Maintenance Due Date Last Done Comments [...] 01/10, 09/27/2022, Additional history exists GFR 08/18/2024 02/19/2024, 09/09, 09/20/2023, Additional history exists HbA1c 08/18/2024 02/19/2024, 05/11, 09/15/2022, Additional history exists O2 ASSESSMENT COMPLETED IN PAST YEAR FOR COPD 11/26/2024 11/27/2023 Depression Monitoring 01/16/2025 01/17/2024 Hgb 02/18/2025 02/19/2024, 09/09, 08/07/2023, Additional history exists DTap/Tdap Vaccines (3 - [...] this encounter Medical Devices Implanted Type Area Waterway Traffic Checker Device Identifier Shelf Expiration Date Model / Serial / Lot Implant Femoral Bone - [id number] Implanted:Qty: 1 on 03/29/2019 by Robert Heller MD [place] [facility] [place]: Leg Upper [employer] 05/08/2028 8146-11-380 / / [id number] Screw Lag Hfn [id number] - [id number] Implanted:Qty: 1 on 03/29/2019 by Robert Heller MD at [place] [facility] [place]: Leg Upper [employer] : TRAUMA 07/13/2027 [id number] / / [id number] Screw Hfn Ar 80mm - [id number] Implanted:Qty: 1 on 03/29/2019 by Robert Heller MD at [place] [facility] [place] Left: Leg Upper [employer] : TRAUMA 02/23/2027 [id number] / / [id number] Screw Hfn 5x44mm - [id number] Implanted:Qty: 1 on 03/29/2019 by Robert Heller MD at [place] [facility] [place]: Leg Upper [employer] : TRAUMA 11/06/2024 [id number] / / [id number] Screw Hfn 5x40mm - [id number] Implanted:Qty: 1 on 03/29/2019 by Robert Hleler MD at [place] [facility] [place] Left: Leg Upper [employer] : TRAUMA 12/28/2027 [id number] / / [id number] documented as of this encounter Visit Diagnoses Diagnosis MyCode Research Other*[id number] documented in this encounter Advance Directives Documents on File Type Date Recorded Patient Cooler Room Worker Expl anation Advance Directives and Livin g Will 09/05/2017 LIVING WILL Power of Slag Wheeler 09/05/2017 POWER OF A TTORNEY * Full Code (Latest Code Status on File) Date Activated Date Inactivated Comments 03/28/2019 2:49 PM 04/01/2019 11:08 PM This orde r reflects the patients wishes and were consensually agreed upon. Question Answer Comments Discussion of Advance Directives occurred with: Patient/Family Care Teams Lower School Music Teacher Relationship Specialty Start Date End Date Yana Luis DO [address] [place] [address] [place] [address] PCP - General Internal Medicine 11/04/16 documented as of this encounter
--- NOTE | 2024-04-29 02:21 | Emergency Department Note ---
History of Present Illness General Chief complaint: Confusion Stated complaint: KETOACIDOSIS, CONFUSION Time Seen by Provider: 04/29/24 01:59 History of Present Illness Maximum Pain Intensity: 3 This 68-year-old male with PMH DM type II, CKD stage III, chronic hypoxic respiratory failure on 4 L of oxygen, COPD, history of CVA, paroxysmal atrial fibrillation anticoagulant on Coumadin, chronic diastolic CHF, pancreatic cancer s/p surgery and chemotherapy presents ER for increased confusion who fell last night. Patient himself is following commands knows his name date and the president. Family was concerned about his elevated blood sugar and him acting kind of confused. Family states he did not know how to work the remote this morning. Patient denies chest pain, dyspnea, abdominal pain, fever, chills, flulike illness. Home Medications Medication Instructions Recorded Confirmed Type albuterol sulfate 2.5 mg/3 mL 2.5 mg inhalation Q4H PRN Wheezing 09/01/18 08/02/21 History (0.083 %) solution for nebulization aspirin 81 mg tablet,delayed 81 mg PO QAM 09/01/18 08/02/21 History release (Aspir-) atorvastatin 40 mg tablet 40 mg PO HS 09/01/18 08/02/21 History insulin glargine 100 unit/mL (3 40 unit subcut BID 09/01/18 08/02/21 History mL) subcutaneous pen (Lantus Solostar U-100 Insulin) polyethylene glycol 3350 17 17 g PO DAILY PRN Constipation 09/01/18 08/02/21 History gram/dose oral powder (Miralax) sucralfate 1 gram tablet (Carafate) 1 g PO QID PRN DYSEPSIA 09/01/18 08/02/21 History omeprazole 20 mg capsule,delayed 20 mg PO BID 11/18/18 08/02/21 History release oxycodone 5 mg tablet 10 mg PO TID PRN Pain 11/18/18 08/02/21 History albuterol sulfate 90 mcg/actuation 2 puff inhalation Q4H PRN Wheezing 03/25/19 08/02/21 History aerosol inhaler (ProAir HFA) budesonide-formoterol HFA 160 2 puff inhalation BID 03/25/19 08/02/21 History mcg-4.5 mcg/actuation aerosol inhaler docusate sodium 100 mg capsule 100 mg PO BID 03/25/19 08/02/21 History insulin aspart U-100 100 unit/mL 1 sliding scale dose subcut AC 03/25/19 08/02/21 History subcutaneous solution (Novolog U-100 Insulin aspart) [id number] 1 cap PO AC PRN Dyspepsia 03/25/19 08/02/21 History 24,000-76,000-120,000 unit capsule,delayed rel (Creon) tamsulosin 0.4 mg capsule 0.4 mg PO QAM 03/25/19 08/02/21 History warfarin 5 mg tablet (Coumadin) 5 mg PO TUSA 06/27/19 08/02/21 History warfarin 7.5 mg tablet (Coumadin) 7.5 mg PO SUMOWETHFR 06/27/19 08/02/21 History metolazone 2.5 mg tablet 2.5 mg PO MOFR 07/01/19 08/02/21 History cholecalciferol (vitamin D3) 50 50 mcg PO QAM 12/07/19 08/02/21 History mcg (2,000 unit) tablet duloxetine 20 mg capsule,delayed 20 mg PO BID 12/07/19 08/02/21 History release trazodone 50 mg tablet 25 - 50 mg PO HS PRN Insomnia 12/07/19 08/02/21 History baclofen 5 mg tablet 5 mg PO HS 08/02/21 08/02/21 History carvedilol 25 mg tablet 37.5 mg PO BID 08/02/21 08/02/21 History torsemide 20 mg tablet 40 mg PO BID 08/02/21 08/02/21 History peg 3350-electrolytes 236 240 ml PO Q10M #4,000 mL 08/05/21 Rx gram-22.74 gram-6.74 gram-5.86 gram solution (Golytely) peg 3350-electrolytes 236 240 ml PO Q10M #4,000 mL 11/03/21 Rx gram-22.74 gram-6.74 gram-5.86 gram solution (Golytely) Allergies Allergy/AdvReac Type Severity Reaction Status Date / Time bee venom protein (honey bee) Allergy Severe anaphylaxis Verified 08/02/21 08:33 piperacillin Allergy Intermediate Hives Verified 08/02/21 08:33 adhesive tape Allergy Mild welts on Verified 08/02/21 08:34 skin Pork/Porcine Containing Allergy Mild rash, Verified 08/02/21 08:33 Products vomiting lisinopril AdvReac Intermediate Elevated Verified 08/02/21 08:33 Potassium amlodipine AdvReac Mild Headache Verified 08/02/21 08:33 Past Med/Surg History Problem List (Updated 08/02/21 @ 09:10 by Fallon Esipnoza, RN) Supratherapeutic INR (Acute) Acute hyperglycemia (Acute) ELIZABETH (acute kidney injury) (Acute) CAP (community acquired pneumonia) (Acute) Elevated PSA Near syncope Fall Acute kidney injury superimposed on chronic kidney disease History of CVA (cerebrovascular accident) per pt roughly 10yrs ago--left side weakness--uses either crutches or wheelchair--no neurologist DVT prophylaxis Acute on chronic kidney failure Chronic pain Hypertension Chronic diastolic CHF (congestive heart failure) COPD (chronic obstructive pulmonary disease) (Chronic) 4L of O2 NC at home, inhaler daily/prn. nebulizer prn GERD (gastroesophageal reflux disease) (Chronic) Glaucoma (Chronic) Osteoarthritis (Chronic) Diabetic polyneuropathy (Chronic) CVA (cerebral vascular accident) (Chronic) per pt roughly 10yrs ago--left side weakness--uses either crutches or wheelchair--no neurologist Asthma, mild persistent (Chronic) DM type 2 (diabetes mellitus, type 2) (Chronic) Dyslipidemia (Chronic) Depression (Chronic) PTSD (post-traumatic stress disorder) (Chronic) Paroxysmal atrial fibrillation (Chronic) on warfarin daily--follows with Dr. Grant Recurrent left pleural effusion (Chronic) Pancreatic cancer (Chronic) diagnosed 2017---sx, chemo Diastolic CHF (Chronic) CKD (chronic kidney disease), stage III (Chronic) Pericardial effusion (Chronic) Hx of cataract surgery (Chronic) bilateral S/P tonsillectomy and adenoidectomy (Chronic) Medical History (Updated 04/29/24 @ 03:24 by Liliana Squires PA-C) Morbid obesity with BMI of 45.0-49.9, adult BPH (benign prostatic hyperplasia) Hearing deficit On home oxygen therapy 4L n/c at all times Anticoagulated Anemia of chronic disease Surgical History (Updated 08/02/21 @ 09:10 by Fallon Espinoza RN) History of vascular access device has Aport in place but per pt DOES NOT WORK, needs to be removed History of esophagogastroduodenoscopy (EGD) History of arthroscopy of left knee History of arthroscopy of right knee History of open reduction and internal fixation (ORIF) procedure left hip--hardware in place History of tooth extraction all teeth removed Status post correction of deviated nasal septum History of angioplasty "years and years ago"--no stents History of bronchoscopy History of thoracentesis History of surgery (~10/16/17) thoracoscopy History of splenectomy (~2016) History of partial pancreatectomy (~2017) @ [facility] Family History (Updated 08/02/21 @ 09:00 by Fallon Espinoza RN) Mother Diabetes Breast cancer Other No family history of adverse response to anesthesia Social History Smoking Status: Former smoker Tobacco Type: Cigarettes Second Hand Exposure: No; Do You Dip or Chew Tobacco: Yes (uses nicotine pouches prn); Hx Alcohol Use: No Hx Substance Use: No Preferred Language: Stateless Communication Ability: Effective Culinary Manager Required: No Beliefs That Will Affect Care: None marital status: Current Living Situation: Spouse and Family Current Living Situation Comment: Lives with and granddaughter, 2 sons and 2 daughter in laws current occupational status: unemployed and disabled Feels Safe at Home: Yes Assistive Devices: Denture - Upper, Denture - Lower, Glasses, Hearing Aid - Bilateral, Oxygen - Continuous and Wheelchair Review of Systems A total of 10 systems reviewed and were otherwise negative Physical Exam Vital Signs Vital Signs - 24 hr 04/29/24 01:49 04/29/24 02:07 04/29/24 02:26 Temperature 36.9 C Temperature Source Temporal Artery Scan Pulse Rate 68 66 Pulse Rate [Right Finger] Pulse Rhythm [Right Finger] Pulse Strength [Right Finger] Respiratory Rate 20 Respiratory Effort / Characteristics Non-Labored Respiratory Depth Normal Respiratory Pattern Blood Pressure 126/64 Blood Pressure [Right Arm] Blood Pressure Mean 84 Blood Pressure Mean [Right Arm] Blood Pressure Position [Right Arm] Pulse Oximetry 98 Oxygen Delivery Method Nasal Cannula Nasal Cannula Oxygen Flow Rate 3 3 Sepsis Recent Fever Within 48 Hours No Sepsis New/Unexplained Change in Mental Status Yes Sepsis Action Taken by Nursing No Action Required 04/29/24 02:26 04/29/24 02:26 04/29/24 02:45 Temperature Temperature Source Pulse Rate 80 Pulse Rate [Right Finger] 70 70 Pulse Rhythm [Right Finger] Regular Regular Pulse Strength [Right Finger] Normal Normal Respiratory Rate 22 21 18 Respiratory Effort / Characteristics Non-Labored Spontaneous Non-Labored Spontaneous Respiratory Depth Normal Normal Respiratory Pattern Regular Regular Blood Pressure Blood Pressure [Right Arm] 151/66 H 147/67 H Blood Pressure Mean Blood Pressure Mean [Right Arm] 94 93 Blood Pressure Position [Right Arm] Lying Sitting Pulse Oximetry 100 100 98 Oxygen Delivery Method Room Air Nasal Cannula Room Air Oxygen Flow Rate 3 3 Sepsis Recent Fever Within 48 Hours Sepsis New/Unexplained Change in Mental Status Sepsis Action Taken by Nursing 04/29/24 02:51 04/29/24 03:30 Temperature Temperature Source Pulse Rate Pulse Rate [Right Finger] 68 71 Pulse Rhythm [Right Finger] Regular Regular Pulse Strength [Right Finger] Normal Normal Respiratory Rate 21 18 Respiratory Effort / Characteristics Non-Labored Spontaneous Non-Labored Spontaneous Respiratory Depth Normal Normal Respiratory Pattern Regular Regular Blood Pressure Blood Pressure [Right Arm] 151/70 H 168/79 H Blood Pressure Mean Blood Pressure Mean [Right Arm] 97 108 Blood Pressure Position [Right Arm] Lying Semi-fowlers Pulse Oximetry 98 99 Oxygen Delivery Method Room Air Nasal Cannula Oxygen Flow Rate 3 Sepsis Recent Fever Within 48 Hours Sepsis New/Unexplained Change in Mental Status Sepsis Action Taken by Nursing VITALS: Vitals are noted on the nurse's note and reviewed by myself. Vital signs stable. GENERAL: Male chronically on oxygen, in no acute distress, nondiaphoretic, well- developed well-nourished. SKIN: The skin was without rashes, erythema, edema, or bruising. There is no tenting of the skin. Capillary reflex less than 2 seconds. HEAD: Normocephalic atraumatic. EARS: External auditory canals clear EYES: Pupils equal round and reactive to light and accommodation. Conjunctivae without injection, sclerae without icterus. Extraocular movements intact. NOSE: Patent, no discharge. MOUTH: Mucous membranes moist. Pharynx without erythema or exudate. Uvula midline. Airway patent. Tongue does not deviate. NECK: Supple without nuchal rigidity. No lymphadenopathy. No thyromegaly. Cervical spine is nontender. No JVD. HEART: Regular rate and rhythm LUNGS: Mild diffuse and expiratory wheeze. No retractions or accessory muscle use. ABDOMEN: Positive bowel sounds x 4. Normal tympanic percussion. Soft, nontender, without masses or organomegaly. Ch sign negative. No guarding or rebound tenderness. No CVA tenderness MUSCULOSKELETAL: No muscle atrophy, erythema, noted. NEURO: Patient was alert and oriented to person place and time. Normal sensation to light and sharp touch. No focal neurological deficits. Course Administered Medications Discontinued Medications Azithromycin (Azithromycin 250 Mg Tab) 500 mg PO NOW ONE Stop: 04/29/24 03:23 Last Admin: 04/29/24 03:46 Dose: 500 mg Documented By: SUSAN Sodium Chloride (Nss) 500 mls @ 999 mls/hr IV .Q31M ONE Stop: 04/29/24 03:27 Last Infusion: 04/29/24 03:46 Dose: Infused Documented By: Admin: 04/29/24 03:01 Dose: 999 mls/hr Documented By: DORON Ceftriaxone Sodium (Rocephin) 2,000 mg in 50 mls @ 100 mls/hr IV NOW STA Stop: 04/29/24 03:51 Last Admin: 04/29/24 03:47 Dose: 100 mls/hr Documented By: SUSAN Medical Decision Making Medical Records Attestation: I reviewed the patient's medical records. Home Medications Current Medication List: was personally reviewed by me Laboratory Data Attestation: I reviewed the patient's lab results. 04/29/24 02:12 04/29/24 02:12 Lab Results 04/29/24 04/29/24 04/29/24 Range/Units 01:54 02:09 02:12 WBC 17.64 H (4.8-10.8) K/ul RBC 4.00 L (4.70-6.10) M/uL Hgb 12.2 L (14.0-18.0) g/dl Hct 37.2 L (42.0-52.0) % MCV 93.0 (80.0-100.0) fL MCH 30.5 (25.0-34.0) pg MCHC 32.8 (32.0-36.0) g/dL RDW Std Deviation 46.5 H (36.4-46.3) fL RDW Coeff of [place] 13.6 (11.5-14.5) % Plt Count 475 H (130-400) K/uL MPV 10.4 (9.4-12.4) fL Immature Gran % (Auto) 0.6 % Neut % (Auto) 74.2 % Lymph % (Auto) 10.0 % [place] % (Auto) 12.1 % Eos % (Auto) 2.8 % Baso % (Auto) 0.3 % Neut # (Auto) 13.09 H (1.40-6.50) K/uL Lymph # (Auto) 1.77 (1.20-3.40) K/uL [place] # (Auto) 2.13 H (0.11-0.59) K/uL Eos # (Auto) 0.50 (0.00-0.50) K/uL Baso # (Auto) 0.05 (0.00-0.20) K/uL Immature Gran # (Auto) 0.10 (0.01-0.20) K/uL PT 40.5 H (9.0-12.0) Seconds INR 4.2 H (0.9-1.1) APTT 58 H (21-31) Seconds PTT Ratio 2.2 VBG pH 7.34 L (7.36-7.41) VBG pCO2 51 H (38-50) mmHg VBG pO2 55 mmHg VBG HCO3 28 mmol/L VBG O2 Saturation 86.2 % VBG Base Excess 0.9 mEq/L Sodium 131 L (136-145) mmol/L Potassium 3.6 (3.5-5.1) mmol/L Chloride 92 L (98-107) mmol/L Carbon Dioxide 29 (21-32) mmol/L Anion Gap 10 (3-11) BUN 83 H (6-23) mg/dl Creatinine 3.24 H (0.6-1.4) mg/dl Est Cr Clr Drug Dosing 27.0 ml/min eGFR 19.88 BUN/Creatinine Ratio 25.6 H (10-20) Glucose 342 H* (70-99(Fasting)) mg/dl POC Glucose 321 H* (70-99) mg/dl Lactate 1.5 (0.4-2.0) mmol/L Calcium 8.9 (8.6-10.3) mg/dl Magnesium 2.2 (1.7-2.4) mg/dl Total Bilirubin 0.4 (0.2-1.0) mg/dl Direct Bilirubin 0.2 (0-0.2) mg/dl AST 13 (13-39) U/L ALT 21 (7-52) U/L Alkaline Phosphatase 103 (34-104) U/L Troponin I High Sens 10.8 (0-20) pg/ml Total Protein 7.4 (6.0-8.3) gm/dl Albumin 3.8 (3.4-5.0) gm/dl Procalcitonin 0.67 H (0-0.5) ng/ml TSH 1.220 (0.300-4.500) uIu/ml Adenovirus (PCR) Not Detected (NotDetected) B. pertussis DNA (PCR) Not Detected (NotDetected) B.parapertussis DNA PCR Not Detected (NotDetected) C. pneumoniae DNA (PCR) Not Detected (NotDetected) Coronavirus OC43 (PCR) Not Detected (NotDetected) Coronavirus HKU1 (PCR) Not Detected (NotDetected) Coronavirus 229E (PCR) Not Detected (NotDetected) SARS-CoV-2 (PCR) Not Detected (NotDetected) Coronavirus NL63 (PCR) Not Detected (NotDetected) Human Metapneumovir PCR Not Detected (NotDetected) Influenza Type A (PCR) Not Detected (NotDetected) Influenza Type B (PCR) Not Detected (NotDetected) M. pneumoniae (PCR) Not Detected (NotDetected) Parainfluenza 1 (PCR) Not Detected (NotDetected) Parainfluenza 2 (PCR) Not Detected (NotDetected) Parainfluenza 3 (PCR) Not Detected (NotDetected) Parainfluenza 4 (PCR) Not Detected (NotDetected) RSV (PCR) Not Detected (NotDetected) Entero/Rhino (PCR) Not Detected (NotDetected) Imaging Data Attestation: I personally reviewed and interpreted this imaging study as follows: Radiologist's Impression: Chest X-Ray 04/29/24 02:06 EXAM: XR chest 1V portable CLINICAL HISTORY: SEPSIS SDM TECHNIQUE: An X-ray image of the chest is obtained using a frontal projection. COMPARISON: No prior studies are available for comparison. FINDINGS: Pulmonary Parenchyma: The prominence of broncho vascular markings bilaterally. Possible infiltrates in the right lower zone and left retrocardiac region. Blunting of bilateral costophrenic angles may represent pleural effusion. Heart and Mediastinum: Enlarged heart. Aortic root calcifications are seen. No hilar or mediastinal lymphadenopathy. Bony Thorax: The bony thorax appears intact without any acute fractures or deformities. Impression of an old healed fracture of the left fifth posterior rib. Soft Tissues: Soft tissues overlying the chest wall are unremarkable. IMPRESSION: 1. Enlarged heart with the prominence of broncho vascular markings bilaterally, suggestive of pulmonary vascular congestion. 2. Possible infiltrates in the right lower zone and left retrocardiac region. Clinical correlation is suggested. 3. Blunting of bilateral costophrenic angles likely represents pleural effusion. Electronically signed by Hakan Knutson 04-29-2024 03:[address] 04/29/24 02:06 EXAM: CT head/brain wo con CLINICAL HISTORY: Altered mental status, hx pancreatic CA. TECHNIQUE: An axial non-contrast CT scan of the brain was performed from the skull base to the high parietal region. One of the following dose reduction techniques was utilized for this exam: Automated exposure control, adjustment of the mA and/or kV according to patient size, and use of iterative reconstruction. CTDI: 37.32 mGy, DLP: 547 mGy-cm. COMPARISON: None. FINDINGS: Brain Parenchyma: Normal attenuation of the cerebral hemispheres, cerebellum, and brainstem. No evidence of acute infarct, hemorrhage, or mass effect. No abnormal areas of hypo- or hyperattenuation. Ventricular System: The ventricular system, cortical sulci, and basal cisterns are prominent and consistent with senile changes. No evidence of subarachnoid hemorrhage or extra-axial fluid collections. Cerebellum and Brainstem: Normal size and signal. No masses, lesions, or areas of abnormal signal. Orbits: Normal appearance of the globes, optic nerves, and extraocular muscles. No evidence of orbital masses. Sinuses: Clear paranasal sinuses. No evidence of sinusitis or mucosal thickening. Mastoid Air Cells: Patchy opacification of mastoid air cells. Skull: Normal skull morphology. Osteopenic changes. IMPRESSION: 1. No evidence of any acute intracranial event on this unenhanced CT examination. Further evaluation with an MRI is suggested. 2. Age-related involutional changes. Electronically signed by Hakan Knutson 04-29-2024 04:12 AM MDM Narrative Prior records/ancillary studies reviewed and summarized above. Nursing notes reviewed. Additional history obtained from family. The patient's history was concerning for increased confusion, hyperglycemia and weakness. Differential diagnosis: Etiologies such as metabolic, infection, hypo/hyperglycemia, electrolyte abnormalities, cardiac sources, intracerebral event, toxicologic, neurologic, as well as others were entertained. Physical examination: As above. ER treatment provided: IV Lock An order was placed for continuous cardiac monitoring. The monitor shows a rate of 60-100 with a sinus rhythm per my interpretation. Rocephin and Zithromax for pneumonia, patient was given 500 cc of fluids for ELIZABETH On reassessment the patient felt better. Diagnostics interpretation by me: ECG: Ordered for weakness EKG: Normal sinus, first-degree AV block, no acute ST-T wave changes, rate of 67. Impression normal sinus rhythm with a first-degree AV block independently interpreted by myself The labs Independently Interpreted by myself revealed leukocytosis, elevated creatinine Hyperglycemia without DKA Negative BioFire Elevated INR Imaging studies: Imaging was reviewed and read by radiology Consultation: A consultation was placed with the hospitalist. The case was discussed and diagnostics were reviewed. The patient was evaluated in the ER for further treatment. Exam and history seem consistent with community-acquired pneumonia with ELIZABETH with supratherapeutic INR. Patient was given antibiotics as above. No DKA. Medicine was consulted case discussed. Patient be admitted to the medical service. By the evaluation outlined above emergent etiologies such as electrolyte abnormalities, cardiac sources, intracerebral event, toxologic, neurologic, metabolic, as well as others were deemed relatively unlikely. The pt informed about the findings as listed above. All questions were answered and pleased with the treatment. The chart was completed utilizing Merlin Speech voice recognition software. Grammatical errors, random word insertions, pronoun errors, and incomplete sentences are an occassional consequence of this system due to software limitations, ambient noise, and hardware issues. Any formal questions or concerns about the content, text, or information contained within the body of this dictation should be directly addressed to the physician retail sales assistant for clarification. Impression & Plan CAP (community acquired pneumonia), ELIZABETH (acute kidney injury), Acute hyperglycemia, Supratherapeutic INR Discharge Plan Visit Data Chief Complaint: Confusion Stated Complaint: KETOACIDOSIS, CONFUSION ED Provider: Theresa Vuong ED Midlevel Provider: Liliana Squires Discharge Problem: CAP (community acquired pneumonia), ELIZABETH (acute kidney injury), Acute hyperglycemia, Supratherapeutic INR Patient Disposition: Admitted As Inpatient Condition: Fair Forms Stand Alone Forms: [facility] Prescriptions Prescriptions: No Action peg 3350-electrolytes [Golytely] 236-22.74-6.74 -5.86 gram recon soln 240 ml PO Q10M Qty: 4000 0RF Rx Instructions: Take per split dose instructions peg 3350-electrolytes [Golytely] 236-22.74-6.74 -5.86 gram recon soln 240 ml PO Q10M Qty: 4000 0RF Rx Instructions: Take per split dose instructions omeprazole 20 mg Capsule,Delayed Release(Dr/Ec) 20 mg PO BID oxycodone 5 mg Tablet 10 mg PO TID PRN (Reason: Pain) cholecalciferol (vitamin D3) 50 mcg (2,000 unit) Tablet 50 mcg PO QAM trazodone 50 mg tablet 25 - 50 mg PO HS PRN (Reason: Insomnia) duloxetine 20 mg capsule,delayed release(DR/EC) 20 mg PO BID atorvastatin 40 mg Tablet 40 mg PO HS albuterol sulfate 2.5 mg /3 mL (0.083 %) Solution For Nebulization 2.5 mg INHALATION Q4H PRN (Reason: Wheezing) sucralfate [Carafate] 1 gram Tablet 1 g PO QID PRN (Reason: DYSEPSIA) aspirin [Aspir-81] 81 mg Tablet,Delayed Release (Dr/Ec) 81 mg PO QAM polyethylene glycol 3350 [Miralax] 17 gram/dose Powder 17 g PO DAILY PRN (Reason: Constipation) Lantus Solostar U-100 Insulin 100 unit/mL (3 mL) Insulin Pen 40 unit SUBCUT BID tamsulosin 0.4 mg Capsule 0.4 mg PO QAM insulin aspart U-100 [Novolog U-100 Insulin aspart] 100 unit/mL Solution 1 sliding scale dose SUBCUT AC docusate sodium 100 mg Capsule 100 mg PO BID albuterol sulfate [ProAir HFA] 90 mcg/actuation Hfa Aerosol Inhaler 2 puff INHALATION Q4H PRN (Reason: Wheezing) budesonide-formoterol 160-4.5 mcg/actuation Hfa Aerosol Inhaler 2 puff INHALATION BID Creon 24,000-76,000 -120,000 unit Capsule,Delayed Release(Dr/Ec) 1 cap PO AC PRN (Reason: Dyspepsia) Rx Instructions: TAKE ONE CAPSULE BEFORE BREAKFAST, LUNCH AND SUPPER warfarin [Coumadin] 7.5 mg Tablet 7.5 mg PO SUMOWETHFR warfarin [Coumadin] 5 mg Tablet 5 mg PO TUSA metolazone 2.5 mg Tablet 2.5 mg PO MOFR Rx Instructions: Metolazone Take 2.5 mg tablet 30 mins after AM dose of Torsemide on Monday and Monday carvedilol 25 mg tablet 37.5 mg PO BID torsemide 20 mg tablet 40 mg PO BID baclofen 5 mg Tablet 5 mg PO HS Referrals Referrals: Yana Luis DO [Primary Care Provider] - Discharge Problem: CAP (community acquired pneumonia) Qualifiers: Laterality: right Lung location: lower lobe of lung Qualified Code(s): J18.9 - Pneumonia, unspecified organism
[2024-04-29 02:32] LABS: Base Excess VBG 0.9 mEq/L; HCO3 VBG 28 mmol/L; Oxygen Saturation VBG 86.2 %; PCO2 VBG 51 mmHg (38-50); PO2 VBG 55 mmHg; pH VBG 7.34 (7.36-7.41)
[2024-04-29 02:37] LABS: Basophils # (auto) 0.05 K/uL (0.00-0.20); Basophils % (auto) 0.3 %; Eosinophils % (auto) 2.8 %; Hematocrit (blood only) 37.2 % (42.0-52.0); Hemoglobin 12.2 g/dl (14.0-18.0); Immature Granulocytes % (auto) 0.6 %; Lymphocytes # (auto) 1.77 K/uL (1.20-3.40); Mean Corpuscular Hemoglobin 30.5 pg (25.0-34.0); Mean Corpuscular Hgb Conc 32.8 g/dL (32.0-36.0); Mean Platelet Volume 10.4 fL (9.4-12.4); Monocytes # (auto) 2.13 K/uL (0.11-0.59); Monocytes % (auto) 12.1 %; Neutrophils # (auto) 13.09 K/uL (1.40-6.50); Neutrophils % (auto) 74.2 %; Platelet Count 475 K/uL (130-400); RDW Coefficient of Variation 13.6 % (11.5-14.5); RDW Standard Deviation 46.5 fL (36.4-46.3); White Blood Count 17.64 K/ul (4.8-10.8)
[2024-04-29 02:53] LABS: Albumin Level 3.8 gm/dl (3.4-5.0); BUN Creatinine Ratio 25.6 (10-20); Bilirubin Direct 0.2 mg/dl (0-0.2); Bilirubin,Total 0.4 mg/dl (0.2-1.0); Calcium 8.9 mg/dl (8.6-10.3); Magnesium 2.2 mg/dl (1.7-2.4); Potassium 3.6 mmol/L (3.5-5.1); Total Protein 7.4 gm/dl (6.0-8.3)
[2024-04-29 02:58] LABS: Troponin I High Sensitivity 10.8 pg/ml (0-20)
[2024-04-29] MEDS: SODIUM CHLORIDE 0.9% 500 ML IV ONE (03:01)
[2024-04-29 03:11] LABS: INR 4.2 (0.9-1.1); Partial Thromboplastin Ratio 2.2; Partial Thromboplastin Time 58 Seconds (21-31); Prothrombin Time 40.5 Seconds (9.0-12.0)
[2024-04-29 03:18] LABS: Thyroid Stimulating Hormone 1.22 uIu/ml (0.300-4.500)
[2024-04-29 03:19] LABS: Adenovirus PCR Not Detected (NotDetected); Bordetella parapertussis PCR Not Detected (NotDetected); Bordetella pertussis PCR Not Detected (NotDetected); Chlamydia pneumoniae PCR Not Detected (NotDetected); Coronavirus 229E PCR Not Detected (NotDetected); Coronavirus CoV-2 (COVID19)PCR Not Detected (NotDetected); Coronavirus HKU1 PCR Not Detected (NotDetected); Coronavirus NL63 PCR Not Detected (NotDetected); Coronavirus OC43PCR Not Detected (NotDetected); Human Metapneumovirus PCR Not Detected (NotDetected); Influenza A PCR Not Detected (NotDetected); Influenza B PCR Not Detected (NotDetected); Mycoplasma pneumoniae PCR Not Detected (NotDetected); Parainfluenza Virus 1 PCR Not Detected (NotDetected); Parainfluenza Virus 2 PCR Not Detected (NotDetected); Parainfluenza Virus 3 PCR Not Detected (NotDetected); Parainfluenza Virus 4 PCR Not Detected (NotDetected); Respiratory Syncytial VirusPCR Not Detected (NotDetected); Rhinovirus/Enterovirus PCR Not Detected (NotDetected)
--- NOTE | 2024-04-29 03:21 | XRay Report ---
EXAM: XR chest 1V portable CLINICAL HISTORY: SEPSIS SDM TECHNIQUE: An X-ray image of the chest is obtained using a frontal projection. COMPARISON: No prior studies are available for comparison. FINDINGS: Pulmonary Parenchyma: The prominence of broncho vascular markings bilaterally. Possible infiltrates in the right lower zone and left retrocardiac region. Blunting of bilateral costophrenic angles may represent pleural effusion. Heart and Mediastinum: Enlarged heart. Aortic root calcifications are seen. No hilar or mediastinal lymphadenopathy. Bony Thorax: The bony thorax appears intact without any acute fractures or deformities. Impression of an old healed fracture of the left fifth posterior rib. Soft Tissues: Soft tissues overlying the chest wall are unremarkable. IMPRESSION: 1. Enlarged heart with the prominence of broncho vascular markings bilaterally, suggestive of pulmonary vascular congestion. 2. Possible infiltrates in the right lower zone and left retrocardiac region. Clinical correlation is suggested. 3. Blunting of bilateral costophrenic angles likely represents pleural effusion. Electronically signed by Hakan Knutson 04-29-2024 03:20 AM
[2024-04-29] MEDS: AZITHROMYCIN 250 MG TAB PO ONE (03:46)
[2024-04-29] MEDS: cefTRIAXone SODIUM 2,000 MG/50 ML BAG IV STA (03:47)
--- NOTE | 2024-04-29 04:12 | CT Scan Report ---
EXAM: CT head/brain wo con CLINICAL HISTORY: Altered mental status, hx pancreatic CA. TECHNIQUE: An axial non-contrast CT scan of the brain was performed from the skull base to the high parietal region. One of the following dose reduction techniques was utilized for this exam: Automated exposure control, adjustment of the mA and/or kV according to patient size, and use of iterative reconstruction. CTDI: 37.32 mGy, DLP: 547 mGy-cm. COMPARISON: None. FINDINGS: Brain Parenchyma: Normal attenuation of the cerebral hemispheres, cerebellum, and brainstem. No evidence of acute infarct, hemorrhage, or mass effect. No abnormal areas of hypo- or hyperattenuation. Ventricular System: The ventricular system, cortical sulci, and basal cisterns are prominent and consistent with senile changes. No evidence of subarachnoid hemorrhage or extra-axial fluid collections. Cerebellum and Brainstem: Normal size and signal. No masses, lesions, or areas of abnormal signal. Orbits: Normal appearance of the globes, optic nerves, and extraocular muscles. No evidence of orbital masses. Sinuses: Clear paranasal sinuses. No evidence of sinusitis or mucosal thickening. Mastoid Air Cells: Patchy opacification of mastoid air cells. Skull: Normal skull morphology. Osteopenic changes. IMPRESSION: 1. No evidence of any acute intracranial event on this unenhanced CT examination. Further evaluation with an MRI is suggested. 2. Age-related involutional changes. Electronically signed by Hakan Knutson 04-29-2024 04:12 AM
--- NOTE | 2024-04-29 04:39 | Emergency Department Note ---
ED Visit Note I was consulted by the Advanced Practice Provider. I personally made/approved the management plan and take responsibility for the patient management. I performed a substantive portion of the visit. This includes the aspects of: Personally seeing the patient -MDM -I independently interpreted the following studies: Portable chest x-ray: Cardiomegaly with infiltrative process in the right lower lung concerning for pneumonia. Patient will be medicated with IV antibiotics. .
[2024-04-29] MEDS: NovoLIN-R INSULIN PER UNIT CHARGE IV STA (06:00)
--- NOTE | 2024-04-29 06:01 | History & Physical Report ---
Date of Service April 29, 2024 Assessment & Plan (1) Confusion: Plan: 68-year-old male with past medical history significant for type 1 diabetes, diabetic polyneuropathy, CKD stage IV, dyslipidemia, chronic hypoxemic respiratory failure on 3 L oxygen, secondary hyperparathyroidism of renal origin, obstructive sleep apnea patient has been on CPAP but when his cpap was recalled since then he is not using it as per , COPD, restrictive airway disease, asthma mild intermittent, history of CVA, paroxysmal atrial fibrillation, chronic diastolic CHF, chronic right heart failure, history of pericardial effusion, reflux esophagitis, morbid obesity, BPH, generalized osteoarthritis, glaucoma, anemia of chronic kidney disease, lymphadenopathy, PTSD, depression, general anxiety disorder, history of NC, history of pancreatic cancer status post chemo currently in remission, currently on observation with heme-onc who lives at home was brought in because of confusion and found to have right lower lobe pneumonia. Today morning as per the patient seemed confused, he could not operate the remote. And he was sleeping a lot. and son thought he will wake up but patient continued to sleep. He was answering appropriately but sometimes seemed to be confused per . As he was not getting better he was brought to the hospital. No fevers. No cough. Has chronic back pain. No chest pain. No nausea. No abdominal pain. Normal bowel and bladder movements. Appetite has been down today. No headache. Vision is okay. No runny nose or sore throat. Currently patient is alert and oriented x 3. Somewhat sleepy. Hemodynamics are okay. Patient can ambulate short distance with walker. Mostly wheelchair-bound. Confusion Currently alert and oriented though sleepy Chest xray shows right lower lobe pneumonia CT head okay Has leukocytosis Elevated procalcitonin 0.67 ER gave p.o. azithromycin and Rocephin Will continue Rocephin and azithromycin 500 mg daily for now Monitor the response Chronic hypoxic respiratory failure On 3 L oxygen at home History of COPD History of asthma Restrictive disease No obvious wheezing Continue oxygen supplementation Continue home nebs and inhalers Will monitor Obstructive sleep apnea Supposed to be on CPAP but not using since it was recalled Needs follow-up with sleep Will use CPAP nightly while in the hospital Chronic diastolic CHF Right-sided heart failure Echo from 07/2023 shows EF 55-59%. Grade 1 diastolic dysfunction Continue home diuretics of torsemide and metolazone Monitor for volume overload Paroxysmal atrial fibrillation On Coreg and warfarin INR 4.1 We will hold warfarin History of CVA On aspirin and statin Holding warfarin for elevated INR Ambulatory dysfunction Uses walker for short distances and mostly wheelchair-bound PT OT when stable History of pancreatic cancer S/p chemo. Currently under surveillance with heme-onc History of left PleurX catheter removed after pleurodesis CKD stage IV Baseline creatinine 3.1 Creatinine 3.2 close to baseline Will follow labs Diabetes Hyperglycemia Continue home Lantus Sliding scale Follow HbA1c levels Close monitor Glycemic pharmacy consult Anemia chronic kidney disease Hemoglobin 12.2 Will monitor Hypertension On Coreg and losartan and diuretics We will monitor Hyperlipidemia On statin BPH On Flomax PTSD Depression Generalized Anxiety disorder On duloxetine DVT prophylaxis INR supratherapeutic Follow PT/INR Disposition Telemetry Full code. History of Present Illness Chief Complaint: Confusion, pneumonia Primary Care Provider: Yana Luis DO 68-year-old male with past medical history significant for type 1 diabetes, diabetic polyneuropathy, CKD stage IV, dyslipidemia, chronic hypoxemic respiratory failure on 3 L oxygen, secondary hyperparathyroidism of renal origin, obstructive sleep apnea patient has been on CPAP but when his cpap was recalled since then he is not using it as per , COPD, restrictive airway disease, asthma mild intermittent, history of CVA, paroxysmal atrial fibrillation, chronic diastolic CHF, chronic right heart failure, history of pericardial effusion, reflux esophagitis, morbid obesity, BPH, generalized osteoarthritis, glaucoma, anemia of chronic kidney disease, lymphadenopathy, PTSD, depression, general anxiety disorder, history of NC, history of pancreatic cancer status post chemo currently in remission, currently on observation with heme-onc who lives at home was brought in because of confusion and found to have right lower lobe pneumonia. Today morning as per the patient seemed confused, he could not operate the remote. And he was sleeping a lot. and son thought he will wake up but patient continued to sleep. He was answering appropriately but sometimes seemed to be confused per . As he was not getting better he was brought to the hospital. No fevers. No cough. Has chronic back pain. No chest pain. No nausea. No abdominal pain. Normal bowel and bladder movements. Appetite has been down today. No headache. Vision is okay. No runny nose or sore throat. Currently patient is alert and oriented x 3. Somewhat sleepy. Hemodynamics are okay. Patient can ambulate short distance with walker. Mostly wheelchair-bound. Past medical history. As mentioned above Past surgical history. Bone debridement. Skin lesions removal. Right foot debridement. Bilateral cataracts. Tonsillectomy /adenoidectomy. Treatment of left trochanteric femur fracture with intramedullary marlene. Social history. . Quit smoking 2018. Used to drink heavily but stopped currently. No drug use. Family history. Mother had breast cancer. Diabetes. Heart disorder. Father had heart disorder. Allergies Allergy/AdvReac Type Severity Reaction Status Date / Time bee venom protein (honey bee) Allergy Severe anaphylaxis Verified 08/02/21 08:33 piperacillin Allergy Intermediate Hives Verified 08/02/21 08:33 adhesive tape Allergy Mild welts on Verified 08/02/21 08:34 skin Pork/Porcine Containing Allergy Mild rash, Verified 08/02/21 08:33 Products vomiting lisinopril AdvReac Intermediate Elevated Verified 08/02/21 08:33 Potassium amlodipine AdvReac Mild Headache Verified 08/02/21 08:33 Home Medications Medication Instructions Recorded Confirmed Type albuterol sulfate 90 mcg/actuation 1 puff inhalation QID PRN 04/29/24 04/29/24 History aerosol inhaler Shortness Of Breath Or Wheezing aspirin 81 mg tablet,delayed 81 mg PO DAILY 04/29/24 04/29/24 History release atorvastatin 40 mg tablet 40 mg PO DAILY 04/29/24 04/29/24 History baclofen 10 mg tablet 10 mg PO DAILY PRN Muscle Spasm 04/29/24 04/29/24 History budesonide-formoterol HFA 160 2 puff inhalation BID 04/29/24 04/29/24 History mcg-4.5 mcg/actuation aerosol inhaler carvedilol 25 mg tablet (Coreg) 37.5 mg PO BID 04/29/24 04/29/24 History duloxetine 30 mg capsule,delayed 30 mg PO DAILY 04/29/24 04/29/24 History release sprinkle insulin aspart U-100 100 unit/mL 1 sliding scale dose subcut 04/29/24 04/29/24 History (3 mL) subcutaneous pen (Novolog USEASDIRECTD FlexPen U-100 Insulin aspart) insulin glargine 100 unit/mL 60 unit subcut BID 04/29/24 04/29/24 History subcutaneous solution (Lantus U-100 Insulin) ipratropium 0.5 mg-albuterol 3 mg 3 ml inhalation QID 04/29/24 04/29/24 History (2.5 mg base)/3 mL nebulization soln [id number]-jconwzli-vkvhxku 1 cap PO QID PRN Indigestion 04/29/24 04/29/24 History 10,000-37,500-33,200 unit capsule,delayed rel losartan 25 mg tablet 25 mg PO DAILY 04/29/24 04/29/24 History metolazone 2.5 mg PO UD 04/29/24 04/29/24 History tamsulosin 0.4 mg capsule (Flomax) 0.4 mg PO DAILY 04/29/24 04/29/24 History torsemide 60 mg PO BID 04/29/24 04/29/24 History warfarin 5 mg tablet 5 mg PO UD 04/29/24 04/29/24 History Past Med/Surg History Problem List (Updated 08/02/21 @ 09:10 by Fallon Espinoza RN) Confusion Supratherapeutic INR (Acute) Acute hyperglycemia (Acute) ELIZABETH (acute kidney injury) (Acute) CAP (community acquired pneumonia) (Acute) Elevated PSA Near syncope Fall Acute kidney injury superimposed on chronic kidney disease History of CVA (cerebrovascular accident) per pt roughly 10yrs ago--left side weakness--uses either crutches or wheelchair--no neurologist DVT prophylaxis Acute on chronic kidney failure Chronic pain Hypertension Chronic diastolic CHF (congestive heart failure) COPD (chronic obstructive pulmonary disease) (Chronic) 4L of O2 NC at home, inhaler daily/prn. nebulizer prn GERD (gastroesophageal reflux disease) (Chronic) Glaucoma (Chronic) Osteoarthritis (Chronic) Diabetic polyneuropathy (Chronic) CVA (cerebral vascular accident) (Chronic) per pt roughly 10yrs ago--left side weakness--uses either crutches or wheelchair--no neurologist Asthma, mild persistent (Chronic) DM type 2 (diabetes mellitus, type 2) (Chronic) Dyslipidemia (Chronic) Depression (Chronic) PTSD (post-traumatic stress disorder) (Chronic) Paroxysmal atrial fibrillation (Chronic) on warfarin daily--follows with Dr. Grant Recurrent left pleural effusion (Chronic) Pancreatic cancer (Chronic) diagnosed 2016---sx, chemo Diastolic CHF (Chronic) CKD (chronic kidney disease), stage III (Chronic) Pericardial effusion (Chronic) Hx of cataract surgery (Chronic) bilateral S/P tonsillectomy and adenoidectomy (Chronic) Medical History (Updated 04/29/24 @ 06:09 by Brian Liriano MD) Morbid obesity with BMI of 45.0-49.9, adult BPH (benign prostatic hyperplasia) Hearing deficit On home oxygen therapy 4L n/c at all times Anticoagulated Anemia of chronic disease Surgical History (Updated 08/02/21 @ 09:10 by Fallon Espinoza, RN) History of vascular access device has Aport in place but per pt DOES NOT WORK, needs to be removed History of esophagogastroduodenoscopy (EGD) History of arthroscopy of left knee History of arthroscopy of right knee History of open reduction and internal fixation (ORIF) procedure left hip--hardware in place History of tooth extraction all teeth removed Status post correction of deviated nasal septum History of angioplasty "years and years ago"--no stents History of bronchoscopy History of thoracentesis History of surgery (~10/16/17) thoracoscopy History of splenectomy (~2016) History of partial pancreatectomy (~2017) @ [facility] Family History (Updated 08/02/21 @ 09:00 by Fallon Espinoza, SEBLE) Mother Diabetes Breast cancer Other No family history of adverse response to anesthesia Social History Smoking Status: Former smoker Tobacco Type: Cigarettes Second Hand Exposure: No; Do You Dip or Chew Tobacco: Yes (uses nicotine pouches prn); Hx Alcohol Use: No Hx Substance Use: No Preferred Language: Pashto Communication Ability: Effective Date Puller Required: No Beliefs That Will Affect Care: None marital status: Current Living Situation: Spouse and Family Current Living Situation Comment: Lives with and granddaughter, 2 sons and 2 daughter in laws current occupational status: unemployed and disabled Feels Safe at Home: Yes Assistive Devices: Denture - Upper, Denture - Lower, Glasses, Hearing Aid - Bilateral, Oxygen - Continuous and Wheelchair Review of Systems Review of Systems: All systems reviewed & are unremarkable except as noted in HPI & below Physical Exam Physical Exam: General- Not in acute distress. Head- atraumatic Eyes- PERRL. ENT- oropharynx clear Neck- supple, no JVD. Lungs- clear to auscultation no wheezing or crackles Heart- regular rhythm; no murmur, no gallop. Abdomen- normal bowel sounds, soft, nontender, no distension Extremities- mild pretibial edema present, no erythema seen callus seen on both foots, darkened third right toe nail Neuro- Sleepy but arousable and oriented x 3; PERRL, no facial palsy; no dysarthria; moves extremities Results & Data Results & Data Vital Signs (Past 12 Hours) Vital Signs Temp Pulse Pulse Resp BP BP Pulse Ox 04/29/24 05:00 130/66 04/29/24 04:30 148/74 H 04/29/24 04:00 70 18 137/74 98 04/29/24 03:30 168/79 H 04/29/24 03:30 71 18 168/79 H 99 04/29/24 03:00 151/70 H 04/29/24 02:51 68 21 151/70 H 98 04/29/24 02:45 70 18 147/67 H 98 04/29/24 02:30 151/66 H 04/29/24 02:26 80 21 100 04/29/24 02:26 70 22 151/66 H 100 04/29/24 02:26 04/29/24 02:18 140/80 04/29/24 02:07 66 04/29/24 01:49 36.9 C 68 20 126/64 98 O2 Del Method O2 Flow Rate 04/29/24 05:00 04/29/24 04:30 04/29/24 04:00 Room Air 04/29/24 03:30 04/29/24 03:30 Nasal Cannula 3 04/29/24 03:00 04/29/24 02:51 Room Air 04/29/24 02:45 Room Air 3 04/29/24 02:30 04/29/24 02:26 Nasal Cannula 3 04/29/24 02:26 Room Air 04/29/24 02:26 Nasal Cannula 3 04/29/24 02:18 04/29/24 02:07 04/29/24 01:49 Nasal Cannula 3 Diagnostic Findings Laboratory Results WBC 17.64 K/ul (4.8-10.8) H 04/29/24 02:12 RBC 4.00 M/uL (4.70-6.10) L 04/29/24 02:12 Hgb 12.2 g/dl (14.0-18.0) L 04/29/24 02:12 Hct 37.2 % (42.0-52.0) L 04/29/24 02:12 MCV 93.0 fL (80.0-100.0) 04/29/24 02:12 MCH 30.5 pg (25.0-34.0) 04/29/24 02:12 MCHC 32.8 g/dL (32.0-36.0) 04/29/24 02:12 RDW Std Deviation 46.5 fL (36.4-46.3) H 04/29/24 02:12 RDW Coeff of [place] 13.6 % (11.5-14.5) 04/29/24 02:12 Plt Count 475 K/uL (130-400) H 04/29/24 02:12 MPV 10.4 fL (9.4-12.4) 04/29/24 02:12 Immature Gran % (Auto) 0.6 % 04/29/24 02:12 Neut % (Auto) 74.2 % 04/29/24 02:12 Lymph % (Auto) 10.0 % 04/29/24 02:12 [place] % (Auto) 12.1 % 04/29/24 02:12 Eos % (Auto) 2.8 % 04/29/24 02:12 Baso % (Auto) 0.3 % 04/29/24 02:12 Neut # (Auto) 13.09 K/uL (1.40-6.50) H 04/29/24 02:12 Lymph # (Auto) 1.77 K/uL (1.20-3.40) 04/29/24 02:12 [place] # (Auto) 2.13 K/uL (0.11-0.59) H 04/29/24 02:12 Eos # (Auto) 0.50 K/uL (0.00-0.50) 04/29/24 02:12 Baso # (Auto) 0.05 K/uL (0.00-0.20) 04/29/24 02:12 Immature Gran # (Auto) 0.10 K/uL (0.01-0.20) 04/29/24 02:12 PT 40.5 Seconds (9.0-12.0) H 04/29/24 02:12 INR 4.2 (0.9-1.1) H 04/29/24 02:12 APTT 58 Seconds (21-31) H 04/29/24 02:12 PTT Ratio 2.2 04/29/24 02:12 VBG pH 7.34 (7.36-7.41) L 04/29/24 02:12 VBG pCO2 51 mmHg (38-50) H 04/29/24 02:12 VBG pO2 55 mmHg 04/29/24 02:12 VBG HCO3 28 mmol/L 04/29/24 02:12 VBG O2 Saturation 86.2 % 04/29/24 02:12 VBG Base Excess 0.9 mEq/L 04/29/24 02:12 Sodium 131 mmol/L (136-145) L 04/29/24 02:12 Potassium 3.6 mmol/L (3.5-5.1) 04/29/24 02:12 Chloride 92 mmol/L (98-107) L 04/29/24 02:12 Carbon Dioxide 29 mmol/L (21-32) 04/29/24 02:12 Anion Gap 10 (3-11) 04/29/24 02:12 BUN 83 mg/dl (6-23) H 04/29/24 02:12 Creatinine 3.24 mg/dl (0.6-1.4) H 04/29/24 02:12 Est Cr Clr Drug Dosing 27.0 ml/min 04/29/24 02:12 eGFR 19.88 04/29/24 02:12 BUN/Creatinine Ratio 25.6 (10-20) H 04/29/24 02:12 Glucose 342 mg/dl (70-99(Fasting)) H* 04/29/24 02:12 POC Glucose 321 mg/dl (70-99) H* 04/29/24 01:54 Lactate 1.5 mmol/L (0.4-2.0) 04/29/24 02:12 Calcium 8.9 mg/dl (8.6-10.3) 04/29/24 02:12 Magnesium 2.2 mg/dl (1.7-2.4) 04/29/24 02:12 Total Bilirubin 0.4 mg/dl (0.2-1.0) 04/29/24 02:12 Direct Bilirubin 0.2 mg/dl (0-0.2) 04/29/24 02:12 AST 13 U/L (13-39) 04/29/24 02:12 ALT 21 U/L (7-52) 04/29/24 02:12 Alkaline Phosphatase 103 U/L (34-104) 04/29/24 02:12 Troponin I High Sens 10.8 pg/ml (0-20) 04/29/24 02:12 Total Protein 7.4 gm/dl (6.0-8.3) 04/29/24 02:12 Albumin 3.8 gm/dl (3.4-5.0) 04/29/24 02:12 Procalcitonin 0.67 ng/ml (0-0.5) H 04/29/24 02:12 TSH 1.220 uIu/ml (0.300-4.500) 04/29/24 02:12 Adenovirus (PCR) Not Detected (NotDetected) 04/29/24 02:09 B. pertussis DNA (PCR) Not Detected (NotDetected) 04/29/24 02:09 B.parapertussis DNA PCR Not Detected (NotDetected) 04/29/24 02:09 C. pneumoniae DNA (PCR) Not Detected (NotDetected) 04/29/24 02:09 Coronavirus OC43 (PCR) Not Detected (NotDetected) 04/29/24 02:09 Coronavirus HKU1 (PCR) Not Detected (NotDetected) 04/29/24 02:09 Coronavirus 229E (PCR) Not Detected (NotDetected) 04/29/24 02:09 SARS-CoV-2 (PCR) Not Detected (NotDetected) 04/29/24 02:09 Coronavirus NL63 (PCR) Not Detected (NotDetected) 04/29/24 02:09 Human Metapneumovir PCR Not Detected (NotDetected) 04/29/24 02:09 Influenza Type A (PCR) Not Detected (NotDetected) 04/29/24 02:09 Influenza Type B (PCR) Not Detected (NotDetected) 04/29/24 02:09 M. pneumoniae (PCR) Not Detected (NotDetected) 04/29/24 02:09 Parainfluenza 1 (PCR) Not Detected (NotDetected) 04/29/24 02:09 Parainfluenza 2 (PCR) Not Detected (NotDetected) 04/29/24 02:09 Parainfluenza 3 (PCR) Not Detected (NotDetected) 04/29/24 02:09 Parainfluenza 4 (PCR) Not Detected (NotDetected) 04/29/24 02:09 RSV (PCR) Not Detected (NotDetected) 04/29/24 02:09 Entero/Rhino (PCR) Not Detected (NotDetected) 04/29/24 02:09 Impressions Chest X-Ray 04/29/24 02:06 EXAM: XR chest 1V portable CLINICAL HISTORY: SEPSIS SDM TECHNIQUE: An X-ray image of the chest is obtained using a frontal projection. COMPARISON: No prior studies are available for comparison. FINDINGS: Pulmonary Parenchyma: The prominence of broncho vascular markings bilaterally. Possible infiltrates in the right lower zone and left retrocardiac region. Blunting of bilateral costophrenic angles may represent pleural effusion. Heart and Mediastinum: Enlarged heart. Aortic root calcifications are seen. No hilar or mediastinal lymphadenopathy. Bony Thorax: The bony thorax appears intact without any acute fractures or deformities. Impression of an old healed fracture of the left fifth posterior rib. Soft Tissues: Soft tissues overlying the chest wall are unremarkable. IMPRESSION: 1. Enlarged heart with the prominence of broncho vascular markings bilaterally, suggestive of pulmonary vascular congestion. 2. Possible infiltrates in the right lower zone and left retrocardiac region. Clinical correlation is suggested. 3. Blunting of bilateral costophrenic angles likely represents pleural effusion. Electronically signed by Hakan Knutson 04-29-2024 03:[address] 04/29/24 02:06 EXAM: CT head/brain wo con CLINICAL HISTORY: Altered mental status, hx pancreatic CA. TECHNIQUE: An axial non-contrast CT scan of the brain was performed from the skull base to the high parietal region. One of the following dose reduction techniques was utilized for this exam: Automated exposure control, adjustment of the mA and/or kV according to patient size, and use of iterative reconstruction. CTDI: 37.32 mGy, DLP: 547 mGy-cm. COMPARISON: None. FINDINGS: Brain Parenchyma: Normal attenuation of the cerebral hemispheres, cerebellum, and brainstem. No evidence of acute infarct, hemorrhage, or mass effect. No abnormal areas of hypo- or hyperattenuation. Ventricular System: The ventricular system, cortical sulci, and basal cisterns are prominent and consistent with senile changes. No evidence of subarachnoid hemorrhage or extra-axial fluid collections. Cerebellum and Brainstem: Normal size and signal. No masses, lesions, or areas of abnormal signal. Orbits: Normal appearance of the globes, optic nerves, and extraocular muscles. No evidence of orbital masses. Sinuses: Clear paranasal sinuses. No evidence of sinusitis or mucosal thickening. Mastoid Air Cells: Patchy opacification of mastoid air cells. Skull: Normal skull morphology. Osteopenic changes. IMPRESSION: 1. No evidence of any acute intracranial event on this unenhanced CT examination. Further evaluation with an MRI is suggested. 2. Age-related involutional changes. Electronically signed by Hakan Knutson 04-29-2024 04:12 AM ECG Additional Comments: ECG. Sinus rhythm with first-degree AV block at rate of 67. Possible inferior infarct age-indeterminate. Code Status & VTE Plan VTE Prophylaxis Plan VTE Prophylaxis will be ordered: Yes
[2024-04-29] MEDS ORDERED: GLUCOSE 40% GEL 15 GM TUBE PO PRN (09:50)
[2024-04-29] MEDS ORDERED: GLUCOSE 10 TAB/TUBE PO PRN (09:50)
[2024-04-29] MEDS ORDERED: PHARMACY GLYCEMIC MGMT CONSULT PRN (09:50)
[2024-04-29] MEDS ORDERED: DEXTROSE 50% 50 ML SYRINGE IV PRN (09:50)
[2024-04-29] MEDS ORDERED: NITROGLYCERIN SL 0.4 MG/TAB TAB SL PRN (09:50)
[2024-04-29] MEDS ORDERED: GLUCAGON FOR INJ 1 MG VIAL SQ PRN (09:50)
[2024-04-29] MEDS ORDERED: ALBUTEROL HFA 8 GM INHALER INH PRN (09:50)
[2024-04-29] MEDS ORDERED: POLYETHYLENE (MIRALAX) 17 GM PACK PO PRN (09:50)
[2024-04-29] MEDS ORDERED: PANCREAZE (LIPASE 10,500U) CAP PO PRN (09:56)
[2024-04-29] MEDS: ALBUT/IPRATROP 3MG/0.5MG NEB 3 ML VIAL INH SCH (10:04)
[2024-04-29 10:18] LABS: iSTAT Arterial Blood Gas HCO3 28 meg/L (19-24); iSTAT Arterial Blood Gas pCO2 49 mmHg (35-46); iSTAT Arterial Blood Gas pH 7.37 (7.35-7.45); iSTAT Arterial Blood Gas pO2 99 mmHg (80-95); iSTAT Carbon Dioxide 30 mmol/L (24-31); iSTAT Hematocrit 34 % (42-52); iSTAT Hemoglobin 11.6 g/dl (14.0-18.0); iSTAT Potassium 3.3 mmol/L (3.3-5.0); iSTAT Sodium 133 mmol/L (135-144)
[2024-04-29 10:34] LABS: Appearance Urine Clear (Clear); Bacteria Urine Automated None Seen (None Seen); Bilirubin Urine Negative (Negative); Blood Urine Negative (Negative); Color Urine Yellow; Epithelial Cell Urine Auto 0-2 /hpf (0-2); Glucose Urine UA 2+ (Negative); Ketones Urine Negative (Negative); Leukocyte Esterase Urine Negative (Negative); Mucus Urine Present (None Prsent); Nitrite Urine Negative (Negative); Protein Urine 1+ (Negative); RBC Urine Automated 0-2 /hpf (0-2); Specific Gravity Urine 1.013 (1.000-1.030); Urobilinogen Urine Negative (Negative); WBC Urine Automated 0-5 /hpf (0-5)
--- NOTE | 2024-04-29 11:23 | Pharmacy Report ---
Pharmacy Glycemic Short Note 2 - Date of Service April 29, 2024 - Glycemic Short BSG Results (Last 24 hours): 04/29/24 04/29/24 04/29/24 01:54 02:12 09:35 Glucose 342 H* POC Glucose 321 H* 323 H* OUTPATIENT ANTIDIABETIC REGIMEN: * lantus 60 units bid * novolog sliding scale ASSESSMENT: * 68-year-old male came for confusion, DM type 1 * BSG is 323 mg/dL PLAN FOR INPATIENT GLYCEMIC CONTROL: * Hold outpatient oral diabetes medications * Basal insulin * Lantus 40 units one time dose * Bolus insulin * NovoLog per scale ACHS or Q6hrs while NPO * Goal Range: Low 110 mg/dL - High 140 mg/dL * Correction Factor: 15 mg/dL/unit * Nutritional / Prandial insulin per carb ratio of 1 unit per 10 grams CHO consumed
--- NOTE | 2024-04-29 11:35 | Electrocardiogram Report ---
Test Reason : Blood Pressure : */* mmHG Vent. Rate : 67 BPM Atrial Rate : 67 BPM P-R Int : 228 ms QRS Dur : 106 ms QT Int : 446 ms P-R-T Axes : 48 1 55 degrees QTcB Int : 471 ms Sinus rhythm with 1st degree A-V block Possible Inferior infarct , age undetermined Anterior infarct , age undetermined Abnormal ECG When compared with ECG of 07-Dec-2019 13:57, Borderline criteria for Inferior infarct are now Present T wave amplitude has decreased in Anterior leads Confirmed by Damian Petty ([id number]) on 04/29/2024 11:34:58 AM Referred By: REFERRED SELF Confirmed By: Damian Petty
[2024-04-29] MEDS: carvediloL 12.5 MG TAB PO SCH (11:36)
[2024-04-29] MEDS: TAMSULOSIN HCL 0.4 MG CAP PO SCH (11:36)
[2024-04-29] MEDS: ATORVASTATIN 40 MG TAB PO SCH (11:36)
[2024-04-29] MEDS: DULoxetine HCL 30 MG CAP PO SCH (11:37)
[2024-04-29] MEDS: ASPIRIN 81 MG ECTAB PO SCH (11:37)
[2024-04-29] MEDS: FLUTICASONE/VILANTEROL 100/25MCG 14 PUFFS/INHALER INH SCH (11:37)
[2024-04-29] MEDS: INSULIN ASPART PER UNIT CHARGE SC SCH (11:43)
[2024-04-29] MEDS: LANTUS PER UNIT CHARGE SQ ONE (11:43)
[2024-04-29] MEDS: LOSARTAN POTASSIUM 25 MG TAB PO SCH (11:50)
[2024-04-29] MEDS: TORSEMIDE 20 MG TAB PO SCH (11:51)
[2024-04-29] MEDS: metOLazone 2.5 MG TABLET PO SCH (11:51)
--- NOTE | 2024-04-29 12:53 | CT Scan Report ---
CT OF THE CHEST WITHOUT IV CONTRAST CLINICAL HISTORY: Sepsis. COMPARISON STUDY: Chest CT June 27, 2019. PET/CT April 01, 2024. Chest radiograph April 29. CT DOSE: 843.35 mGy.cm TECHNIQUE: Axial images of the chest were obtained without IV contrast. Images were reviewed in the axial, sagittal, and coronal planes. IV contrast was not administered for this examination. Automat ed exposure control was utilized for the study. A dose lowering technique was utilized adhering to t he principles of ALARA. FINDINGS: Prominent mediastinal lymph nodes are unchanged since PET/CT of April 01, 2024. The hea rt is moderately enlarged. There is extensive coronary artery calcification. Bilateral gynecomastia i s incidentally noted. Multiple old left-sided rib fractures are incidentally noted. There is no pneum othorax. There is no significant pleural effusion. Subpleural opacities within the lungs favor atelec tasis. Tiny nodules within the lungs are most pronounced within the right upper lobe. These are uncha nged since prior PET/CT and chest CT. IMPRESSION: 1. Subpleural opacities suggestive of atelectasis. No consolidation to suggest pneumonia. 2. No change in tiny pulmonary nodules, most numerous within the right upper lobe. Given stability, t hese are of questionable significance although could represent bronchiolitis. A follow-up chest CT in 6 months to ensure stability is recommended. 3. Cardiomegaly. Extensive coronary artery calcification. ACT 112: Negative or not required by law. Electronically signed by: French Metcalf M.D. 04/29/2024 12:50 PM
[2024-04-29 15:25] LABS: Amphetamines+Metham, Urine Neg (Neg); Barbiturates, Urine Neg (Neg); Benzodiazepine, Urine Neg (Neg); Cocaine, Urine Neg (Neg); Fentanyl, Urine Neg (Neg); MDMA (Ecstacy), Urine Neg (Neg); Marijuana, Urine Neg (Neg); Methadone, Urine Neg (Neg); Opiate, Urine Neg (Neg); Phencyclidine, Urine Neg (Neg)
--- NOTE | 2024-04-29 15:50 | Hospitalist Progress Note ---
Date of Service April 29, 2024 Assessment & Plan (1) Severe sepsis with acute organ dysfunction: (2) CAP (community acquired pneumonia): (3) Acute metabolic encephalopathy: (4) Morbid obesity with BMI of 45.0-49.9, adult: (5) Supratherapeutic INR: (6) DM type 2 (diabetes mellitus, type 2): (7) Paroxysmal atrial fibrillation: (8) Acute renal failure superimposed on stage 3 chronic kidney disease: (9) Chronic hypoxic respiratory failure, on home oxygen therapy: (10) Obesity hypoventilation syndrome: (11) Pancreatic cancer: (12) COPD (chronic obstructive pulmonary disease): Plan Patient admitted with what appears to be acute encephalopathy due to sepsis possible pulmonary source. Imaging not definitive. Continue antibiotics Follow blood cultures Continue other supportive care Family at bedside and updated Continue CPAP at night Continue monitor glucose managed with insulin Daily monitoring of INR, dosing warfarin appropriately Admission and Anticipated Discharge Date Admission Date: April 29, 2024 Subjective Patient remains drowsy, intermittently confused. Called to bedside by nurse due to family's concern. Physical Exam Physical Exam: Constitutional: Drowsy, morbidly obese, nontoxic, no acute distress HEENT: Mucous membranes moist. Lungs: Decreased breath sounds CV: S1-S2, regular Abdomen: Soft, nontender, nondistended Extremities: No significant edema Neuro: No focal deficits, globally weak Psych: Oriented to person, date of , year not oriented to place Results & Data Results & Data Vital Signs (Past 12 Hours) Vital Signs Temp Pulse Pulse Resp BP BP Pulse Ox 04/29/24 14:37 74 18 95 04/29/24 11:18 04/29/24 11:18 72 04/29/24 11:10 36.6 C 74 19 131/78 96 04/29/24 10:05 72 16 96 04/29/24 09:50 04/29/24 09:48 72 14 133/62 97 04/29/24 09:00 72 15 148/77 H 96 04/29/24 08:00 73 13 160/78 H 98 04/29/24 07:30 73 16 151/79 H 98 04/29/24 07:00 73 13 168/87 H 98 04/29/24 06:00 72 18 153/66 H 99 04/29/24 05:59 71 04/29/24 05:00 130/66 04/29/24 04:30 148/74 H 04/29/24 04:00 70 18 137/74 98 O2 Del Method O2 Del Method O2 Flow Rate 04/29/24 14:37 Nasal Cannula 3 04/29/24 11:18 Nasal Cannula 3 04/29/24 11:18 04/29/24 11:10 Nasal Cannula 3 04/29/24 10:05 Nasal Cannula 3 04/29/24 09:50 Room Air 04/29/24 09:48 04/29/24 09:00 Nasal Cannula 3 04/29/24 08:00 04/29/24 07:30 Nasal Cannula 3 04/29/24 07:00 Nasal Cannula 3 04/29/24 06:00 Nasal Cannula 3 04/29/24 05:59 04/29/24 05:00 04/29/24 04:30 04/29/24 04:00 Room Air Diagnostic Findings Stat ABG reviewed, no evidence of CO2 retention CT of the chest reviewed, no effusion or consolidation Urinalysis reviewed unremarkable Urine drug screen negative negative Viral upper respiratory panel negative Critical Care Time 50 minutes critical care time, urgently called to bedside due to patient's altered mental status, personally reviewed CT images Reviewing data, evaluated patient at bedside multiple times, updates to family and medical care team (2) CAP (community acquired pneumonia) Laterality: right Lung location: lower lobe of lung Qualified Code(s): J18.9 - Pneumonia, unspecified organism
[2024-04-29 16:48] LABS: A calco-baum cmplx NotReported Not Detected (NotDetected); Bact fragilis Not Reported Not Detected (NotDetected); Blood Culture Id Panel See PCR Comment (NotDetected); C auris Not Reported Not Detected (NotDetected); Calbicans Not Reported Not Detected (NotDetected); Candida glabrata Not Reported Not Detected (NotDetected); Candida krusei Not Reported Not Detected (NotDetected); Cneoformans/gatti Not Reported Not Detected (NotDetected); Cparapsilosis Not Reported Not Detected (NotDetected); E cloacae compx Not Reported Not Detected (NotDetected); Efaecalis Not Reported Not Detected (NotDetected); Efaecium Not Reported Not Detected (NotDetected); Enterobacterales Not Reported Not Detected (NotDetected); Escherichia coli Not Reported Not Detected (NotDetected); H influenzae Not Reported Not Detected (NotDetected); K aerogenes Not Reported Not Detected (NotDetected); Koxytoca Not Reported Not Detected (NotDetected); Kpneumoniae grp Not Reported Not Detected (NotDetected); Lmonocyt Not Reported Not Detected (NotDetected); N meningitidis Not Reported Not Detected (NotDetected); P aeruginosa Not Reported Not Detected (NotDetected); Proteus spp Not Reported Not Detected (NotDetected); Salmonella spp Not Reported Not Detected (NotDetected); Staph lugdunensis Not Reported Not Detected (NotDetected); Staph spp. Not Reported Not Detected (NotDetected); Staphaureus Not Reported Not Detected (NotDetected); Staphepi Not Reported Not Detected (NotDetected); Stenmaltophilia Not Reported Not Detected (NotDetected); Strep agal(GrpB) Not Reported Not Detected (NotDetected); Strep pneum Not Reported Not Detected (NotDetected); Strep pyog (GrpA) Not Reported Not Detected (NotDetected); Strep spp Not Reported DETECTED (NotDetected)
[2024-04-29 16:55] LABS: Streptococcus spp DETECTED (NotDetected)
[2024-04-29] MEDS: CEFEPIME 2000MG 2,000 MG/20 ML SYR IV STA (17:33)
[2024-04-29] MEDS: LANTUS PER UNIT CHARGE SQ SCH (21:05)
[2024-04-30] MEDS ORDERED: cefTRIAXone SODIUM 2,000 MG/50 ML BAG IV SCH (04:00)
[2024-04-30] MEDS: CEFEPIME 1000MG 1,000 MG/10 ML SYR IV SCH (05:28)
[2024-04-30] MEDS: CARBOHYDRATES FOR HYPOGLYCEMIA PO PRN (07:15)
[2024-04-30 07:34] LABS: Prothrombin Time 57.5 Seconds (9.0-12.0)
[2024-04-30 08:10] LABS: BUN Creatinine Ratio 26.8 (10-20); Calcium 9.1 mg/dl (8.6-10.3); Creatinine Clr Calc Pharmacy 24.8 ml/min
[2024-04-30] MEDS: AZITHROMYCIN 250 MG TAB PO SCH (08:13)
[2024-04-30 08:15] LABS: Estimated Average Glucose 183 mg/dl
[2024-04-30 08:45] LABS: Hematocrit (blood only) 34.7 % (42.0-52.0); Hemoglobin 11.6 g/dl (14.0-18.0); Mean Corpuscular Hgb Conc 33.4 g/dL (32.0-36.0); Mean Corpuscular Volume 92.8 fL (80.0-100.0); Mean Platelet Volume 10.7 fL (9.4-12.4); Platelet Count 446 K/uL (130-400); RDW Coefficient of Variation 13.6 % (11.5-14.5); RDW Standard Deviation 46.5 fL (36.4-46.3); Red Blood Count 3.74 M/uL (4.70-6.10); White Blood Count 17.45 K/ul (4.8-10.8)
[2024-04-30 08:46] LABS: INR 6.2 (0.9-1.1)
[2024-04-30] MEDS: PHYTONADIONE 5 MG TAB PO STA (10:04)
[2024-04-30] MEDS: POTASSIUM CHLORIDE CRTAB 20 MEQ TABCR PO STA (10:05)
[2024-04-30 10:42] VITALS: RESP 18
--- NOTE | 2024-04-30 10:43 | Nephrology Consultation ---
Date of Consultation April 30, 2024 Assessment & Plan (1) Acute renal failure superimposed on stage 3 chronic kidney disease: At baseline already has advanced CKD stage 4 almost 5 from long standing DM and other problems. from baseline creat 3.2 it is now 3.5. so this is mostly CKD. his renal prognosis is poor and will be on dialysis in the coming 6 months to year. Already sees Dr Gonzalez in CKD clinic. Given Acute on Chronic resp failure from Possible pneumonia not surprising to see some rise in creat. for now hold Losartan and metolazone. Can give loop diuretics if really needed but will hold off today. Not critical though--if he gets SOB can give lasix iv 80mg. No iv fluid. Avoid nephrotoxic agents--NSAIDs Contrast agents etc. input output charting will be starting loop diuretics from tomorrow. (2) Acute metabolic encephalopathy: Seems better today. he was fully awake alert and was able to give detailed answer to the questions. But can not remember most of the event from yesterday Plan total time spent 61 minute History of Present Illness Reason for Consultation: ELIZABETH on CKD 4 Attending Physician: Tomasz Dowd, History of Present Illness 68/M with type 1 diabetes, CKD stage 4 with baseline creat of low 3, diabetic polyneuropathy, dyslipidemia, chronic hypoxemic respiratory failure on 3 L oxygen, secondary hyperparathyroidism of renal origin, obstructive sleep apnea patient has been on CPAP but when his cpap was recalled since then he is not using it as per , COPD, restrictive airway disease, asthma mild intermittent, history of CVA, paroxysmal atrial fibrillation, chronic diastolic CHF, chronic right heart failure, history of pericardial effusion, reflux esophagitis, morbid obesity, BPH, generalized osteoarthritis, glaucoma, anemia of chronic kidney disease, lymphadenopathy, PTSD, depression, general anxiety disorder, history of IA, history of pancreatic cancer status post chemo currently in remission, currently on observation with heme-onc. He was brought from home because of confusion and was found to have right lower lobe pneumonia. and son thought he will wake up but patient continued to sleep. As he was not getting better he was brought to the hospital. No fevers. No cough. Has chronic back pain. No chest pain. No nausea. No abdominal pain. Normal bowel and bladder movements. Appetite has been down today. No headache. Vision is okay. No runny nose or sore throat. Currently patient is alert and oriented x 3 but does not recall the details from yesterday. Hemodynamics are okay. Patient can ambulate short distance with walker. Mostly wheelchair-bound. On Admission creat was 3.24 ( baseline for him) but this AM was 3.51. His home Diuretics are on hold as well as Losartan. Has wells and has made 550 ml urine. Since admission no Iv lasix nor IV fluid. He feels better today. ROS---See HPI. Physical Exam Physical Exam: General- Not in acute distress. ENT- oropharynx clear Neck- supple, no JVD. Lungs- clear to auscultation no wheezing or crackles Heart- regular rhythm; no murmur, no gallop. Abdomen- normal bowel sounds, soft, nontender, no distension Extremities- mild pretibial edema present, no erythema seen callus seen on both foots, darkened third right toe nail Neuro- Sleepy but arousable and oriented x 3; PERRL, no facial palsy; no dysarthria; moves extremities Allergies Allergy/AdvReac Type Severity Reaction Status Date / Time bee venom protein (honey bee) Allergy Severe anaphylaxis Verified 08/02/21 08:33 piperacillin Allergy Intermediate Hives Verified 08/02/21 08:33 adhesive tape Allergy Mild welts on Verified 08/02/21 08:34 skin Pork/Porcine Containing Allergy Mild rash, Verified 08/02/21 08:33 Products vomiting lisinopril AdvReac Intermediate Elevated Verified 08/02/21 08:33 Potassium amlodipine AdvReac Mild Headache Verified 08/02/21 08:33 Home Medications Medication Instructions Recorded Confirmed Type albuterol sulfate 90 mcg/actuation 1 puff inhalation QID PRN 04/29/24 04/29/24 History aerosol inhaler Shortness Of Breath Or Wheezing aspirin 81 mg tablet,delayed 81 mg PO DAILY 04/29/24 04/29/24 History release atorvastatin 40 mg tablet 40 mg PO DAILY 04/29/24 04/29/24 History baclofen 10 mg tablet 10 mg PO DAILY PRN Muscle Spasm 04/29/24 04/29/24 History budesonide-formoterol HFA 160 2 puff inhalation BID 04/29/24 04/29/24 History mcg-4.5 mcg/actuation aerosol inhaler carvedilol 25 mg tablet (Coreg) 37.5 mg PO BID 04/29/24 04/29/24 History duloxetine 30 mg capsule,delayed 30 mg PO DAILY 04/29/24 04/29/24 History release insulin aspart U-100 100 unit/mL 1 sliding scale dose subcut 04/29/24 04/29/24 History (3 mL) subcutaneous pen (Novolog USEASDIRECTD FlexPen U-100 Insulin aspart) insulin glargine 100 unit/mL 60 unit subcut BID 04/29/24 04/29/24 History subcutaneous solution (Lantus U-100 Insulin) ipratropium 0.5 mg-albuterol 3 mg 3 ml inhalation QID 04/29/24 04/29/24 History (2.5 mg base)/3 mL nebulization soln [id number] 1 cap PO QID PRN Indigestion 04/29/24 04/29/24 History 10,000-37,500-33,200 unit capsule,delayed rel losartan 25 mg tablet 25 mg PO DAILY 04/29/24 04/29/24 History metolazone 2.5 mg PO UD 04/29/24 04/29/24 History tamsulosin 0.4 mg capsule (Flomax) 0.4 mg PO DAILY 04/29/24 04/29/24 History torsemide 60 mg PO BID 04/29/24 04/29/24 History warfarin 5 mg tablet 5 mg PO UD 04/29/24 04/29/24 History Patient History Medical History (Updated 04/29/24 @ 15:48 by Tomasz Dowd DO) Morbid obesity with BMI of 45.0-49.9, adult BPH (benign prostatic hyperplasia) Hearing deficit On home oxygen therapy 4L n/c at all times Anticoagulated Anemia of chronic disease Surgical History (Updated 08/02/21 @ 09:10 by Fallon Espinoza RN) History of vascular access device has Aport in place but per pt DOES NOT WORK, needs to be removed History of esophagogastroduodenoscopy (EGD) History of arthroscopy of left knee History of arthroscopy of right knee History of open reduction and internal fixation (ORIF) procedure left hip--hardware in place History of tooth extraction all teeth removed Status post correction of deviated nasal septum History of angioplasty "years and years ago"--no stents History of bronchoscopy History of thoracentesis History of surgery (~07/09/18) thoracoscopy History of splenectomy (~2017) History of partial pancreatectomy (~2017) @ [facility] Family History (Updated 08/02/21 @ 09:00 by Fallon Espinoza RN) Mother Diabetes Breast cancer Other No family history of adverse response to anesthesia Social History Smoking Status: Never smoker Tobacco Type: Cigarettes Second Hand Exposure: No; Do You Dip or Chew Tobacco: Yes (uses nicotine pouches prn); Hx Alcohol Use: No Hx Substance Use: No Preferred Language: Sudanese Communication Ability: Effective Fingerprint Classifier Required: No Beliefs That Will Affect Care: None marital status: Current Living Situation: Spouse Current Living Situation Comment: Lives with and granddaughter, 2 sons and 2 daughter in laws current occupational status: unemployed and disabled Other Information That Helps Us Care for You: No Feels Safe at Home: Yes Safety Concerns: Feels Safe At This Time Assistive Devices: Walker and Wheelchair Results & Data Vital Signs (Past 12 Hours) Vital Signs Temp Pulse Resp BP Pulse Ox O2 Del Method O2 Flow Rate 04/30/24 07:27 67 12 90 Nasal Cannula 3 04/30/24 07:00 36.7 C 66 16 137/77 97 Nasal Cannula 3 04/30/24 04:29 36.4 C L 70 18 120/64 96 Nasal Cannula 3 04/30/24 00:21 36.7 C 68 18 126/73 93 Nasal Cannula 3 Laboratory Results CBC renal panel chest x-ray urine test reviewed
[2024-04-30] MEDS ORDERED: ALBUT/IPRATROP 3MG/0.5MG NEB 3 ML VIAL INH PRN (11:24)
--- NOTE | 2024-04-30 11:37 | CT Scan Report ---
ABDOMEN AND PELVIS CT WITHOUT CONTRAST CT DOSE: 1479.25 mGy.cm HISTORY: renal failure, sepsis, cancer TECHNIQUE: Multiaxial CT images of the abdomen and pelvis were performed without contrast. A dose lo wering technique was utilized adhering to the principles of ALARA. COMPARISON STUDY: 03/25/2019 and 04/01/2024 FINDINGS: There are coronary artery calcifications. ABDOMEN: Liver, gallbladder, and adrenal glands have an unremarkable non-IV contrast appearance. Stab le small likely complex cyst lateral left kidney. Stable calculus inferior right kidney. No hydroneph rosis. Stable pancreatectomy. There is progressive stranding and hazy density in the central small henry wel mesentery with multiple small lymph nodes, prominent by number. There are mild atherosclerotic ca lcifications. No abdominal aortic aneurysm. Pelvis: Hussein catheter is present in the urinary bladder is decompressed. Prostate is mildly enlarged . There is moderate retained stool. No bowel inflammation or obstruction. No free fluid or free air. No enlarged adenopathy. Osseous structures: Left femoral gamma nail is partially visualized with old healed proximal left fem ur fracture. There are mild degenerative changes of the lumbar spine. IMPRESSION: 1. Progressive christine mesentery appearance. Differential diagnosis includes acute mesenteritis and ear ly lymphoma. Suggest follow-up CT in 3-6 months to make sure that this is not progressive. 2. No other adverse change seen. 3. Otherwise as described. ACT 112: Negative or not required by law. The above report was generated using voice recognition software. It may contain grammatical, syntax o r spelling errors. Electronically signed by: Jared Max M.D. 04/30/2024 11:36 AM
--- NOTE | 2024-04-30 11:38 | Pharmacy Report ---
Pharmacy Glycemic Short Note 2 - Date of Service April 30, 2024 - Glycemic Short BSG Results (Last 24 hours): 04/29/24 04/29/24 04/29/24 11:29 17:35 20:46 Glucose POC Glucose 372 H* 328 H* 178 H 04/30/24 04/30/24 04/30/24 06:11 07:12 07:34 Glucose 49 L* POC Glucose 66 L* 66 L* 04/30/24 04/30/24 07:52 10:52 Glucose POC Glucose 76 183 H OUTPATIENT ANTIDIABETIC REGIMEN: * lantus 60 units bid * novolog sliding scale * A1C: 8.0% (04/30/2024) ASSESSMENT: 04/30/2024 * [place] 68 YO M admitted for confusion and with a history of T1DM after pancreatic surgery due to pancreatic cancer about 7 years ago, originally diagnosed T2DM about 25 years ago. Pharmacy has been consulted to assist with glycemic management while inpatient. Patient has since been diagnosed with CAP and bacteremia and is currently receiving cefepime and azithromycin. * Fasting BSG this AM is hypoglycemic. 40 units of Lantus were given ~1000 on 04/29 and another 40 units were given at bedtime. Lantus scheduled for this AM was held due to hypoglycemic episode. Will reduce Lantus dose for tonight. * Novolog was initiated at a correction factor of 15 mg/dL/unit and a carb ratio of 1 unit/5 g CHO. This was tightened to a correction factor of 10 mg/dL/unit and a carb ratio of 1 unit/3 g CHO before being reverted after a hypoglycemic episode this AM. PLAN FOR INPATIENT GLYCEMIC CONTROL: * Hold outpatient oral diabetes medications * Basal insulin * Lantus 20/25/30 units QHS * Bolus insulin * NovoLog per scale ACHS or Q6hrs while NPO * Goal Range: Low 110 mg/dL - High 140 mg/dL * Correction Factor: 15 mg/dL/unit * Nutritional / Prandial insulin per carb ratio of 1 unit per 5 grams CHO consumed
--- NOTE | 2024-04-30 13:14 | Infectious Disease Consult ---
Date of Service April 30, 2024 Telehealth Information I performed this visit using a real-time telehealth connection between my location and the patients location ([facility]). After connecting through interactive tele-video, patient was identified by name and date of and/or wristband check.Patient (or authorized healthcare bilingual call center representative) was informed that this was a telemedicine visit and it was being conducted confidentially over secure lines. My office door was closed and no one else was present in the room with me.Patient (or authorized healthcare bilingual call center representative) provided consent to proceed with the visit, expressed an understanding of privacy and security of the telemedicine visit, and gave permission to have a hospital bilingual call center representative in the room in order to assist with the visit and to conduct portions of the visit, as needed. I informed the patient (or authorized healthcare bilingual call center representative) that I reviewed their record and presented the opportunity for them to ask any questions regarding the visit today. The patient agreed to participate. Assessment & Plan (1) Obesity hypoventilation syndrome: (2) Chronic hypoxic respiratory failure, on home oxygen therapy: (3) CAP (community acquired pneumonia): Plan Assessment: 68-year-old male with PMHx of significant for type 1 diabetes, diabetic polyneuropathy, CKD stage IV, dyslipidemia, chronic hypoxemic respiratory failure on 3 L oxygen, secondary hyperparathyroidism of renal origin, obstructive sleep apnea patient has been on CPAP but when his cpap was recalled since then he is not using it as per , COPD, restrictive airway disease, asthma mild intermittent, history of CVA, paroxysmal atrial fibrillation, chronic diastolic CHF, chronic right heart failure, history of pericardial effusion, reflux esophagitis, morbid obesity, BPH, generalized osteoarthritis, glaucoma, anemia of chronic kidney disease, lymphadenopathy, PTSD, depression, general anxiety disorder, history of OH, history of pancreatic cancer status post chemo currently in remission, currently on observation with heme-onc who lives at home who presented to [facility] on 04/29/2024 for confusion and found to have right lower lobe pneumonia. At [facility], pt's blood culture returned positive for Strep in 1/4 bottles. Pt started on Ceftriaxone IV and Azithromycin PO. Plan: 1. PNA - Recommend stopping Azithromycin PO. Recommend continuing Ceftriaxone IV alone for now. If patient tolerates Ceftriaxone alone, okay to switch to Augmentin on discharge to complete 10 days of total antibiotics. - we will sign off, no need for ID clinic appointment, we will not active monitor patient and thus for issues, concerns, or questions please tiger text or call physician professional employer consultant. THank you. History of Present Illness History of Present Illness Reason for consult: Strep bacteremia 68-year-old male with PMHx of significant for type 1 diabetes, diabetic polyneuropathy, CKD stage IV, dyslipidemia, chronic hypoxemic respiratory failure on 3 L oxygen, secondary hyperparathyroidism of renal origin, obstructive sleep apnea patient has been on CPAP but when his cpap was recalled since then he is not using it as per , COPD, restrictive airway disease, asthma mild intermittent, history of CVA, paroxysmal atrial fibrillation, chronic diastolic CHF, chronic right heart failure, history of pericardial effusion, reflux esophagitis, morbid obesity, BPH, generalized osteoarthritis, glaucoma, anemia of chronic kidney disease, lymphadenopathy, PTSD, depression, general anxiety disorder, history of OH, history of pancreatic cancer status post chemo currently in remission, currently on observation with heme-onc who lives at home who presented to [facility] on 04/29/2024 for confusion and found to have right lower lobe pneumonia. At [facility], pt's blood culture returned positive for Strep in 04/13 bottles. Pt started on Ceftriaxone IV and Azithromycin PO. ID consulted for evaluation and management. Allergies Allergy/AdvReac Type Severity Reaction Status Date / Time bee venom protein (honey bee) Allergy Severe anaphylaxis Verified 08/02/21 08:33 piperacillin Allergy Intermediate Hives Verified 08/02/21 08:33 adhesive tape Allergy Mild welts on Verified 08/02/21 08:34 skin Pork/Porcine Containing Allergy Mild rash, Verified 08/02/21 08:33 Products vomiting lisinopril AdvReac Intermediate Elevated Verified 08/02/21 08:33 Potassium amlodipine AdvReac Mild Headache Verified 08/02/21 08:33 Home Medications Medication Instructions Recorded Confirmed Type albuterol sulfate 90 mcg/actuation 1 puff inhalation QID PRN 04/29/24 04/29/24 History aerosol inhaler Shortness Of Breath Or Wheezing aspirin 81 mg tablet,delayed 81 mg PO DAILY 04/29/24 04/29/24 History release atorvastatin 40 mg tablet 40 mg PO DAILY 04/29/24 04/29/24 History baclofen 10 mg tablet 10 mg PO DAILY PRN Muscle Spasm 04/29/24 04/29/24 History budesonide-formoterol HFA 160 2 puff inhalation BID 04/29/24 04/29/24 History mcg-4.5 mcg/actuation aerosol inhaler carvedilol 25 mg tablet (Coreg) 37.5 mg PO BID 04/29/24 04/29/24 History duloxetine 30 mg capsule,delayed 30 mg PO DAILY 04/29/24 04/29/24 History release insulin aspart U-100 100 unit/mL 1 sliding scale dose subcut 04/29/24 04/29/24 History (3 mL) subcutaneous pen (Novolog USEASDIRECTD FlexPen U-100 Insulin aspart) insulin glargine 100 unit/mL 60 unit subcut BID 04/29/24 04/29/24 History subcutaneous solution (Lantus U-100 Insulin) ipratropium 0.5 mg-albuterol 3 mg 3 ml inhalation QID 04/29/24 04/29/24 History (2.5 mg base)/3 mL nebulization soln [id number] 1 cap PO QID PRN Indigestion 04/29/24 04/29/24 History 10,000-37,500-33,200 unit capsule,delayed rel losartan 25 mg tablet 25 mg PO DAILY 04/29/24 04/29/24 History metolazone 2.5 mg PO UD 04/29/24 04/29/24 History tamsulosin 0.4 mg capsule (Flomax) 0.4 mg PO DAILY 04/29/24 04/29/24 History torsemide 60 mg PO BID 04/29/24 04/29/24 History warfarin 5 mg tablet 5 mg PO UD 04/29/24 04/29/24 History Patient History Medical History (Updated 04/29/24 @ 15:48 by Tomasz Dowd DO) Morbid obesity with BMI of 45.0-49.9, adult BPH (benign prostatic hyperplasia) Hearing deficit On home oxygen therapy 4L n/c at all times Anticoagulated Anemia of chronic disease Surgical History (Updated 08/02/21 @ 09:10 by Fallon Espinoza RN) History of vascular access device has Aport in place but per pt DOES NOT WORK, needs to be removed History of esophagogastroduodenoscopy (EGD) History of arthroscopy of left knee History of arthroscopy of right knee History of open reduction and internal fixation (ORIF) procedure left hip--hardware in place History of tooth extraction all teeth removed Status post correction of deviated nasal septum History of angioplasty "years and years ago"--no stents History of bronchoscopy History of thoracentesis History of surgery (~10/16/17) thoracoscopy History of splenectomy (~2017) History of partial pancreatectomy (~2017) @ [facility] Family History (Updated 08/02/21 @ 09:00 by Fallon Espinoza RN) Mother Diabetes Breast cancer Other No family history of adverse response to anesthesia Social History Smoking Status: Never smoker Tobacco Type: Cigarettes Second Hand Exposure: No; Do You Dip or Chew Tobacco: Yes (uses nicotine pouches prn); Hx Alcohol Use: No Hx Substance Use: No Preferred Language: Persian Communication Ability: Effective Enterprise Systems Administrator Required: No Beliefs That Will Affect Care: None marital status: Current Living Situation: Spouse Current Living Situation Comment: Lives with and granddaughter, 2 sons and 2 daughter in laws current occupational status: unemployed and disabled Other Information That Helps Us Care for You: No Feels Safe at Home: Yes Safety Concerns: Feels Safe At This Time Assistive Devices: Walker and Wheelchair Review of Systems all negative ROS Physical Exam NA Results & Data Vital Signs (Past 12 Hours) Vital Signs Temp Pulse Pulse Resp BP Pulse Ox O2 Del Method 04/30/24 10:41 36.5 C 72 18 144/65 H 92 Nasal Cannula 04/30/24 08:00 Nasal Cannula 04/30/24 08:00 67 04/30/24 07:27 67 12 90 Nasal Cannula 04/30/24 07:00 36.7 C 66 16 137/77 97 Nasal Cannula 04/30/24 04:29 36.4 C L 70 18 120/64 96 Nasal Cannula O2 Flow Rate 04/30/24 10:41 3 04/30/24 08:00 3 04/30/24 08:00 04/30/24 07:27 3 04/30/24 07:00 3 04/30/24 04:29 3 Laboratory Results 04/29/24 02:12 Aerobic Blood Culture - Preliminary Blood Streptococcus lutetiensis Anaerobic Blood Culture - Preliminary No growth in Anaerobic bottle after 24 hours. 04/29/24 03:30 Aerobic Blood Culture - Preliminary Blood No growth in Aerobic bottle after 24 hours. Anaerobic Blood Culture - Preliminary No growth in Anaerobic bottle after 24 hours. 04/30/24 04/30/24 04/30/24 10:52 07:52 07:34 WBC RBC Hgb Hct MCV MCH MCHC RDW Std Deviation RDW Coeff of Morenita Plt Count MPV PT INR Sodium Potassium Chloride Carbon Dioxide Anion Gap BUN Creatinine Est Cr Clr Drug Dosing eGFR BUN/Creatinine Ratio Glucose POC Glucose 183 H 76 66 L* Estimat Average Glucose Hemoglobin A1c Calcium Urine Opiates Screen Ur Methadone, Qual Urine Fentanyl Screen Urine Barbiturates Ur Phencyclidine (PCP) U Amphetamin/Meth Scrn MDMA (Ecstasy) Screen U Benzodiazepines Scrn Ur Cocaine Metabolite U Marijuana (THC) Screen Streptococcus sp PCR Bld Cult ID Panel PCR 04/30/24 04/30/24 04/30/24 07:12 06:12 06:11 WBC 17.45 H RBC 3.74 L Hgb 11.6 L Hct 34.7 L MCV 92.8 MCH 31.0 MCHC 33.4 RDW Std Deviation 46.5 H RDW Coeff of Morenita 13.6 Plt Count 446 H MPV 10.7 PT 57.5 H INR 6.2 H* Sodium 139 Potassium 3.0 L Chloride 99 Carbon Dioxide 28 Anion Gap 12 H BUN 94 H Creatinine 3.51 H Est Cr Clr Drug Dosing 24.8 eGFR 18.06 BUN/Creatinine Ratio 26.8 H Glucose 49 L* POC Glucose 66 L* Estimat Average Glucose 183 Hemoglobin A1c 8.0 H Calcium 9.1 Urine Opiates Screen Ur Methadone, Qual Urine Fentanyl Screen Urine Barbiturates Ur Phencyclidine (PCP) U Amphetamin/Meth Scrn MDMA (Ecstasy) Screen U Benzodiazepines Scrn Ur Cocaine Metabolite U Marijuana (THC) Screen Streptococcus sp PCR Bld Cult ID Panel PCR 04/29/24 04/29/24 04/29/24 Unknown 20:46 17:35 WBC RBC Hgb Hct MCV MCH MCHC RDW Std Deviation RDW Coeff of Morenita Plt Count MPV PT INR Sodium Potassium Chloride Carbon Dioxide Anion Gap BUN Creatinine Est Cr Clr Drug Dosing eGFR BUN/Creatinine Ratio Glucose POC Glucose 178 H 328 H* Estimat Average Glucose Hemoglobin A1c Calcium Urine Opiates Screen Neg Ur Methadone, Qual Neg Urine Fentanyl Screen Neg Urine Barbiturates Neg Ur Phencyclidine (PCP) Neg U Amphetamin/Meth Scrn Neg MDMA (Ecstasy) Screen Neg U Benzodiazepines Scrn Neg Ur Cocaine Metabolite Neg U Marijuana (THC) Screen Neg Streptococcus sp PCR Bld Cult ID Panel PCR 04/29/24 02:12 WBC RBC Hgb Hct MCV MCH MCHC RDW Std Deviation RDW Coeff of Morenita Plt Count MPV PT INR Sodium Potassium Chloride Carbon Dioxide Anion Gap BUN Creatinine Est Cr Clr Drug Dosing eGFR BUN/Creatinine Ratio Glucose POC Glucose Estimat Average Glucose Hemoglobin A1c Calcium Urine Opiates Screen Ur Methadone, Qual Urine Fentanyl Screen Urine Barbiturates Ur Phencyclidine (PCP) U Amphetamin/Meth Scrn MDMA (Ecstasy) Screen U Benzodiazepines Scrn Ur Cocaine Metabolite U Marijuana (THC) Screen Streptococcus sp PCR DETECTED A Bld Cult ID Panel PCR See PCR Comment Diagnostic Findings Abdomen/Pelvis CT 04/30/24 09:[address] WITHOUT CONTRAST CT DOSE: 1479.25 mGy.cm HISTORY: renal failure, sepsis, cancer TECHNIQUE: Multiaxial CT images of the abdomen and pelvis were performed without contrast. A dose lowering technique was utilized adhering to the principles of ALARA. COMPARISON STUDY: 03/25/2019 and 04/01/2024 FINDINGS: There are coronary artery calcifications. ABDOMEN: Liver, gallbladder, and adrenal glands have an unremarkable non-IV contrast appearance. Stable small likely complex cyst lateral left kidney. Stable calculus inferior right kidney. No hydronephrosis. Stable pancreatectomy. There is progressive stranding and hazy density in the central small bowel mesentery with multiple small lymph nodes, prominent by number. There are mild atherosclerotic calcifications. No abdominal aortic aneurysm. Pelvis: Hussein catheter is present in the urinary bladder is decompressed. P rostate is mildly enlarged. There is moderate retained stool. No bowel inflammation or obstruction. No free fluid or free air. No enlarged adenopathy. Osseous structures: Left femoral gamma nail is partially visualized with old healed proximal left femur fracture. There are mild degenerative changes of the lumbar spine. IMPRESSION: 1. Progressive christine mesentery appearance. Differential diagnosis includes acute mesenteritis and early lymphoma. Suggest follow-up CT in 3-6 months to make sure that this is not progressive. 2. No other adverse change seen. 3. Otherwise as described. ACT 112: Negative or not required by law. The above report was generated using voice recognition software. It may contain grammatical, syntax or spelling errors. Electronically signed by: Jared Max M.D. 04/30/2024 11:36 AM Medications Administered Home Medications Medication Instructions Recorded Confirmed Last Taken albuterol sulfate 90 mcg/actuation 1 puff inhalation QID PRN 04/29/24 04/29/24 Unknown aerosol inhaler Shortness Of Breath Or Wheezing aspirin 81 mg tablet,delayed 81 mg PO DAILY 04/29/24 04/29/24 Unknown release atorvastatin 40 mg tablet 40 mg PO DAILY 04/29/24 04/29/24 Unknown baclofen 10 mg tablet 10 mg PO DAILY PRN Muscle Spasm 04/29/24 04/29/24 Unknown budesonide-formoterol HFA 160 2 puff inhalation BID 04/29/24 04/29/24 Unknown mcg-4.5 mcg/actuation aerosol inhaler carvedilol 25 mg tablet (Coreg) 37.5 mg PO BID 04/29/24 04/29/24 Unknown duloxetine 30 mg capsule,delayed 30 mg PO DAILY 04/29/24 04/29/24 Unknown release insulin aspart U-100 100 unit/mL 1 sliding scale dose subcut 04/29/24 04/29/24 Unknown (3 mL) subcutaneous pen (Novolog USEASDIRECTD FlexPen U-100 Insulin aspart) insulin glargine 100 unit/mL 60 unit subcut BID 04/29/24 04/29/24 Unknown subcutaneous solution (Lantus U-100 Insulin) ipratropium 0.5 mg-albuterol 3 mg 3 ml inhalation QID 04/29/24 04/29/24 Unknown (2.5 mg base)/3 mL nebulization soln [id number] 1 cap PO QID PRN Indigestion 04/29/24 04/29/24 Unknown 10,000-37,500-33,200 unit capsule,delayed rel losartan 25 mg tablet 25 mg PO DAILY 04/29/24 04/29/24 Unknown metolazone 2.5 mg PO UD 04/29/24 04/29/24 Unknown tamsulosin 0.4 mg capsule (Flomax) 0.4 mg PO DAILY 04/29/24 04/29/24 Unknown torsemide 60 mg PO BID 04/29/24 04/29/24 Unknown warfarin 5 mg tablet 5 mg PO UD 04/29/24 04/29/24 Unknown Active Medications Generic Name Dose Route Start Last Admin Trade Name Freq PRN Reason Stop Dose Admin Aspirin 81 mg 04/29/24 09:50 04/30/24 08:13 Aspirin 81 Mg Ectab PO 05/29/24 09:49 81 mg DAILY GWEN Administration Atorvastatin Calcium 40 mg 04/29/24 09:50 04/30/24 08:13 Atorvastatin 40 Mg Tab PO 05/29/24 09:49 40 mg DAILY GWEN Administration Azithromycin 500 mg 04/30/24 09:00 04/30/24 08:13 Azithromycin 250 Mg Tab PO 05/05/24 08:59 500 mg QAM GWEN Administration Carvedilol 37.5 mg 04/29/24 09:50 04/30/24 08:13 Carvedilol 12.5 Mg Tab PO 05/29/24 09:49 37.5 mg BID GWEN Administration Duloxetine HCl 30 mg 04/29/24 09:50 04/30/24 08:13 Duloxetine Hcl 30 Mg Cap PO 05/29/24 09:49 30 mg DAILY GWEN Administration Fluticasone/Vilanterol 1 puffs 04/29/24 10:00 04/30/24 08:13 Fluticasone/Vilanterol 100/25mcg 14 Puffs/Inhaler INH 05/29/24 09:59 1 puffs DAILY GWEN Administration Protocol Cefepime HCl 1,000 mg in 10 mls @ 5 mls/min 04/30/24 06:00 04/30/24 05:28 Maxipime 2000mg IV 05/14/24 05:59 5 mls/min Q12H GWEN Administration Insulin Aspart 0 units 04/29/24 09:50 04/30/24 12:27 Insulin Aspart Per Unit Charge SC 05/29/24 09:49 10 units ACHS GWEN Administration Losartan Potassium 25 mg 04/29/24 09:50 04/29/24 11:50 Losartan Potassium 25 Mg Tab PO 05/29/24 09:49 Not Given DAILY GWEN Metolazone 2.5 mg 04/29/24 10:00 04/29/24 11:51 Metolazone 2.5 Mg Tablet PO 05/29/24 09:59 Not Given MoFr@0900 [facility] Miscellaneous 15 - 30 gm 04/29/24 09:50 04/30/24 07:35 Carbohydrates For Hypoglycemia PO 05/29/24 09:49 15 gm UD PRN Administration Hypoglycemia Protocol Tamsulosin HCl 0.4 mg 04/29/24 09:50 04/30/24 08:13 Tamsulosin Hcl 0.4 Mg Cap PO 05/29/24 09:49 0.4 mg DAILY GWEN Administration Torsemide 60 mg 04/29/24 10:00 04/29/24 11:51 Torsemide 20 Mg Tab PO 05/29/24 09:59 Not Given BID GWEN (3) CAP (community acquired pneumonia) Laterality: right Lung location: lower lobe of lung Qualified Code(s): J18.9 - Pneumonia, unspecified organism
[2024-04-30] MEDS: POTASSIUM CHLORIDE CRTAB 20 MEQ TABCR PO ONE (14:25)
--- NOTE | 2024-04-30 16:17 | Hospitalist Progress Note ---
Date of Service April 30, 2024 Assessment & Plan (1) Severe sepsis with acute organ dysfunction: (2) CAP (community acquired pneumonia): (3) Acute metabolic encephalopathy: (4) Morbid obesity with BMI of 45.0-49.9, adult: (5) Supratherapeutic INR: (6) DM type 2 (diabetes mellitus, type 2): (7) Paroxysmal atrial fibrillation: (8) Acute renal failure superimposed on stage 3 chronic kidney disease: (9) Chronic hypoxic respiratory failure, on home oxygen therapy: (10) Obesity hypoventilation syndrome: (11) Pancreatic cancer: (12) COPD (chronic obstructive pulmonary disease): Plan Patient with severe sepsis and metabolic encephalopathy significantly improved. Strep bacteremia possibly due to pneumonia versus wounds on lower extremity. Reviewed infectious disease recommendations to continue ceftriaxone Eventually converting to oral Augmentin, does not need azithromycin. INR has increased despite holding warfarin, give small dose of vitamin K today and continue to monitor INR Replace oral potassium Nephrology consultation for progressive renal dysfunction. CT of the abdomen for progressive renal dysfunction, source of infection. Patient's leukocytosis and thrombocytosis may be due to his chronic asplenia, will continue to monitor Patient with hypoglycemic episode, most likely due to his diet being different here in the hospital as well as his progressive renal dysfunction he will require less long-acting insulin. Will discontinue long-acting insulin, continue short acting insulin with meals and continue to monitor glucose. Patient on his baseline home oxygen, continue at bedside updated the plan of care Admission and Anticipated Discharge Date Admission Date: April 29, 2024 Subjective Patient's mental status significantly improved this morning. He was awake and texting on his phone. This afternoon at bedside and confirms she is back to his baseline mental status. also in casual conversation mention that patient's WBC is always elevated and that he has had a splenectomy. This is not noted on his past medical history. Physical Exam Physical Exam: Constitutional: Alert, interactive, nontoxic HEENT: Mucous membranes moist. Lungs: Decreased breath sounds, prolonged expiratory phase, no wheezes CV: S1-S2, regular Abdomen: Soft, nontender, nondistended Extremities: No significant edema, some thick eschars/calluses on bilateral lateral feet, few small open areas on distal toe, small skin tear anterior right tibia, some ecchymosis surrounding skin tear, no evidence of significant cellulitis Neuro: No focal deficits Psych: Cooperative, normal mood Results & Data Results & Data Vital Signs (Past 12 Hours) Vital Signs Temp Pulse Pulse Resp BP Pulse Ox O2 Del Method 04/30/24 10:41 36.5 C 72 18 144/65 H 92 Nasal Cannula 04/30/24 08:00 Nasal Cannula 04/30/24 08:00 67 04/30/24 07:27 67 12 90 Nasal Cannula 04/30/24 07:00 36.7 C 66 16 137/77 97 Nasal Cannula 04/30/24 04:29 36.4 C L 70 18 120/64 96 Nasal Cannula O2 Flow Rate 04/30/24 10:41 3 04/30/24 08:00 3 04/30/24 08:00 04/30/24 07:27 3 04/30/24 07:00 3 04/30/24 04:29 3 Laboratory Results [facility] WBC 17.4, stable Hemoglobin 11.6 Platelets 446 INR 6.2 Potassium 3.0 Creatinine 3.5 Glucose has been fluctuating had some hypoglycemic events this morning. Hemoglobin A1c 8.0% Personally reviewed CT of abdomen pelvis images, spleen not evident on my revi ew, not mentioned either way on radiology report. Possibly some mild mesenteric inflammation. Evidence of partial pancreatectomy. (2) CAP (community acquired pneumonia) Laterality: right Lung location: lower lobe of lung Qualified Code(s): J18.9 - Pneumonia, unspecified organism
[2024-04-30] MEDS: cefTRIAXone SODIUM 2,000 MG/50 ML BAG IV SCH (17:29)
[2024-04-30 19:34] VITALS: PULSE 72
[2024-04-30] MEDS: LANTUS PER UNIT CHARGE SQ SCH (20:31)
[2024-04-30] MEDS: ACETAMINOPHEN 325 MG TAB PO PRN (23:38)
[2024-05-01] MEDS: LANTUS PER UNIT CHARGE SC SCH (08:58)
[2024-05-01 09:18] LABS: BUN Creatinine Ratio 25.5 (10-20); Calcium 8.8 mg/dl (8.6-10.3); Creatinine Clr Calc Pharmacy 25.8 ml/min; Potassium 3.4 mmol/L (3.5-5.1)
[2024-05-01 09:24] LABS: Hematocrit (blood only) 31.8 % (42.0-52.0); Hemoglobin 10.5 g/dl (14.0-18.0); Mean Corpuscular Hemoglobin 30.4 pg (25.0-34.0); Mean Corpuscular Volume 92.2 fL (80.0-100.0); Mean Platelet Volume 10.4 fL (9.4-12.4); Platelet Count 423 K/uL (130-400); RDW Coefficient of Variation 13.6 % (11.5-14.5); RDW Standard Deviation 46.4 fL (36.4-46.3); Red Blood Count 3.45 M/uL (4.70-6.10); White Blood Count 13.29 K/ul (4.8-10.8)
[2024-05-01 09:29] LABS: INR 2.6 (0.9-1.1)
--- NOTE | 2024-05-01 11:35 | Nephrology Progress Note ---
Date of Service May 01, 2024 Assessment & Plan Admission and Anticipated Discharge Date Admission Date: April 29, 2024 Subjective Assessment & Plan (1) Acute renal failure superimposed on stage 3 chronic kidney disease: At baseline already has advanced CKD stage 4 almost 5 from long standing DM and other problems. from baseline creat 3.2 it went to 3.5 and today back down to 3.3. so this is mostly CKD. his renal prognosis is poor and will be on dialysis in the coming 6 months to year. Already sees Dr Gonzalez in CKD clinic. Given Acute on Chronic resp failure from Possible pneumonia not surprising to see some rise in creat. Will restart losartan and torsemide home dose. Will hold the metolazone for now kieran given his low K. Give another 40 meq kcl today Avoid nephrotoxic agents--NSAIDs Contrast agents etc. input output charting f/u Dr Gonzalez within next 1-2 weeks. Also would need renal panel on Monday outpt through nephro RN for review by Dr Gonzalez (2) Acute metabolic encephalopathy: Seems better today. he was fully awake alert and was able to give detailed answer to the questions. But can not remember most of the event from yesterday S-feels breathing is better. Also seems baseline mentation now. on 2liters o2 --at home gets 3 liters. Making urine. renal labs back to baseline. Physical Exam Physical Exam: General- Not in acute distress. ENT- oropharynx clear Neck- supple, no JVD. Lungs- clear to auscultation no wheezing or crackles Heart- regular rhythm; no murmur, no gallop. Abdomen- normal bowel sounds, soft, nontender, no distension Extremities- mild pretibial edema present, no erythema seen callus seen on both foots, darkened third right toe nail Neuro- Sleepy but arousable and oriented x 3; PERRL, no facial palsy; no dysarthria; moves extremities Results & Data Vital Signs (Past 12 Hours) Vital Signs Temp Pulse Resp BP Pulse Ox O2 Del Method O2 Flow Rate 05/01/24 08:30 36.3 C L 72 18 121/67 98 Nasal Cannula 2
[2024-05-01] MEDS: POTASSIUM CHLORIDE CRTAB 20 MEQ TABCR PO STA (11:51)
--- NOTE | 2024-05-01 12:34 | Pharmacy Report ---
Pharmacy Glycemic Short Note 2 - Date of Service May 01, 2024 - Glycemic Short BSG Results (Last 24 hours): 04/30/24 04/30/24 04/30/24 14:16 16:15 20:20 Glucose POC Glucose 202 H 105 H 166 H 05/01/24 05/01/24 05/01/24 07:16 07:57 11:41 Glucose 159 H POC Glucose 164 H 231 H OUTPATIENT ANTIDIABETIC REGIMEN: * lantus 60 units bid * novolog sliding scale * A1C: 8.0% (04/30/2024) ASSESSMENT: 05/01 * Ihsan received 45 units of insulin yesterday (25 were basal) * Fasting BSG this AM slightly above goal range, will increase basal by ~20% this AM and add a scale at bedtime if BSGs are above goal range * Post prandials repeatedly spike and then rapidly decrease, suggesting correction factor is too tight and carbohydrate ratio is not sufficient. * He continues to be treated for pneumonia with IV ceftriaxone. 04/30/2024 * [place], Ihsan is a 68 YO M admitted for confusion and with a history of T2DM after pancreatic surgery due to pancreatic cancer about 7 years ago, originally diagnosed T2DM about 25 years ago. Pharmacy has been consulted to assist with glycemic management while inpatient. Patient has since been diagnosed with CAP and bacteremia and is currently receiving cefepime and azithromycin. * Fasting BSG this AM is hypoglycemic. 40 units of Lantus were given ~1000 on 04/29 and another 40 units were given at bedtime. Lantus scheduled for this AM was held due to hypoglycemic episode. Will reduce Lantus dose for tonight. * Novolog was initiated at a correction factor of 15 mg/dL/unit and a carb ratio of 1 unit/5 g CHO. This was tightened to a correction factor of 10 mg/dL/unit and a carb ratio of 1 unit/3 g CHO before being reverted after a hypoglycemic episode this AM. PLAN FOR INPATIENT GLYCEMIC CONTROL: * Hold outpatient oral diabetes medications * Basal insulin * Lantus 30 units SQ daily * Lantus 0-20 units SQ HS based on BSG (see eMAR for additional details) * Bolus insulin * NovoLog per scale ACHS or Q6hrs while NPO * Goal Range: Low 110 mg/dL - High 140 mg/dL * Correction Factor: 20 mg/dL/unit * Nutritional / Prandial insulin per carb ratio of 1 unit per 4 grams CHO consumed
--- NOTE | 2024-05-01 12:59 | Discharge Summary ---
Discharge Summary Date of Service May 01, 2024 Principal Dx & Hospital Course #1 = Principal Diagnosis (1) Severe sepsis with acute organ dysfunction: (2) CAP (community acquired pneumonia): (3) Acute metabolic encephalopathy: (4) Morbid obesity with BMI of 45.0-49.9, adult: (5) Supratherapeutic INR: (6) DM type 2 (diabetes mellitus, type 2): (7) Paroxysmal atrial fibrillation: (8) Acute renal failure superimposed on stage 3 chronic kidney disease: (9) Chronic hypoxic respiratory failure, on home oxygen therapy: (10) Obesity hypoventilation syndrome: (11) Pancreatic cancer: (12) COPD (chronic obstructive pulmonary disease): Plan Patient presents emergency room with acute metabolic encephalopathy most likely due to severe sepsis from community-acquired pneumonia versus mesenteric adenitis versus foot wound and strep bacteremia. Patient was admitted to the hospital. Given broad-spectrum antibiotics. He was evaluated for hypercarbia which did not explain his encephalopathy. With treatment of evidence of infection his encephalopathy improved. 1 of 4 blood cultures grew out strep bacteremia. Infectious disease consultation was obtained recommended continuing ceftriaxone and transition to oral antibiotics after a couple days. During his hospitalization the patient did have some hypoglycemia. Most likely due to the fact that he had some overall progressing renal dysfunction as well as his diet here in the hospital significantly more restrictive than what he is at home which he readily admits to. With adjustments of his long-acting insulin his glucose is stabilized. His mentation returned to baseline. Nephrology consultation was obtained due to his progressive renal dysfunction and the fact that he follows with him outpatient. Overall appears as though his renal dysfunction is progressing due to his diabetes but essentially at his baseline. Did held diuretics for a couple days but can be resumed on discharge. His potassium was replaced prior to discharge. Case management resolved in his care and will resume his home therapies and he will follow-up with his outpatient providers. Additionally during his hospitalization the patient's INR was significantly elevated. Most likely due to his infection. He was given a small dose of vitamin K and this improves his INR. We will discharge him on a lower dose of the warfarin and he will closely monitor his INR as outpatient as he does prior to admission. Notes For Next Care Provider Patient may need additional adjustments of his insulin as he returns to his usual home diet and his infection improves. May also need additional adjustments of his insulin pending his renal function PT/INR on Monday per his usual process, goal INR 2-3 Follow-up with nephrology Medication Changes From Visit Omnicef for infection Warfarin dose decreased Lantus dose decreased Admission HPI Per Admitting Provider 68-year-old male with past medical history significant for type 1 diabetes, diabetic polyneuropathy, CKD stage IV, dyslipidemia, chronic hypoxemic resp iratory failure on 3 L oxygen, secondary hyperparathyroidism of renal origin, obstructive sleep apnea patient has been on CPAP but when his cpap was recalled since then he is not using it as per , COPD, restrictive airway disease, asthma mild intermittent, history of CVA, paroxysmal atrial fibrillation, chronic diastolic CHF, chronic right heart failure, history of pericardial effusion, reflux esophagitis, morbid obesity, BPH, generalized osteoarthritis, glaucoma, anemia of chronic kidney disease, lymphadenopathy, PTSD, depression, general anxiety disorder, history of [place], history of pancreatic cancer status post chemo currently in remission, currently on observation with heme-onc who lives at home was brought in because of confusion and found to have right lower lobe pneumonia. Today morning as per the patient seemed confused, he could not operate the remote. And he was sleeping a lot. and son thought he will wake up but patient continued to sleep. He was answering appropriately but sometimes seemed to be confused per . As he was not getting better he was brought to the hospital. No fevers. No cough. Has chronic back pain. No chest pain. No nausea. No abdominal pain. Normal bowel and bladder movements. Appetite has been down today. No headache. Vision is okay. No runny nose or sore throat. Currently patient is alert and oriented x 3. Somewhat sleepy. Hemodynamics are okay. Patient can ambulate short distance with walker. Mostly wheelchair-bound. Past medical history. As mentioned above Past surgical history. Bone debridement. Skin lesions removal. Right foot debridement. Bilateral cataracts. Tonsillectomy /adenoidectomy. Treatment of left trochanteric femur fracture with intramedullary marlene. Social history. . Quit smoking 2019. Used to drink heavily but stopped currently. No drug use. Family history. Mother had breast cancer. Diabetes. Heart disorder. Father had heart disorder. Admission Exam Per Admitting Provider See H&P Discharge Exam Constitutional: Alert, nontoxic, eager to get home, morbidly obese HEENT: Mucous membranes moist. Lungs: Decreased breath sounds, no rales, no wheezes CV: S1-S2, regular Abdomen: Soft, nontender, nondistended Extremities: No significant edema, chronic foot wounds no evidence of active infection, anterior tibia skin tear healing appropriately Neuro: No focal deficits Psych: Cooperative, normal mood Updated Medication List Medication Instructions Recorded Confirmed Type albuterol sulfate 90 mcg/actuation 1 puff inhalation QID PRN 04/29/24 04/29/24 History aerosol inhaler Shortness Of Breath Or Wheezing aspirin 81 mg tablet,delayed 81 mg PO DAILY 04/29/24 04/29/24 History release atorvastatin 40 mg tablet 40 mg PO DAILY 04/29/24 04/29/24 History baclofen 10 mg tablet 10 mg PO DAILY PRN Muscle Spasm 04/29/24 04/29/24 History budesonide-formoterol HFA 160 2 puff inhalation BID 04/29/24 04/29/24 History mcg-4.5 mcg/actuation aerosol inhaler carvedilol 25 mg tablet (Coreg) 37.5 mg PO BID 04/29/24 04/29/24 History duloxetine 30 mg capsule,delayed 30 mg PO DAILY 04/29/24 04/29/24 History release insulin aspart U-100 100 unit/mL 1 sliding scale dose subcut 04/29/24 04/29/24 History (3 mL) subcutaneous pen (Novolog USEASDIRECTD FlexPen U-100 Insulin aspart) ipratropium 0.5 mg-albuterol 3 mg 3 ml inhalation QID 04/29/24 04/29/24 History (2.5 mg base)/3 mL nebulization soln [id number] 1 cap PO QID PRN Indigestion 04/29/24 04/29/24 History 10,000-37,500-33,200 unit capsule,delayed rel losartan 25 mg tablet 25 mg PO DAILY 04/29/24 04/29/24 History metolazone 2.5 mg PO UD 04/29/24 04/29/24 History tamsulosin 0.4 mg capsule (Flomax) 0.4 mg PO DAILY 04/29/24 04/29/24 History torsemide 60 mg PO BID 04/29/24 04/29/24 History warfarin 5 mg tablet 5 mg PO UD 04/29/24 04/29/24 History cefdinir 300 mg capsule 300 mg PO DAILY 10 days #10 caps 05/01/24 Rx insulin glargine 100 unit/mL 40 unit (0.4 mL) subcut DAILY #10 05/01/24 Rx subcutaneous solution (Lantus mL U-100 Insulin) warfarin 4 mg tablet 4 mg PO DAILY #30 tabs 05/01/24 Rx Hospital Stay Data Consultations 04/29/24 03:35 ED Decision to Admit Stat 04/29/24 17:19 Consult Infectious Diseases Routine 04/30/24 09:02 Consult Nephrology Routine Diagnostic Imagining Performed 04/29/24 02:06 CT head/brain wo con Stat 04/29/24 11:08 CT chest diagnostic wo con Urgent 04/30/24 09:02 CT Abd and Pelvis [CT abd pelvis wo con] Routine Reviewed imaging, laboratory and diagnostic studies. Pertinent findings as below. CT of the abdomen and pelvis showed some possible mild acute mesenteritis. Evidence of his previous pancreatectomy otherwise stable Chest CT showed some multiple small nodules which could represent bronchiolitis WBCs 13.2, significantly improved Hemoglobin 10.5, stable Platelets of 423 Creatinine 3.37 Glucose 231 1 of 4 blood cultures grew strep lutetiensis, no sensitivities performed. INR 2.6, improved from 6.2 Discharge Instructions Given to Patient (Per Discharging Provider) Get PT/INR checked on Monday per usual process Get kidney labs done on Monday or Monday as coordinated through the kidney doctors office Follow-up with the kidney doctor Complete all antibiotics Home Health Attestation I certify that this patient is under my care and that I, or a physicians histology assistant working with me, had a face to-face encounter that meets the home health [id number] encounter requirements with this patient. The encounter with the patient was in whole, or in part, for the following medical condition, which is the primary reason for home health care (list medical condition): I certify that, based on my findings, the following services are medically necessary home health services: My clinical findings support the need for the above services because: Further, I certify that my clinical findings support that this patient is homebound (i.e. absences from home require considerable and taxing effort and are for medical reasons or scientologist services or infrequently or of short duration when for other reasons) because: Certification for Home Health Services: Based on the above findings, I certify that this patient is confined to the home and needs intermittent senior care care, physical therapy and/or speech therapy or continues to need occupational therapy. The patient is under my care, and I have initiated the establishment of the plan of care. This patient will be followed by a physician who will periodically review the plan of care. Total Time Total Time Spent Total Time Spent (In Minutes): 38
[2024-05-01 15:44] VITALS: BP 133/69; TEMP 99; O2SAT 94
[2024-05-01] MEDS: WARFARIN SOD 4 MG TAB PO SCH (16:45)
== END 2024-05-01 17:15 | disposition home health service (06) | DRG 871 ==
LOC: ED 01:43 → EDINP 05:44 → 2S 09:51 → 3N 04-30 18:21